=== PATIENT | female | born 1960 | race Caucasian/White ===

== ENCOUNTER → 2019-02-06 15:39 | Outpatient (CLI) | payer OTHER, SELFPAY ==
--- NOTE | 2019-02-06 15:44 | BI_ITS ---
MAMMOGRAPHY - BILATERAL SCREENING REASON FOR EXAM: Female, 58 years old. Routine annual screening examination. PERTINENT HISTORY: Non-contributory. TECHNIQUE: Digital bilateral breast shahnaz (3D mammographic acquisition) in the CC and MLO projections. 2-D mediolateral oblique (MLO) and craniocaudad (CC) views of both breasts were obtained. CAD: Full Field Digital Mammography with Computer Added Detection was performed. COMPARISON: Comparison is made with prior examination dated April 21, 2015 and February 25, 2014. FINDINGS: Breast Composition: There are scattered areas of fibroglandular density. There are no dominant masses or suspicious calcifications. Stable small benign-appearing bilateral axillary lymph nodes. No other significant abnormalities are identified. There has been no significant change since the prior study. BI/SCREEN MAMM (CAD) W/SHAHNAZ BILAT IMPRESSION: Stable bilateral screening mammogram. Yearly follow-up mammogram recommended. (A) ASSESSMENT CATEGORY: BIRADS Category 2: Benign. A letter regarding these results will be sent to the patient by the facility within 30 days. Approximately 10% of breast cancers are not detected by mammography. A normal mammogram should not delay biopsy of a clinically suspicious abnormality. [id number] Electronically Signed: Danie Gomez, at 9:00 EDT , Service support ,
== END ==
PROVIDERS: Family Provider Family Medicine; PCP Family Medicine; Referring Provider Family Medicine; Visit Provider Family Medicine
DX: Z12.31 Encounter for screening mammogram for malignant neoplasm of breast (principal)
CPT/HCPCS: 77063; 77067

== ENCOUNTER 2019-11-13 23:58 | Emergency (ER) | payer OTHER, SELFPAY ==
[2019-11-13 23:59] VITALS: BP 165/89; PULSE 85; RESP 18; TEMP 36.7; O2SAT 96; BMI 32.9
--- NOTE | 2019-11-14 00:12 | ED.DCSUM_ITS ---
- ER Visit Summary Date of Service: 11/14/19 Chief Complaint: Possible allergic reaction History of Present Illness: The patient is a 59 F who was concerned about a possible allergic reaction. She is on day 2 of a Medrol Dosepak for right knee pain. She was placed on this by her PCP yesterday. She states that last night when she took it her face was red. Tonight when she took it she started feeling like her throat was closing. She had some tongue and lip tingling. She denies any new foods or ingestions today. She took Benadryl about 45 minutes ago and it helped mildly. She denies any shortness of breath. No cough. She has no history of COPD or asthma. Denies fevers. Physical Examination: Vital signs reviewed. HEENT exam unremarkable. There is no tongue or lip swelling. There is no stridor. Her uvula is midline without swelling. Heart is regular rate and rhythm without murmurs. Lungs are clear to auscultation. Abdomen is soft and nontender. Extremities reveal no edema. Skin exam normal. Neurologic exam normal. Test Results: None performed Emergency Department Course and Treatment: Patient was given Benadryl and Pepcid IV. After period of observation she is feeling much better. It is possible that she is having a reaction to the Medrol. I informed her that she should stop taking it. She will continue Benadryl at home and will call her doctor in the morning Treatment Plan: [] Disposition: Discharge Impression: Allergic reaction medication This note was generated with [employer] dictation software. It may contain incorrect words, spelling, and punctuation that were not noted in review of the chart prior to signing ED Disposition - Plan for ED Patient: Disposition: Home or Assisted Living Instructions: ED ADVERSE DRUG REACTION Allergic Referrals: Omi Marie DO [Primary Care Provider] -
[2019-11-14] MEDS: DiphenhydrAMINE 50 MG/ML Syringe 25 MG IV (00:26)
[2019-11-14] MEDS: Famotidine 200 MG/20 ML MDV 20 MG in 0.9% Normal Saline (Pres. free 8 ML 300 MG IV (00:28)
[2019-11-14 01:12] VITALS: BP 156/89; PULSE 82; RESP 18; O2SAT 96
== END 2019-11-14 01:13 | disposition home or self-care (01) ==
PROVIDERS: Emergency Provider Emergency Medicine; PCP Family Medicine
DX: R20.2 Paresthesia of skin (principal); T38.0X5A Adverse effect of glucocorticoids and synthetic analogues, initial encounter; M25.561 Pain in right knee; G47.33 Obstructive sleep apnea (adult) (pediatric); F41.9 Anxiety disorder, unspecified; Z79.899 Other long term (current) drug therapy
CPT/HCPCS: 99284; A4216; J3490

== ENCOUNTER → 2020-10-16 14:47 | Outpatient (CLI) | payer OTHER, SELFPAY ==
--- NOTE | 2020-10-16 14:48 | BI_ITS ---
MAMMOGRAPHY - BILATERAL SCREENING REASON FOR EXAM: Female, 60 years old. Routine annual screening examination. PERTINENT HISTORY: Non-contributory. TECHNIQUE: Digital bilateral breast shahnaz (3D mammographic acquisition) in the CC and MLO projections. 2-D mediolateral oblique (MLO) and craniocaudad (CC) views of both breasts were obtained. CAD: Full Field Digital Mammography with Computer Added Detection was performed. COMPARISON: Comparison is made with prior study 02/06/2019 and 04/21/2015. FINDINGS: Breast Composition: There are scattered areas of fibroglandular density. There are no dominant masses or suspicious calcifications. Stable benign-appearing bilateral axillary lymph nodes. No other significant abnormalities are identified. There has been no significant change since the prior study. BI/SCRN MAMM (CAD)W/SHAHNAZ BILAT IMPRESSION: Stable bilateral screening mammogram. Yearly follow-up mammogram recommended. (A) ASSESSMENT CATEGORY: BIRADS Category 2: Benign. A letter regarding these results will be sent to the patient by the facility within 30 days. Approximately 10% of breast cancers are not detected by mammography. A normal mammogram should not delay biopsy of a clinically suspicious abnormality. [id number] Electronically Signed: Danie Gomez MD at 9:18 EDT , Service support ,
== END ==
PROVIDERS: PCP Family Medicine; Referring Provider Family Medicine; Visit Provider Family Medicine
DX: Z12.31 Encounter for screening mammogram for malignant neoplasm of breast (principal)
CPT/HCPCS: 77063; 77067

== ENCOUNTER 2021-01-04 14:44 | Emergency (ER) | payer OTHER, SELFPAY ==
[2021-01-04 14:45] VITALS: BP 160/114; PULSE 94; RESP 20; TEMP 35.6; O2SAT 97; BMI 50.6
--- NOTE | 2021-01-04 15:23 | EKG12_ITS ---
Test Reason : PALPS Blood Pressure : / mmHG Vent. Rate : 101 BPM Atrial Rate : 101 BPM P-R Int : 188 ms QRS Dur : 086 ms QT Int : 372 ms P-R-T Axes : 058 -29 065 degrees QTc Int : 482 ms Sinus tachycardia Poor R wave progression Confirmed by SAMUEL WHIPPLE, MARGRET ([id number]), aerodynamics teacher CINDA HURTADO ([id number]) on 01/06/2021 10:22:32 AM Referred By: DAVE/BIA Confirmed By:MARGRET BAKER MD
--- NOTE | 2021-01-04 15:42 | RAD_ITS ---
STUDY: X-RAY CHEST REASON FOR EXAM: Female, 60 years old. Increasing shortness of breath and palpitations. TECHNIQUE: PA and lateral views of the chest. COMPARISON: None. FINDINGS: The lungs are clear and expanded. There is no demonstrated pleural abnormality. There is borderline cardiomegaly. Normal mediastinum and kristin. Normal visualized pulmonary arteries. Normal visualized aortic arch and descending thoracic aorta. There are diffuse degenerative changes of the visualized thoracic spine. Normal visualized ribs, clavicles, and shoulders. There is no demonstrated abnormality of the visualized soft tissue structures of the upper abdomen. RAD/Chest PA and Lateral IMPRESSION: Borderline cardiomegaly. Electronically Signed: Danie Gomez MD at 15:54 EDT , Service support ,
[2021-01-04 17:29] VITALS: BP 144/85; PULSE 87; RESP 24; O2SAT 96
--- NOTE | 2021-01-04 17:44 | EDS_ITS ---
HPI History of Present Illness Chief Complaint: Shortness of Breath Informant: patient and spouse/S.O. Onset/Context/Timing Onset: Days (3) Context: gradual Timing: Waxes and wanes Quality: Positive for Dyspnea on exertion Current Severity: Gone (while resting) Maximum Severity: Moderate Worsened by: Exertion and Lying flat Relieved by: Rest Associated Symptoms Negative for cough Chest Pain: Positive for - (substernal heaviness off and on, presently there for about 20 -30 min) Narrative Narrative: Patient having malaise and weakness for the last 3 days along with some palpitations that were more prominent and intermittent today, and dyspnea with exertion. She complains of chest heaviness as an after thought, nonpleur itic. No leg pain or swelling or history of DVT or PE. She states 2 weeks ago, she had a chest x-ray that showed fluid in her lungs and she was sent to [facility], she had some testing and was put on 3 days of Lasix, that seemed to help, she has had a palpitation since before that intermittently, not very frequently according to her. She had an outpatient echocardiogram, saw her doctor in follow-up and was referred to cardiology after being told only that the left atrium had something wrong with it. She has that appointment with cardiology later this week, it is with someone with summa that she has never seen. She states strong family history of heart disease. She was vaccinated against Covid. She has come in the contact with no one that she knows of with Covid recently. She denies fevers or cough or loss of taste or smell or sinus congestion. She cannot tell if she has myalgias or not because she has arthritis and it always bothers her. [facility] Medical History (Updated 01/04/21 @ 21:[address] Santiago Hearn MD) Arthritis Home Medications Albuterol Sulfate HFA 1 puff IH PRN PRN 11/14/19 [History Last Taken Unknown] celecoxib 200 mg PO BID 11/14/19 [History Last Taken Unknown] gabapentin 300 mg PO QHS 11/14/19 [History Last Taken Unknown] venlafaxine 150 mg PO DAILY 11/14/19 [History Last Taken Unknown] furosemide [Lasix] 20 mg PO DAILY #14 tab 01/04/21 [Rx Last Taken Unknown] Allergy/AdvReac Type Severity Reaction Status Date / Time naproxen [From Aleve] Allergy Swelling Verified 01/04/21 14:50 other (Primary relatives with coronary artery disease) Social History Smoking Status: Never smoker ROS ROS ED Constitutional Constitutional ED: Reports fatigue, malaise and weakness; Denies chills or fever(s) Eyes Eyes: Denies change in vision or diplopia ENT ENT ED: Denies rhinorrhea or sore throat Cardiovascular Cardiovascular: Reports as per HPI, chest pain, dyspnea on exertion, orthopnea and palpitations; Denies pedal edema Respiratory/Chest Respiratory/Chest: Reports as per HPI, dyspnea and orthopnea; Denies cough Gastrointestinal Gastrointestinal: Reports diarrhea; Denies abdominal pain, nausea or vomiting Genitourinary Genitourinary ED: Denies dysuria or hematuria Musculoskeletal Musculoskeletal: Reports joint pain; Denies back pain, extremity pain or neck pain Integumentary Denies abscess or rash Neurologic Neurologic: Denies headache(s), paresthesias or weakness Psychiatric Psychiatric: Denies anxiety or suicidal thoughts EXAM Physical Exam Const Vital Signs: 01/04/21 14:45 01/04/21 17:29 01/04/21 17:31 Temperature 96.0 F L Temperature Source Temporal Pulse Rate 94 87 Respiratory Rate 20 H 24 H Respiratory Effort Normal Non-Labored Blood Pressure 160/114 H 144/85 H Blood Pressure Mean 129 104 Pulse Ox 97 96 Oxygen Delivery Method Room Air Room Air 01/04/21 19:06 Temperature Temperature Source Pulse Rate 87 Respiratory Rate 19 H Respiratory Effort Blood Pressure 145/92 H Blood Pressure Mean 109 Pulse Ox 92 Oxygen Delivery Method Positive well nourished and well developed General Appearance ED: well developed and NAD HEENT Reports moist mucous membranes normocephalic and atraumatic Eyes PERRL and EOMs intact bilaterally Neck full ROM and supple Resp normal respiratory effort and clear to auscultation bilaterally Cardio regular rate, regular rhythm and no murmurs GI non-tender and non-distended Auscultation: normoactive bowel sounds Palpation: soft Back/Spine no CVA tenderness General Back: other FROM Extremity normal to inspection General Extremety ED: Negative for edema, pulses abnormal or tenderness General Extremity: Negative for edema or pulses abnormal Neuro oriented x3, CN's II-XII intact bilaterally and no sensory deficits noted Sensorium / Orientation: awake and alert Motor Exam: strength 5/5 throughout Skin no rashes or lesions noted and no wounds MDM MDM MDM Narrative Medical decision making narrative: Work-up as below noted. After discussing with her further she has had the chest pressure/heaviness off and on for 2 weeks. Her EKG and troponin are essentially normal, I do not think she needs another troponin. Her BNP is elevated but not very high, 245, and although her D-dimer is elevated, when corrected for age it is within normal limits for her, thus ruling out acute pulmonary embolus or need for CT angiography. Chest x-ray indicates cardiomegaly but no pulmonary edema or effusions or signs of failure on the x-ray although her symptoms suggest that is in the differential. She would rather follow-up with her floriculture teacher. I tried to discuss with them, however I was not able to get a hold of anyone today. I also try to get her echocardiogram results from [facility]. They told us we would not be able to get them until tomorrow, and I even called the [facility] emergency department and discussed with staff, they state they are not even able to access that information in their own EMR which is [employer]. Unfortunately therefore I have limited data. Since the patient is not having any life-threatening symptoms or issues right now, we mutually agreed to discharge her home with close outpatient follow-up and try her on a diuretic. I gave her a dose of Lasix 20 mg IV here, and will discharge her on 20 mg once daily until she follows up and she is comfortable with that plan we discussed reasons to return. Of note we did a Covid test that was negative. Lab Data Attestation: I reviewed the patient's lab results. Labs: Laboratory Results - last 24 hr 01/04/21 01/04/21 01/04/21 17:25 17:25 17:25 WBC 9.3 RBC 4.81 Hgb 14.1 Hct 44.5 MCV 92.5 MCH 29.3 MCHC 31.7 L RDW Std Deviation 43.9 RDW Coeff of Davion 13.0 Plt Count 325 MPV 10.1 Immature Gran % (Auto) 0.200 Neut % (Auto) 61.1 Lymph % (Auto) 28.2 [place] % (Auto) 8.0 Eos % (Auto) 2.0 Baso % (Auto) 0.5 Absolute Neuts (auto) 5.7 Absolute Lymphs (auto) 2.61 Nucleated RBC % 0 D-Dimer Quant (PE/DVT) Sodium 139 Potassium 3.8 Chloride 103 Carbon Dioxide 28.0 Anion Gap 8 BUN 24 H Creatinine 0.69 Estim Creat Clear Calc 70.29 Est GFR (MDRD) Af Amer 112 Est GFR (MDRD) Non-Af 92 BUN/Creatinine Ratio 34.6 H Glucose 100 Calcium 9.2 Troponin I High Sens 14 B-Natriuretic Peptide 245.2 H 01/04/21 17:55 WBC RBC Hgb Hct MCV MCH MCHC RDW Std Deviation RDW Coeff of Davion Plt Count MPV Immature Gran % (Auto) Neut % (Auto) Lymph % (Auto) [place] % (Auto) Eos % (Auto) Baso % (Auto) Absolute Neuts (auto) Absolute Lymphs (auto) Nucleated RBC % D-Dimer Quant (PE/DVT) 0.52 H* Sodium Potassium Chloride Carbon Dioxide Anion Gap BUN Creatinine Estim Creat Clear Calc Est GFR (MDRD) Af Amer Est GFR (MDRD) Non-Af BUN/Creatinine Ratio Glucose Calcium Troponin I High Sens B-Natriuretic Peptide Radiography Diagnostic Testing: Radiology Impression Chest X-Ray 01/04/21 15:42 IMPRESSION: Borderline cardiomegaly. Electronically Signed: Danie Gomez MD at 15:54 EDT , Service support , EKG Initial EKG: Attestation: I personally reviewed and interpreted this EKG as follows: Interpretation: No Acute Injury Pattern and Sinus Tachycardia (At 101, leftward axis otherwise normal EKG) Prior EKG tracings: not available for review Discharge Plan Triage Chief Complaint: Shortness of Breath ED Provider: Santiago Hearn Dx/Rx/DC Orders Clinical Impression: Chest pain, unspecified, HENDRICKS (dyspnea on exertion) Instructions: ED Chest Pain, Uncertain Cause Prescriptions: New furosemide [Lasix] 20 mg tablet 20 mg PO DAILY Qty: 14 RF: 0 No Action Albuterol Sulfate HFA 1 puff IH PRN PRN (Reason: Shortness Of Breath) RF: 0 celecoxib 200 MG capsule 200 mg PO BID RF: 0 venlafaxine 150 MG capsule,extended release 24hr 150 mg PO DAILY RF: 0 gabapentin 300 MG capsule 300 mg PO QHS RF: 0 Primary Care Provider: Omi Marie Referrals: Kedar Calvert MD [STAFF PHYSICIAN] - (call for appt with any [place] floriculture teacher) Omi Marie, [Primary Care Provider] - Disposition Disposition: Home, Self Care
[2021-01-04] MEDS: Aspirin 81 MG TAB.CHEW 324 MG PO (17:54)
--- NOTE | 2021-01-04 18:00 | ED.RN ---
pt refused nitro sl. states discomfort is mild at a 3 and doesn't want the medication.
[2021-01-04 18:17] LABS: Absolute Lymphocyte Count 2.61 X10^3/uL (0.83-4.51); Absolute Neutrophil Count 5.7 X10^3/uL (2.0-7.7); Basophil# 0.05 X10^3/uL; Basophil% 0.5 % (0-1); Eosinophil# 0.19 X10^3/uL; Hematocrit 44.5 % (37-47); Hemoglobin 14.1 g/dL (12.0-15.0); Lymphocyte # 2.61 X10^3/ul (0.83-4.51); Lymphocyte % 28.2 % (19-41); Mean Corp Hgb Conc 31.7 g/dL (32-36); Mean Corpuscular Hgb 29.3 pg (27.0-32.0); Mean Corpuscular Volume 92.5 fL (81-99); Mean Platelet Vol. 10.1 fl (6.2-12.0); Monocyte# 0.74 X10^3/uL; NRBC Flagged by Analyzer 0 % (0-5); Neutrophil # 5.66 X10^3/uL (2.7-7.7); Neutrophil % 61.1 % (47-70); Platelet Count 325 K/mm3 (150-450); RBC Distribution Width SD 43.9 fl (35.1-43.9); Red Blood Count 4.81 M/mm3 (4.2-5.4); White Blood Count 9.3 K/mm3 (4.4-11.0)
[2021-01-04 18:33] LABS: Anion Gap 8 (5-15); BUN 24 mg/dL (7-18); BUN/Creat Ratio 34.6 RATIO (10-20); Calcium,Total 9.2 mg/dL (8.5-10.1); Chloride 103 mmol/L (98-107); Creatinine, Serum 0.69 mg/dL (0.55-1.02); EST Glomerular Filtration Rate 92 mL/min (>60); Est Glom Filt Rate - Afr Amer 112 mL/min (>60); Estimated Creatinine Clearance 70.29 ml/min; Glucose 100 mg/dL (74-106); Potassium 3.8 mmol/L (3.5-5.1); Sodium Level 139 mmol/L (136-145); Troponin-I HS 14 pg/mL (3.0-54.0)
[2021-01-04 18:38] LABS: BNP,B-Type NATRIURETIC PEPTIDE 245.2 pg/mL (0-100)
[2021-01-04] MEDS: 0.9% Normal Saline 1,000 ML 150 ML IV (18:48)
[2021-01-04 18:54] LABS: D-Dimer Quantitative (DVT/PE) 0.52 FEU/ug/m (0.27-0.49)
[2021-01-04 19:06] VITALS: BP 145/92; PULSE 87; RESP 19; O2SAT 92
[2021-01-04] MEDS: Furosemide 20 MG/2 ML VIAL IV (21:07)
[2021-01-04 21:11] VITALS: BP 145/100; PULSE 79; RESP 16; O2SAT 96
== END 2021-01-04 21:11 | disposition home or self-care (01) ==
PROVIDERS: Emergency Provider Emergency Medicine; PCP Family Medicine
DX: R06.02 Shortness of breath (principal); R06.09 Other forms of dyspnea; R00.2 Palpitations; R53.1 Weakness; R53.81 Other malaise; R07.89 Other chest pain; M19.90 Unspecified osteoarthritis, unspecified site; Z79.899 Other long term (current) drug therapy
CPT/HCPCS: 71046; 80048; 83880; 84484; 85025; 85379; 87426; 93005; 99284; J7030; J1940

== ENCOUNTER → 2021-02-19 11:48 | Outpatient (CLI) | payer OTHER, SELFPAY ==
[2021-02-24 13:26] LABS: HPV APTIMA, High Risk Negative (Negative)
== END ==
PROVIDERS: PCP Family Medicine; Visit Provider Student in an Organized Health Care Education/Training Program
DX: Z12.4 Encounter for screening for malignant neoplasm of cervix (principal)
CPT/HCPCS: 87624; 88175; G0145

== ENCOUNTER 2021-11-09 07:48 | Outpatient (RCR) | payer OTHER, SELFPAY | END 2021-11-21 23:59 | LOC: NS 07:48 | PROVIDERS: PCP Family Medicine; Referring Provider Specialist; Visit Provider Specialist | DX: Z71.3 Dietary counseling and surveillance (principal); E66.01 Morbid (severe) obesity due to excess calories; Z68.43 Body mass index [BMI] 50.0-59.9, adult; M17.11 Unilateral primary osteoarthritis, right knee | CPT/HCPCS: 97802 ==

== ENCOUNTER 2021-12-13 09:00 | Outpatient (RCR) | payer OTHER, SELFPAY | END 2021-12-22 23:59 | LOC: NS 09:00 | PROVIDERS: PCP Family Medicine; Referring Provider Specialist; Visit Provider Specialist | DX: Z71.3 Dietary counseling and surveillance (principal); E66.01 Morbid (severe) obesity due to excess calories; Z68.43 Body mass index [BMI] 50.0-59.9, adult; M17.11 Unilateral primary osteoarthritis, right knee | CPT/HCPCS: 97803 ==

== ENCOUNTER 2022-01-07 09:30 | Outpatient (RCR) | payer OTHER, SELFPAY ==
--- NOTE | 2021-10-21 17:21 | HP.PTDCS(3) ---
It has been my pleasure to treat RUBENS TIRADO referred by Dr. Jose Nagel MD, with the diagnosis of for a total of visit(s). Discharge Date: Please see the following information for a summary of their discharge status. If there are questions or concerns regarding this patient's physical therapy, please feel free to call me at [phone]. Thank you for the referral of this patient. Sincerely, Jefry Springer PT, Cert MDT, OCS
--- NOTE | 2021-10-21 17:24 | HP.PTEVAL ---
Patient's Visit Information RUBENS TIRADO is a 61 year old F referred to Physical Therapy by Dr. Jose Nagel MD with a diagnosis of UNILTAERAL PRIMARY OSTEOARHRITIS ,RIGHT KNEE. Date of Evaluation: 10/21/21 Physical Therapist: Jefry Springer, PT, Cert MDT, OCS - Visit Plan Frequency: 2x /Week Duration: 4 Weeks Plan: PT INTERVETIONS AROM KNEE ,FLEXABILITY ,STRENGTHENING QUADS/HAMS/HIP,ENDURANCE AND FUNCTIONAL STRENGTHNEING - Subjective This 61 y/o female presents to physical therapy with right knee pain. Patient has had knee pain ~ 3 years ago which progressively worse with pain and knee locks up. Seen DR gerry chiropractor did x-rays showed DJD tried and tried synvic gel injections which helped short period time. Patient seen orthopedic DR Ryan. 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 Patient has been diagnosed with CHF . Patient pain located medial knee joint. Described as sharp pain with walking and ache . Patient does use cane with gait . Aggravating factors walking immediately ,standing ,stairs. Unable to squat /kneeling. 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 Patient C/O legs paranesthesia/tingling . Patient pain affects sleeping. SOCAIL: . VOCATION: [employer] - Pain Right Knee Pain Intensity (Out of 10): 4 Pain Intensity Range: 10 - Objective POSTURE: mild forward posture ,right knee flexed. NEURO: c/o paresthesia/tingling feet/legs ,reflexes L3-4,L4-5,L5-S1 2/3. PALPATION: medial joint line. GAIT: reciprocal pattern with antalgic gait with decrease stance time RLE. AROM: R -20 -102 degrees supine flexion ,L -10 135 degrees. MMT ( [employer]) : quads 24.7 ,hamstrings 23 .9,hipm 4-/5. STAIRS: one step time - Balance/Special Test Scores Lower Extremity Functional Score: 30 - Goals Goal 1:: Patient to be I with Aquatics for knee Goal Time Frame: 4-6 Weeks Goal 2:: Patient to demonstrate 40% improved with function and decrease knee pain Goal Time Frame: 4-6 Weeks Goal 3:: Patient to improve AROM knee flexion/extension by 5 -10 degrees or > to improve stairs Goal Time Frame: 4-6 Weeks Goal 4:: Patient to improve peak force quads/hams by 5-10 to improve function with gait Goal Time Frame: 4-6 Weeks Goal 5:: Patient to improve LFES score by 5 -10 points to improve gait and function Goal Time Frame: 4-6 Weeks - Rehabilitation Potential Physical Therapy Diagnosis: Patient has right knee pain due to progressive DJD needs high BMI per MD thus will need to decrease and long with PT will do why weight program per MD . Patient has current impairments with increase pain ,decrease ROM ,strength impairs walking, standing and job demands. thus will need skilled PT . Rehabilitation Potential: Good - Anticipated Interventions Patient/Client Instruction: Educate patient on: Condition, Plan of Care For the Purpose of:: To decrease pain, To increase ROM, To improve muscle performance and motor function, To improve ability to perform ADL's, To increase tolerance to activity/condition/position, To improve performance and independence with ADL's, To improve ability of physical actions for home/community/work/leisure, To improve health of tissue, To decrease soft tissue restriction, To increase flexibility/ROM, To prevent re-injury Therapeutic Exercise to Include: Strength training, Postural training, Flexibilty training, In an aquatic setting, Passive ROM, Active ROM For the Purpose of:: To decrease pain, To increase ROM, To improve muscle performance and motor function, To improve ability to perform ADL's, To increase tolerance to activity/condition/position, To improve ability of physical actions for home/community/work/leisure, To improve gait and locomotor functions, To improve health of tissue, To decrease soft tissue restriction, To increase flexibility/ROM, To improve endurance, To prevent re-injury Thank you for the opportunity to evaluate your patient. For Medicare and Medicare HMO plans, please review the plan of care and approve it. It will need to be FAXED BACK to us at [phone] for Medicare purposes. For Medicare only, by signing this I certify the plan of care. Please let me know if there are questions or concerns regarding this plan of care. Physician Signature: Date:
--- NOTE | 2022-01-10 10:27 | HP.OTEVAL_ITS ---
Patient's Visit Information RUBENS TIRADO is a 61 year old F, referred to Occupational Therapy by Dr. Jose Nagel MD, with a diagnosis of Trigger finger/ contracture of right MF PIP joint. Date of Evaluation: 01/07/22 Occupational Therapist: Molly Henderson, OTR/Nancy, CHT - Subjective This 61 year old female was seen for OT eval with dx of right trigger finger and s/p right MF trigger finger release- sx date 12/17/21. pt states she was told during her procedure the did manipulate her finger to gain more PIP ROM as she had issues for years. 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 - Pain right MF 2 Pain Intensity Range: 3 - ROM MP: right MF 0/50 PIP: right -30/110 ROM Comments: pt demo with limited ability to fully extend PIP - Strength Simulation Technician: right 15# left 40# Strength Comments: pt demo with multiple OA deformities of bilateral hands - Edema PIP: right MF7.0 left 6.5 - Sensation Sensation Comments: denies - Quick DASH-Disab of Arm,Shoulder& Hand Quick DASH Score: 23.3325 - Goals Goal:100% adherence to protocol: Yes Comment: trigger finger release Goal:Daily scar massage when approriate: Yes Goal:ROM equal to unaffected hand: Yes Goal:Simulation Technician/Pinch strength at least 75% of unaffected hand: Yes Goal:No pain with affected hand use: Yes Goal:PIP Circumferences equal to unaffected hand: Yes Goal:Full use of affected hand in daily activities including: Yes Goal:Decrease scar hypersensitivity: Yes Other Goal: WBAT & strengthening as pain allows. use of LMB for right MF PIP flexion contracture. dynamic splinting as needed. edema control. scar mtg. - Rehabilitation General Assessment: pt arrives to OT session 3 weeks s/p from trigger finger release and demo with limited ability to extend MF PIP to fully straighten her hand- pt demo with scar hyper sensitivity as well as weakness. Pt would benefit from skilled OT services 1-2x week for next 4 weeks to increase strength- ed. on dx, ed. pt on adaptive eq. for OA deformities as well as use of LMB to increase PIP ex. pt demo understanding and agrees to POC. Rehabilitation Potential: Good - Anticipated Interventions A/AAROM/PROM, Strengthening, Scar Care, Triggerpoint Release, Desensitization, Modalities, Orthoses, Joint Protection/Energy Conservation, Ergonomic Education, Fine Motor Coord/Magnus, Education re assistive Equipment, Education re Diagnosis - Visit Plan Frequency: 1-2x /Week Duration: 6 Weeks TEXT: Thank you for the opportunity to evaluate your patient. For Medicare and Medicare HMO plans, please review the plan of care and approve it. It will need to be FAXED BACK to us at [phone] for Medicare purposes. Please let me know if there are questions or concerns regarding this plan of care. Physician Signature: Date:_
--- NOTE | 2022-03-30 11:38 | HP.OT.NRP ---
RUBENS TIRADO was seen in my office for initial evaluation on 01/07/22. The following Plan of Care was established for this patient: Initial Frequency: 1-2x /Week Initial Duration: 6 Weeks Anticipated Interventions: A/AAROM/PROM, Strengthening, Scar Care, Triggerpoint Release, Desensitization, Modalities, Orthoses, Joint Protection/Energy Conservation, Ergonomic Education, Fine Motor Coord/Magnus, Education re assistive Equipment, Education re Diagnosis This patient was last seen in our office 01/07/22. Pertinent comments regarding their Occupational therapy will appear below: Pt was seen for OT eval only. No further apts scheduled and due to time lapse in services pt d.c at this time. At this point I will be discontinuing this patient from occupational therapy. I would be happy to see this patient again in the future if found appropriate by the physician. Thank you! Molly Henderson, OTR/L, CHT
== END 2022-01-07 19:00 | disposition home or self-care (01) ==
LOC: OT 09:30
PROVIDERS: PCP Family Medicine; Referring Provider Specialist; Visit Provider Specialist
DX: M17.11 Unilateral primary osteoarthritis, right knee (principal); E66.01 Morbid (severe) obesity due to excess calories; Z68.43 Body mass index [BMI] 50.0-59.9, adult
CPT/HCPCS: 97035; 97113; 97162; 97166; 97530

== ENCOUNTER 2022-01-11 09:01 | Outpatient (RCR) | payer OTHER, SELFPAY | END 2022-01-21 23:59 | LOC: NS 09:01 | PROVIDERS: PCP Family Medicine; Referring Provider Specialist; Visit Provider Specialist | DX: Z71.3 Dietary counseling and surveillance (principal); E66.01 Morbid (severe) obesity due to excess calories; Z68.43 Body mass index [BMI] 50.0-59.9, adult; M17.11 Unilateral primary osteoarthritis, right knee | CPT/HCPCS: 97803 ==

== ENCOUNTER → 2022-02-18 | Outpatient (CLI) | payer OTHER, SELFPAY ==
--- NOTE | 2022-02-18 08:13 | BI_ITS ---
MAMMOGRAPHY - BILATERAL SCREENING REASON FOR EXAM: Female, 61 years old. Routine annual screening examination. PERTINENT HISTORY: Non-contributory. TECHNIQUE: Digital bilateral breast shahnaz (3D mammographic acquisition) in the CC and MLO projections. 2-D mediolateral oblique (MLO) and craniocaudad (CC) views of both breasts were obtained. CAD: Full Field Digital Mammography with Computer Added Detection was performed. COMPARISON: Comparison is made with prior study in 2020 and 02/06/2019. FINDINGS: Breast Composition: There are scattered areas of fibroglandular density. There are no dominant masses or suspicious calcifications. Stable small benign-appearing bilateral axillary lymph nodes. No other significant abnormalities are identified. There has been no significant change since the prior study. BI/SCRN MAMM (CAD)W/SHAHNAZ BILAT IMPRESSION: Stable bilateral screening mammogram. Yearly follow-up mammogram recommended. (A) ASSESSMENT CATEGORY: BIRADS Category 2: Benign. A letter regarding these results will be sent to the patient by the facility within 30 days. Approximately 10% of breast cancers are not detected by mammography. A normal mammogram should not delay biopsy of a clinically suspicious abnormality. [id number] Electronically Signed: Danie Gomez MD at 9:56 EDT ,
== END | disposition home or self-care (01) ==
LOC: OPBI 08:12
PROVIDERS: PCP Family Medicine; Referring Provider Family Medicine; Visit Provider Family Medicine
DX: Z12.31 Encounter for screening mammogram for malignant neoplasm of breast (principal)
CPT/HCPCS: 77063; 77067

== ENCOUNTER 2022-02-21 08:39 | Outpatient (RCR) | payer OTHER, SELFPAY | END 2022-02-21 23:59 | LOC: NS 08:39 | PROVIDERS: PCP Family Medicine; Referring Provider Specialist; Visit Provider Specialist | DX: Z71.3 Dietary counseling and surveillance (principal); E66.01 Morbid (severe) obesity due to excess calories; Z68.43 Body mass index [BMI] 50.0-59.9, adult; M17.11 Unilateral primary osteoarthritis, right knee | CPT/HCPCS: 97803 ==

== ENCOUNTER 2022-03-28 08:51 | Outpatient (RCR) | payer OTHER, SELFPAY | END 2022-04-23 23:59 | LOC: NS 08:51 | PROVIDERS: PCP Family Medicine; Visit Provider Specialist | DX: Z71.3 Dietary counseling and surveillance (principal); E66.01 Morbid (severe) obesity due to excess calories | CPT/HCPCS: 97803 ==

== ENCOUNTER 2022-05-02 08:51 | Outpatient (RCR) | payer OTHER, SELFPAY | END 2022-05-24 23:59 | LOC: NS 08:51 | PROVIDERS: PCP Family Medicine; Visit Provider Specialist | DX: Z71.3 Dietary counseling and surveillance (principal); E66.01 Morbid (severe) obesity due to excess calories; Z68.43 Body mass index [BMI] 50.0-59.9, adult | CPT/HCPCS: 97803 ==

== ENCOUNTER 2023-04-14 17:33 | Emergency (ER) | payer OTHER, SELFPAY ==
[2023-04-14 17:34] VITALS: BP 184/101; PULSE 95; RESP 17; TEMP 36.4; O2SAT 97; BMI 56.1
--- NOTE | 2023-04-14 17:50 | EKG12_ITS ---
Test Reason : CP Blood Pressure : / mmHG Vent. Rate : 077 BPM Atrial Rate : 077 BPM P-R Int : 176 ms QRS Dur : 080 ms QT Int : 394 ms P-R-T Axes : 035 -41 034 degrees QTc Int : 445 ms Normal sinus rhythm Left axis deviation Low voltage QRS Inferior infarct , age undetermined Abnormal ECG Confirmed by NATI WHIPPLE, LATONIA ([id number]), scientific publications editor YARITZA SANCHEZ ([id number]) on 04/25/2023 8:46:48 AM Referred By: GABBIE Confirmed By:LATONIA DAMIAN MD
--- NOTE | 2023-04-14 17:50 | ED.VIS.CHEST ---
HPI History of Present Illness Chief Complaint: Chest Pain Informant: patient Onset/Context/Timing Onset: Yesterday Timing: Waxes and wanes Quality: Positive for Heaviness Narrative Narrative: Patient presents secondary to chest and back pain along with cough and congestion. She states her symptoms started yesterday. She has a heavy sensation across her chest that wraps around to her back near the shoulder blades. She is coughing some and bringing up occasional sputum. No fever noted. She went to urgent care today thinking she may have a sinus infection and given her chest pain was sent to the emergency room. Patient states she does have a history of congestive heart failure and takes furosemide when she remembers to. She does have a family history of heart disease as well. [facility] Medical History Arthritis Fatty liver Heart disease Hyperparathyroidism Hypertension Home Medications Albuterol Sulfate HFA 1 puff IH PRN PRN Shortness Of Breath 11/14/19 [History Last Taken Unknown] celecoxib 200 mg capsule 200 mg PO BID 11/14/19 [History Last Taken Unknown] gabapentin 300 mg capsule 300 mg PO QHS 11/14/19 [History Last Taken Unknown] venlafaxine 150 mg capsule,extended release 24 hr 150 mg PO DAILY 11/14/19 [History Last Taken Unknown] furosemide 20 mg tablet (Lasix) 20 mg PO DAILY #14 tabs 01/04/21 [Rx Last Taken Unknown] nirmatrelvir 300 mg (150 mg x2)-ritonavir 100 mg tablet,dose pack (Paxlovid) See Rx Instructions PO .COMPLEX #30 tabs 10/19/21 [Rx Last Taken Unknown] Allergy/AdvReac Type Severity Reaction Status Date / Time naproxen [From Aleve] Allergy Swelling Verified 10/26/21 12:20 Family History Other Arthritis Diabetes Heart disease Hypertension Surgical History H/O tubal ligation S/P removal of thyroid nodule Social History Smoking Status: Never smoker alcohol intake: never ROS ROS ED Constitutional Constitutional ED: Denies chills or fever(s) Eyes Eyes: Denies change in vision or discharge from eye(s) ENT ENT ED: Denies discharge from eye(s), rhinorrhea or sore throat Cardiovascular Cardiovascular: Reports chest pain; Denies palpitations Respiratory/Chest Respiratory/Chest: Reports cough and dyspnea Gastrointestinal Gastrointestinal: Denies abdominal pain, diarrhea, nausea or vomiting Genitourinary Genitourinary ED: Denies dysuria Musculoskeletal Musculoskeletal: Reports back pain; Denies extremity pain Integumentary Denies Abrasions or rash Neurologic Neurologic: Denies headache(s) or weakness Psychiatric Psychiatric: Denies anxiety or depression Endocrine Endocrinology: Denies polydipsia or polyuria Allergic/Immunologic Allergic/Immunologic ED: Denies lip swelling or urticaria EXAM Physical Exam Const Vital Signs: 04/14/23 17:34 04/14/23 18:05 04/14/23 19:25 Temperature 97.6 F L Temperature Source Temporal Pulse Rate 95 82 Respiratory Rate 17 23 H Blood Pressure 184/101 H 124/65 H Blood Pressure Mean 128 84 Pulse Ox 97 92 93 Oxygen Delivery Method Room Air Room Air Room Air Positive well nourished and well developed General Appearance ED: well developed HEENT Reports moist mucous membranes Eyes EOMs intact bilaterally Chest Wall inspection of chest normal and palpation of chest normal Resp normal respiratory effort and clear to auscultation bilaterally Cardio regular rate and regular rhythm GI soft to palpation Extremity normal to inspection Neuro oriented x3 Sensorium / Orientation: awake and alert Psych mental status grossly normal Skin no rashes or lesions noted Heart Score History: Slightly/Non-Suspicious ECG: Normal Age: >45 - <65 years Risk Factors: 1 or 2 Risk Factors Troponin: </= Normal Limit Score: 2 MDM MDM MDM Narrative Medical decision making narrative: Patient placed on cigarette maker. IV line established. Patient given aspirin. Labwork obtained to evaluate for leukocytosis, anemia, and electrolyte derangement. EKG obtained to evaluate for cardiac arrhythmia/ischemia. Chest x-ray obtained to evaluate for acute lung pathology, cardiac size, or mediastinal abnormality. Swab for COVID and influenza obtained given her cough. History & Record Review Discussion w/independent historian: Patient and Significant other Additional record(s) reviewed:: Prior ED visit and Prior labs Lab Data Attestation: I reviewed the patient's lab results. Labs: Laboratory Results - last 24 hr 04/14/23 17:57 WBC 9.2 RBC 4.81 Hgb 14.5 Hct 45.1 MCV 93.8 MCH 30.1 MCHC 32.2 RDW Std Deviation 44.3 H RDW Coeff of Davoin 12.8 Plt Count 305 MPV 9.4 Immature Gran % (Auto) 0.400 Neut % (Auto) 60.9 Lymph % (Auto) 29.4 [place] % (Auto) 6.8 Eos % (Auto) 1.6 Baso % (Auto) 0.9 Absolute Neuts (auto) 5.6 Absolute Lymphs (auto) 2.71 Nucleated RBC % 0 D-Dimer Quant (PE/DVT) 0.83 H* Sodium 141 Potassium 3.6 Chloride 106 Carbon Dioxide 32.0 Anion Gap 3 L BUN 16 Creatinine 0.84 Estim Creat Clear Calc 56.33 Est GFR (MDRD) Af Amer 88 Est GFR (MDRD) Non-Af 73 BUN/Creatinine Ratio 19.0 Glucose 107 H Calcium 8.9 Troponin I High Sens 7 Radiography Chest X-Ray - ED: 1 View, Read by ED Physician, Chronic Changes and No Infiltrates Diagnostic Testing: Clinical Impression(s) from Imaging Studies Chest X-Ray 04/14/23 18:08 IMPRESSION: No acute findings in the chest. Electronically Signed: Dante Valdes MD at 18:26 EST , Chest CTA 04/14/23 19:33 IMPRESSION: No acute findings in the visualized arteries of the chest. AIDOC program was used to assist in the detection of abnormal findings. Electronically Signed: Dante Valdes MD at 20:51 EST , EKG Initial EKG: Attestation: I personally reviewed and interpreted this EKG as follows: Interpretation: Sinus Rhythm (Sinus at 77 with no acute ischemia.) Treatment and Re-Evaluation :: CBC reveals normal white count at 9.2 with a hemoglobin of 14.5. No left shift noted. Chemistry studies unremarkable. Troponin is normal at 7. D-dimer is elevated at 0.83. Swab for COVID and influenza is negative. Portable chest x-ray per my interpretation reveals no focal infiltrate. Radiology interpretation reviewed and agrees. EKG is sinus rhythm with no evidence of ischemia. Given the patient's elevated D-dimer she was sent for a CTA of the chest. This reveals no evidence of infiltrate, pulmonary embolism, or dissection. Test results discussed with patient and spouse at bedside. She will continue supportive care. I believe she likely has a viral URI. Return instructions given. Discharge Plan Triage Chief Complaint: Chest Pain ED Provider: Laura Rolon Dx/Rx/DC Orders Clinical Impression: Viral URI with cough, Back pain, Chest pain Instructions: ED Chest Pain, Noncardiac, ED Back and Neck Pain, General, ED URI, Viral, No Abx (Adult) Prescriptions: No Action Paxlovid 300 mg (150 mg x 2)-100 mg tablet See Rx Instructions PO .COMPLEX Qty: 30 0RF Rx Instructions: take TWO 150 mg tablets of nirmatrelvir with ONE 100 mg tablet of ritonavir twice daily for 5 days PO Albuterol Sulfate HFA 1 puff IH PRN PRN (Reason: Shortness Of Breath) celecoxib 200 MG capsule 200 mg PO BID venlafaxine 150 MG capsule,extended release 24hr 150 mg PO DAILY gabapentin 300 MG capsule 300 mg PO QHS furosemide [Lasix] 20 mg tablet 20 mg PO DAILY Qty: 14 0RF Primary Care Provider: Omi Marie Referrals: Omi Marie, DO [Primary Care Provider] - 1 Week if not improving Disposition Disposition: Home, Self Care
[2023-04-14 18:05] VITALS: O2SAT 92
[2023-04-14 18:06] LABS: Absolute Lymphocyte Count 2.71 X10^3/uL (0.83-4.51); Absolute Neutrophil Count 5.6 X10^3/uL (2.0-7.7); Basophil# 0.08 X10^3/uL; Basophil% 0.9 % (0-1); Eosinophil# 0.15 X10^3/uL; Eosinophils% 1.6 % (0-5); Hematocrit 45.1 % (37-47); Hemoglobin 14.5 g/dL (12.0-15.0); Lymphocyte # 2.71 X10^3/ul (0.83-4.51); Lymphocyte % 29.4 % (19-41); Mean Corp Hgb Conc 32.2 g/dL (32-36); Mean Corpuscular Hgb 30.1 pg (27.0-32.0); Mean Corpuscular Volume 93.8 fL (81-99); Mean Platelet Vol. 9.4 fl (6.2-12.0); Monocyte# 0.63 X10^3/uL; Monocyte% 6.8 % (0-10); NRBC Flagged by Analyzer 0 % (0-5); Neutrophil # 5.62 X10^3/uL (2.7-7.7); Neutrophil % 60.9 % (47-70); Platelet Count 305 K/mm3 (150-450); RBC Distribution Width CV 12.8 % (11.6-14.6); RBC Distribution Width SD 44.3 fl (35.1-43.9); Red Blood Count 4.81 M/mm3 (4.2-5.4); White Blood Count 9.2 K/mm3 (4.4-11.0)
--- NOTE | 2023-04-14 18:08 | RAD_ITS ---
EXAM: XR CHEST, 1 VIEW CLINICAL INDICATION: chest pain TECHNIQUE: Frontal view of the chest. COMPARISON: January 04, 2021 FINDINGS: LUNGS AND PLEURAL SPACES: Unremarkable. No consolidation or edema. No pneumothorax. No effusion. HEART: Unremarkable. Cardiac silhouette not enlarged. MEDIASTINUM: Central airways and mediastinal contour are unremarkable. BONES/JOINTS: Degenerative changes of the acromioclavicular joints and spine. No acute fracture. SOFT TISSUES: Unremarkable. RAD/Chest 1 View (Portable) IMPRESSION: No acute findings in the chest. Electronically Signed: Dante Valdes MD at 18:26 EST ,
[2023-04-14] MEDS: Aspirin 81 MG TAB.CHEW 324 MG PO (18:09)
[2023-04-14 18:30] LABS: D-Dimer Quantitative (DVT/PE) 0.83 FEU/ug/m (0.27-0.49)
--- NOTE | 2023-04-14 18:32 | ED.RN ---
dr. stacy notified of d-dimer0.83
[2023-04-14 18:36] LABS: Anion Gap 3 (5-15); BUN 16 mg/dL (7-18); Calcium,Total 8.9 mg/dL (8.5-10.1); Chloride 106 mmol/L (98-107); Creatinine, Serum 0.84 mg/dL (0.55-1.02); EST Glomerular Filtration Rate 73 mL/min (>60); Est Glom Filt Rate - Afr Amer 88 mL/min (>60); Estimated Creatinine Clearance 56.33 ml/min; Glucose 107 mg/dL (74-106); Potassium 3.6 mmol/L (3.5-5.1); Sodium Level 141 mmol/L (136-145); Troponin-I HS 7 pg/mL (3.0-54.0)
[2023-04-14 19:25] VITALS: BP 124/65; PULSE 82; RESP 23; O2SAT 93
--- NOTE | 2023-04-14 19:33 | CT_ITS ---
EXAM: CT ANGIOGRAPHY CHEST WITHOUT AND WITH INTRAVENOUS CONTRAST CLINICAL INDICATION: cp, sob, elevated d-dimer TECHNIQUE: Helically acquired angiography images were obtained of the chest without and with intravenous contrast. CTDIvol = ( 21.43 ) mGy, DLP = ( 698.00 ) mGycm This CT exam was performed using one or more of the following dose reduction techniques: automated exposure control, adjustment of the mA and/or kV according to patient size, and/or use of iterative reconstruction technique. MIP reconstructed images were created and reviewed. CONTRAST: IV 100mL Isovue-370 COMPARISON: No relevant prior studies available. FINDINGS: PULMONARY ARTERIES: Unremarkable. Normal in caliber. No evidence of pulmonary embolism. AORTA: Unremarkable. Normal in caliber. No evidence of dissection. GREAT VESSELS OF AORTIC ARCH: Unremarkable. Normal in caliber. No evidence of dissection. LUNGS AND PLEURAL SPACES: Mild subsegmental atelectasis at the posterior aspect of left lower lobe. No mass. No consolidation or edema. No pleural effusion or thickening. No pneumothorax. HEART: Unremarkable. Heart size is normal. No pericardial effusion. No significant coronary artery calcifications. MEDIASTINUM: Unremarkable. No mediastinal or hilar adenopathy. Esophagus is unremarkable. No hiatal hernia. THYROID: Unremarkable. No thyroid lesions. BONES/JOINTS: Degenerative changes of the spine. No suspicious lytic or blastic abnormality. CT/CTA Chest W/WO Contrast IMPRESSION: No acute findings in the visualized arteries of the chest. AIDOC program was used to assist in the detection of abnormal findings. Electronically Signed: Dante Valdes MD at 20:51 EST ,
[2023-04-14 21:14] VITALS: BP 130/82; PULSE 79; RESP 20; O2SAT 99
== END 2023-04-14 21:18 | disposition home or self-care (01) ==
PROVIDERS: Emergency Provider Emergency Medicine; PCP Family Medicine; Visit Provider Emergency Medicine
DX: J06.9 Acute upper respiratory infection, unspecified (principal); R05.9 Cough, unspecified; M54.9 Dorsalgia, unspecified; R07.9 Chest pain, unspecified; K76.0 Fatty (change of) liver, not elsewhere classified
CPT/HCPCS: 71045; 71275; 80048; 84484; 85025; 85379; 87428; 93005; 99284; Q9967; A4216

== ENCOUNTER 2023-07-17 18:45 | Emergency (ER) | payer OTHER, SELFPAY ==
[2023-07-17 18:46] VITALS: BP 214/130; PULSE 76; RESP 18; TEMP 36.2; O2SAT 97; BMI 55.7
--- NOTE | 2023-07-17 19:03 | EDS_ITS ---
HPI History of Present Illness Chief Complaint: Cellulitis Informant: patient Onset/Context/Timing Onset: Days Context: Gradual Onset Narrative Narrative: Patient presents secondary to redness and itching to her right foot. She states symptoms started a couple days ago when she thought initially she had been bit by something. 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 She states typically she will develop blisters after a day or 2 and this has not occurred with this particular episode. She went to an urgent care yesterday where they initially gave her cream for scabies. Patient did not believe she truly had scabies so therefore did not start it. She was given a prescription for Keflex that she can take after the cream but when had started the Keflex anyway. Today she noted some redness streaking up her lower leg and came in for evaluation. She has not had fever or chills. She does report some calf pain on the right. [facility] Medical History Arthritis Fatty liver Heart disease Hyperparathyroidism Hypertension Home Medications Albuterol Sulfate HFA 1 puff IH PRN PRN Shortness Of Breath 11/14/19 [History Last Taken Unknown] gabapentin 300 mg capsule 300 mg PO QHS PRN neuropathy 11/14/19 [History Last Taken Unknown] venlafaxine 150 mg capsule,extended release 24 hr 150 mg PO DAILY 11/14/19 [History Last Taken Unknown] carvedilol 12.5 mg tablet 12.5 mg PO BID 07/17/23 [History Last Taken Unknown] dapagliflozin propanediol 10 mg tablet (Farxiga) 10 mg PO DAILY 07/17/23 [History Last Taken Unknown] furosemide 20 mg tablet (Lasix) 40 mg PO DAILY PRN edema 07/17/23 [History Last Taken Unknown] naproxen sodium 220 mg tablet (Aleve) 220 mg PO DAILY 07/17/23 [History Last Taken Unknown] sacubitril 97 mg-valsartan 103 mg tablet (Entresto) 1 tab PO BID 07/17/23 [History Last Taken Unknown] sulfamethoxazole 800 mg-trimethoprim 160 mg tablet (Bactrim DS) 1 tab PO BID #20 tabs 07/17/23 [Rx Last Taken Unknown] vitamin B complex (Super Quints B-50 tablet) 1 tab PO DAILY 07/17/23 [History Last Taken Unknown] Allergy/AdvReac Type Severity Reaction Status Date / Time naproxen [From Aleve] Allergy Swelling Verified 07/17/23 18:46 Family History Other Arthritis Diabetes Heart disease Hypertension Surgical History H/O tubal ligation S/P removal of thyroid nodule Social History Smoking Status: Never smoker alcohol intake: never ROS ROS ED Constitutional Constitutional ED: Denies chills or fever(s) Eyes Eyes: Denies change in vision or discharge from eye(s) ENT ENT ED: Denies discharge from eye(s), rhinorrhea or sore throat Cardiovascular Cardiovascular: Denies chest pain or palpitations Respiratory/Chest Respiratory/Chest: Denies cough or dyspnea Gastrointestinal Gastrointestinal: Denies abdominal pain, nausea or vomiting Musculoskeletal Musculoskeletal: Reports extremity pain; Denies back pain Integumentary Reports rash; Denies Abrasions Neurologic Neurologic: Reports headache(s); Denies weakness Psychiatric Psychiatric: Denies anxiety or depression Endocrine Endocrinology: Denies polydipsia or polyuria Allergic/Immunologic Allergic/Immunologic ED: Denies lip swelling or urticaria EXAM Physical Exam Const Vital Signs: 07/17/23 18:46 07/17/23 19:21 Temperature 97.2 F L Temperature Source Temporal Pulse Rate 76 71 Respiratory Rate 18 24 H Blood Pressure 214/130 H 130/75 H Blood Pressure Mean 158 93 Pulse Ox 97 94 Oxygen Delivery Method Room Air Positive well nourished and well developed General Appearance ED: well developed HEENT Reports moist mucous membranes Eyes EOMs intact bilaterally Chest Wall inspection of chest normal and palpation of chest normal Resp normal respiratory effort and clear to auscultation bilaterally Cardio regular rate and regular rhythm GI non-tender Palpation: soft Extremity Extremity Narrative: Erythema and edema noted to the right foot, worse along the distal aspect of the first metatarsal. Slight erythematous streaking noted onto the distal aspect of the right lower leg. No open wounds appreciated. Neuro oriented x3 and no sensory deficits noted Motor Exam: strength 5/5 throughout Psych mental status grossly normal MDM MDM MDM Narrative Medical decision making narrative: IV line established. Labwork obtained to evaluate for leukocytosis, anemia, and electrolyte derangement. Blood cultures obtained. Right foot x-ray obtained to evaluate for any bony destruction or subcutaneous air. Venous ultrasound of the right lower extremity obtained to evaluate for potential DVT. Patient's blood pressure is significantly elevated in triage. This will be rechecked with an appropriate sized cuff at bedside. Patient does state that she did not take her blood pressure medication yesterday or today. History & Record Review Discussion w/independent historian: Patient Additional record(s) reviewed:: Prior ED visit and Prior labs Lab Data Attestation: I reviewed the patient's lab results. Labs: Laboratory Results - last 24 hr 07/17/23 19:12 WBC 8.5 RBC 4.52 Hgb 13.9 Hct 42.4 MCV 93.8 MCH 30.8 MCHC 32.8 RDW Std Deviation 43.7 RDW Coeff of Davion 12.7 Plt Count 291 MPV 9.3 Immature Gran % (Auto) 0.200 Neut % (Auto) 51.1 Lymph % (Auto) 35.1 [place] % (Auto) 8.0 Eos % (Auto) 4.9 Baso % (Auto) 0.7 Absolute Neuts (auto) 4.4 Absolute Lymphs (auto) 2.99 Nucleated RBC % 0 Sodium 141 Potassium 3.8 Chloride 109 H Carbon Dioxide 27.0 Anion Gap 5 BUN 14 Creatinine 0.72 Estim Creat Clear Calc 112.02 Est GFR (MDRD) Af Amer 106 Est GFR (MDRD) Non-Af 88 BUN/Creatinine Ratio 19.5 Glucose 116 H Calcium 8.8 Radiography Diagnostic Testing: Clinical Impression(s) from Imaging Studies Venous Duplex 07/17/23 19:23 IMPRESSION: Normal venous Doppler ultrasound of the lower extremity. Electronically Signed: Nate Rdz MD at 20:24 EDT , Treatment and Re-Evaluation :: CBC was normal white count 8.5 with no left shift. Hemoglobin 13.9. Chemistry studies unremarkable. Right foot x-rays per my interpretation reveal no evidence of bony destruction and no subcutaneous air. Venous ultrasound of the right lower extremity is unremarkable. Repeat blood pressure with the correct size cuff is 130/75. Patient just started taking Keflex yesterday. Area of erythema on the ankle is outlined and patient will be given Bactrim in addition to her Keflex. Patient was advised that a good 24 hours on the correct antibiotic course and she should start seeing some improvement. She was given return instructions and under stands that she may need to return for IV antibiotics if not improved. Discharge Plan Triage Chief Complaint: Cellulitis ED Provider: Laura Rolon Dx/Rx/DC Orders Clinical Impression: Cellulitis Instructions: ED Cellulitis Prescriptions: New sulfamethoxazole-trimethoprim [Bactrim DS] 800-160 mg tablet 1 tab PO BID Qty: 20 0RF No Action Albuterol Sulfate HFA 1 puff IH PRN PRN (Reason: Shortness Of Breath) venlafaxine 150 MG capsule,extended release 24hr 150 mg PO DAILY gabapentin 300 MG capsule 300 mg PO QHS PRN (Reason: neuropathy) carvedilol 12.5 mg tablet 12.5 mg PO BID dapagliflozin propanediol [Farxiga] 10 mg tablet 10 mg PO DAILY Entresto 97-103 mg tablet 1 tab PO BID vitamin B complex [Super Quints B-50] Tablet 1 tab PO DAILY naproxen sodium [Aleve] 220 mg tablet 220 mg PO DAILY furosemide [Lasix] 20 mg tablet 40 mg PO DAILY PRN (Reason: edema) Primary Care Provider: Omi Marie Referrals: Omi Marie, DO [Primary Care Provider] - 1-2 Weeks Activity Restrictions/Additional Instructions: Please continue your Keflex as previously prescribed. You will take the Bactrim I prescribed tonight in addition to this. Disposition Disposition: Home, Self Care
[2023-07-17 19:21] VITALS: BP 130/75; PULSE 71; RESP 24; O2SAT 94
--- NOTE | 2023-07-17 19:23 | US_ITS ---
STUDY: VENOUS DOPPLER ULTRASOUND - RIGHT LOWER EXTREMITY REASON FOR EXAM: Female, 62 years old. RT FOOT REDNESS, SWELLING TECHNIQUE: Ultrasound evaluation of the deep vein system to include jenkins-scale imaging and compression was performed. Jenkins-scale imaging and Doppler sonographic evaluation, including duplex spectral analysis and qualitative color flow sonography, was performed. COMPARISON: None. FINDINGS: Common Femoral Vein: Normal compression, spontaneity and augmentation. Normal color Doppler. Common Femoral Vein/Greater Saphenous Junction: Normal compression, spontaneity and augmentation. Normal color Doppler. Deep Femoral Vein: Normal compression, spontaneity and augmentation. Normal color Doppler. Femoral Proximal: Normal compression, spontaneity and augmentation. Normal color Doppler. Femoral Middle: Normal compression, spontaneity and augmentation. Normal color Doppler. Femoral Distal: Normal compression, spontaneity and augmentation. Normal color Doppler. Popliteal Vein: Normal compression, spontaneity and augmentation. Normal color Doppler. Posterior Tibial Vein: Normal compression, spontaneity and augmentation. Normal color Doppler. Peroneal Vein: Normal compression, spontaneity and augmentation. Normal color Doppler. US/Venous Duplex Imag/Limited/Uni IMPRESSION: Normal venous Doppler ultrasound of the lower extremity. Electronically Signed: Nate Rdz MD at 20:24 EDT ,
[2023-07-17 19:32] LABS: Absolute Lymphocyte Count 2.99 X10^3/uL (0.83-4.51); Absolute Neutrophil Count 4.4 X10^3/uL (2.0-7.7); Basophil# 0.06 X10^3/uL; Basophil% 0.7 % (0-1); Eosinophil# 0.42 X10^3/uL; Eosinophils% 4.9 % (0-5); Hematocrit 42.4 % (37-47); Hemoglobin 13.9 g/dL (12.0-15.0); Lymphocyte # 2.99 X10^3/ul (0.83-4.51); Lymphocyte % 35.1 % (19-41); Mean Corp Hgb Conc 32.8 g/dL (32-36); Mean Corpuscular Hgb 30.8 pg (27.0-32.0); Mean Corpuscular Volume 93.8 fL (81-99); Mean Platelet Vol. 9.3 fl (6.2-12.0); Monocyte# 0.68 X10^3/uL; NRBC Flagged by Analyzer 0 % (0-5); Neutrophil # 4.35 X10^3/uL (2.7-7.7); Neutrophil % 51.1 % (47-70); Platelet Count 291 K/mm3 (150-450); RBC Distribution Width CV 12.7 % (11.6-14.6); RBC Distribution Width SD 43.7 fl (35.1-43.9); Red Blood Count 4.52 M/mm3 (4.2-5.4); White Blood Count 8.5 K/mm3 (4.4-11.0)
[2023-07-17 19:39] LABS: Anion Gap 5 (5-15); BUN 14 mg/dL (7-18); BUN/Creat Ratio 19.5 RATIO (10-20); Calcium,Total 8.8 mg/dL (8.5-10.1); Chloride 109 mmol/L (98-107); Creatinine, Serum 0.72 mg/dL (0.55-1.02); EST Glomerular Filtration Rate 88 mL/min (>60); Est Glom Filt Rate - Afr Amer 106 mL/min (>60); Estimated Creatinine Clearance 112.02 ml/min; Glucose 116 mg/dL (74-106); Potassium 3.8 mmol/L (3.5-5.1); Sodium Level 141 mmol/L (136-145)
--- NOTE | 2023-07-17 20:13 | RAD_ITS ---
INDICATION: infection EXAMINATION/TECHNIQUE: X-RAY - RIGHT XR Foot 3 VIEWS COMPARISON: FINDINGS: SOFT TISSUES: There is dorsal soft tissue swelling. No radiopaque foreign body. BONES/JOINTS: No acute fracture or subluxation.. Degenerative changes and spurring at the tarsometatarsal articulations. Plantar spurring of the calcaneus .. No sclerotic or destructive changes observed. RAD/Foot min 3 Views IMPRESSION: Soft tissue swelling. No subcutaneous emphysema. Degenerative changes. Electronically Signed: Avtar Diana DO at 21:23 EDT ,
[2023-07-17] MEDS: Smz/Tmp Ds Tablet 1 TABLET PO (20:45)
[2023-07-17 20:48] VITALS: BP 141/84; PULSE 72; RESP 18; TEMP 36.6; O2SAT 97
== END 2023-07-17 20:48 | disposition home or self-care (01) ==
PROVIDERS: Emergency Provider Emergency Medicine; PCP Family Medicine; Visit Provider Emergency Medicine
DX: L03.115 Cellulitis of right lower limb (principal); I10 Essential (primary) hypertension; Z79.51 Long term (current) use of inhaled steroids; Z79.899 Other long term (current) drug therapy
CPT/HCPCS: 36415; 73630; 80048; 85025; 87040; 93971; 99284; A4216

== ENCOUNTER 2023-09-12 09:56 | Emergency (ER) | payer OTHER, SELFPAY ==
[2023-09-12 09:57] VITALS: BP 133/67; PULSE 84; RESP 14; TEMP 35.9; O2SAT 94
[2023-09-12 09:59] VITALS: BP 140/71; PULSE 78; RESP 14; TEMP 35.9; O2SAT 95; BMI 57.6
--- NOTE | 2023-09-12 10:22 | EDS_ITS ---
HPI History of Present Illness Chief Complaint: Complaint Informant: patient Narrative Narrative: Patient present secondary to recurrent UTI. Patient reported has been on 4 different antibiotics over the past 2 months secondary to UTI. She states she feels better on the antibiotic but as soon as they are completed she gets recurrent symptoms. She reportedly was seen by the nurse practitioner at her PCPs office last week where a urine culture shows that her infection is resistant to oral antibiotics. She was sent to the emergency room for IV medication. I am not able to see the urine culture results so we will reach out to the office and asked them to fax it to us. [facility] Medical History Heart disease Fatty liver Hypertension Hyperparathyroidism Arthritis Home Medications ?Medication ?Instructions ?Recorded ?Last Taken ?Type Albuterol Sulfate HFA 1 puff IH PRN PRN Shortness Of 11/14/19 Unknown History Breath gabapentin 300 mg capsule 300 mg PO QHS PRN neuropathy 11/14/19 Unknown History venlafaxine 150 mg 150 mg PO DAILY 11/14/19 Unknown History capsule,extended release 24 hr carvedilol 12.5 mg tablet 12.5 mg PO BID 07/17/23 Unknown History dapagliflozin propanediol 10 mg 10 mg PO DAILY 07/17/23 Unknown History tablet (Farxiga) furosemide 20 mg tablet (Lasix) 40 mg PO DAILY PRN edema 07/17/23 Unknown History naproxen sodium 220 mg tablet 220 mg PO DAILY 07/17/23 Unknown History (Aleve) sacubitril 97 mg-valsartan 103 mg 1 tab PO BID 07/17/23 Unknown History tablet (Entresto) vitamin B complex (Super Quints 1 tab PO DAILY 07/17/23 Unknown History B-50 tablet) cefdinir 300 mg capsule 300 mg PO BID #14 caps 09/12/23 Unknown Rx multivitamin 1 tab PO DAILY 09/12/23 Unknown History Allergy/AdvReac Type Severity Reaction Status Date / Time naproxen (From Aleve) Allergy Swelling Verified 09/12/23 09:57 Family History Other Arthritis Diabetes Heart disease Hypertension Surgical History S/P removal of thyroid nodule H/O tubal ligation Social History Smoking Status: Never smoker alcohol intake: never ROS ROS ED Constitutional Constitutional ED: Denies chills or fever(s) Eyes Eyes: Denies discharge from eye(s) ENT ENT ED: Denies discharge from eye(s), rhinorrhea or sore throat Cardiovascular Cardiovascular: Denies chest pain or palpitations Respiratory/Chest Respiratory/Chest: Denies cough or dyspnea Gastrointestinal Gastrointestinal: Reports abdominal pain; Denies diarrhea, nausea or vomiting Genitourinary Genitourinary ED: Reports dysuria and urinary frequency Musculoskeletal Musculoskeletal: Denies back pain or extremity pain Integumentary Denies Abrasions or rash Neurologic Neurologic: Denies headache(s) or weakness Psychiatric Psychiatric: Denies anxiety or depression Allergic/Immunologic Allergic/Immunologic ED: Denies lip swelling or urticaria EXAM Physical Exam Const Vital Signs: 09/12/23 09:57 09/12/23 09:59 09/12/23 10:59 Temperature 96.7 F L 96.7 F L 98.4 F Temperature Source Temporal Temporal Temporal Pulse Rate 84 78 88 Respiratory Rate 14 14 16 Blood Pressure 133/67 H 140/71 H 136/66 H Blood Pressure Mean 89 94 89 Pulse Ox 94 95 98 Oxygen Delivery Method Room Air Room Air Room Air 09/12/23 12:00 Temperature Temperature Source Pulse Rate 78 Respiratory Rate 16 Blood Pressure 142/75 H Blood Pressure Mean 97 Pulse Ox 98 Oxygen Delivery Method Room Air Positive well nourished and well developed General Appearance ED: well developed HEENT Reports moist mucous membranes Eyes EOMs intact bilaterally Chest Wall inspection of chest normal and palpation of chest normal Resp normal respiratory effort and clear to auscultation bilaterally Cardio regular rate and regular rhythm GI non-tender Auscultation: hypoactive bowel sounds Palpation: soft Extremity normal to inspection Neuro no sensory deficits noted Motor Exam: strength 5/5 throughout Psych mental status grossly normal Skin no rashes or lesions noted MDM MDM MDM Narrative Medical decision making narrative: IV line established. Labwork obtained to evaluate for leukocytosis, anemia, and electrolyte derangement. Urinalysis obtained to evaluate for infection/hematuria. Blood and urine cultures will be obtained at this time. Patient be given IV fluids and we will reach out to the PCP office to obtain the urine culture results. History & Record Review Discussion w/independent historian: Patient Additional record(s) reviewed:: Prior labs Lab Data Attestation: I reviewed the patient's lab results. Labs: Laboratory Results - last 24 hr 09/12/23 09/12/23 10:30 10:50 WBC 9.4 RBC 4.84 Hgb 14.7 Hct 45.1 MCV 93.2 MCH 30.4 MCHC 32.6 RDW Std Deviation 45.4 H RDW Coeff of Davion 13.2 Plt Count 304 MPV 9.5 Immature Gran % (Auto) 0.200 Neut % (Auto) 59.4 Lymph % (Auto) 29.7 [place] % (Auto) 7.2 Eos % (Auto) 2.9 Baso % (Auto) 0.6 Absolute Neuts (auto) 5.6 Absolute Lymphs (auto) 2.78 Nucleated RBC % 0 Sodium 139 Potassium 3.7 Chloride 103 Carbon Dioxide 27.0 Anion Gap 9 BUN 28 H Creatinine 0.82 Estim Creat Clear Calc 99.29 Est GFR (MDRD) Af Amer 91 Est GFR (MDRD) Non-Af 75 BUN/Creatinine Ratio 34.1 H Glucose 114 H Calcium 9.4 Urine Color Yellow Urine Clarity Cloudy Urine pH 5.0 Ur Specific [place] 1.030 Urine Protein 30 H Urine Glucose (UA) 1000 H Urine Ketones Negative Urine Occult Blood 150 H Urine Nitrite Positive H Urine Bilirubin Negative Urine Urobilinogen 1 H Ur Leukocyte Esterase 500 H Urine RBC 0-5 SEEN Urine WBC >100 SEEN Ur Squamous Epith Cells 0-5 SEEN Urine Bacteria 2+ Urine Mucus 0 SEEN Radiography Diagnostic Testing: Clinical Impression(s) from Imaging Studies Abdomen/Pelvis CT 09/12/23 11:28 IMPRESSION: 1. Hepatomegaly. 2. No urinary tract abnormality. Electronically Signed: Gilberto Schulz MD at 12:32 EDT , Treatment and Re-Evaluation :: I was able to get the urine culture from the PCPs office. She had greater than 100,000 colony-forming units per milliliter of Proteus mirabilis. The infection is resistant to cefazolin, ciprofloxacin, nitrofurantoin, and Bactrim which she had all been on. Infection is sensitive to Unasyn, ceftazidime, ceftriaxone, Zosyn. I spoke with Dr. Carranza, on-call for infectious disease. Given that the patient is sensitive to ceftriaxone he recommended placing her on cefdinir, oral equivalent for third generation cephalosporin for appropriate coverage. He also recommended imaging studies to ensure no evidence of blockage or pyelonephritis. CBC reveals a normal white count at 9.4 with a normal differential. Hemoglobin is 14.7. Chemistry studies are unremarkable with normal renal function. Urinalysis is positive for nitrites with greater than 100 white cells and 2+ bacteria. Blood and urine cultures have been sent. Patient did receive a dose of IV Rocephin here. CT flank is obtained and reveals hepatomegaly with no urinary tract abnormality. At this time patient be discharged with a prescription for cefdinir. I will give her follow-up information for Dr. Carranza. Discharge Plan Triage Chief Complaint: Complaint ED Provider: Laura Rolon Dx/Rx/DC Orders Clinical Impression: UTI (urinary tract infection) Instructions: ED Cystitis Female Adult Prescriptions: New cefdinir 300 mg capsule 300 mg PO BID Qty: 14 0RF No Action Albuterol Sulfate HFA 1 puff IH PRN PRN (Reason: Shortness Of Breath) venlafaxine 150 MG capsule,extended release 24hr 150 mg PO DAILY gabapentin 300 MG capsule 300 mg PO QHS PRN (Reason: neuropathy) carvedilol 12.5 mg tablet 12.5 mg PO BID dapagliflozin propanediol [Farxiga] 10 mg tablet 10 mg PO DAILY Entresto 97-103 mg tablet 1 tab PO BID vitamin B complex [Super Quints B-50] Tablet 1 tab PO DAILY naproxen sodium [Aleve] 220 mg tablet 220 mg PO DAILY furosemide [Lasix] 20 mg tablet 40 mg PO DAILY PRN (Reason: edema) multivitamin Tablet 1 tab PO DAILY Primary Care Provider: Omi Marie Referrals: Omi Marie DO [Primary Care Provider] - Johnnie Carranza MD [Med Staff - Active Staff] - As Needed Print Language: Maori Disposition Disposition: Home, Self Care
[2023-09-12 10:43] LABS: Absolute Lymphocyte Count 2.78 X10^3/uL (0.83-4.51); Absolute Neutrophil Count 5.6 X10^3/uL (2.0-7.7); Basophil# 0.06 X10^3/uL; Basophil% 0.6 % (0-1); Eosinophil# 0.27 X10^3/uL; Eosinophils% 2.9 % (0-5); Hematocrit 45.1 % (37-47); Hemoglobin 14.7 g/dL (12.0-15.0); Lymphocyte # 2.78 X10^3/ul (0.83-4.51); Lymphocyte % 29.7 % (19-41); Mean Corp Hgb Conc 32.6 g/dL (32-36); Mean Corpuscular Hgb 30.4 pg (27.0-32.0); Mean Corpuscular Volume 93.2 fL (81-99); Mean Platelet Vol. 9.5 fl (6.2-12.0); Monocyte# 0.67 X10^3/uL; Monocyte% 7.2 % (0-10); NRBC Flagged by Analyzer 0 % (0-5); Neutrophil # 5.57 X10^3/uL (2.7-7.7); Neutrophil % 59.4 % (47-70); Platelet Count 304 K/mm3 (150-450); RBC Distribution Width CV 13.2 % (11.6-14.6); RBC Distribution Width SD 45.4 fl (35.1-43.9); Red Blood Count 4.84 M/mm3 (4.2-5.4); White Blood Count 9.4 K/mm3 (4.4-11.0)
[2023-09-12 10:56] LABS: Anion Gap 9 (5-15); BUN 28 mg/dL (7-18); BUN/Creat Ratio 34.1 RATIO (10-20); Calcium,Total 9.4 mg/dL (8.5-10.1); Chloride 103 mmol/L (98-107); Creatinine, Serum 0.82 mg/dL (0.55-1.02); EST Glomerular Filtration Rate 75 mL/min (>60); Est Glom Filt Rate - Afr Amer 91 mL/min (>60); Estimated Creatinine Clearance 99.29 ml/min; Glucose 114 mg/dL (74-106); Potassium 3.7 mmol/L (3.5-5.1); Sodium Level 139 mmol/L (136-145)
[2023-09-12 10:59] VITALS: BP 136/66; PULSE 88; RESP 16; TEMP 36.9; O2SAT 98
[2023-09-12 11:06] LABS: Mucous, Urine 0 SEEN /hpf (<or=2+)
[2023-09-12 11:10] LABS: Color, Urine Yellow (Yellow); Glucose, Dipstick 1000 mg/dl (Normal); Ketone-Dipstick Negative (Negative); Leukocyte Esterase-Dipstick 500 /ul (Negative); Nitrite-Dipstick Positive (Negative); Occult Blood-Urine 150 /ul (Negative); Protein-Dipstick 30 mg/dl (Negative); Urine Bilirubin Dipstick Negative (Negative); Urine Clarity Cloudy (Clear); Urine Urobilinogen 1 mg/dl (Normal)
[2023-09-12 11:21] LABS: Bacteria 2+ /hpf (None Seen); Red Blood Cells-Urine 0-5 SEEN /hpf (0-5); Squamous Epithelial Cells - UA 0-5 SEEN /hpf (5-10); White Blood Cells >100 SEEN /hpf (0-5)
--- NOTE | 2023-09-12 11:28 | CT_ITS ---
EXAM: CT ABDOMEN AND PELVIS WITHOUT INTRAVENOUS CONTRAST CLINICAL INDICATION: UTI TECHNIQUE: Helically acquired images were obtained of the abdomen and pelvis without intravenous contrast. This CT exam was performed using one or more of the following dose reduction techniques: automated exposure control, adjustment of the mA and/or kV according to patient size, and/or use of iterative reconstruction technique. COMPARISON: No relevant prior studies available. FINDINGS: LOWER THORAX: Normal. Lung bases are clear. No cardiomegaly. No pericardial effusion. ABDOMEN: LIVER: Liver is enlarged measuring 22 cm in cephalocaudad dimension. GALLBLADDER AND BILE DUCTS: Normal-appearing gallbladder. PANCREAS: Normal. No focal cystic mass. SPLEEN: Normal. Normal size without focal cystic or solid mass. ADRENALS: Normal. No nodules. KIDNEYS AND URETERS: Normal. No hydronephrosis. STOMACH AND BOWEL: 2.4 cm duodenal diverticulum. PELVIS: APPENDIX: Appendix is visualized and normal in appearance. BLADDER: Contracted. REPRODUCTIVE: Unremarkable as visualized. No mass. ABDOMEN and PELVIS: INTRAPERITONEAL SPACE: Normal. No ascites or other fluid collection. No free air. BONES/JOINTS: Prominent disc degeneration noted at the L2-3 level. SOFT TISSUES: Small fat-containing umbilical hernia is present. VASCULATURE: Normal. Abdominal aorta is non-dilated. LYMPH NODES: Normal. No enlarged lymph nodes. CT/Abdomen/Pelvis without Cont IMPRESSION: 1. Hepatomegaly. 2. No urinary tract abnormality. Electronically Signed: Gilberto Schulz MD at 12:32 EDT ,
[2023-09-12] MEDS: 0.9% Normal Saline (1000mL) 1,000 ML 150 ML IV (11:44)
[2023-09-12] MEDS: Ceftriaxone 1 GM/50 ML BAG IV (11:44)
[2023-09-12 12:00] VITALS: BP 142/75; PULSE 78; RESP 16; O2SAT 98
[2023-09-12 13:00] VITALS: BP 130/64; PULSE 71; RESP 18; TEMP 36.4; O2SAT 100
== END 2023-09-12 13:21 | disposition home or self-care (01) ==
PROVIDERS: Emergency Provider Emergency Medicine; PCP Family Medicine; Visit Provider Emergency Medicine
DX: N39.0 Urinary tract infection, site not specified (principal); I10 Essential (primary) hypertension; Z79.51 Long term (current) use of inhaled steroids; Z79.899 Other long term (current) drug therapy
CPT/HCPCS: 74176; 80048; 81001; 85025; 87040; 87077; 87086; 87088; 87186; 96365; 99283; J7030; A4216

== ENCOUNTER 2023-09-20 13:40 | Emergency (ER) | payer OTHER, SELFPAY ==
[2023-09-20 13:41] VITALS: BP 157/103; PULSE 78; RESP 14; TEMP 36; O2SAT 97; BMI 56.3
--- NOTE | 2023-09-20 14:36 | EX.ED.DYSGE1 ---
HPI History of Present Illness Chief Complaint: Complaint Informant: patient and spouse/S.O. Narrative Narrative: 63-year-old female presenting to the emergency department with a chief complaint of UTI. Patient notes it has been a several month long ordeal and that she does not have all the information and specifics such as medications used and time frames. Patient states that she has been on multiple antibiotics over the past several months. She states that she continues to have lower abdominal pain and burning. She states it allen all the time. She states that originally started when she had cellulitis of her leg and the antibiotic that she was given gave her urinary tract infection. She states that she also believes that she may have had a yeast infection. She states that she did home Monistat. Most recently seen in the emergency department 521. At that time case was discussed with infectious disease (please see ED dictation note for that). Urine culture at that time was obtained and shows: Urine Culture Final 09/14/23 Organism 1 Proteus mirabilis [place] Count >100,000 CFU/mL 1. Proteus mirabilis RX M.I.C. ABN ------ --------- --- Ampicillin $ R >=32 * Ampicillin/Sulbactam $ S <=2 Cefazolin $ S 8 Cefepime $ S <=0.12 Ceftriaxone $ S <=0.25 Ciprofloxacin $ R >=4 * Ertapenem $$$ S <=0.12 Gentamicin $ S <=1 Levofloxacin $ R >=8 * Nitrofurantoin $ R 128 * Piperacillin/Tazobactam $$ S <=4 Tobramycin $ S <=1 Trimethoprim/Sulfametho $ R >=320 * PFSH PFS Medical History Heart disease Fatty liver Hypertension Hyperparathyroidism Arthritis Home Medications ?Medication ?Instructions ?Recorded ?Last Taken ?Type Albuterol Sulfate HFA 1 puff IH PRN PRN Shortness Of 11/14/19 Unknown History Breath gabapentin 300 mg capsule 300 mg PO QHS PRN neuropathy 11/14/19 Unknown History venlafaxine 150 mg 150 mg PO DAILY 11/14/19 Unknown History capsule,extended release 24 hr carvedilol 12.5 mg tablet 12.5 mg PO BID 07/17/23 Unknown History dapagliflozin propanediol 10 mg 10 mg PO DAILY 07/17/23 Unknown History tablet (Farxiga) furosemide 20 mg tablet (Lasix) 40 mg PO DAILY PRN edema 07/17/23 Unknown History naproxen sodium 220 mg tablet 220 mg PO DAILY 07/17/23 Unknown History (Aleve) sacubitril 97 mg-valsartan 103 mg 1 tab PO BID 07/17/23 Unknown History tablet (Entresto) vitamin B complex (Super Quints 1 tab PO DAILY 07/17/23 Unknown History B-50 tablet) cefdinir 300 mg capsule 300 mg PO BID #14 caps 09/12/23 Unknown Rx multivitamin 1 tab PO DAILY 09/12/23 Unknown History clotrimazole 1 % vaginal cream 1 appful vaginal QHS 7 days #45 09/20/23 Unknown Rx (Clotrimazole-7) grams fluconazole 150 mg tablet 150 mg PO Q3D 2 doses #2 tabs 09/20/23 Unknown Rx Allergy/AdvReac Type Severity Reaction Status Date / Time naproxen (From Aleve) Allergy Swelling Verified 09/20/23 13:45 Family History Other Arthritis Diabetes Heart disease Hypertension Surgical History S/P removal of thyroid nodule H/O tubal ligation Social History Smoking Status: Never smoker alcohol intake: never ROS ROS ED Constitutional Constitutional ED: Reports sweats; Denies chills, fever(s) or weight loss Eyes Eyes: Denies change in vision or diplopia ENT ENT ED: Denies ear pain, rhinorrhea or sore throat Cardiovascular Cardiovascular: Denies chest pain, orthopnea, palpitations or racing heartbeat Respiratory/Chest Respiratory/Chest: Denies cough, dyspnea or orthopnea Gastrointestinal Gastrointestinal: Reports other Details: Pelvic pain ; Denies abdominal pain, diarrhea, nausea or vomiting Genitourinary Genitourinary ED: Reports dysuria and urinary frequency; Denies hematuria Musculoskeletal Musculoskeletal: Denies arthralgias or myalgias Integumentary Denies abscess or rash Neurologic Neurologic: Denies headache(s) or weakness Psychiatric Psychiatric: Denies anxiety, depression, suicidal ideation or suicidal thoughts Endocrine Endocrinology: Denies polydipsia, polyphagia or polyuria Allergic/Immunologic Allergic/Immunologic ED: Denies mouth swelling, tongue swelling or urticaria EXAM Physical Exam Const Vital Signs: 09/20/23 13:41 Temperature 96.8 F L Temperature Source Temporal Pulse Rate 78 Respiratory Rate 14 Blood Pressure 157/103 H Blood Pressure Mean 121 Pulse Ox 97 Oxygen Delivery Method Room Air Positive well nourished, well developed and obese General Appearance ED: well developed Nutritional Appearance: obese HEENT Reports normocephalic, head/scalp atraumatic and moist mucous membranes Eyes PERRL and EOMs intact bilaterally Neck no lymphadenopathy, supple and no JVD Resp normal respiratory effort and clear to auscultation bilaterally Cardio regular rate, regular rhythm and no murmurs GI normal to inspection, nondistended, normoactive bowel sounds and non-tender Palpation: soft Back/Spine no CVA tenderness and normal ROM Extremity normal to inspection General Extremety ED: Negative for edema General Extremity: Negative for edema Neuro oriented x3 and CN's II-XII intact bilaterally Sensorium / Orientation: alert Motor Exam: strength 5/5 throughout Psych mental status grossly normal Mood & Affect: Negative for depressed or tearful Skin no rashes or lesions noted and no wounds MDM MDM MDM Narrative Medical decision making narrative: Differential diagnosis includes but not limited to continued UTI simple and complicated vaginal irritation/infection urinary retention urethritis. A abbreviated pelvic exam was performed in the presence of female RN as well as . The speculum used. Gross examination of the labia demonstrates significant irritation with vaginal discharge consistent with yeast. There are several excoriated areas on the labia minora. White count is 8.0 BMP with a glucose of 113 urinalysis 0-5 white cells 0 red blood cells 0 bacteria nitrate negative. I suspect that the patient's dysuria is related to yeast candidiasis of the vulvovaginal region. I would recommend clotrimazole we can also do Diflucan. I would recommend DOCTOR OF PODIATRY or primary care follow-up. Symptoms should improve additionally due to the patient coming off of antibiotics. History & Record Review Discussion w/independent historian: Patient and Significant other Additional record(s) reviewed:: Prior ED visit and Prior labs Lab Data Attestation: I reviewed the patient's lab results. Labs: Laboratory Results - last 24 hr 09/20/23 09/20/23 14:50 15:03 WBC 8.0 RBC 4.91 Hgb 14.4 Hct 46.1 MCV 93.9 MCH 29.3 MCHC 31.2 L RDW Std Deviation 45.0 H RDW Coeff of Davion 13.2 Plt Count 300 MPV 9.5 Immature Gran % (Auto) 0.400 Neut % (Auto) 61.1 Lymph % (Auto) 28.9 [place] % (Auto) 6.0 Eos % (Auto) 2.8 Baso % (Auto) 0.8 Absolute Neuts (auto) 4.9 Absolute Lymphs (auto) 2.31 Nucleated RBC % 0 Sodium 139 Potassium 4.0 Chloride 104 Carbon Dioxide 28.0 Anion Gap 7 BUN 17 Creatinine 0.80 Estim Creat Clear Calc 100.19 Est GFR (MDRD) Af Amer 94 Est GFR (MDRD) Non-Af 78 BUN/Creatinine Ratio 21.4 H Glucose 113 H Calcium 9.0 Urine Color Yellow Urine Clarity Sl. Cloudy Urine pH 7.0 Ur Specific [place] 1.010 Urine Protein Negative Urine Glucose (UA) 1000 H Urine Ketones Negative Urine Occult Blood Negative Urine Nitrite Negative Urine Bilirubin Negative Urine Urobilinogen Normal Ur Leukocyte Esterase 25 H Urine RBC 0 SEEN Urine WBC 0-5 SEEN Ur Squamous Epith Cells 0-5 SEEN Urine Bacteria 0 SEEN Urine Mucus 0 SEEN Discharge Plan Triage Chief Complaint: Complaint ED Provider: Camron An Dx/Rx/DC Orders Clinical Impression: Vulvovaginal candidiasis, Dysuria Instructions: Candidiasis Vaginal Prescriptions: New fluconazole 150 mg tablet 150 mg PO Q3D Qty: 2 0RF clotrimazole [Clotrimazole-7] 1 % cream 1 appful vaginal QHS 7 Days Qty: 45 0RF No Action Albuterol Sulfate HFA 1 puff IH PRN PRN (Reason: Shortness Of Breath) venlafaxine 150 MG capsule,extended release 24hr 150 mg PO DAILY gabapentin 300 MG capsule 300 mg PO QHS PRN (Reason: neuropathy) carvedilol 12.5 mg tablet 12.5 mg PO BID dapagliflozin propanediol [Farxiga] 10 mg tablet 10 mg PO DAILY Entresto 97-103 mg tablet 1 tab PO BID vitamin B complex [Super Quints B-50] Tablet 1 tab PO DAILY naproxen sodium [Aleve] 220 mg tablet 220 mg PO DAILY furosemide [Lasix] 20 mg tablet 40 mg PO DAILY PRN (Reason: edema) multivitamin Tablet 1 tab PO DAILY cefdinir 300 mg capsule 300 mg PO BID Qty: 14 0RF Primary Care Provider: Omi Marie Referrals: Omi Marie, DO [Primary Care Provider] - 1 Week if not improving Print Language: Beninese Disposition Disposition: Home, Self Care
[2023-09-20 15:01] LABS: Absolute Lymphocyte Count 2.31 X10^3/uL (0.83-4.51); Absolute Neutrophil Count 4.9 X10^3/uL (2.0-7.7); Basophil# 0.06 X10^3/uL; Basophil% 0.8 % (0-1); Eosinophil# 0.22 X10^3/uL; Eosinophils% 2.8 % (0-5); Hematocrit 46.1 % (37-47); Hemoglobin 14.4 g/dL (12.0-15.0); Lymphocyte # 2.31 X10^3/ul (0.83-4.51); Lymphocyte % 28.9 % (19-41); Mean Corp Hgb Conc 31.2 g/dL (32-36); Mean Corpuscular Hgb 29.3 pg (27.0-32.0); Mean Corpuscular Volume 93.9 fL (81-99); Mean Platelet Vol. 9.5 fl (6.2-12.0); Monocyte# 0.48 X10^3/uL; NRBC Flagged by Analyzer 0 % (0-5); Neutrophil # 4.89 X10^3/uL (2.7-7.7); Neutrophil % 61.1 % (47-70); Platelet Count 300 K/mm3 (150-450); RBC Distribution Width CV 13.2 % (11.6-14.6); Red Blood Count 4.91 M/mm3 (4.2-5.4)
[2023-09-20 15:08] LABS: Bacteria 0 SEEN /hpf (None Seen); Mucous, Urine 0 SEEN /hpf (<or=2+); Red Blood Cells-Urine 0 SEEN /hpf (0-5)
[2023-09-20 15:09] LABS: Color, Urine Yellow (Yellow); Glucose, Dipstick 1000 mg/dl (Normal); Ketone-Dipstick Negative (Negative); Leukocyte Esterase-Dipstick 25 /ul (Negative); Nitrite-Dipstick Negative (Negative); Occult Blood-Urine Negative /ul (Negative); Protein-Dipstick Negative (Negative); Urine Bilirubin Dipstick Negative (Negative); Urine Clarity Sl. Cloudy (Clear); Urine Urobilinogen Normal (Normal)
[2023-09-20 15:14] LABS: Anion Gap 7 (5-15); BUN 17 mg/dL (7-18); BUN/Creat Ratio 21.4 RATIO (10-20); Chloride 104 mmol/L (98-107); EST Glomerular Filtration Rate 78 mL/min (>60); Est Glom Filt Rate - Afr Amer 94 mL/min (>60); Estimated Creatinine Clearance 100.19 ml/min; Glucose 113 mg/dL (74-106); Sodium Level 139 mmol/L (136-145)
[2023-09-20 15:17] LABS: Squamous Epithelial Cells - UA 0-5 SEEN /hpf (5-10); White Blood Cells 0-5 SEEN /hpf (0-5)
[2023-09-20 15:48] VITALS: BP 150/88; PULSE 78; RESP 14; O2SAT 99
[2023-09-20 15:49] VITALS: BP 150/88; PULSE 78; RESP 14; TEMP 36; O2SAT 99
== END 2023-09-20 15:50 | disposition home or self-care (01) ==
PROVIDERS: Emergency Provider Emergency Medicine; PCP Family Medicine; Visit Provider Emergency Medicine
DX: B37.31 Acute candidiasis of vulva and vagina (principal); R30.0 Dysuria; E66.9 Obesity, unspecified
CPT/HCPCS: 80048; 81001; 85025; 99283; A4216

== ENCOUNTER → 2023-12-26 | Outpatient (CLI) | payer OTHER, SELFPAY ==
[2023-12-26 15:29] LABS: Hematocrit 45.5 % (37-47); Hemoglobin 14.6 g/dL (12.0-15.0); Mean Corp Hgb Conc 32.1 g/dL (32-36); Mean Corpuscular Hgb 30.2 pg (27.0-32.0); Platelet Count 307 K/mm3 (150-450); RBC Distribution Width CV 12.8 % (11.6-14.6); RBC Distribution Width SD 44.1 fl (35.1-43.9); Red Blood Count 4.84 M/mm3 (4.2-5.4); White Blood Count 8.3 K/mm3 (4.4-11.0)
[2023-12-26 15:52] LABS: Anion Gap 5 (5-15); BUN 19 mg/dL (7-18); BUN/Creat Ratio 25.7 RATIO (10-20); Calcium,Total 9.6 mg/dL (8.5-10.1); Chloride 104 mmol/L (98-107); Creatinine, Serum 0.74 mg/dL (0.55-1.02); EST Glomerular Filtration Rate 85 mL/min (>60); Est Glom Filt Rate - Afr Amer 103 mL/min (>60); Glucose 120 mg/dL (74-106); Potassium 4.6 mmol/L (3.5-5.1); Sodium Level 139 mmol/L (136-145)
== END | disposition home or self-care (01) ==
LOC: MTLAB 11:27
PROVIDERS: PCP Family Medicine; Referring Provider Urology; Visit Provider Urology
DX: R42 Dizziness and giddiness (principal); Z86.79 Personal history of other diseases of the circulatory system
CPT/HCPCS: 36415; 80048; 85027

== ENCOUNTER → 2024-06-28 | Outpatient (CLI) | payer OTHER, SELFPAY ==
--- NOTE | 2024-06-28 10:21 | BI_ITS ---
PROCEDURE: SCRN MAMM (CAD)W/SHAHNAZ BILAT REASON FOR EXAM: F, Age 63 y/o, presents for annual screening mammogram. Family history of breast cancer in 2 paternal cousins. TECHNIQUE: Bilateral screening digital breast tomosynthesis with 2D and 3D images. Computer aided detection. COMPARISON: 02/18/2022 FINDINGS: There are scattered areas of fibroglandular density. No suspicious masses, areas of developing architectural distortion, or suspicious calcifications. BI/SCRN MAMM (CAD)W/SHAHNAZ BILAT IMPRESSION: There is no mammographic evidence of malignancy. BI-RADS 1: NEGATIVE. RECOMMEND ANNUAL MAMMOGRAPHIC SCREENING. Follow-up code: Routine Follow-up The patient will be notified of the results by letter. Reading Location: [id number]
== END | disposition home or self-care (01) ==
LOC: OPBI 10:15
PROVIDERS: PCP Family Medicine; Referring Provider Family Medicine; Visit Provider Family Medicine
DX: Z12.31 Encounter for screening mammogram for malignant neoplasm of breast (principal)
CPT/HCPCS: 77063; 77067

== ENCOUNTER → 2024-12-03 | Outpatient (CLI) | payer OTHER, SELFPAY ==
[2024-12-03 12:39] LABS: Pro- Brain NATRIURETIC PEPTIDE 52 pg/mL (<=900)
== END | disposition home or self-care (01) ==
PROVIDERS: PCP Family Medicine; Referring Provider Internal Medicine Pulmonary Disease; Visit Provider Internal Medicine Pulmonary Disease
DX: R09.02 Hypoxemia (principal)
CPT/HCPCS: 36415; 83880

== ENCOUNTER → 2024-12-25 | Outpatient (CLI) | payer OTHER, SELFPAY ==
--- NOTE | 2024-12-25 10:42 | ECHOCS_ITS ---
Reason For Study Reason For Study: CHF Procedure This was a 2D Doppler, Color Flow transthoracic echocardiogram. The study was technically difficult. D/T body habitus. Contrast injection was performed. Exam performed in department. Left Ventricle Normal LV size. Mild concentric left ventricular hypertrophy. The left ventricular ejection fraction is 65 %. Stage 1 diastolic dysfunction. Right Ventricle Moderately dilated right ventricular cavity. Mild RV systolic dysfunction. Atria There is moderate biatrial dilatation. Mitral Valve Trivial mitral valve insufficiency. Tricuspid Valve The tricuspid valve is not well visualized. Aortic Valve The aortic valve is not well visualized in the short axis view. There is no aortic stenosis. Pulmonic Valve The pulmonic valve is not well visualized. Great Vessels Mildly dilated aortic root. Pericardium/Pleural No pericardial effusion. Medication 22 gauge I.V. with prn adaptor inserted into left arm. Diluted definity 1.5ml given slow IV push to enhance endocardial definition. MMode/2D Measurements & Calculations LVIDd: 5.7 cm IVSd: 1.2 cm Ao root diam: 4.0 cm LVIDs: 3.9 cm LVPWd: 1.2 cm LA dimension: 4.9 cm RVDd: 3.6 cm FS: 31.5 % asc Aorta Diam: 4.1 cm LAV(MOD-bp): 68.7 ml LVAd ap4: 35.1 cm2 LAV(MOD-bp) Indexed: 29.7 ml/m2 LVLd ap4: 8.3 cm LAV(MOD-sp2): 60.8 ml EDV(MOD-sp4): 123.0 ml LAV(MOD-sp4): 72.1 ml EDV(sp4-el): 126.2 ml LVAs ap4: 20.6 cm2 LVLs ap4: 6.9 cm ESV(MOD-sp4): 50.8 ml ESV(sp4-el): 52.1 ml EF(MOD-sp4): 58.7 % EF(sp4-el): 58.7 % LVAd ap2: 31.5 cm2 SV(MOD-sp4): 72.2 ml SV(MOD-sp2): 57.4 ml LVLd ap2: 8.3 cm SI(MOD-sp4): 31.2 ml/m2 SI(MOD-sp2): 24.8 ml/m2 EDV(MOD-sp2): 98.6 ml EDV(sp2-el): 101.3 ml LVAs ap2: 17.6 cm2 LVLs ap2: 6.1 cm ESV(MOD-sp2): 41.2 ml ESV(sp2-el): 43.2 ml EF(MOD-sp2): 58.2 % SV(sp4-el): 74.1 ml LA dimension(2D): 5.0 cm LA A4 area: 21.8 cm2 TAPSE: 2.6 cm Time Measurements MV dec time: 0.21 sec Doppler Measurements & Calculations MV E max meño: 70.5 cm/sec Lat Peak E' Meño: 5.4 cm/sec Med Peak E' Meño: 7.9 cm/sec MV A max meño: 79.3 cm/sec E/E' lat: 13.0 E/E' med: 8.9 MV E/A: 0.89 MV V2 max: 93.8 cm/sec MV P1/2t max meño: 84.8 cm/sec Ao V2 max: 140.9 cm/sec MV max P.5 mmHg MV P1/2t: 67.0 msec Ao max P.9 mmHg MV V2 mean: 51.2 cm/sec MV dec slope: 370.5 cm/sec2 Ao V2 mean: 96.7 cm/sec MV mean P.2 mmHg Ao mean P.1 mmHg MV V2 VTI: 28.9 cm MVA(P1/2t): 3.3 cm2 Ao V2 VTI: 26.5 cm AV (velocity ratio): 0.80 LV V1 max: 103.3 cm/sec PA V2 max: 93.5 cm/sec TR max meño: 204.0 cm/sec LV V1 max P.3 mmHg PA V2 mean: 67.3 cm/sec TR max P.7 mmHg LV V1 mean P.2 mmHg LV V1 mean: 70.7 cm/sec LV V1 VTI: 21.1 cm ECHO/Echo Complete W/ Contrast Interpretation Summary The study was technically difficult. Mild concentric left ventricular hypertrophy. The left ventricular ejection fraction is 65 %. Stage 1 diastolic dysfunction. Moderately dilated right ventricular cavity. Mild RV systolic dysfunction. There is moderate biatrial dilatation. Mildly dilated aortic root. Ordering Physician: Johnnie Kenney V Referring Physician: Omi Marie Performed By: Zaynab Guillaume, MARGARITO, RVT
== END | disposition home or self-care (01) ==
PROVIDERS: PCP Family Medicine; Referring Provider Internal Medicine Pulmonary Disease; Visit Provider Internal Medicine Pulmonary Disease
DX: I50.41 Acute combined systolic (congestive) and diastolic (congestive) heart failure (principal)
CPT/HCPCS: 93306; Q9957; A4216; C8929

== ENCOUNTER → 2024-12-27 | Outpatient (CLI) | payer OTHER, SELFPAY ==
--- NOTE | 2024-12-27 10:52 | VDLE_ITS ---
Reason For Study Reason For Study: BLE Edema RIGHT LEFT GSV is normal. GSV is normal. CFV is compressible, spontaneous, phasic, competent CFV is compressible, spontaneous, phasic, competent, and demonstrates normal augmentation. and demonstrates normal augmentation. FV is compressible, spontaneous, phasic, competent FV is compressible, spontaneous, phasic, competent and demonstrates normal augmentation. and demonstrates normal augmentation. POP V is compressible, spontaneous, phasic, competent POP V is compressible, spontaneous, phasic, competent and demonstrates normal augmentation. and demonstrates normal augmentation. T/P Trunk is compressible. T/P Trunk is compressible. PTV is compressible. PTV is compressible. RT PerV is compressible. LT PerV is compressible. Procedure This is a venous duplex using B-mode, color flow and spectral Doppler. Exam performed in department. The exam was diagnostic. A preliminary report was called and/or faxed to Dr Crawford office. VL/Venous Duplex US - Humza Extrem Interpretation Summary Deep veins of the lower extremities are bilaterally patent and compressible seg mentally. There is no evidence of deep vein thrombosis on either side. Valvular competence appears intact within the p roximal deep venous systems bilaterally. The great saphenous veins appear bilaterally patent and compressible segmentall y. Ordering Physician: Johnnie Kenney V Referring Physician: Omi Marie Performed By: Abe Grubbs RVT and Student
== END | disposition home or self-care (01) ==
LOC: CVS 10:46
PROVIDERS: PCP Family Medicine; Referring Provider Internal Medicine Pulmonary Disease; Visit Provider Internal Medicine Pulmonary Disease
DX: R60.0 Localized edema (principal)
CPT/HCPCS: 93970

== ENCOUNTER 2025-03-13 18:01 | Emergency (ER) | payer OTHER, SELFPAY ==
[2025-03-13] VITALS (7 sets, daily range): BP systolic 103–130; BP diastolic 53–79; PULSE 61–70; RESP 18–22; TEMP 36.6–36.8; O2SAT 91–97; BMI 56.7
--- NOTE | 2025-03-13 18:39 | EKG12_ITS ---
Test Reason : CP Blood Pressure : */* mmHG Vent. Rate : 62 BPM Atrial Rate : 62 BPM P-R Int : 182 ms QRS Dur : 86 ms QT Int : 418 ms P-R-T Axes : 22 -45 32 degrees QTcB Int : 424 ms Normal sinus rhythm Left axis deviation Low voltage QRS Abnormal ECG When compared with ECG of 14-Apr-2023 17:48, No significant change was found Confirmed by NATI WHIPPLE, LATONIA ([id number]), editor in chief CINDA HURTADO ([id number]) on 03/18/2025 10:34:11 AM Referred By: Confirmed By: LATONIA DAMIAN MD
--- NOTE | 2025-03-13 18:40 | ED.VIS.CHEST ---
HPI History of Present Illness Chief Complaint: Chest Pain Informant: patient Onset/Context/Timing Onset: Yesterday Activity at onset: gradual Timing: Intermittent Quality: Positive for Heaviness Location: Substernal Worsened By: - (Work) Relieved By: Nothing Associated Symptoms: Positive for Acid Reflux and Palpitations; Negative for Nausea, Vomiting, Diaphoresis, Dyspnea, Cough, Fever or Lightheadedness Narrative Narrative: Patient presents with chest pain that began yesterday. Patient states that has been intermittent. Patient states that it went away today. Patient saw her precipitate washer today who referred her to the emergency department. Patient describes her pain as a heaviness. Patient states it is over the substernal area. Patient states that it got worse yesterday while she was at work. 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 Patient states nothing seems to help with it. Patient states she has had some reflux symptoms and palpitations recently but denies any of the symptoms while she had the pain yesterday. Patient denies any shortness of breath or cough. Patient denies any nausea or vomiting. CVD Risk Factors: Positive for Family History 1' </=55; Negative for Hypertension, Diabetes, Hypercholesterolemia or Smoking PE Risk Factors: Negative for Recent Travel/Surgery, Recent Immobilization, Prior DVT or PE, Cancer or OCP + Smoking + >/=35 PFSH PFSH Medical History (Updated 03/13/25 @ 21:[address] Elia Santillan, DO) JENY treated with BiPAP Congestive heart disease Palpitation Osteoporosis Osteoarthritis LEDESMA (nonalcoholic steatohepatitis) Fatty liver disease, nonalcoholic Trigger finger Chacon's neuroma Benign tumor of uvula Vitamin D deficiency Major depressive disorder Prediabetes JENY (obstructive sleep apnea) Heart disease Fatty liver Hypertension Hyperparathyroidism Arthritis Home Medications Medication Instructions Recorded Last Taken Type Albuterol Sulfate HFA 1 puff IH PRN PRN Shortness Of 11/14/19 Unknown History Breath carvedilol 12.5 mg tablet 12.5 mg PO BID 07/17/23 Unknown History dapagliflozin propanediol 10 mg 10 mg PO DAILY 07/17/23 Unknown History tablet (Farxiga) naproxen sodium 220 mg tablet 220 mg PO DAILY 07/17/23 Unknown History (Aleve) vitamin B complex (Super Quints 1 tab PO DAILY 07/17/23 Unknown History B-50 tablet) multivitamin 1 tab PO DAILY 09/12/23 Unknown History acetaminophen 500 mg tablet 500 mg PO Q6H PRN pain 02/11/25 Unknown History ascorbic acid (vitamin C) 1,000 mg 1,000 mg PO QDAY 02/11/25 Unknown History tablet fluticasone propionate 50 1 spray intranasal QDAY PRN nasal 02/11/25 Unknown History mcg/actuation nasal congestion spray,suspension sacubitril 97 mg-valsartan 103 mg 1 tab PO BID 02/11/25 Unknown History tablet (Entresto) turmeric root extract 500 mg 500 mg PO QDAY 02/11/25 Unknown History capsule venlafaxine 150 mg 150 mg PO QDAY 02/11/25 Unknown History capsule,extended release 24 hr (Effexor XR) ergocalciferol (vitamin D2) 1,250 1,250 mcg PO QWEEK 03/13/25 Unknown History mcg (50,000 unit) capsule furosemide 40 mg tablet 40 mg PO DAILY PRN edema 03/13/25 03/12/25 History Allergy/AdvReac Type Severity Reaction Status Date / Time nirmatrelvir (From Paxlovid) Allergy Unknown Hives Verified 03/13/25 18:06 ritonavir (From Paxlovid) Allergy Unknown Hives Verified 03/13/25 18:06 naproxen (From Aleve) Allergy Swelling Verified 03/13/25 18:06 adhesive tape (surgical tape) AdvReac blisters Verified 03/13/25 18:06 alendronate sodium (From AdvReac chest pain Verified 03/13/25 18:06 Fosamax) Family History Other Arthritis Diabetes Heart disease Hypertension Surgical History Hx of cholecystectomy H/O parathyroidectomy H/O colonoscopy History of surgery H/O tubal ligation Social History Smoking Status: Never smoker alcohol intake: never ROS ROS ED Constitutional Constitutional ED: Denies chills or fever(s) Eyes Eyes: Denies blurry vision or change in vision ENT ENT ED: Denies rhinorrhea or sore throat Cardiovascular Cardiovascular: Reports as per HPI and chest pain; Denies palpitations Respiratory/Chest Respiratory/Chest: Denies cough or dyspnea Gastrointestinal Gastrointestinal: Denies nausea or vomiting Genitourinary Genitourinary ED: Denies dysuria or hematuria Musculoskeletal Musculoskeletal: Reports back pain; Denies neck pain Integumentary Denies abscess or rash Neurologic Neurologic: Denies headache(s) or weakness Allergic/Immunologic Allergic/Immunologic ED: Denies mouth swelling or urticaria EXAM Physical Exam Const Vital Signs: 03/13/25 18:02 03/13/25 18:18 03/13/25 18:21 Temperature 97.8 F Temperature Source Temporal Pulse Rate 68 62 Respiratory Rate 18 22 H Respiratory Effort Normal Blood Pressure 103/53 L 126/79 H Blood Pressure Mean 69 94 Pulse Ox 97 94 Oxygen Delivery Method Room Air Room Air 03/13/25 18:48 03/13/25 19:01 03/13/25 20:00 Temperature Temperature Source Pulse Rate 63 63 Respiratory Rate 18 20 H Respiratory Effort Blood Pressure 117/72 124/74 H Blood Pressure Mean 87 90 Pulse Ox 94 91 Oxygen Delivery Method Room Air Room Air Room Air 03/13/25 21:00 03/13/25 21:39 03/13/25 22:00 Temperature 98.2 F Temperature Source Pulse Rate 62 70 61 Respiratory Rate 20 H 20 H 19 H Respiratory Effort Blood Pressure 126/77 H 130/79 H Blood Pressure Mean 93 96 Pulse Ox 95 93 92 Oxygen Delivery Method Room Air Room Air Positive well nourished and well developed Constitutional Narrative: BMI is 56.7. General Appearance ED: well developed and NAD HEENT Reports moist mucous membranes Neck supple Chest Wall palpation of chest normal Resp normal respiratory effort and clear to auscultation bilaterally Cardio regular rate and regular rhythm GI soft to palpation, non-tender and non-distended Neuro oriented x3, CN's II-XII intact bilaterally and no sensory deficits noted Sensorium / Orientation: awake and alert Motor Exam: strength 5/5 throughout Psych mental status grossly normal Heart Score History: Slightly/Non-Suspicious ECG: Nonspecific Repolarization Age: >45 - <65 years Risk Factors: 1 or 2 Risk Factors Troponin: </= Normal Limit Score: 3 MDM MDM MDM Narrative Medical decision making narrative: Differential diagnosis includes cardiac dysrhythmia, cardiac ischemia, congestive heart failure, pneumonia, bronchitis, electrolyte abnormality, gastroesophageal reflux disease, musculoskeletal pain. EKG will be obtained to assess for cardiac dysrhythmia and cardiac ischemia. Chest x-ray will be obtained to assess for pneumonia, congestive heart failure, and bronchitis. CBC will be obtained to assess for leukocytosis or anemia. Basic metabolic profile will be obtained to assess for electrolyte abnormality and renal function. High-sensitivity troponin will be obtained to assess for cardiac ischemia. 2-hour repeat high-sensitivity troponin will be obtained to assess for ongoing cardiac ischemia. Lab Data Attestation: I reviewed the patient's lab results. Lab results narrative: CBC was reviewed and and was within normal limits. Basic metabolic profile was reviewed and was within normal limits. Initial high-sensitivity troponin was reviewed and was normal at 14. 2-hour repeat high-sensitivity troponin was reviewed and was normal at 11. Labs: Laboratory Results - last 24 hr 03/13/25 03/13/25 18:24 20:21 WBC 8.0 RBC 4.96 Hgb 15.1 H Hct 46.2 MCV 93.1 MCH 30.4 MCHC 32.7 RDW Std Deviation 44.4 H RDW Coeff of Davion 13.0 Plt Count 292 MPV 9.6 Immature Gran % (Auto) 0.300 Neut % (Auto) 58.9 Lymph % (Auto) 30.2 [place] % (Auto) 8.1 Eos % (Auto) 2.0 Baso % (Auto) 0.5 Absolute Neuts (auto) 4.7 Absolute Lymphs (auto) 2.41 Nucleated RBC % 0 Sodium 139 Potassium 4.0 Chloride 102 Carbon Dioxide 26.0 Anion Gap 11 BUN 30 H Creatinine 0.88 Estim Creat Clear Calc 90.31 Est GFR (MDRD) Non-Af 74 BUN/Creatinine Ratio 34.0 H Glucose 89 Calcium 9.2 Troponin T High Sens 14 D Troponin T Hi Sens 2 Hr 11 Radiography Chest X-Ray - ED: 1 View, Read by ED Physician, Read by Radiologist and No Acute Disease Diagnostic Testing: Clinical Impression(s) from Imaging Studies Chest X-Ray 03/13/25 18:45 IMPRESSION: No Acute Findings. Reading Location: [facility] Portable 1 view chest x-ray was obtained. On my independent interpretation, lung owens are clear. There is normal cardiac silhouette. Bony thorax is normal. There is no acute process noted. Radiologist also interpreted the x-ray and agrees. EKG Initial EKG: Attestation: I personally reviewed and interpreted this EKG as follows: Interpretation: Sinus Rhythm (62) and Non-Specific ST Changes Comments: EKG was obtained. On my independent interpretation, showed a normal sinus rhythm with a rate of 62. IN interval is normal 182 ms. QRS interval is normal at 86 ms. QTc interval was normal at 424 ms. There is left axis deviation at -45. Prior EKG tracings: available for review Prior: Unchanged (04/14/2023) Differential Diagnosis Chest pain/SOB: pulmonary embolism Reason(s) PE less likely: Positive for Well's <3, not tachycardic and not hypoxic Management Discussion w/another healthcare provider: Filter Bed Placer (Dr. Rosenberg, cardiology) Treatment and Re-Evaluation :: Patient was given aspirin. Patient had no further chest pain here in the emergency department. Patient had a HEART score of 3. Patient was advised of her findings. Patient would prefer to go home and come back as an outpatient for an outpatient stress test. This will be ordered to be done tomorrow. Patient was instructed to follow-up with her primary care physician in 3 to 5 days. Patient was instructed to return if worse in any way. Patient understood and was agreeable with the plan. All questions were answered. Discharge Plan Triage Chief Complaint: Chest Pain ED Provider: Elia Santillan Dx/Rx/DC Orders Clinical Impression: Chest pain, Congestive heart disease Instructions: ED Chest Pain, Uncertain Cause Prescriptions: No Action fluticasone propionate 50 mcg/actuation spray,suspension 1 spray intranasal QDAY PRN (Reason: nasal congestion) Rx Instructions: administer into each nostril turmeric root extract 500 mg capsule 500 mg PO QDAY ascorbic acid (vitamin C) 1,000 mg tablet 1,000 mg PO QDAY venlafaxine [Effexor XR] 150 mg capsule,extended release 24hr 150 mg PO QDAY acetaminophen 500 mg tablet 500 mg PO Q6H PRN (Reason: pain) sacubitril-valsartan [Entresto] 97-103 mg tablet 1 tab PO BID Albuterol Sulfate HFA 1 puff IH PRN PRN (Reason: Shortness Of Breath) furosemide 40 mg tablet 40 mg PO DAILY PRN (Reason: edema) ergocalciferol (vitamin D2) 1,250 mcg (50,000 unit) capsule 1,250 mcg PO QWEEK carvedilol 12.5 mg tablet 12.5 mg PO BID dapagliflozin propanediol [Farxiga] 10 mg tablet 10 mg PO DAILY vitamin B complex [Super Quints B-50] Tablet 1 tab PO DAILY naproxen sodium [Aleve] 220 mg tablet 220 mg PO DAILY multivitamin Tablet 1 tab PO DAILY Other Ambulatory Orders: Stress Test Regular (Routine) Timeframe: 1 Day Location: None Selected Ordered By: Dr. Elia Santillan Primary Care Provider: Omi Marie Referrals: Omi Marie DO [Primary Care Provider, Medical] - 3-5 Days Chaz Leung MD [Med Staff - Active Staff, Cardiology] - 5-7 Days Print Language: Macedonian Disposition Disposition: Home, Self Care
--- NOTE | 2025-03-13 18:45 | RAD_ITS ---
PROCEDURE: CHEST 1 VIEW (PORTABLE) 03/13/2025 REASON FOR EXAM: CHEST PAIN TECHNIQUE: Frontal view of the chest. COMPARISON: 04/14/2023 FINDINGS: LUNGS AND PLEURA: No focal airspace consolidation. No pleural effusion or pneumothorax. HEART AND MEDIASTINUM: The cardiac silhouette is mildly enlarged. The mediastinal contour is normal. BONES: No acute osseous abnormality. RAD/Chest 1 View (Portable) IMPRESSION: No Acute Findings. Reading Location: [id number]
[2025-03-13 19:04] LABS: Hematocrit 46.2 % (37-47); Hemoglobin 15.1 g/dL (12.0-15.0); Immature Granulocytes Count 0.020 X10^3/uL (0.0-0.0); Mean Corp Hgb Conc 32.7 g/dL (32-36); Mean Corpuscular Volume 93.1 fL (81-99); Mean Platelet Vol. 9.6 fl (6.2-12.0); NRBC Flagged by Analyzer 0 % (0-5); Platelet Count 292 K/mm3 (150-450); RBC Distribution Width CV 13.0 % (11.6-14.6); RBC Distribution Width SD 44.4 fl (35.1-43.9); Red Blood Count 4.96 M/mm3 (4.2-5.4); White Blood Count 8.0 K/mm3 (4.4-11.0)
[2025-03-13 19:44] LABS: Anion Gap 11 (5-15); BUN 30 mg/dL (4-19); BUN/Creat Ratio 34.0 RATIO (10-20); Calcium,Total 9.2 mg/dL (7.6-11.0); Carbon Dioxide 26.0 mmol/L (21.0-32.0); Chloride 102 mmol/L (98-108); Estimated Creatinine Clearance 90.31 ml/min (50-250); Glucose 89 mg/dL (70-99); Potassium 4.0 mmol/L (3.3-5.1); Troponin T High Sensitivity 14 ng/L (<=14)
[2025-03-13 20:42] LABS: Troponin T High Sens 2 HR 11 ng/L (<=14)
== END 2025-03-13 22:31 | disposition home or self-care (01) ==
PROVIDERS: Emergency Provider Emergency Medicine; PCP Family Medicine; Visit Provider Emergency Medicine
DX: R07.89 Other chest pain (principal); I11.0 Hypertensive heart disease with heart failure; I50.9 Heart failure, unspecified; Z79.899 Other long term (current) drug therapy
CPT/HCPCS: 71045; 80048; 84484; 85025; 93005; 99284; A4216

== ENCOUNTER → 2025-03-13 | Outpatient (CLI) | payer OTHER, SELFPAY ==
[2025-03-13 15:37] LABS: Troponin T High Sensitivity 15 ng/L (<=14)
--- OUTSIDE RECORDS SUMMARY | 2025-03-13 19:20 | XMS RPT_ITS | CCD ---
Author Organization [facility] Care Team Providers Care Netsuite Consultant Name Role Phone GregoriopoojaMoo Unavailable Unavailable PROVIDER, UNKNOWN Unavailable Unavailable Jose, Omi Unavailable Unavailable Jose, Omi Primary Care Provider Jose DOOmi Primary Care Provider JoseOmi smith DO Primary Care Provider [phone] JoseOmi smith DO Primary Care Provider Dr. Omi Garcia Primary Care Provider Dr. Omi Garcia Referring Provider TARA Loyola Attending Provider Jose DOOmi Primary Care Provider [phone] PROVIDER, UNKNOWN Referring Unavailable IleKimberly mack Attending Unavailable Jose, Omi Primary Care Unavailable PROVIDER, UNKNOWN Referring Unavailable IlerKimberly Attending Unavailable Jose, Omi Primary Care Unavailable PROVIDER, UNKNOWN Referring Unavailable Jose, Omi Primary Care Unavailable DIANA ROMERO Attending Unavailable PROVIDER, UNKNOWN Referring Unavailable Jose, Omi Primary Care Unavailable Pamela Bautista Attending Unavailable Jose, Omi Primary Care Unavailable Inderjit Snyder Attending Unavailable PROVIDER, UNKNOWN Referring Unavailable Jose, Omi Primary Care Unavailable IlerKimberly Attending Unavailable PROVIDER, UNKNOWN Referring Unavailable Jose, Omi Primary Care Unavailable Brittnee Jones Attending Unavailable PROVIDER, UNKNOWN Referring Unavailable Jose, Omi Primary Care Unavailable Pamela Bautista Attending Unavailable PROVIDER, UNKNOWN Referring Unavailable PROVIDER, UNKNOWN Referring Unavailable Jose, Omi Primary Care Unavailable Kimberly Grullon Attending Unavailable Dr. Omi Garcia Primary Care Provider [phone] Dr. Omi Garcia Referring Provider TARA Loyola Attending Provider Jose DO, Omi Primary Care Provider Jose DO, Omi Primary Care Provider Jose DO, Dr. Omi Keyes Primary Care Provider Jose DO, Dr. Omi Keyes Attending Provider Jose DO, Dr. Omi Keyes Referring Provider Jose DO, Dr. Omi Keyes Primary Care Provider Sanket WHIPPLE, Dr. Ceballos Attending Provider Anne Marie WHIPPLE, Dr. Johnnie Steele Attending Provider Anne Marie WHIPPLE, Dr. Johnnie Steele Referring Provider Jose, Omi D Primary Care Unavailable Johnnie Kenney V Attending Unavailable SibJohnnie bowling V Referring Unavailable Jose, Omi D Primary Care Unavailable Jose, Omi D Attending Unavailable Jose, Omi D Referring Unavailable SibiliaJohnnie V Referring Unavailable Jose, Omi D Primary Care Unavailable Johnnie Kenney V Attending Unavailable Jose, Omi D Primary Care Unavailable Kamran Fernandez Attending Unavailable Jose, Omi D Primary Care Unavailable SibiliaJohnnie V Attending Unavailable SibJohnnie bowling V Referring Unavailable Jose DO, Dr. Omi Keyes Primary Care Physician Sanket WHIPPLE, Dr. Ceballos Attending Physician Anne Marie WHIPPLE, Dr. Johnnie Steele Attending Physician Dr. Kamran Fernandez MD Attending Physician [phone] Sita WHIPPLE, Dr. Wilfredo Carr Attending Physician JOSE, OMI Primary Care Unavailable STEPHON REINA Attending Unavailable JOSE, OMI Primary Care Unavailable STEPHON, REINA Attending Unavailable JOSE, OMI Primary Care Unavailable STEPHON, REINA Attending Unavailable JOSE, OMI Primary Care Unavailable REINA CUNHA Attending Unavailable JOSE, OMI Primary Care Unavailable MADDISON JORDNA Attending Unavailable JOSE, OMI Primary Care Unavailable KIMBERLY GRULLON Attending Unavailable TARSHA CARCAMO Referring Unavailable TARSHA CARCAMO Attending Unavailable [facility] Primary Care Unavailable [facility] Primary Care Unavailable REINA CUNHA Attending Unavailable Allergies Allergy Classification Reported Allergen(s) Allergy Type Date of Onset Reaction(s) Facility Alendronate (1 source) Alendronate Drug Allergy 6 Anaphylaxis, Other [facility] jennifer root (1 source) jennifer root Drug Allergy 5 Shortness of breath [facility] NSAIDs (1 source) Naproxen Drug Allergy 5 Swelling [facility] (20 sources) Alendronate Drug Allergy 6 Anaphylaxis, Other [facility] Work Phone: (20 sources) Naproxen Drug Allergy 5 Swelling [facility] Work Phone: (14 sources) Alendronate Drug Allergy 6 Anaphylaxis, Other (See Comments), Other: See Comments [facility] (20 sources) jennifer root Drug Allergy 5 Shortness Of Breath [facility] (3 sources) Jennifer extract Drug Allergy 5 Shortness of Breath [facility] (5 sources) Adhesive Tape Propensity to adverse reactions to drug 2 Rash [facility] (20 sources) Nirmatrelvir-Rit onavir Propensity to adverse reactions to drug 2 Hives [facility] Work Phone: (20 sources) Wound Dressing Adhesive Drug Intolerance 2 Rash [facility] (20 sources) Ritonavir Drug Allergy 5 [facility] (20 sources) Nirmatrelvir Allergy to substance 5 [facility] (1 source) Naproxen Drug Allergy 4 [facility] Medications Current Medications Medication Drug Class(es) Dates Sig (Normalized) Sig (Original) acetaminophen 500 mg oral tablet (20 sources) take 1 tablet by mouth every six hours as needed acetaminophen (Tylenol) 500 MG tablet Take 500 mg by mouth every 6 hours as needed. Active Albuterol (20 sources) beta2-Adrenergic Agonist Start: 11-14-2019 Start: 11-14-2019 Albuterol Sulf ate HFA Active 1 NMA IH NEEDED as needed for Shortness Of Breath November 14, 2019 12:00am Start: 11-14-2019 Albuterol Sulf ate HFA Active 1 PUFF IH NEEDED November 13, 2019 11:00pm Start: 11-14-2019 Albuterol Sulf ate HFA Active 1 PUFF IH NEEDED November 14, 2019 12:00am take 2 puff(s) by in halation every six hours as needed albuterol 108 (90 Base) MCG/ACT inhaler Inhale 2 puffs every 6 hours as needed. Active take 2 puff(s) by in halation four times daily as needed ALBUTEROL INHALATION Inhale 2 Puffs as instructed four times daily as needed. 0 Active take 2 puff(s) by in halation every six hours as needed for wheezing albuterol sulfate HFA 108 (90 Base) MCG/ACT inhaler Inhale 2 puffs into the lungs every 6 hours as needed for Wheezing 0 Active Comment on above: Inhale 2 Puffs as in structed four times daily as needed. ascorbic acid 1000 mg oral tablet (20 sources) Vitamin C take 1 tablet by mouth once daily Ascorbic Acid (vitamin C) 1000 MG tablet Take 1,000 mg by mouth daily. Active ascorbic acid 60 mg / beta carotene 5000 unt / copper sulfate 40 mg / dl-alpha tocopheryl acetate 30 unt / sodium selenite 0.04 mg / zinc oxide 40 mg oral tablet (1 source) Vitamin C take 1 tablet by mouth once daily Multiple Vitamins-Minerals (THERAPEUTIC MULTIVITAMIN-MINERAL S) tablet Take 1 tablet by mouth daily 0 Active b complex vitamins capsule (20 sources) take 1 capsule by mouth once daily b complex vitamins capsule Take 1 capsule by mouth daily. Active take 1 capsule by mouth once simona ly b complex vitamins capsule Take 1 capsule by mouth daily. 0 Active betamethasone 3 mg/ml / betamethasone acetate 3 mg/ml injectable suspension (18 sources) Corticosteroid Start: 08-17-2017 betamethasone acetate-betamethasone sodium phosphate (CELESTONE) injection 12 mg Calcium Carb-Cholecalcife rol (CALCIUM 1000 + D) 1000-800 MG-UNIT TABS (4 sources) Calcium Carb-Cholecalciferol (CALCIUM 1000 + D) 1000-800 MG-UNIT TABS Take by mouth 0 Active Calcium Carbonate-Vit D-Min (CALCIUM 1200 PO) (5 sources) Calcium Carbonat e-Vit D-Min (CALCIUM 1200 PO) Take by mouth 0 Active carvedilol 12.5 mg oral tablet (20 sources) alpha-Adrenergic Adeline, beta-Adrenergic Adeline Start: 03-01-2022 End: 01-28-2025 take 1 tablet by mouth twice daily at mealtime carvedilol (Coreg) 12.5 MG tablet TAKE 1 TABLET BY MOUTH TWICE DAILY WITH MEALS 180 tablet 3 01/28/2025 Active Start: 10-26-2021 take 1 tablet by lily th twice daily at mealtime carvedilol (COREG) 12.5 MG tablet TAKE 1 TABLET BY MOUTH TWICE A DAY WITH MEALS 60 tablet 5 10/26/2021 Active Start: 03-29-2021 take 1 tablet by lily th twice daily at mealtime carvedilol (COREG) 12.5 MG tablet TAKE 1 TABLET BY MOUTH TWICE A DAY WITH MEALS 60 tablet 5 03/29/2021 Active Comment on above: Take 12.5 mg by mout h twice daily with meals. Take 1 tablet by lily th twice daily with meals. cefdinir 300 mg oral capsule (4 sources) Cephalosporin Antibacterial Start: 4 take 1 capsule by mouth twice daily clotrimazole 10 mg/ml vaginal cream (4 sources) Azole Antifungal Start: 4 CPAP Machine MISC (11 sources) CPAP Machine MISC by Does not apply route nightly 0 Active dapagliflozin 10 mg oral tablet (20 sources) Sodium-Glucose Cotransporter 2 Inhibitor Start: 3 End: 5 take 1 tablet by mouth once daily Farxiga 10 MG tablet Take 1 tablet (10 mg) by mouth daily. 90 tablet 3 02/12/2025 11:48 AM EDT 09/30/2024 Active Start: 05-04-2022 take 1 tablet by lily th once daily Farxiga 10 MG Take 1 tablet (10 mg) by mouth daily. 90 tablet 3 05/04/2022 Active Start: 04-12-2021 End: 05-02-2022 Farxiga 10 MG Comment on above: Take by mouth daily with breakfast. ergocalciferol 1.25 mg oral capsule (20 sources) Provitamin D2 Compound take 1 capsule by mouth every week ergocalciferol (Vitamin D-2) 1.25 MG (90947 UT) capsule Take 1.25 mg by mouth 1 (one) time per week. Active fluconazole 150 mg oral tablet (4 sources) Azole Antifungal Start: fluticasone propionate 0.05 mg/actuat metered dose nasal spray (20 sources) Corticosteroid Start: 017 take 1 spray(s) nasal route once daily fluticasone (Flonase) 50 MCG/ACT nasal spray Administer 1 spray into affected nostril(s) daily. 06/21/2016 Active 60 actuat formoterol fumarate 0.005 mg/actuat / mometasone furoate 0.1 mg/actuat metered dose inhaler (5 sources) Corticosteroid, beta2-Adrenergic Agonist take 2 puff(s) by inhalation twice daily mometasone-formotero l (DULERA) 100-5 MCG/ACT inhaler Inhale 2 puffs into the lungs 2 times daily 0 Active furosemide 40 mg oral tablet (20 sources) Loop Diuretic Start: 024 take 2 tablets by mouth once daily as needed for edema Start: 09-09-2022 End: 02-13-2025 take 1 tablet by mouth once daily as needed furosemide (Lasix) 40 MG tablet TAKE 1 TABLET BY MOUTH ONCE DAILY NEEDED 90 tablet 1 02/13/2025 Active Start: 04-06-2022 take 1 tablet by lily th once daily furosemide (Lasix) 40 MG tablet Take 1 tablet (40 mg) by mouth daily. 90 tablet 3 04/06/2022 Active Start: 01-04-2021 End: 07-17-2023 take 1 tablet by mouth once daily Furosemide (Lasix) 20 mg tablet Discontinued 20 mg PO DAILY 14 0 January 04, 2021 12:00am July 17, 2023 7:28pm Start: 12-11-2020 furosemide (LA SIX) injection 40 mg Start: 12-11-2020 End: 08-31-2021 take 1 tablet by mouth once daily furosemide (LASIX) 40 mg tablet take 1 tablet by mouth once daily for 3 doses 0 12/12/2020 08/31/2021 Discontinued furosemide (LASI X) 20 mg tablet Take 10 mg by mouth. 0 Active Comment on above: take 1 tablet by lily th once daily for 3 doses Take 10 mg by mouth. gabapentin 300 mg oral capsule (14 sources) Anti-epileptic Agent Start: 11-14-19 take 1 capsule by mouth at bedtime as needed hydroCHLOROthiazide 12.5 mg / losartan potassium 50 mg oral tablet (11 sources) Thiazide Diuretic, Angiotensin 2 Receptor Adeline Start: 05-07-19 take 1 tablet by mouth once daily losartan-hydro CHLOROthiazide (Hyzaar) 50-12.5 MG tablet Take 1 tablet by mouth daily. 0 05/07/2021 Active Start: 02-18-2021 End: 08-31-2021 losartan-hydroCHLOROthiazide (HYZAAR) 50-12.5 mg per tablet Start: 01-08-2021 take 1 tablet by lily th once daily losartan-hydroCHLOROthiazide (HYZAAR) 50-12.5 MG per tablet Take 1 tablet by mouth daily 90 tablet 3 01/08/2021 Active 10 ml lidocaine hydrochloride 20 mg/ml injection (18 sources) Antiarrhythmic, Amide Local Anesthetic Start: 08-17-2017 lidocaine 2 % injection 0.5 mL meloxicam 15 mg oral tablet (10 sources) Nonsteroidal Anti-inflammatory Drug Start: 01-17-2023 End: 02-16-2023 meloxicam (Mobic) 15 MG tablet Indications: Primary osteoarthritis of right knee Take 1 tablet (15 mg) by mouth daily. Take for 10-14 days then prn 30 tablet 0 01/17/2023 02/16/2023 Active Start: 12-24-2020 meloxicam (MOB IC) 15 mg tablet montelukast 10 mg oral tablet (3 sources) Leukotriene Receptor Antagonist Start: 01-04-2022 take 1 tablet by mouth once daily montelukast (Singulair) 10 MG tablet Take 10 mg by mouth daily. 0 01/04/2022 Active MULTIPLE VITAMINS PO (20 sources) MULTIPLE VITAMIN S PO Take by mouth 1 (one) time each day. Active Multiple Vitamins-Minerals (THERAPEUTIC MULTIVITAMIN-MINERA LS) tablet (15 sources) take 1 tablet by mouth once daily Multiple Vitamins-Minerals (THERAPEUTIC MULTIVITAMIN-BEAD FORMING MACHINE SET UP OPERATOR ALS) tablet Take 1 tablet by mouth daily 0 Active Multivitamin tablet (4 sources) Start: 09-12-2023 Start: 09-12-2023 Multivitamin t ablet Active 1 {tbl} PO DAILY September 12, 2023 12:00am naproxen sodium 220 mg oral tablet (20 sources) Nonsteroidal Anti-inflammatory Drug Start: 07-17-2023 take 1 tablet by mouth once daily naproxen (Napros yn) 250 MG tablet Take by mouth. Active perflutren lipid microspheres (DEFINITY) injection 1.65 mg (1 source) Start: 12-23-2020 End: 12-26-2020 perflutren lipid microspheres (DEFINITY) injection 1.65 mg predniSONE 10 mg oral tablet (1 source) Start: 07-29-2021 End: 08-26-2021 take 4 tablets by mouth once daily, then take 3 tablets by mouth once daily, then take 2 tablets by mouth once daily, then take 1 tablet by mouth once daily predniSONE (DELTASONE) 10 mg tablet Take 4 tablets by mouth once daily for 7 days, THEN 3 tablets once daily for 7 days, THEN 2 tablets once daily for 7 days, THEN 1 tablet once daily for 7 days. 70 tablet 0 07/29/2021 08/26/2021 Active Comment on above: Take 4 tablets by mo uth once daily for 7 days, THEN 3 tablets once daily for 7 days, THEN 2 tablets once daily for 7 days, THEN 1 tablet once daily for 7 days. sacubitril 97 mg / valsartan 103 mg oral tablet (20 sources) Angiotensin 2 Receptor Adeline Start: 09-09-2022 End: 09-30-2024 take 97-103 mg by mouth twice daily sacubitril-valsart an (Entresto) 97-103 MG tablet Take 1 tablet by mouth 2 times daily. 180 tablet 3 02/12/2025 11:48 AM EDT 09/30/2024 Active Start: 06-21-2021 End: 08-12-2022 take 97-103 mg by mouth twice daily sacubitril-valsartan (Entresto) 97-103 MG tablet Take 1 tablet by mouth 2 times daily. 90 tablet 0 08/12/2022 Active Start: 06-21-2021 take 97-103 mg by mo uth once sacubitril-valsartan (ENTRESTO) 97-103 MG per tablet Indications: Chronic systolic heart failure (HCC) Take 1 tablet by mouth 2 times daily 180 tablet 1 06/21/2021 Active Comment on above: Take 1 tablet by [facility] twice daily. 5 ml sodium chloride 9 mg/ml injection (3 sources) Start: 12-17-2021 sodium chloride flush 0.9 % injection 5-40 mL Start: 12-17-2021 0.9 % sodium c hloride infusion Start: 12-11-2020 End: 12-11-2020 0.9 % sodium chloride bolus spironolactone 25 mg oral tablet (10 sources) Aldosterone Antagonist Start: 04-12-2021 take 1 tablet by mouth once daily spironolactone (ALDACTONE) 25 MG tablet Indications: Chronic systolic heart failure (HCC) Take 1 tablet by mouth daily 90 tablet 1 06/21/2021 Active Comment on above: Take 25 mg by mouth once daily. Tirzepatide-Weight Management (Zepbound) 2.5 MG/0.5ML solution auto-injector (4 sources) Start: 09-06-2024 End: 10-06-2024 Tirzepatide-Weight Management (Zepbound) 2.5 MG/0.5ML solution auto-injector Indications: JENY treated with BiPAP , BMI 50.0-59.9, adult ([facility]) , Class 3 severe obesity due to excess calories with serious comorbidity and body mass index (BMI) of 50.0 to 59.9 in adult Inject 2.5 mg under the skin every 7 days. 2 mL 09/06/2024 10/06/2024 Active traMADol hydrochloride 50 mg oral tablet (1 source) Opioid Agonist Start: 12-17-2021 End: 12-20-2021 traMADol (ULTRAM) 50 MG tablet Indications: S/P trigger finger release Take 1 tablet by mouth every 6 hours as needed for Pain for up to 3 days. Intended supply: 3 days. Take lowest dose possible to manage pain 12 tablet 0 12/17/2021 12/20/2021 Active turmeric extract 500 mg oral capsule (20 sources) take 2 capsules by mouth once daily Turmeric (QC Tumeric Complex) 500 MG capsule Take 1,000 mg by mouth daily. Active 24 hr venlafaxine 150 mg extended release oral capsule (20 sources) Serotonin and Norepinephrine Reuptake Inhibitor Start: 07-14-2017 take 1 capsule by mouth once daily take 1 capsule by mouth once simona ly venlafaxine ER (EFFEXOR XR) 75 mg 24 hr capsule Take 75 mg by mouth once daily. 0 Active Comment on above: Take 75 mg by mouth once daily. Vitamin B Complex (Super Edmar nts B-50) tablet (5 sources) Start: 07-17-2023 Start: 07-17-2023 Vitamin B Comp nathaniel (Super Quints B-50) tablet Active 1 {tbl} PO DAILY July 17, 2023 12:00am Start: 07-17-2023 take 1 tablet by mouth once da ralph Vitamin B Complex (Super Quints B-50) tablet Active 1 TABLET PO DAILY July 17, 2023 12:00am Completed/Discontinued Medications Medication Drug Class(es) Dates Sig (Normalized) Sig (Original) albuterol 0.833 mg/ml / ipratropium bromide 0.167 mg/ml inhalation solution (1 source) Anticholinergic, beta2-Adrenergic Agonist Start: 12-11-2020 End: 12-11-2020 ipratropium-albu terol (DUONEB) nebulizer solution 1 ampule calcium carbonate 1250 mg / cholecalciferol 600 unt chewable tablet (4 sources) Vitamin D Start: 10-01-2014 take 1 tablet by mouth three times daily Calcium Carbonate-Vitami n D3 (OSCAL 500+D) 500 mg(1,250mg) -600 unit chew Take 1 tablet by mouth three times daily. 0 10/01/2014 Active Calcium Carb-Cho lecalciferol (CALCIUM 1000 + D) 1000-800 MG-UNIT TABS Take by mouth 0 Active Comment on above: Take 1 tablet by lily three times daily. celecoxib 200 mg oral capsule (20 sources) Nonsteroidal Anti-inflammatory Drug Start: 8 End: 4 take 1 capsule by mouth twice daily Celecoxib 200 MG capsule Discontinued 200 mg PO TWICE A DAY November 14, 2019 12:00am July 17, 2023 7:23pm End: 08-31-2021 CELECOXIB (CELEBREX ORAL) Ta ke by mouth. 0 08/31/2021 Discontinued CELECOXIB (CELEB MADHURI ORAL) Take by mouth. 0 Active Comment on above: Take by mouth. cephalexin 500 mg oral capsule (9 sources) Cephalosporin Antibacterial Start: 12-17-2021 End: 12-17-2021 cephALEXin (KEFLEX) capsule 1,000 mg Start: 07-27-2021 End: 08-06-2021 take 1 capsule by mouth twice daily cephALEXin (KEFLEX) 500 mg capsule Take 1 capsule by mouth twice daily for 10 days. 20 capsule 0 07/27/2021 08/06/2021 Active End: 07-01-2024 cephalexin (Keflex) 250 MG c apsule Take 250 mg by mouth in the morning and 250 mg at noon and 250 mg in the evening and 250 mg before bedtime. 07/01/2024 Discontinued (Therapy completed) Comment on above: Take 1 capsule by mo [facility] twice daily for 10 days. cholecalciferol 0.125 mg oral tablet (3 sources) Vitamin D Start: take 1 tablet by mouth once daily Cholecalciferol, Vitamin D3, (VITAMIN D-3) 5,000 unit tab Indications: Unspecified vitamin D deficiency , Osteoporosis, unspecified Take 1 tablet by mouth once daily. 90 tablet 0 11/10/2014 Active Comment on above: Take 1 tablet by [facility] once daily. CPAP (3 sources) CPAP as directed . 0 Active Comment on above: as directed. cranberry preparation 500 mg chewable tablet (20 sources) Non-Standardized Food Allergenic Extract, Non-Standardized Plant Allergenic Extract End: Cranberry 500 MG chewable tablet Chew. 01/03/2025 Discontinued desoximetasone 2.5 mg/ml topical cream (1 source) Corticosteroid Start: desoximetasone (TOPICORT) 0.25 % cream Apply to affected area twice daily as needed (for flares of rash). 60 g 2 08/31/2021 Active Comment on above: Apply to affected ar ea twice daily as needed (for flares of rash). estradiol 0.1 mg/ml vaginal cream (20 sources) Estrogen End: estradiol (Estrace) 0.1 MG/GM vaginal cream Insert 2 g into the vagina daily. 01/03/2025 Discontinued gadobutrol (GADAVIST) injection 20 mL (1 source) Start: End: gadobutrol (GADAVIST) injection 20 mL iopamidol (ISOVUE-370) 76 % injection 75 mL (1 source) Start: End: iopamidol (ISOVUE-370) 76 % injection 75 mL magnesium carbonate (3 sources) take 1 tablet by mouth once daily MAGNESIUM CARBONATE ORAL Take 1 tablet by mouth once daily. 0 Active Comment on above: Take 1 tablet by lily th once daily. Nirmatrelvir-Ritonavir (14 sources) Start: End: Nirmatrelvir-Ritonavi r (Paxlovid (Eua)) 300 mg (150 mg x 2)-100 mg tablet Discontinued 0 PO .COMPLEX 30 October 19, 2021 12:00am July 17, 2023 7:24pm take TWO 150 mg tablets of nirmatrelvir with ONE 100 mg tablet of ritonavir twice daily for 5 days PO Start: 10-19-2021 End: 07-17-2023 Nirmatrelvir-Ritonavir (Paxl ovid (Eua)) 300 mg (150 mg x 2)-100 mg tablet Discontinued 0 PO .COMPLEX October 19, 2021 12:00am July 17, 2023 7:24pm take TWO 150 mg tablets of nirmatrelvir with ONE 100 mg tablet of ritonavir twice daily for 5 days PO Start: 10-19-2021 Nirmatrelvir-R itonavir (Paxlovid (Eua)) 300 mg (150 mg x 2)- 100 mg tablet Active 0 PO .COMPLEX October 18, 2021 11:00pm take TWO 150 mg tablets of nirmatrelvir with ONE 100 mg tablet of ritonavir twice daily for 5 days PO Start: 10-19-2021 Nirmatrelvir-R itonavir (Paxlovid (Eua)) 300 mg (150 mg x 2)- 100 mg tablet Active 0 PO .COMPLEX October 19, 2021 12:00am take TWO 150 mg tablets of nirmatrelvir with ONE 100 mg tablet of ritonavir twice daily for 5 days PO nitrofurantoin, macrocrystals 100 mg oral capsule (6 sources) Nitrofuran Antibacterial End: 07-01-2024 take 1 capsule by mouth once daily nitrofurantoin (Macrodantin) 100 MG capsule Take 100 mg by mouth Nightly. 07/01/2024 Discontinued (Therapy completed) Probiotic Product (PROBIOTIC DAILY PO) (18 sources) End: 01-03-2025 Probiotic Product (PROBIOTIC DAILY PO) Take by mouth. 01/03/2025 Discontinued Probiotic Produc t (PROBIOTIC DAILY PO) Take by mouth. Active risedronate sodium 35 mg oral tablet (3 sources) Start: 07-20-2015 End: 08-31-2021 take 1 tablet by mouth every week risedronate (ACTONEL) 35 mg tablet Indications: Osteoporosis , Postsurgical hypoparathyroidism (HCC) Take 1 tablet by mouth once each week. 4 tablet 5 07/20/2015 08/31/2021 Discontinued Comment on above: Take 1 tablet by lily th once each week. sulfamethoxazole 800 mg / trimethoprim 160 mg oral tablet (5 sources) Dihydrofolate Reductase Inhibitor Antibacterial, Sulfonamide Antimicrobial Start: 07-17-2023 End: 09-12-2023 Sulfamethoxazole-Trime thoprim (Bactrim Ds) 800-160 mg tablet Discontinued 1 {tbl} PO TWICE A DAY 20 July 17, 2023 12:00am September 12, 2023 10:18am Vibegron (Gemtesa) 75 MG tablet (20 sources) End: 01-03-2025 take 1 tablet by mouth once daily Vibegron (Gemtesa) 75 MG tablet Take 75 mg by mouth 1 (one) time each day. 01/03/2025 Discontinued take 1 tablet by mouth once palmira y Vibegron (Gemtesa) 75 MG tablet Take 75 mg by mouth 1 (one) time each day. Active Wegovy 0.25 MG/0.5ML solutio n auto-injector (4 sources) Start: 12-06-2024 End: 01-03-2025 Wegovy 0.25 MG/0.5ML solutio n auto-injector Indications: BMI 50.0-59.9, adult (HCC) , Class 3 severe obesity due to excess calories with serious comorbidity and body mass index (BMI) of 50.0 to 59.9 in adult Inject 0.5 mL (0.25 mg) under the skin every 7 days. 2 mL 12/06/2024 01/03/2025 Discontinued Start: 12-06-2024 End: 01-05-2025 Wegovy 0.25 MG/0.5ML solutio n auto-injector Indications: BMI 50.0-59.9, adult (HCC) , Class 3 severe obesity due to excess calories with serious comorbidity and body mass index (BMI) of 50.0 to 59.9 in adult Inject 0.5 mL (0.25 mg) under the skin every 7 days. 2 mL 12/06/2024 01/05/2025 Active Problems Active Problems Problem Classification Problem Date Documented Date Episodic/Chronic Allergic reactions (2 sources) Allergy status to other drugs, medicaments and biological substances status; Translations: [Allergy status to other drug/meds/biol subst] Onset: 12-17-2021 Episodic Conditions associated with dizziness or vertigo (20 sources) Vertigo; Translations: [Dizziness and giddiness] 07-01-2024 Episodic Congestive heart failure; nonhypertensive (20 sources) Acute congestive heart failure; Translations: [Heart failure, unspecified] Onset: 03-02-2021 Chronic Diabetes mellitus without complication (20 sources) Type 2 diabetes mellitus; Translations: [Type 2 diabetes mellitus without complications] Onset: 04-12-2021 04-12-2021 Chronic Diabetes mellitus without complication (1 source) Prediabetes; Translations: [Prediabetes] 11-04-2022 Episodic Disorders of lipid metabolism (1 source) Pure hypercholesterolemia; Translations: [Pure hypercholesterolemia, unspecified] 11-04-2022 Chronic Essential hypertension (20 sources) Essential hypertension; Translations: [Essential (primary) hypertension] Onset: 03-15-2021 03-15-2021 Chronic Genitourinary symptoms and ill-defined conditions (4 sources) Dysuria; Translations: [Dysuria] 09-28-2023 Episodic Heart valve disorders (4 sources) Nonrheumatic mitral (valve) insufficiency; Translations: [Rheumatic tricuspid insufficiency] Onset: 09-27-2017 Chronic Hepatitis (2 sources) Nonalcoholic steatohepatitis (LEDESMA); Translations: [Nonalcoholic steatohepatitis (LEDESMA)] Onset: 12-17-2021 Chronic Immunizations and screening for infectious disease (17 sources) Patient encounter status; Translations: [Encounter for screening for other viral diseases] Episodic Mood disorders (2 sources) Mood disorders; Translations: [Depression, unspecified] Onset: 12-17-2021 Mycoses (4 sources) Candidal vulvovaginitis; Translations: [Candidal vulvovaginitis] 09-28-2023 Episodic Nonspecific chest pain (20 sources) Chest pain; Translations: [Chest pain, unspecified] 01-12-2021 Episodic Nutritional deficiencies (1 source) Vitamin D deficiency; Translations: [Vitamin D deficiency, unspecified] 11-04-2022 Chronic Osteoarthritis (1 source) Osteoarthritis of right knee joint; Translations: [Unilateral primary osteoarthritis, right knee] 01-17-2023 Chronic Other acquired deformities (2 sources) Contracture, right hand; Translations: [Contracture, right hand] Onset: 12-17-2021 Chronic Other aftercare (2 sources) Other care home (current) drug therapy; Translations: [Other care home (current) drug therapy] Onset: 12-17-2021 Episodic Other and ill-defined heart disease (4 sources) Other ill-defined heart diseases; Translations: [Cardiomegaly] Onset: 09-27-2017 Chronic Other and ill-defined heart disease (2 sources) Heart disease, unspecified; Translations: [Heart disease, unspecified] Onset: 03-02-2021 Chronic Other circulatory disease (14 sources) Pulmonary congestion ; Translations: [Other specified symptoms and signs involving the circulatory and respiratory systems] 10-19-2021 Episodic Other connective tissue disease (2 sources) Trigger finger, right middle finger; Translations: [Trigger finger, right middle finger] Onset: 12-17-2021 Episodic Other endocrine disorders (20 sources) Disorder of parathyroid gland; Translations: [Disorder of parathyroid gland, unspecified] Onset: 09-04-2017 09-04-2017 Chronic Other endocrine disorders (4 sources) Hyperparathyroidism; Translations: [Hyperparathyroidism, unspecified] Onset: 08-30-2014 08-30-2014 Chronic Other liver diseases (20 sources) Steatosis of liver; Translations: [Fatty (change of) liver, not elsewhere classified] Onset: 09-04-2017 09-04-2017 Chronic Other lower respiratory disease (3 sources) Dyspnea; Translations: [Dyspnea, unspecified] Episodic Other lower respiratory disease (1 source) Acute pulmonary edema; Translations: [Acute pulmonary edema] Episodic Other lower respiratory disease (14 sources) Dyspnea on exertion; Translations: [Other forms of dyspnea] 01-12-2021 Episodic Other lower respiratory disease (1 source) Hypoxemia; Translations: [Hypoxemia] Onset: 12-09-2024 Episodic Other nervous system disorders (1 source) Paresthesia; Translations: [Paresthesia of skin] 06-17-2023 Episodic Other nutritional; endocrine; and metabolic disorders (20 sources) Body mass index 40+ - severely obese; Translations: [Morbid (severe) obesity due to excess calories] Onset: 06-26-2014 06-26-2014 Chronic Other nutritional; endocrine; and metabolic disorders (3 sources) Hypercalcemia; Translations: [Hypercalcemia] Onset: 08-30-2014 08-30-2014 Chronic Other nutritional; endocrine; and metabolic disorders (14 sources) Severe obesity; Translations: [Class 3 severe obesity due to excess calories with serious comorbidity and body mass index (BMI) of 50.0 to 59.9 in adult ([facility])] 07-24-2024 Chronic Other nutritional; endocrine; and metabolic disorders (4 sources) Body mass index (BMI) 50.0-59.9, adult; Translations: [Body mass index (BMI) 50.0-59.9, adult ([facility])] Onset: 06-10-2022 Chronic Other skin disorders (2 sources) Eruption; Translations: [Rash and other nonspecific skin eruption] Episodic Other upper respiratory infections (20 sources) Acute upper respiratory infection; Translations: [Acute upper respiratory infection, unspecified] Episodic Mi-; endo-; and myocarditis; cardiomyopathy (except that caused by tuberculosis or sexually transmitted disease) (2 sources) Other cardiomyopathies; Translations: [Other cardiomyopathies] Onset: 03-02-2021 Chronic Residual codes; unclassified (20 sources) Sleep apnea; Translations: [Sleep apnea, unspecified] Onset: 09-04-2017 09-04-2017 Chronic Residual codes; unclassified (4 sources) Obstructive sleep apnea (adult) (pediatric); Translations: [Obstructive sleep apnea (adult) (pediatric)] Onset: 12-17-2021 Chronic Residual codes; unclassified (17 sources) Obstructive sleep apnea syndrome; Translations: [Obstructive sleep apnea (adult) (pediatric)] Chronic Residual codes; unclassified (5 sources) Body fluid retention; Translations: [Edema, unspecified] 12-06-2024 Episodic Residual codes; unclassified (1 source) Localized edema; Translations: [Localized edema] Onset: 01-13-2025 Episodic Residual codes; unclassified (2 sources) Edema, unspecified; Translations: [Edema, unspecified] Onset: 02-07-2025 Episodic Screening and history of mental health and substance abuse codes (2 sources) Personal history of nicotine dependence; Translations: [Personal history of nicotine dependence] Onset: 12-17-2021 Episodic Skin and subcutaneous tissue infections (6 sources) Eosinophilic cellulitis; Translations: [Eosinophilic cellulitis [[facility]]] Episodic Spondylosis; intervertebral disc disorders; other back problems (6 sources) Backache; Translations: [Dorsalgia, unspecified] 04-14-2023 Episodic Unclassified (1 source) Obesity, class 3 (CMS/HCC); Translations: [Obesity, class 3 (CMS/HCC)] Onset: 02-07-2025 Unclassified (2 sources) 6 Month Follow-up; Translations: [6 Month Follow-up] Onset: 01-03-2025 Unclassified (2 sources) Weight Management; Translations: [Weight Management] Onset: 10-18-2024 Unclassified (1 source) Obesity, class 3 (HCC); Translations: [Obesity, class 3 (HCC)] Onset: 09-06-2024 Urinary tract infections (4 sources) Urinary tract infectious disease; Translations: [Urinary tract infection, site not specified] 09-20-2023 Episodic Viral infection (19 sources) Disease caused by 2019-nCoV; Translations: [COVID-19] Episodic Past or Other Problems Problem Classification Problem Date Documented Da te Episodic/Chronic Cardiac dysrhythmias (20 sources) Palpitations; Translations: [Palpitations] Onset: 03-15-2021 09-04-2017 Episodic Other connective tissue disease (20 sources) Triggering of digit; Translations: [Trigger finger, right ring finger] Onset: 08-17-2017 08-17-2017 Episodic Other lower respiratory disease (2 sources) Shortness of breath; Translations: [Shortness of breath] Onset: 03-02-2021 Episodic Other non-traumatic joint disorders (4 sources) Pain in left shoulder; Translations: [Pain in joint, shoulder region] Onset: 06-05-2024 06-05-2024 Episodic Other nutritional; endocrine; and metabolic disorders (2 sources) Weight loss; Translations: [Weight Loss] Onset: 07-24-2024 Episodic Other screening for suspected conditions (not mental disorders or infectious disease) (1 source) Encounter for screening mammogram for malignant neoplasm of breast; Translations: [Encounter for screening mammogram for malignant neoplasm of breast] Onset: 07-11-2024 Episodic Other skin disorders (3 sources) Hirsutism; Translations: [Hirsutism] Onset: 08-30-2014 08-30-2014 Episodic Residual codes; unclassified (3 sources) Menopause present; Translations: [Asymptomatic menopausal state] Onset: 08-30-2014 08-30-2014 Episodic Unclassified (1 source) Obesity, class 3 (CMS/HCC); Translations: [Obesity, class 3 (CMS/HCC)] Onset: 02-07-2025 Unclassified (1 source) Obesity, class 3 (HCC); Translations: [Obesity, class 3 (HCC)] Onset: 09-06-2024 Results Test Name Value Interpretation Reference Range Facility 36on 02-13-2025 36 Last seen 01/03/25. C MP done 07/01/24. GFR 72 [facility] Office Visiton 02-07-2025 Follow-up visit [id number] Lavell Tirado percy Cruz 1960 F Date Provider Department Center 02/07/2025 [id number] [facility]IS [facility] None Family History Problem Relation Age of Onset Heart disease Mother Clotting disorder Mother Heart disease Father Dementia Father Hypertension Father Pacemaker Father High Blood Pressure Father Atrial fibrillation Father Obesity Father Heart disease Brother Obesity Brother Hypertension Brother Clotting disorder Brother Heart disease Brother Heart disease Brother Arrhythmia Brother Comments: WPW Heart disease Brother Diabetes Paternal Grandmother Obesity Paternal Grandmother Hypertension Paternal Grandfather Heart disease Paternal Grandfather Arthritis Father Depression Mother Family Status - Relation Status Age at Mother Father Alive Brother Brother Brother Brother Maternal Grandmother Maternal Grandfather Paternal Grandmother Paternal Grandfather Level of Service:29129 [place] OFFICE/OUTPATIENT ESTABLISHED LOW MDM 20 MIN Reason for Visit and Comments: Weight Management [645] - Nsurg #5 [facility] Progress Noteon 02-07-2025 Progress Note [facility] MEDICAL WEIGHT LOSS MANAGEMENT PROGRAM ROOMING NOTE: FOLLOW UP VISIT Patient: Rebeca Tirado Date of : 1960 Service Date: 02/07/2025 Patient History/Assessment Summary: The patient is a pleasant 64 y.o. year old female, who stands Height: 5' 2.5 (158.8 cm) tall with a weight of Weight: (!) 314 lb (142 kg) pounds, resulting in a BMI of Body mass index is 56.52 kg/m?. kg/m2. She is here for follow-up for medical treatment of Morbid Obesity Patient has the following question(s): none Pre Program Weight Metrics (Epic) (Surgical Wt Loss Management- baseline) This Visit Medical Subsequent Eval Date: 02/07/25 Height: 5' 2.5 (158.8 cm) Weight: 314 lb (142 kg) BMI: 56.51 Weight Change: 4 lbs Total Weight Change: 4.2 lbs % EBWL: -2% Subsequent Body Fat %: 67.81 Body Fat % Change: 0.86 Follow Up Weight Metrics Last Three Weights Including Today's Weight: Wt Readings from Last 3 Encounters: 02/07/25 (!) 314 lb (142 kg) 01/03/25 (!) 311 lb (141 kg) 12/06/24 (!) 310 lb (141 kg) Diabetes Do you currently have diabetes? No Are you currently prescribed insulin? No Are you currently prescribed an oral medication for diabetes? No GERD (Gastroesophageal Reflux Disease) Do you currently have GERD? No Do you get heartburn type symptoms more than twice per week? No Are you currently on a medication for GERD? (not TUMS) (examples: Prilosec/omeprazole, Zantac/ranitidine, etc.) No Hyperlipidemia (high cholesterol) Do you currently have a diagnosis of high cholesterol? No Are you currently prescribed a medication for high cholesterol? (examples Lipitor/Atorvastatin, Pravastatin, Zetia, Tricor, etc.) No Have you been diagnosed with high cholesterol but chosen not to take medication? No Hypertension (high blood pressure) Do you currently have a diagnosis of Hypertension? Yes Are you currently on a medication for Hypertension? Yes Have you been diagnosed with Hypertension but have chosen not to take the medication? No Sleep Apnea Do you currently have Sleep Apnea? Yes Are you on a device (CPAP, BiPAP, etc) for Sleep Apnea? Yes Have you been diagnosed with Sleep Apnea but cannot tolerate or have chosen not to treat? No Comorbids summary (flow sheet comorbids) Falls Risk Assessment Patient does take medications which affect BP or mental status Patient does not have newly prescribed or changed dosage of medications within past 30 days which affect BP or mental status Patient has fallen in the past 2 months Patient does not demonstrate unsteady gait Patient uses the following ambulatory assistive devices: cane Patient states the presence of the following traits which increases risk of fall: none Patient is not on home O2 Completed by: Annie Alexandra MA [facility] Progress Note HPI, PHYSICAL EXAMINATION & PLAN HPI: Patient here today for follow up for non-surgical weight loss management Weight trend since last visit: no change stable water retention This patient's excess weight is causing the following co-morbid conditions at this time:JENY with or without CPAP Physical Examination: Blood pressure 97/60, pulse 71, height 5' 2.5 (1.588 m), weight (!) 314 lb (142 kg). General: This patient is calm and pleasant General: This patient is awake, alert, and oriented, and is in no apparent distress. Extremities: No cyanosis, clubbing or edema/ No calf tenderness/No restrictions of movement, is ambulatory without assistance. Neurological: Intact x 4 extremities, no focal deficits notes. Skin: No rashes or lesions noted. Social History: This patient is alone for the evaluation today. She does notsmoke, and does notdrink alcohol. Current Diet This patient?s current diet is: 80% meal plan Her diet contains adequate amounts of protein, adequate amounts of healthy fats, adequate amounts of green, leafy vegetables, and adequate amounts of fruits. Her comfort foods include:none Current Activity Planning to start mobility training next week Current Eating Behaviors This patients demonstrates the following behaviors as they relate to her eating:structured, making better choices She eats approximately 3-4 times per day. Her last meal/snack was at 6 am/pm. Progress Made Towards Goals: 3 month weight goal: 20 6 month weight goal: 20 12 month weight goal: 20 Plan: Obesity stable Class 3 Continue current management, continue weight loss program Focus on the meal structure, composition and portion control Zepbound and wegovy is not covered Discuss intermittent fasting Trial of wegovy Referral to bariatric surgery JENY stable Continue current management, continue weight loss program water retention worsening Working with cardiology on etiology of water retention [x] Protein goal of 1g protein per 1 kg of ideal body weight: 75 grams [x] Patient advised to maintain a food/exercise/behavior diary until next physician visit and to bring the completed diary to next visit [x] Referred patient to surgical weight loss management program (FD to place referral) Physician Diet Recommendations given to patient See Follow up Section of today's encounter for next visit and additional scheduling orders Obtain follow up lab work: BARIATRIC; Non Surg Lab orders: no I spend a total of 20 minutes on the same day of the visit in discussing/counseling the patient regarding the diet and exercise in order to lose weight.Education on the meal plan and 7 rules of eating is provided. Meal prep is encouraged as a foundation of the meal plan. Food journal is encouraged as a feedback system. Exercise and its role in weight loss is explained. Weight loss medications role in weight loss journey is discussed JENY Is associated with obesity and weight loss is discussed as a treatment option for JENY Full chart review was performed.Clinical documentation is updated and completed. Normal [facility] Office Visiton 01-03-2025 Follow-up visit [id number] Reyna Tirado 1960 F Date Provider Department Center 01/03/2025 [id number] [facility] None Family History Problem Relation Age of Onset Heart disease Mother Clotting disorder Mother Heart disease Father Dementia Father Hypertension Father Pacemaker Father High Blood Pressure Father Atrial fibrillation Father Obesity Father Heart disease Brother Obesity Brother Hypertension Brother Clotting disorder Brother Heart disease Brother Heart disease Brother Arrhythmia Brother Comments: WPW Heart disease Brother Diabetes Paternal Grandmother Obesity Paternal Grandmother Hypertension Paternal Grandfather Heart disease Paternal Grandfather Arthritis Father Depression Mother Family Status - Relation Status Age at Mother Father Alive Brother Brother Brother Brother Maternal Grandmother Maternal Grandfather Paternal Grandmother Paternal Grandfather Level of Service:60964 [place] OFFICE/OUTPATIENT ESTABLISHED MOD MDM 30 MIN Reason for Visit and Comments: 6 Month Follow-up [671] Normal [facility] Progress Noteon 01-03-2025 Progress Note [facility] Cardiology Office Note DATE of SERVICE: 01/03/25 TIME of SERVICE: 12:18 PM Reason for Visit Chief Complaint Patient presents with 6 Month Follow-up History Rebeca Tirado is a 64 y.o. female who returns for follow-up of heart failure with normalized ejection fraction. She presented with HFrEF in November 2020. Cardiac MRI shortly after that showed no evidence of infiltrative disease or myocardial scarring. She subsequently had recovery of left ventricular function with medical therapy. She has severe obesity and is now seeing a bariatric physician for dietary modification. Unfortunately her insurance provider is refusing to cover a GLP-1 agonist that has the potential for significant health benefit. She has sleep apnea and is compliant with CPAP. Today she reports that she recently had an increase in the shortness of breath and lower extremity swelling over the summer. It turns out that she was taking her water pill on only an as needed basis. She was sent for some testing by her personal care home administrator in the last week or 2. This included an echo that showed normal left ventricular function with some RV enlargement and dysfunction. Doppler of the legs was negative for DVT. PFTs were basically normal. Stress testing was apparently nonischemic per her report but I do not have the latter result. Meanwhile she started taking the furosemide daily and the edema resolved and she is feeling much better. As detailed previously, she has an interesting family history with several brothers developing a significant cardiomyopathy and nearly dying. Assessment and Plan 1. Chronic diastolic heart failure (HCC) 2. BMI 50.0-59.9, adult (HCC) 1. Heart failure with normalized ejection fraction and chronic right heart failure. NYHA class I-II, stage C. At this time she appears well compensated and euvolemic. She apparently had a decompensation over the summer that is now improved by taking her furosemide daily. I would recommend continuing that and the other GDMT regimen including Farxiga and Entresto. If further agents are needed and electrolytes acceptable, consider spironolactone. We again discussed the critical importance of lifestyle changes and gradual sustained weight loss. She is motivated to lose weight. This would make treating her heart failure much easier. She is compliant with BIPAP. As discussed previously, the most likely cause of her heart failure which at this point is primarily diastolic in nature is hypertensive cardiomyopathy, although a familial cardiomyopathy exacerbated by hypertension may be possible. Certainly obesity is a contributing factor. Ischemic heart disease is not completely excluded, however a lack of angina or family history of vascular disease and no scarring on the MRI suggested against this. This seems less likely. Nonetheless, a CAD work-up such as coronary CTA or stress testing could also be considered in the future if clinically indicated. 2. Severe obesity. She is seeing a physician for weight loss. She may very well benefit from GLP-1 agonist for her cardiovascular health and this should be revisited if insurance is willing to cover at any point. Follow up in about 6 months (around 07/03/2025) for STANLEY. Kimberly Gruloln M.D., [place]. Guard Chief Chief, Division of Cardiac Imaging Clinical [place], [facility] Cardiac Testing Echocardiogram 12/25/2024 [facility] Technically difficult, mild LVH, ejection fraction 65% with stage I diastolic dysfunction, moderately dilated right ventricular cavity with mild RV systolic dysfunction, moderate biatrial enlargement, mildly dilated aortic root. Echo 02/11/2022: SUMMARY: 1. Technically difficult study. 2. Left ventricle: Not well visualized. Systolic function is normal by visual assessment. The estimated ejection fraction is 65%. 3. Right ventricle: The cavity size is normal. Systolic function is normal by visual assessment. CMR 03/02/2021 FINAL IMPRESSION: Moderate LV dysfunction due to nonischemic cardiomyopathy. Consider hypertensive etiology. No evidence of scarring or infiltrative disease. SUMMARY 60 year-old woman with HFPEF. Study performed to evaluate for infiltrative cardiomyopathy. LEFT VENTRICLE: There is mild concentric LV hypertrophy. LV cavity is mildly enlarged. LV systolic function is moderately decreased globally. Quantitative LVEF 39%. VIABILITY: Hyperenhancement is normal.No evidence for fibrosis or scarring. RIGHT VENTRICLE: RV is mildly enlarged. RV systolic function is mildly decreased globally. Quantitative RVEF 45%. LV/RV SEPTUM: The ventricular septum is intact. LA/RA SEPTUM: The atrial septum is intact. LEFT ATRIUM: LA is mildly enlarged. RIGHT ATRIUM: RA is mildly enlarged. PERICARDIUM: There is no pericardial effusion. Pericardium is normal. AORTIC VALVE: Aortic valve is trileaflet. There is no aortic stenosis. There is no aorti (more content not included)... Normal [facility] Venous Duplex US - [facility] 12-27-2024 Venous Duplex US - [facility] [address] [place] [address] Venous Duplex US - [facility] 12/27/24 1055 MR#: [id number] Acct: [id number] Name: REBECA TIRADO Rep #: [id number] : 1960 64 From: Wilfredo Buckner MD Attending Dr: Dr. Johnnie Kenney MD Status: REG CLI Ordering Dr: Johnnie Kenney MD Date: 12/27/24 Location: [facility] Sex: F C Admitted: Reason For Study Reason For Study: BLE Edema RIGHT LEFT GSV is normal. GSV is normal. CFV is compressible, spontaneous, phasic, competent CFV is compressible, spontaneous, phasic, competent, and demonstrates normal augmentation. and demonstrates normal augmentation. FV is compressible, spontaneous, phasic, competent FV is compressible, spontaneous, phasic, competent and demonstrates normal augmentation. and demonstrates normal augmentation. POP V is compressible, spontaneous, phasic, competent POP V is compressible, spontaneous, phasic, competent and demonstrates normal augmentation. and demonstrates normal augmentation. T/P Trunk is compressible. T/P Trunk is compressible. PTV is compressible. PTV is compressible. RT PerV is compressible. LT PerV is compressible. Procedure This is a venous duplex using B-mode, color flow and spectral Doppler. Exam performed in department. The exam was diagnostic. A preliminary report was called and/or faxed to Dr Crawford office. VL/Venous Duplex US - [facility] Extrem Interpretation Summary Deep veins of the lower extremities are bilaterally patent and compressible segmentally. There is no evidence of deep vein thrombosis on either side. Valvular competence appears intact within the proximal deep venous systems bilaterally. The great saphenous veins appear bilaterally patent and compressible segmentally. Ordering Physician: Johnnie Kenney V Referring Physician: Omi Garcia Performed By: Abe Grubbs RVT and Student 12/27/24 2206 Date Wilfredo Buckner MD CC: Dr. Omi Garcia, DO; Dr. Johnnie Kenney MD Date Dictated: 12/27/24 105 Date Transcribed: 12/27/242205 News Production Supervisor: Signed Normal [facility] Venous duplex ultrasound rep ortOrdered By: Wilfredo Buckner on 12-27-2024 [place] Vein [facility] Cardi[facility] [address] [place] [address] Venous Duplex US - Humza Extrem 12/27/24 105 MR#: [id number] Acct: [id number] Name: REBECA TIRADO Rep #:[id number] : 1960 64 From: Wilfredo Buckner MD Attending Dr: Dr. Johnnie Kenney MD Status: REG CLI Ordering Dr: Johnnie Kenney MD Date: 12/27/24 Location: CVS Sex: F C Admitted: Reason For Study Reason For Study: BLE Edema RIGHT LEFT GSV is normal. GSV is normal. CFV is compressible, spontaneous, phasic, competent CFV is compressible, spontaneous, phasic, competent, and demonstrates normal augmentation. and demonstrates normal augmentation. FV is compressible, spontaneous, phasic, competent FV is compressible, spontaneous, phasic, competent and demonstrates normal augmentation. and demonstrates normal augmentation. POP V is compressible, spontaneous, phasic, competent POP V is compressible, spontaneous, phasic, competent and demonstrates normal augmentation. and demonstrates normal augmentation. T/P Trunk is compressible. T/P Trunk is compressible. PTV is compressible. PTV is compressible. RT PerV is compressible. LT PerV is compressible. Procedure This is a venous duplex using B-mode, color flow and spectral Doppler. Exam performed in department. The exam was diagnostic. A preliminary report was called and/or faxed to Dr Crawford office. VL/Venous Duplex US - Humza Extrem Interpretation Summary Deep veins of the lower extremities are bilaterally patent and compressible segmentally. There is no evidence of deep vein thrombosis on either side. Valvular competence appears intact within the proximal deep venous systems bilaterally. The great saphenous veins appear bilaterally patent and compressible segmentally. Ordering Physician: Johnnie Kenney V Referring Physician: Omi Garcia Performed By: Abe Grubbs RVT and Student 12/27/242205 Date _ Wilfredo Buckner MD CC: Dr. Omi Garcia DO; Dr. Johnnie Kenney MD ~ Date Dictated: 12/27/24 1055 Date Transcribed: 12/27/242205 News Production Supervisor: Signed [facility] Work Phone: Echo Complete W/ Contraston 12-25-2024 Echo Complete W/ Contrast [facility] Cardiovascular Services [address] [place] [address] Echo Complete W/ Contrast 12/25/24 1049 MR#: [id number] Acct: [id number] Name: REBECA TIRADO Rep #: [id number] : 1960 64 From: Kamran Fernandez MD Attending Dr: Dr. Johnnie Kenney MD Status: REG I Ordering Dr: Johnnie Kenney MD Date: 12/25/24 Location: [facility] Sex: F C Admitted: Reason For Study Reason For Study: CHF Procedure This was a 2D Doppler, Color Flow transthoracic echocardiogram. The study was technically difficult. D/T body habitus. Contrast injection was performed. Exam performed in department. Left Ventricle Normal LV size. Mild concentric left ventricular hypertrophy. The left ventricular ejection fraction is 65 %. Stage 1 diastolic dysfunction. Right Ventricle Moderately dilated right ventricular cavity. Mild RV systolic dysfunction. Atria There is moderate biatrial dilatation. Mitral Valve Trivial mitral valve insufficiency. Tricuspid Valve The tricuspid valve is not well visualized. Aortic Valve The aortic valve is not well visualized in the short axis view. There is no aortic stenosis. Pulmonic Valve The pulmonic valve is not well visualized. Great Vessels Mildly dilated aortic root. Pericardium/Pleural No pericardial effusion. Medication 22 gauge I.V. with prn adaptor inserted into left arm. Diluted definity 1.5ml given slow IV push to enhance endocardial definition. MMode/2D Measurements Calculations LVIDd: 5.7 cm IVSd: 1.2 cm Ao root diam: 4.0 cm LVIDs: 3.9 cm LVPWd: 1.2 cm LA dimension: 4.9 cm RVDd: 3.6 cm FS: 31.5 % asc Aorta Diam: 4.1 cm LAV(MOD-bp): 68.7 ml LVAd ap4: 35.1 cm2 LAV(MOD-bp) Indexed: 29.7 ml/m2 LVLd ap4: 8.3 cm LAV(MOD-sp2): 60.8 ml EDV(MOD-sp4): 123.0 ml LAV(MOD-sp4): 72.1 ml EDV(sp4-el): 126.2 ml LVAs ap4: 20.6 cm2 LVLs ap4: 6.9 cm ESV(MOD-sp4): 50.8 ml ESV(sp4-el): 52.1 ml EF(MOD-sp4): 58.7 % EF(sp4-el): 58.7 % LVAd ap2: 31.5 cm2 SV(MOD-sp4): 72.2 ml SV(MOD-sp2): 57.4 ml LVLd ap2: 8.3 cm SI(MOD-sp4): 31.2 ml/m2 SI(MOD-sp2): 24.8 ml/m2 EDV(MOD-sp2): 98.6 ml EDV(sp2-el): 101.3 ml LVAs ap2: 17.6 cm2 LVLs ap2: 6.1 cm ESV(MOD-sp2): 41.2 ml ESV(sp2-el): 43.2 ml EF(MOD-sp2): 58.2 % SV(sp4-el): 74.1 ml LA dimension(2D): 5.0 cm LA A4 area: 21.8 cm2 TAPSE: 2.6 cm Time Measurements MV dec time: 0.21 sec Doppler Measurements Calculations MV E max sheldon: 70.5 cm/sec Lat Peak E' Sheldon: 5.4 cm/sec Med Peak E' Sheldon: 7.9 cm/sec MV A max sheldon: 79.3 cm/sec E/E' lat: 13.0 E/E' med: 8.9 MV E/A: 0.89 MV V2 max: 93.8 cm/sec MV P1/2t max sheldon: 84.8 cm/sec Ao V2 max: 140.9 cm/sec MV max P.5 mmHg MV P1/2t: 67.0 msec Ao max P.9 mmHg MV V2 mean: 51.2 cm/sec MV dec slope: 370.5 cm/sec2 Ao V2 mean: 96.7 cm/sec MV mean P.2 mmHg Ao mean P.1 mmHg MV V2 VTI: 28.9 cm MVA(P1/2t): 3.3 cm2 Ao V2 VTI: 26.5 cm AV (velocity ratio): 0.80 LV V1 max: 103.3 cm/sec PA V2 max: 93.5 cm/sec TR max sheldon: 204.0 cm/sec LV V1 max P.3 mmHg PA V2 mean: 67.3 cm/sec TR max P.7 mmHg LV V1 mean P.2 mmHg LV V1 mean: 70.7 cm/sec LV V1 VTI: 21.1 cm ECHO/Echo Complete W/ Contrast Interpretation Summary The study was technically difficult. Mild concentric left ventricular hypertrophy. The left ventricular ejection fraction is 65 %. Stage 1 diastolic dysfunction. Moderately dilated right ventricular cavity. Mild RV systolic dysfunction. There is moderate biatrial dilatation. Mildly dilated aortic root. Ordering Physician: Johnnie Kenney V Referring Physician: Omi Garcia Performed By: Zaynab Guillaume, RDCS, RVT 12/25/24 1530 Date Kamran Fernandez MD CC: Dr. Omi Garcia DO; Dr. Johnnie Kenney MD Date Dictated: 12/25/24 1049 Date Transcribed: 12/25/24 153 News Production Supervisor: Signed Normal [facility] Echocardiogram study reportO rdered By: Kamran Fernandez on 12-25-2024 Study report [facility] [address] [place] [address] Echo Complete W/ Contrast 12/25/24 1049 MR#: [id number] Acct: [id number] Name: REBECA TIRADO Rep #:[id number] : 1960 64 From: Kamran Fernandez MD Attending Dr: Dr. Johnnie Kenney MD Status: REG CLI Ordering Dr: Johnnie Kenney MD Date: 12/25/24 Location: [facility] Sex: F C Admitted: Reason For Study Reason For Study: CHF Procedure This was a 2D Doppler, Color Flow transthoracic echocardiogram. The study was technically difficult. D/T body habitus. Contrast injection was performed. Exam performed in department. Left Ventricle Normal LV size. Mild concentric left ventricular hypertrophy. The left ventricular ejection fraction is 65 %. Stage 1 diastolic dysfunction. Right Ventricle Moderately dilated right ventricular cavity. Mild RV systolic dysfunction. Atria There is moderate biatrial dilatation. Mitral Valve Trivial mitral valve insufficiency. Tricuspid Valve The tricuspid valve is not well visualized. Aortic Valve The aortic valve is not well visualized in the short axis view. There is no aortic stenosis. Pulmonic Valve The pulmonic valve is not well visualized. Great Vessels Mildly dilated aortic root. Pericardium/Pleural No pericardial effusion. Medication 22 gauge I.V. with prn adaptor inserted into left arm. Diluted definity 1.5ml given slow IV push to enhance endocardial definition. MMode/2D Measurements & Calculations LVIDd: 5.7 cm IVSd: 1.2 cm Ao root diam: 4.0 cm LVIDs: 3.9 cm LVPWd: 1.2 cm LA dimension: 4.9 cm RVDd: 3.6 cm FS: 31.5 % asc Aorta Diam: 4.1 cm LAV(MOD-bp): 68.7 ml LVAd ap4: 35.1 cm2 LAV(MOD-bp) Indexed: 29.7 ml/m2 LVLd ap4: 8.3 cm LAV(MOD-sp2): 60.8 ml EDV(MOD-sp4): 123.0 ml LAV(MOD-sp4): 72.1 ml EDV(sp4-el): 126.2 ml LVAs ap4: 20.6 cm2 LVLs ap4: 6.9 cm ESV(MOD-sp4): 50.8 ml ESV(sp4-el): 52.1 ml EF(MOD-sp4): 58.7 % EF(sp4-el): 58.7 % LVAd ap2: 31.5 cm2 SV(MOD-sp4): 72.2 ml SV(MOD-sp2): 57.4 ml LVLd ap2: 8.3 cm SI(MOD-sp4): 31.2 ml/m2 SI(MOD-sp2): 24.8 ml/m2 EDV(MOD-sp2): 98.6 ml EDV(sp2-el): 101.3 ml LVAs ap2: 17.6 cm2 LVLs ap2: 6.1 cm ESV(MOD-sp2): 41.2 ml ESV(sp2-el): 43.2 ml EF(MOD-sp2): 58.2 % SV(sp4-el): 74.1 ml LA dimension(2D): 5.0 cm LA A4 area: 21.8 cm2 TAPSE: 2.6 cm Time Measurements MV dec time: 0.21 sec Doppler Measurements & Calculations MV E max sheldon: 70.5 cm/sec Lat Peak E' Sheldon: 5.4 cm/sec Med Peak E' Sheldon: 7.9 cm/sec MV A max sheldon: 79.3 cm/sec E/E' lat: 13.0 E/E' med: 8.9 MV E/A: 0.89 MV V2 max: 93.8 cm/sec MV P1/2t max sheldon: 84.8 cm/sec Ao V2 max: 140.9 cm/sec MV max P.5 mmHg MV P1/2t: 67.0 msec Ao max P.9 mmHg MV V2 mean: 51.2 cm/sec MV dec slope: 370.5 cm/sec2 Ao V2 mean: 96.7 cm/sec MV mean P.2 mmHg Ao mean P.1 mmHg MV V2 VTI: 28.9 cm MVA(P1/2t): 3.3 cm2 Ao V2 VTI: 26.5 cm AV (velocity ratio): 0.80 LV V1 max: 103.3 cm/sec PA V2 max: 93.5 cm/sec TR max sheldon: 204.0 cm/sec LV V1 max P.3 mmHg PA V2 mean: 67.3 cm/sec TR max P.7 mmHg LV V1 mean P.2 mmHg LV V1 mean: 70.7 cm/sec LV V1 VTI: 21.1 cm ECHO/Echo Complete W/ Contrast Interpretation Summary The study was technically difficult. Mild concentric left ventricular hypertrophy. The left ventricular ejection fraction is 65 %. Stage 1 diastolic dysfunction. Moderately dilated right ventricular cavity. Mild RV systolic dysfunction. There is moderate biatrial dilatation. Mildly dilated aortic root. Ordering Physician: Johnnie Kenney V Referring Physician: Omi Garcia Performed By: Zaynab Guillaume, MARGARITO, RVT 12/25/24 1530 Date _ Kamran Fernandez MD CC: Dr. Omi Garcia, DO; Dr. Johnnie Kenney MD ~ Date Dictated: 12/25/24 1049 Date Transcribed: 12/25/241529 News Production Supervisor: Signed [facility] Work Phone: 36on 12-09-2024 36 Wegovy excluded by insurance. Self pay option offered. [facility] 36on 12-06-2024 36 Patient scheduled fo r 01/[address] Grullon. She said Dr. Kenney ordered her to get some labs, a stress test and an echo because she said he thought one side of her heart sounded different. Put the appointment with Dr. Grullon after all the testing is complete and will get results from his office. She did say she is still having some issues with swelling and wondering if there is anything else she can do in the mean time. [facility] 36 PA submitted via [facility] for Macarenavy. Pt notified. [facility] 36 ----- Message from Reina Cunha MD sent at 12/06/2024 10:48 AM EDT ----- Please pa for wegovy Thank you [facility] Office Visiton 12-06-2024 Follow-up visit [id number] Reyna Tirado 1960 F Date Provider Department Center 12/06/2024 [id number] CUNHA [facility] None Family History Problem Relation Age of Onset Heart disease Mother Clotting disorder Mother Heart disease Father Dementia Father Hypertension Father Pacemaker Father High Blood Pressure Father Atrial fibrillation Father Obesity Father Heart disease Brother Obesity Brother Hypertension Brother Clotting disorder Brother Heart disease Brother Heart disease Brother Arrhythmia Brother Comments: WPW Heart disease Brother Diabetes Paternal Grandmother Obesity Paternal Grandmother Hypertension Paternal Grandfather Heart disease Paternal Grandfather Arthritis Father Depression Mother Family Status - Relation Status Age at Mother Father Alive Brother Brother Brother Brother Maternal Grandmother Maternal Grandfather Paternal Grandmother Paternal Grandfather Level of Service:[address] [place] OFFICE/OUTPATIENT ESTABLISHED LOW MDM 20 MIN Reason for Visit and Comments: Weight Management [645] - Nsurg #4 [facility] Progress Noteon 12-06-2024 Progress Note BARIATRIC CARE [facility] MEDICAL WEIGHT LOSS MANAGEMENT PROGRAM ROOMING NOTE: FOLLOW UP VISIT Patient: Rebeca Tirado Date of : 1960 Service Date: 12/06/2024 Patient History/Assessment Summary: The patient is a pleasant 64 y.o. year old female, who stands Height: 5' 2.5 (158.8 cm) tall with a weight of Weight: (!) 310 lb (141 kg) pounds, resulting in a BMI of Body mass index is 55.8 kg/m?. kg/m2. She is here for follow-up for medical treatment of Morbid Obesity Patient has the following question(s): none Pre Program Weight Metrics (Epic) (Surgical Wt Loss Management- baseline) This Visit Non-Surgical Subsequent Eval Date: 12/06/24 Height: 5' 2.5 (158.8 cm) Weight: 310 lb (141 kg) BMI: 55.79 Weight Change: 5.2 lbs Total Weight Change: .2 lbs % EBWL: 0% Subsequent Body Fat %: 66.95 Body Fat % Change: 1.13 Follow Up Weight Metrics Last Three Weights Including Today's Weight: Wt Readings from Last 3 Encounters: 12/06/24 (!) 310 lb (141 kg) 10/18/24 (!) 304 lb 12.8 oz (138 kg) 07/24/24 (!) 309 lb 12.8 oz (141 kg) Diabetes Do you currently have diabetes? No Are you currently prescribed insulin? No Are you currently prescribed an oral medication for diabetes? No GERD (Gastroesophageal Reflux Disease) Do you currently have GERD? No Do you get heartburn type symptoms more than twice per week? No Are you currently on a medication for GERD? (not TUMS) (examples: Prilosec/omeprazole, Zantac/ranitidine, etc.) No Hyperlipidemia (high cholesterol) Do you currently have a diagnosis of high cholesterol? No Are you currently prescribed a medication for high cholesterol? (examples Lipitor/Atorvastatin, Pravastatin, Zetia, Tricor, etc.) No Have you been diagnosed with high cholesterol but chosen not to take medication? No Hypertension (high blood pressure) Do you currently have a diagnosis of Hypertension? Yes Are you currently on a medication for Hypertension? Yes Have you been diagnosed with Hypertension but have chosen not to take the medication? No Sleep Apnea Do you currently have Sleep Apnea? Yes Are you on a device (CPAP, BiPAP, etc) for Sleep Apnea? Yes Have you been diagnosed with Sleep Apnea but cannot tolerate or have chosen not to treat? No Comorbids summary (flow sheet comorbids) Falls Risk Assessment Patient does take medications which affect BP or mental status Patient does not have newly prescribed or changed dosage of medications within past 30 days which affect BP or mental status Patient has not fallen in the past 2 months Patient does not demonstrate unsteady gait Patient uses the following ambulatory assistive devices: cane Patient states the presence of the following traits which increases risk of fall: balance Patient is not on home O2 Completed by: Annie Alexandra MA [facility] Progress Note HPI, PHYSICAL EXAMINATION & PLAN HPI: Patient here today for follow up for non-surgical weight loss management Weight trend since last visit: no change stable water retention This patient's excess weight is causing the following co-morbid conditions at this time:JENY with or without CPAP Physical Examination: Blood pressure 110/74, pulse 64, height 5' 2.5 (1.588 m), weight (!) 310 lb (141 kg). General: This patient is calm and pleasant General: This patient is awake, alert, and oriented, and is in no apparent distress. Extremities: No cyanosis, clubbing or edema/ No calf tenderness/No restrictions of movement, is ambulatory without assistance. Neurological: Intact x 4 extremities, no focal deficits notes. Skin: No rashes or lesions noted. Social History: This patient is alone for the evaluation today. She does notsmoke, and does notdrink alcohol. Current Diet This patient?s current diet is: 80% meal plan Her diet contains adequate amounts of protein, adequate amounts of healthy fats, adequate amounts of green, leafy vegetables, and adequate amounts of fruits. Her comfort foods include:none Current Activity Planning to start mobility training next week Current Eating Behaviors This patients demonstrates the following behaviors as they relate to her eating:structured, making better choices She eats approximately 3-4 times per day. Her last meal/snack was at 6 am/pm. Progress Made Towards Goals: 3 month weight goal: 20 6 month weight goal: 20 12 month weight goal: 20 Plan: Obesity stable Class 3 Continue current management, continue weight loss program Focus on the meal structure, composition and portion control Zepbound is not covered Discuss intermittent fasting Trial of wegovy Zepbound is denied JENY stable Continue current management, continue weight loss program water retention worsening Working with cardiology on etiology of water retention [x] Protein goal of 1g protein per 1 kg of ideal body weight: 75 grams [x] Patient advised to maintain a food/exercise/behavior diary until next physician visit and to bring the completed diary to next visit [] Referred patient to surgical weight loss management program (FD to place referral) Physician Diet Recommendations given to patient See Follow up Section of today's encounter for next visit and additional scheduling orders Obtain follow up lab work: BARIATRIC; Non Surg Lab orders: no I spend a total of 20 minutes on the same day of the visit in discussing/counseling the patient regarding the diet and exercise in order to lose weight.Education on the meal plan and 7 rules of eating is provided. Meal prep is encouraged as a foundation of the meal plan. Food journal is encouraged as a feedback system. Exercise and its role in weight loss is explained. Weight loss medications role in weight loss journey is discussed JENY Is associated with obesity and weight loss is discussed as a treatment option for JENY Full chart review was performed.Clinical documentation is updated and completed. Normal [facility] Natriuretic peptide.B prohor franklin N-Terminal [Mass/volume] in Serum or PlasmaOrdered By: Johnnie Kenney on 12-03-2024 Natriuretic peptide.B prohormone N-Terminal [Mass/Vol] 52 pg/mL <900 [facility] Comment on above: Heart Failure Unlike ly: < 300 pg/mLHeart Failure Likely< 50 Years: > 450 pg/mL50-75 Years: > 900 pg/mL>75 Years: > 1800 pg/mL Pro- Brain NATRIURETIC PEPTI Catarina 12-03-2024 Natriuretic peptide B (Bld) [Mass/Vol] 52 pg/mL Normal <=900 [facility] Comment on above: Result Comment: Hear t Failure Unlikely: < 300 pg/mL Heart Failure Likely < 50 Years: > 450 pg/mL 50-75 Years: > 900 pg/mL >75 Years: > 1800 pg/mL Performed By: #### L [phone] #### [facility] [address] [place], [address] 36on 11-21-2024 36 Lmom with recs. Any further questions, instructed to call office to discuss further. [facility] 36on 11-20-2024 36 Pt called and stated she has more increased swelling and pain in her shoulder blades. She states when this occurs she is starting to have CHF flare up. She reports her shortness of breath is about the same, she cannot tell with the humidity of weather and weight affecting it. She has been out of her lasix for a couple weeks now. She reports only taking it when symptoms do occur. [facility] Office Visiton 10-18-2024 Follow-up visit [id number] Reyna Tirado 1960 F Date Provider Department Center 10/18/2024 [id number]-AKLBNREINA CUNHA [facility] None Family History Problem Relation Age of Onset Heart disease Mother Clotting disorder Mother Heart disease Father Dementia Father Hypertension Father Pacemaker Father High Blood Pressure Father Atrial fibrillation Father Obesity Father Heart disease Brother Obesity Brother Hypertension Brother Clotting disorder Brother Heart disease Brother Heart disease Brother Arrhythmia Brother Comments: WPW Heart disease Brother Diabetes Paternal Grandmother Obesity Paternal Grandmother Hypertension Paternal Grandfather Heart disease Paternal Grandfather Family Status - Relation Status Age at Mother Father Alive Brother Brother Brother Brother Maternal Grandmother Maternal Grandfather Paternal Grandmother Paternal Grandfather Level of Service:03858 [place] OFFICE/OUTPATIENT ESTABLISHED LOW MDM 20 MIN Reason for Visit and Comments: Weight Management [645] - Medical mgmt #3 [facility] Progress Noteon 10-18-2024 Progress Note HPI, PHYSICAL EXAMINATION & PLAN HPI: Patient here today for follow up for non-surgical weight loss management Weight trend since last visit: lost 2 lbs over 1 m stable This patient's excess weight is causing the following co-morbid conditions at this time:JENY with or without CPAP Physical Examination: W 306.4 lb Blood pressure 116/75, pulse 64, height 5' 2.5 (1.588 m), weight (!) 304 lb 12.8 oz (138 kg). General: This patient is calm and pleasant General: This patient is awake, alert, and oriented, and is in no apparent distress. Extremities: No cyanosis, clubbing or edema/ No calf tenderness/No restrictions of movement, is ambulatory without assistance. Neurological: Intact x 4 extremities, no focal deficits notes. Skin: No rashes or lesions noted. Social History: This patient is alone for the evaluation today. She does notsmoke, and does notdrink alcohol. Current Diet This patient?s current diet is: 80% meal plan Her diet contains adequate amounts of protein, adequate amounts of healthy fats, adequate amounts of green, leafy vegetables, and adequate amounts of fruits. Her comfort foods include:none Current Activity Planning to start mobility training next week Current Eating Behaviors This patients demonstrates the following behaviors as they relate to her eating:structured, making better choices She eats approximately 3-4 times per day. Her last meal/snack was at 6 am/pm. Progress Made Towards Goals: 3 month weight goal: 20 6 month weight goal: 20 12 month weight goal: 20 Plan: Obesity stable Continue current management, continue weight loss program Focus on the meal structure, composition and portion control Zepbound is not covered Discuss intermittent fasting Continue current management, continue weight loss program Add zepbound [x] Protein goal of 1g protein per 1 kg of ideal body weight: 75 grams [x] Patient advised to maintain a food/exercise/behavior diary until next physician visit and to bring the completed diary to next visit [] Referred patient to surgical weight loss management program (FD to place referral) Physician Diet Recommendations given to patient See Follow up Section of today's encounter for next visit and additional scheduling orders Obtain follow up lab work: BARIATRIC; Non Surg Lab orders: no I spend a total of 20 minutes on the same day of the visit in discussing/counseling the patient regarding the diet and exercise in order to lose weight.Education on the meal plan and 7 rules of eating is provided. Meal prep is encouraged as a foundation of the meal plan. Food journal is encouraged as a feedback system. Exercise and its role in weight loss is explained. Weight loss medications role in weight loss journey is discussed JENY Is associated with obesity and weight loss is discussed as a treatment option for Jeny Full chart review was performed.Clinical documentation is updated and completed. [facility] Progress Note BARIATRIC CARE [facility] MEDICAL WEIGHT LOSS MANAGEMENT PROGRAM ROOMING NOTE: FOLLOW UP VISIT Patient: Rebeca Tirado Date of : 1960 Service Date: 10/18/2024 Patient History/Assessment Summary: The patient is a pleasant 64 y.o. year old female, who stands Height: 5' 2.5 (158.8 cm) tall with a weight of Weight: (!) 304 lb 12.8 oz (138 kg) pounds, resulting in a BMI of Body mass index is 54.86 kg/m?. kg/m2. She is here for follow-up for medical treatment of Morbid Obesity Patient has the following question(s): none Pre Program Weight Metrics (Epic) (Surgical Wt Loss Management- baseline) This Visit Non-Surgical Subsequent Eval Date: 10/18/24 Height: 5' 2.5 (158.8 cm) Weight: 304 lb 12.8 oz (138 kg) BMI: 54.85 Weight Change: -5 lbs Total Weight Change: -5 lbs % EBWL: 3% Subsequent Body Fat %: 65.82 Body Fat % Change: -1.08 Follow Up Weight Metrics Last Three Weights Including Today's Weight: Wt Readings from Last 3 Encounters: 10/18/24 (!) 304 lb 12.8 oz (138 kg) 07/24/24 (!) 309 lb 12.8 oz (141 kg) 07/01/24 (!) 307 lb (139 kg) Diabetes Do you currently have diabetes? No Are you currently prescribed insulin? No Are you currently prescribed an oral medication for diabetes? No GERD (Gastroesophageal Reflux Disease) Do you currently have GERD? No Do you get heartburn type symptoms more than twice per week? No Are you currently on a medication for GERD? (not TUMS) (examples: Prilosec/omeprazole, Zantac/ranitidine, etc.) No Hyperlipidemia (high cholesterol) Do you currently have a diagnosis of high cholesterol? No Are you currently prescribed a medication for high cholesterol? (examples Lipitor/Atorvastatin, Pravastatin, Zetia, Tricor, etc.) No Have you been diagnosed with high cholesterol but chosen not to take medication? No Hypertension (high blood pressure) Do you currently have a diagnosis of Hypertension? Yes Are you currently on a medication for Hypertension? Yes Have you been diagnosed with Hypertension but have chosen not to take the medication? No Sleep Apnea Do you currently have Sleep Apnea? Yes Are you on a device (CPAP, BiPAP, etc) for Sleep Apnea? Yes Have you been diagnosed with Sleep Apnea but cannot tolerate or have chosen not to treat? No Comorbids summary (flow sheet comorbids) Falls Risk Assessment Patient does take medications which affect BP or mental status Patient does not have newly prescribed or changed dosage of medications within past 30 days which affect BP or mental status Patient has not fallen in the past 2 months Patient does not demonstrate unsteady gait Patient uses the following ambulatory assistive devices: cane Patient states the presence of the following traits which increases risk of fall: unsteady Patient is not on home O2 Completed by: Annie Alexandra MA [facility] 36on 09-10-2024 36 PA denied pt notified. 36on 09-09-2024 36 PA submitted via ml for Zepbound pt notified. [facility] 36 ----- Message from Reina Cunha MD sent at 09/06/2024 1:32 PM EDT ----- Please pa zepbound and let the pt know Thank you [facility] Office Visiton 09-06-2024 Follow-up visit [id number] Reyna Tirado 1960 F Date Provider Department Center 09/06/2024 [id number] CUNHA [facility] None Family History Problem Relation Age of Onset Heart disease Mother Clotting disorder Mother Heart disease Father Dementia Father Hypertension Father Pacemaker Father High Blood Pressure Father Atrial fibrillation Father Obesity Father Heart disease Brother Obesity Brother Hypertension Brother Clotting disorder Brother Heart disease Brother Heart disease Brother Arrhythmia Brother Comments: WPW Heart disease Brother Diabetes Paternal Grandmother Obesity Paternal Grandmother Hypertension Paternal Grandfather Heart disease Paternal Grandfather Family Status - Relation Status Age at Mother Father Alive Brother Brother Brother Brother Maternal Grandmother Maternal Grandfather Paternal Grandmother Paternal Grandfather Level of Service:41051 [place] OFFICE/OUTPATIENT ESTABLISHED LOW MDM 20 MIN Reason for Visit and Comments: Weight Management [645] Normal [facility] Progress Noteon 09-06-2024 Progress Note HPI, PHYSICAL EXAMINATION & PLAN HPI: Patient here today for follow up for non-surgical weight loss management Weight trend since last visit: lost 4 lbs over 1 m stable This patient's excess weight is causing the following co-morbid conditions at this time:JENY with or without CPAP Physical Examination: W 206.4 lb General: This patient is calm and pleasant General: This patient is awake, alert, and oriented, and is in no apparent distress. Extremities: No cyanosis, clubbing or edema/ No calf tenderness/No restrictions of movement, is ambulatory without assistance. Neurological: Intact x 4 extremities, no focal deficits notes. Skin: No rashes or lesions noted. Social History: This patient is alone for the evaluation today. She does notsmoke, and does notdrink alcohol. Current Diet This patient?s current diet is: 80% meal plan Her diet contains adequate amounts of protein, adequate amounts of healthy fats, adequate amounts of green, leafy vegetables, and adequate amounts of fruits. Her comfort foods include:none Current Activity Planning to start mobility training next week Current Eating Behaviors This patients demonstrates the following behaviors as they relate to her eating:structured, making better choices She eats approximately 3-4 times per day. Her last meal/snack was at 6 am/pm. Progress Made Towards Goals: 3 month weight goal: 20 6 month weight goal: 20 12 month weight goal: 20 Plan: Obesity stable Continue current management, continue weight loss program Focus on the meal structure, composition and portion control Discuss weight loss medications including the mechanism of action, side effects, efficacy and health insurance coverage limitations. Provided additional information regarding the corresponding websites. Trial of zepbound JENY with or without CPAP Continue current management, continue weight loss program Add zepbound [x] Protein goal of 1g protein per 1 kg of ideal body weight: 75 grams [x] Patient advised to maintain a food/exercise/behavior diary until next physician visit and to bring the completed diary to next visit [] Referred patient to surgical weight loss management program (FD to place referral) Physician Diet Recommendations given to patient See Follow up Section of today's encounter for next visit and additional scheduling orders Obtain follow up lab work: BARIATRIC; Non Surg Lab orders: no I spend a total of 20 minutes on the same day of the visit in discussing/counseling the patient regarding the diet and exercise in order to lose weight.Education on the meal plan and 7 rules of eating is provided. Meal prep is encouraged as a foundation of the meal plan. Food journal is encouraged as a feedback system. Exercise and its role in weight loss is explained. Weight loss medications role in weight loss journey is discussed JENY Is associated with obesity and weight loss is discussed as a treatment option for Jeny Full chart review was performed.Clinical documentation is updated and completed. [facility] 36on 08-25-2024 36 S: Patient spoke wit h [facility] nurse regarding sinusitis B: Onset of symptoms/concern one week A: Patient reports yellow/green sinus and nasal drainage for the past week, dizziness x 3 days getting worse, headache, face is flushed has not taken temperature. Denies chest pain, difficulty breathing. OTC Arti taken with no relief. Patient requesting treatment for sinus infection. States she was going to Urgent Care but decided to call office first. Pharmacy and allergies verified. R: Dr. Rodriguez traffic monitor specialist provider messaged advised We don't usually start antibiotics without evaluation and the fact it's bad allergy season, she should be evaluated to determine best next steps. If she hasn't done it already, starting Mucinex DM with Flonase and Claritin would be a good idea.Patient informed. Home care advice given, fluids encouraged.Patient understands care advice, advised if she is not better in a few days after trying OTC to call office for appointment. No further needs at this time. Patient instructed to call back with new or worsening symptoms. Reason for Disposition [1] Redness or swelling on the cheek, forehead or around the eye AND [2] no fever Protocols used: Sinus Pain or [id number] [facility] Office Visiton 07-24-2024 Follow-up visit [id number] Reyna Tirado 1960 F Date Provider Department Center 07/24/2024 [id number] DAVIS [facility] None Family History Problem Relation Age of Onset Heart disease Mother Clotting disorder Mother Heart disease Father Dementia Father Hypertension Father Pacemaker Father High Blood Pressure Father Atrial fibrillation Father Obesity Father Heart disease Brother Obesity Brother Hypertension Brother Clotting disorder Brother Heart disease Brother Heart disease Brother Arrhythmia Brother Comments: WPW Heart disease Brother Diabetes Paternal Grandmother Obesity Paternal Grandmother Hypertension Paternal Grandfather Heart disease Paternal Grandfather Family Status - Relation Status Age at Mother Father Alive Brother Brother Brother Brother Maternal Grandmother Maternal Grandfather Paternal Grandmother Paternal Grandfather Level of Service:41722 [place] OFFICE/OUTPATIENT NEW MODERATE MDM 45 MINUTES Reason for Visit and Comments: Weight Loss [[id number]] - [facility] Progress Noteon 07-24-2024 Progress Note BARIATRIC CARE ANIKA Mack NON-SURGICAL WEIGHT LOSS MANAGEMENT PROGRAM ROOMING NOTE - INITIAL CONSULTATION Patient: Rebeca Tirado Date of : 1960 Service Date: 07/24/2024 Patient is here today to discuss non-surgical weight loss management. This patient is alone for the evaluation today Weight Metrics: Non-Surgical Initial Eval Consult Date: 07/24/24 Initial Height: 5' 2.5 (158.8 cm) Initial Weight: 309 lb 12.8 oz (141 kg) Saxis Body Weight: 128 lb (58.1 kg) Initial BMI: 55.75 Initial Body Fat %: 66.9 EBW: 181 lb (Flow Sheet: Surgical Wt Loss Management: Baseline) Diabetes Do you currently have diabetes? No Are you currently prescribed insulin? No Are you currently prescribed an oral medication for diabetes? No GERD (Gastroesophageal Reflux Disease) Do you currently have GERD? No Do you get heartburn type symptoms more than twice per week? No Are you currently on a medication for GERD? (not TUMS) (examples: Prilosec/omeprazole, Zantac/ranitidine, etc.) No Hyperlipidemia (high cholesterol) Do you currently have a diagnosis of high cholesterol? No Are you currently prescribed a medication for high cholesterol? (examples Lipitor/Atorvastatin, Pravastatin, Zetia, Tricor, etc.) No Have you been diagnosed with high cholesterol but chosen not to take medication? No Hypertension (high blood pressure) Do you currently have a diagnosis of Hypertension? Yes Are you currently on a medication for Hypertension? Yes Have you been diagnosed with Hypertension but have chosen not to take the medication? No Sleep Apnea Do you currently have Sleep Apnea? Yes Are you on a device (CPAP, BiPAP, etc) for Sleep Apnea? Yes Have you been diagnosed with Sleep Apnea but cannot tolerate or have chosen not to treat? No Comorbids Summary (flow sheet comorbids) Falls Risk Assessment Patient does take medications which affect BP or mental status Patient does not have newly prescribed or changed dosage of medications within past 30 days which affect BP or mental status Patient has not fallen in the past 2 months Patient doesdemonstrate unsteady gait Patient uses the following ambulatory assistive devices: cane Patient states the presence of the following traits which increases risk of fall: unsteady gait Patient is not on home O2 Completed by: Raul Pratt MA [facility] Office Visiton 07-01-2024 Follow-up visit [id number] Lavell Tirado percy Cruz 1960 F Date Provider Department Center 07/01/2024 [facility]ON RE[facility] None Family History Problem Relation Age of Onset Heart disease Mother Clotting disorder Mother Heart disease Father Dementia Father Hypertension Father Pacemaker Father High Blood Pressure Father Atrial fibrillation Father Obesity Father Heart disease Brother Obesity Brother Hypertension Brother Clotting disorder Brother Heart disease Brother Heart disease Brother Arrhythmia Brother Comments: WPW Heart disease Brother Diabetes Paternal Grandmother Obesity Paternal Grandmother Hypertension Paternal Grandfather Heart disease Paternal Grandfather Family Status - Relation Status Age at Mother Father Alive Brother Brother Brother Brother Maternal Grandmother Maternal Grandfather Paternal Grandmother Paternal Grandfather Level of Service:20148 [place] OFFICE/OUTPATIENT ESTABLISHED MOD MDM 30 MIN Reason for Visit and Comments: 6 Month Follow-up [671] Congestive Heart Failure [127] [facility] Progress Noteon 07-01-2024 Progress Note Received a copy of labs per primary care provider collected 06/03/2024: Vitamin D 36 within normal limits parathyroid hormone 32 within normal limits CMP shows NA 142 K 4.9 BUN 21.4 creat 0.9 EGFR 72 LFTs within normal limits CBC shows hemoglobin 14.1 hematocrit 44.4 WBC 7.7 platelets 272 A1c 6.1% Lipids show LDL 90 triglycerides 72 HDL 57 total cholesterol 161 At this time we will continue current plans as discussed in office today. We will reach out to patient to discuss her cholesterol with primary care provider. [facility] Progress Note [facility] Cardiology Office Note DATE of SERVICE: 07/01/24 TIME of SERVICE: 10:45 AM Reason for Visit Chief Complaint Patient presents with 6 Month Follow-up Congestive Heart Failure History Rebeca Tirado is a 63 y.o. female who returns for follow-up of heart failure with normalized ejection fraction. She presented with HFrEF in November 2020. Cardiac MRI which showed no evidence of infiltrative disease or myocardial scarring. She has severe obesity. She has very significant sleep apnea. As detailed previously, she has an interesting family history with several brothers developing a significant cardiomyopathy and nearly dying. Last seen by Dr. Grullon 06/2023. She had not had any heart failure and only takes the furosemide once in a while. She did have some atypical chest pain at the time of URI right before the holidays. She states that she went into the ED at [place] and basic cardiac workup was negative. Last seen in office 12/2023, at which time she was switching from CPAP to BIPAP because of increased needs, and possibly oxygen bleed-in, depending on insurance. She presents today for 6 month follow-up. Had Covid in April 2024, reports it's taken awhile to recover. 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 Despite this, she still feels like her quality of life could be better. She easily tires, and reports her SOB is stable. She always brings up her right knee as the biggest limitation to progressing her mobility. She will be establishing with bariatric clinic in a couple weeks; wants assistance with lifestyle changes. She also tells me today how everyone in her family is overweight and she just becomes so overwhelmed. From a HF standpoint she appears stable and euvolemic. She had labs done recently per PCP, and we will obtain a copy. Assessment and Plan 1. Obstructive sleep apnea syndrome 2. Heart failure with recovered ejection fraction (HFrecEF) ([facility]) - ECG 12 lead 1. Heart failure with normalized ejection fraction. NYHA class I-II, stage C. At this time she appears well compensated and euvolemic. -echo 01/2022 shows LVEF 65%, no WMA, and no significant valvular disease -continues on coreg 12.5 mg twice daily -continues on Farxiga 10 mg daily -continues on Entresto 97-103 mg twice daily -continues on lasix 40 mg daily-PRN -ongoing HF care reviewed -encouraged compliance with BIPAP -encouraged portion control, exercise, and weight loss As discussed previously by Dr. Grullon, the most likely cause of her heart failure which at this point is primarily diastolic in nature is hypertensive cardiomyopathy, although a familial cardiomyopathy exacerbated by hypertension may be possible. Certainly obesity is a contributing factor. Ischemic heart disease is not completely excluded, however a lack of angina or family history of vascular disease and no scarring on the MRI suggested against this. This seems less likely. Nonetheless, a CAD work-up such as coronary CTA or stress testing could also be considered in the future if clinically indicated. 2. Severe obesity. She has been interested in pursuing evaluation at the [facility] weight [facility] [place]. We have made several referrals -today she states she has an appt to get started with the bariatric clinic next month; she appears motivated to change, and I have commended her on this big step she is taking. Follow up in about 6 months (around 01/01/2025) for Dr. Grullon . I, MICHELLE Cristobal CNP, furnish ongoing care related to Rebeca Tirado single, serious and complex condition(s) HFpEF. I assume responsibility for the patient's ongoing medical care of this condition. MAURICIO [facility] Cardiac Testing EK07/01/2024 Echo 02/11/2022: SUMMARY: 1. Technically difficult study. 2. Left ventricle: Not well visualized. Systolic function is normal by visual assessment. The estimated ejection fraction is 65%. 3. Right ventricle: The cavity size is normal. Systolic function is normal by visual assessment. Echo (date: 12/23/2020): personally reviewed - there is a restrictive diastolic filling pattern, only mild LVH 1. Left ventricle: The cavity size is normal. Wall thickness is mildly increased. Systolic function is by the biplane method of disks. The estimated ejection fraction is 47%. Regional wall motion abnormalities cannot be excluded. 2. Right ventricle: The cavity size is mildly dilated. Systolic function is normal. 3. Left atrium: The atrium is severely dilated. 4. No significant valve disease. 5. Technically difficult study. Event monitor 08/02/21-08/31/2021 1. The patient wore the recorder for the above documented period of time.(08/02/2021 - 08/31/2021) Baseline Recordings show sinus rhythm and sinus arrhythmia. Maximum HR was 105 BPM. 2. There were automatically triggered, asymptomatic events. They showed sinus tachyca (more content not included)... Normal [facility] Breast imaging reportOrdered By: Jackie Jacobs on 06-28-2024 Study report [facility] Imaging Services [address] [place] [id number] SCRN MAMM (CAD)W/SHAHNAZ BILAT MR#: [id number] Acct: [id number] Name: REBECA TIRADO Rep #: [id number] : 1960 F 63 From: Rose Mary Jacobs MD PCP: Dr. Omi Garcia DO Status: RE G CLI Study:SCRN MAMM (CAD)W/SHAHNAZ BILAT Date of Exa m: 06/28/24 Exam# [id number] Ordering Dr: Kenyatta Garcia DO PROCEDURE: SCRN MAMM (CAD)W/SHAHNAZ BILAT REASON FOR EXAM: F, Age 63 y/o, presents for annual screening mammogram. Family history of breast cancer in 2 paternal cousins. TECHNIQUE: Bilateral screening digital breast tomosynthesis with 2D and 3D images. Computeraided detection. COMPARISON: 02/18/2022 FINDINGS: There are scattered areas of fibroglandular density. No suspicious masses, areas of developing architectural distortion, or suspicious calcifications. BI/SCRN MAMM (CAD)W/SHAHNAZ BILAT IMPRESSION: There is no mammographic evidence of malignancy. BI-RADS 1: NEGATIVE. RECOMMEND ANNUAL MAMMOGRAPHIC SCREENING. Follow-up code: Routine Follow-up The patient will be notified of the results by letter. Reading Location: [id number] CC: Dr. Omi Garcia DO ~ News Production Supervisor: Signed [facility] SCRN MAMM (CAD)W/SHAHNAZ BILATo n 06-28-2024 SCRN MAMM (CAD)W/SHAHNAZ BILAT [facility] Imaging Services [address] [place] [address] SCRN MAMM (CAD)W/SHAHNAZ BILAT MR#: [id number] Acct: [id number] Name: REBECA TIRADO Rep #: [id number] : 1960 F 63 From: Jackie Jacobs MD PCP: Dr. Omi Garcia DO Status: REG CLI Study: SCRN MAMM (CAD)W/SHAHNAZ BILAT Date of Exam: 11/15 Exam# [id number] Ordering Dr: Omi Garcia DO PROCEDURE: SCRN MAMM (CAD)W/SHAHNAZ BILAT REASON FOR EXAM: F, Age 63 y/o, presents for annual screening mammogram. Family history of breast cancer in 2 paternal cousins. TECHNIQUE: Bilateral screening digital breast tomosynthesis with 2D and 3D images. Computer aided detection. COMPARISON: 02/18/2022 FINDINGS: There are scattered areas of fibroglandular density. No suspicious masses, areas of developing architectural distortion, or suspicious calcifications. BI/SCRN MAMM (CAD)W/SHAHNAZ BILAT IMPRESSION: There is no mammographic evidence of malignancy. BI-RADS 1: NEGATIVE. RECOMMEND ANNUAL MAMMOGRAPHIC SCREENING. Follow-up code: Routine Follow-up The patient will be notified of the results by letter. Reading Location: [facility] CC: Dr. Omi Garcia, News Production Supervisor: Signed Normal [facility] XR Shoulder - left 2 Viewson 06-05-2024 No fracture or dislocation of the left shoulder is identified. Mild degenerative changes of the left acromioclavicular and glenohumeral joints. Report Dictated on Electronically Signed By: Ronen Tejeda MD Electronically Signed Date/Time: 06/05/2024 8:14 PM [facility] Patient Name: REBECA VALLE : 1960 Exam Date/Time: 06/05/2024 16:15 Procedure: XR SHOULDER 2+ VIEWS LEFT Ordering Provider: CARCAMO JESSICA Reason For Exam: [id number] LEFT SHOULDER CLINICAL INDICATION: Pain Four views of the left shoulder were obtained. COMPARISON: None. FINDINGS: No fracture or dislocation of the left shoulder is identified. There is no abnormal soft tissue swelling. There is degenerative spurring and loss of joint space at the left acromioclavicular and glenohumeral joints. [facility] RADIOLOGY [facility] Ronen Tejeda MD - 06/05/2024 Patient Name: REBECA TIRADO : 1960 Exam Date/Time: 06/05/2024 16:15 Procedure: XR SHOULDER 2+ VIEWS LEFT Ordering Provider: CARCAMO JESSICA Reason For Exam: [id number] LEFT SHOULDER CLINICAL INDICATION: Pain Four views of the left shoulder were obtained. COMPARISON: None. FINDINGS: No fracture or dislocation of the left shoulder is identified. There is no abnormal soft tissue swelling. There is degenerative spurring and loss of joint space at the left acromioclavicular and glenohumeral joints. IMPRESSION: No fracture or dislocation of the left shoulder is identified. Mild degenerative changes of the left acromioclavicular and glenohumeral joints. Report Dictated on Electronically Signed By: Ronen Tejeda MD Electronically Signed Date/Time: 06/05/2024 8:14 PM EST [facility] Radiology Study observation (narrative) [facility] alth XR Shoulder - left 2 ViewsOr dered By: Ronen Tejeda on 06-05-2024 [facility] 36on 04-22-2024 36 Patient left message requesting refill on carvedilol, send to [facility] in [place]. Normal [facility] Absolute lymphocyte countOrd ered By: Laura Rolon on 07-17-2023 Lymphocytes Auto (Unsp spec) [#/Vol] 2.99 10*3/uL 0.83-4.51 [facility] Automated lymphocyte count a s percentage of total leukocytesOrdered By: Laura Rolon on 07-17-2023 Lymphocytes/100 WBC Auto (Unsp spec) 35.1 % 19-41 [facility] Basophil percentageOrdered B y: Laura Rolon on 07-17-2023 Basophils/100 WBC (Bld) 0.7 % 0-1 [facility] Chloride [Moles/Vol] 109 mmol/L 98-107 [facility] Eosinophils/100 WBC (Bld) 4.9 % 0-5 [facility] Glucose [Mass/Vol] 116 mg/dL 74-106 [facility] Comment on above: Fasting Glucose resu lt from 100 to 125 mg/dL suggests IMPAIRED HOMEOSTASIS per A.D.A. criteria. Hemoglobin (Bld) [Mass/Vol] 13.9 g/dL 12.0-15.0 [facility] Monocytes/100 WBC (Bld) 8.0 % 0-10 [facility] Neutrophils (Bld) [#/Vol] 4.4 10*3/uL 2.0-7.7 [facility] Neutrophils/100 WBC (Bld) 51.1 % 47-70 [facility] Potassium [Moles/Vol] 3.8 mmol/L 3.5-5.1 [facility] Sodium [Moles/Vol] 141 mmol/L 136-145 [facility] WBC (Bld) [#/Vol] 8.5 10*3/uL 4.4-11.0 [facility] Determination of erythrocyte mean corpuscular volume (MCV)Ordered By: Laura Rolon on 07-17-2023 MCV (RBC) [Entitic vol] 93.8 fL 81-99 [facility] Erythrocyte distribution wid th ratioOrdered By: Laura Rolon on 07-17-2023 Erythrocyte distribution width (RBC) [Ratio] 12.7 % 11.6-14.6 [facility] Erythrocyte distribution wid th standard deviationOrdered By: Laura Rooln on 07-17-2023 Erythrocyte distribution width (RBC) [Entitic vol] 43.7 fL 35.1-43.9 [facility] Hematocrit Auto (Bld) [Volum e fraction]Ordered By: Laura Rolon on 07-17-2023 Hematocrit (Bld) [Volume fraction] 42.4 % 37-47 [facility] Immature granulocytes/100 WB C Auto (Bld)Ordered By: Laura Rolon on 07-17-2023 Immature granulocytes/100 WBC (Bld) 0.200 % 0.0-0.9 [facility] Comment on above: IG% - Immature Granu locytes (promyelocytes, myelocytes and metamyelocytes) > 1% indicates that a LEFT SHIFT is Present. Laboratory - Chemistry and C hemistry - challengeOrdered By: Laura Rolon on 07-17-2023 CO2 [Moles/Vol] 27.0 mmol/L 21.0-32.0 [facility] Urea nitrogen/Creatinine [Mass ratio] 19.5 mg/mg 10-20 [facility] Laboratory - Hematology and Cell countsOrdered By: Laura Rolon on 07-17-2023 MCH (RBC) [Entitic mass] 30.8 pg 27.0-32.0 [facility] MCHC (RBC) [Mass/Vol] 32.8 g/dL 32-36 [facility] Nucleated RBC/100 WBC (Bld) [Ratio] 0 % 0-5 [facility] Platelet mean volume (Bld) [Entitic vol] 9.3 fL 6.2-12.0 [facility] Platelets (Bld) [#/Vol] 291 10*3/uL 150-450 [facility] No Panel InformationOrdered By: Laura Rolon on 07-17-2023 Estimated Creatinine Clearance Calc 112.02 ml/min [facility] Estimated GFR (MDRD) Amer 106 mL/min >60 [facility] Comment on above: GFR Calc Estimated GFR (MDRD) Non-Af Amer 88 mL/min >60 [facility] Comment on above: Non- GFR Calc RBC Auto (Bld) [#/Vol]Ordere d By: Laura Rolon on 07-17-2023 RBC (Bld) [#/Vol] 4.52 10*6/uL 4.2-5.4 [facility] Serum or plasma calcium damien urement (mass/volume)Ordered By: Laura Rolon on 07-17-2023 Calcium [Mass/Vol] 8.8 mg/dL 8.5-10.1 [facility] Serum or plasma creatinine m easurement (mass/volume)Ordered By: Laura Rolon on 07-17-2023 Creatinine [Mass/Vol] 0.72 mg/dL 0.55-1.02 [facility] Comment on above: The validity of the calculated GFR & GFRAA in patients over 70 years has not been determined. Clinical correlation is essential. Serum or plasma urea nitroge n measurement (mass/volume)Ordered By: Laura Rolon on 07-17-2023 Urea nitrogen [Mass/Vol] 14 mg/dL 7-18 [facility] Thin prep Papanicolaou smear with manual screeningOrdered By: Laura Rolon on 07-17-2023 Thin prep Papanicolaou smear with manual screening 5 5-15 [facility] Nerve conduction test with E MGon 06-27-2023 Wicho Her DO 06/27/2023 2:29 PM [facility] Neurology Lab EMG/NCS report: Patient: Rebeca Tirado AGE: 62 y.o. Handedness: Right Gender: Female Referring physician: Omi Garcia DO Study date: 06/27/23 Reason for referral: Patient presents with pain, numbness, and paresthesia in the right hand and arm. EMG/nerve conduction study of the right upper extremity is done to evaluate for right cervical radiculopathy versus mononeuropathy affecting the right upper extremity. Summary: The right median sensory nerve action potential was remarkable for a prolonged peak latency and a decreased amplitude. The right ulnar sensory nerve action potential was unremarkable. The right radial sensory nerve action potential was unremarkable. The right median to ulnar palmar comparison mixed nerve action potential was remarkable for a prolonged median peak latency compared to its ulnar counterpart and a decreased median palmar amplitude. The right median to APB compound muscle action potential was remarkable for a prolonged distal latency and a decreased conduction velocity. The right ulnar to ADM compound muscle action potential was unremarkable. Concentric needle EMG was performed in the right upper extremity. No increased insertional activity, fibrillation potentials, fasciculation potentials or positive sharp waves were seen in any muscle tested. Motor unit action potentials demonstrated increased amplitude, duration and reduced recruitment in the right pronator teres, right triceps brachii and right extensor digitorum communis. All other muscles tested demonstrated normal morphology and firing pattern throughout. Impression: This is an abnormal study. 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 carpal tunnel syndrome, which is moderate in severity electrophysiologically . There is also evidence of a chronic, inactive, right-sided C7 radiculopathy with no evidence of active ongoing denervation at that level. There is no evidence of an active right cervical radiculopathy on the study. All normal values/reference values for this study [facility] reference [facility]. This dictation was done by using the [employer] dictation system. It has been proofread but still may contain unrecognized voice recognition errors. [facility] Nerve conduction test with E MGOrdered By: Wicho Her on 06-27-2023 [facility] Work Phone: ECG 12 leadon 06-23-2023 Sinus Rhythm PRWP, consider old AMI [facility] Absolute lymphocyte countOrd ered By: Laura Rolon on 04-14-2023 Lymphocytes Auto (Unsp spec) [#/Vol] 2.71 10*3/uL 0.83-4.51 [facility] Basophil percentageOrdered B y: Laura Rolon on 04-14-2023 Basophils/100 WBC (Bld) 0.9 % 0-1 [facility] Chloride [Moles/Vol] 106 mmol/L 98-107 [facility] Eosinophils/100 WBC (Bld) 1.6 % 0-5 [facility] Glucose [Mass/Vol] 107 mg/dL 74-106 [facility] Comment on above: Fasting Glucose resu lt from 100 to 125 mg/dL suggests IMPAIRED HOMEOSTASIS per A.D.A. criteria. Neutrophils (Bld) [#/Vol] 5.6 10*3/uL 2.0-7.7 [facility] Neutrophils/100 WBC (Bld) 60.9 % 47-70 [facility] Potassium [Moles/Vol] 3.6 mmol/L 3.5-5.1 [facility] Sodium [Moles/Vol] 141 mmol/L 136-145 [facility] WBC (Bld) [#/Vol] 9.2 10*3/uL 4.4-11.0 [facility] Blood erythrocytes count (nu mber/volume)Ordered By: Laura Rolon on 04-14-2023 RBC (Bld) [#/Vol] 4.81 10*6/uL 4.2-5.4 [facility] Blood hemoglobin measurement (mass/volume)Ordered By: Laura Rolon on 04-14-2023 Hemoglobin (Bld) [Mass/Vol] 14.5 g/dL 12.0-15.0 [facility] Blood lymphocytes/100 leukoc ytesOrdered By: Laura Rolon on 04-14-2023 Lymphocytes/100 WBC (Bld) 29.4 % 19-41 [facility] Blood monocytes/100 leukocyt esOrdered By: Laura Rolon on 04-14-2023 Monocytes/100 WBC (Bld) 6.8 % 0-10 [facility] Blood platelet mean volumeOr dered By: Laura Rolon on 04-14-2023 Platelet mean volume (Bld) [Entitic vol] 9.4 fL 6.2-12.0 [facility] Determination of erythrocyte mean corpuscular volume (MCV)Ordered By: Laura Rolon on 04-14-2023 MCV (RBC) [Entitic vol] 93.8 fL 81-99 [facility] Hematocrit Auto (Bld) [Volum e fraction]Ordered By: Laura Rolon on 04-14-2023 Hematocrit (Bld) [Volume fraction] 45.1 % 37-47 [facility] Influenza virus A and B and SARS-CoV-2 (COVID-19) Ag panel - Upper respiratory specimOrdered By: Laura Rolon on 04-14-2023 SARS-CoV-2 (COVID-19) RNA RODGER+probe Ql (Resp) [facility] Laboratory - Chemistry and C hemistry - challengeOrdered By: Laura Rolon on 04-14-2023 CO2 [Moles/Vol] 32.0 mmol/L 21.0-32.0 [facility] Urea nitrogen/Creatinine [Mass ratio] 19.0 mg/mg 10-20 [facility] Laboratory - Hematology and Cell countsOrdered By: Laura Rolon on 04-14-2023 Erythrocyte distribution width (RBC) [Entitic vol] 44.3 fL 35.1-43.9 [facility] Erythrocyte distribution width (RBC) [Ratio] 12.8 % 11.6-14.6 [facility] Immature granulocytes/100 WBC (Bld) 0.400 % 0.0-0.9 [facility] Comment on above: IG% - Immature Granu locytes (promyelocytes, myelocytes and metamyelocytes) > 1% indicates that a LEFT SHIFT is Present. MCH (RBC) [Entitic mass] 30.1 pg 27.0-32.0 [facility] Nucleated RBC/100 WBC (Bld) [Ratio] 0 % 0-5 [facility] MCHC Auto (RBC) [Mass/Vol]Or dered By: Laura Rolon on 04-14-2023 MCHC (RBC) [Mass/Vol] 32.2 g/dL 32-36 [facility] No Panel InformationOrdered By: Laura Rolon on 04-14-2023 D-Dimer Quantitative (PE/DVT) 0.83 FEU/ug/m 0.27-0.49 [facility] Comment on above: CRITICAL VALUE VERIF IED. CALLED TO NGUYEN VELARDE RN [id number] Chaz Carver.RESULTS READ BACK BY SAME . D-Dimer ELEVATED (>0.49): Additional studies and clinicalassessments are indicated to conclude diagnosis of:Deep Vein Thrombosis (DVT) or Pulmonary Embolism (PE) Estimated Creatinine Clearance Calc 56.33 ml/min [facility] Estimated GFR (MDRD) Amer 88 mL/min >60 [facility] Comment on above: GFR Calc Estimated GFR (MDRD) Non-Af Amer 73 mL/min >60 [facility] Comment on above: Non- GFR Calc Troponin I High Sensitivity 7 pg/mL 3.0-54.0 [facility] Comment on above: Please Note: [place] t Units and Gender Specific Reference Ranges. For more information see Policy Stat Procedure [place] High Sensitivity Troponin (TNIH) and attachments. Platelets bldOrdered By: Marlene Rolon on 04-14-2023 Platelets (Bld) [#/Vol] 305 10*3/uL 150-450 [facility] Serum or plasma calcium damien urement (mass/volume)Ordered By: Laura Rolon on 04-14-2023 Calcium [Mass/Vol] 8.9 mg/dL 8.5-10.1 [facility] Serum or plasma creatinine m easurement (mass/volume)Ordered By: Laura Rolon on 04-14-2023 Creatinine [Mass/Vol] 0.84 mg/dL 0.55-1.02 [facility] Comment on above: The validity of the calculated GFR & GFRAA in patients over 70 years has not been determined. Clinical correlation is essential. Serum or plasma urea nitroge n measurement (mass/volume)Ordered By: Laura Rolon on 04-14-2023 Urea nitrogen [Mass/Vol] 16 mg/dL 7-18 [facility] Thin prep Papanicolaou smear with manual screeningOrdered By: Laura Rolon on 04-14-2023 Thin prep Papanicolaou smear with manual screening 3 5-15 [facility] Upper respiratory specimen i nfluenza A virus, influenza B virus, and severe acute resOrdered By: Laura Rolon on 04-14-2023 Upper respiratory specimen influenza A virus, influenza B virus, and severe acute res [facility] 25-hydroxyvitamin D3 [Mass/V ol]on 11-04-2022 Interpretation and review of laboratory results Normal [facility] Therapy is based on measurement of Total 25-OHD with the following classification levels: Less than 20 ng/mL: Indicative of Vit D deficiency 20-30 ng/mL: Suggests Vit D insufficiency Optimal: Greater than or equal to 30 ng/mL Test performed by [employer] Comp[employer] Immunoassay, measuring Total Vitamin D, not individual fractions. [facility] Comprehensive metabolic 1998 panelon 11-04-2022 Albumin [Mass/Vol] 4.2 g/dL 3.5 - 5.0 g/dL [facility] ALP [Catalytic activity/Vol] 111 U/L 38 - 126 U/L [facility] ALT [Catalytic activity/Vol] 33 U/L 0 - 34 U/L [facility] Anion gap [Moles/Vol] 6 mmol/L 3 - 13 mmol/L [facility] AST [Catalytic activity/Vol] 32 U/L 15 - 46 U/L [facility] Bilirubin [Mass/Vol] 0.6 mg/dL 0.2 - 1 .3 mg/dL [facility] Calcium [Mass/Vol] 8.8 mg/dL 8.4 - 10. 4 mg/dL [facility] Chloride [Moles/Vol] 106 mmol/L 98 - 10 7 mmol/L [facility] CO2 [Moles/Vol] 29 mmol/L 22 - 30 mmol/L [facility] Creatinine [Mass/Vol] 0.65 mg/dL 0.52 - 1.04 mg/dL [facility] GFR/1.73 sq M.predicted MDRD (S/P/Bld) [Vol rate/Area] - PINF [facility] Comment on above: Calculation based on the Chronic Kidney Disease Epidemiology Collaboration (CKD-EPI) equation refit without adjustment for race Glucose [Mass/Vol] 98 mg/dL 70 - 100 mg/dL [facility] Potassium [Moles/Vol] 4.5 mmol/L 3.5 - 5.1 mmol/L [facility] Protein [Mass/Vol] 7.7 g/dL 6.3 - 8.2 g/dL [facility] Sodium [Moles/Vol] 141 mmol/L 135 - 145 mmol/L [facility] Urea nitrogen [Mass/Vol] 23 mg/dL High 7 - 17 mg/dL [facility] HbA1c (Bld) [Mass fraction]o n 11-04-2022 Average glucose Estimated from glycated hemoglobin (Bld) [Mass/Vol] 111 mg/dL [facility] Hemoglobin A1con 11-04-2022 HbA1c (Bld) [Mass fraction] 5.5 % [facility] Comment on above: Normal less than 5.7 % Prediabetes 5.7% to 6.4% Diabetes 6.5% or higher --HgbA1C levels may not be accurate in patients who have renal disease, received recent blood transfusions, are anemic, or who have dyshemoglobinemia. Lipid 1996 panelon 3 Cholesterol [Mass/Vol] 174 mg/dL NINF - 200 mg/dL [facility] Cholesterol in HDL [Mass/Vol] 56 mg/dL 40 - 60 mg/dL [facility] Cholesterol in LDL [Mass/Vol] 100 mg/dL High 0 - <100 [facility] Cholesterol.total/Sana sterol in HDL [Mass ratio] 3 {ratio} [facility] Comment on above: Ref Range: < 3 Low Risk for CHD 3-6 Mod Risk for CHD > 6 High Risk for CHD Triglyceride [Mass/Vol] 92 mg/dL NINF - 150 mg/dL [facility] No Panel Informationon 11-04 Interpretation and review of laboratory results Abnormal [facility] PTH, intacton 11-04-2022 Parathyrin.intact [Mass/Vol] 56.0 pg/mL High 7.5 - 53.5 pg/mL [facility] Parathyrin.intact [Mass/Vol] on 11-04-2022 Interpretation and review of laboratory results Abnormal [facility] Vitamin D 25 hydroxyon 11-04 25-hydroxyvitamin D3 [Mass/Vol] 32 ng/mL 30 - 100 ng/mL [facility] ECG 12 lead - CLINIC PERFORM EDOrdered By: Dillan Peterson on 06-10-2022 [facility] Work Phone: ECHO Complete 2D W Doppler W Color[place] 02-11-2022 TRANSTHORACIC ECHOCARDIOGRAM PATIENT: Rebeca Tirado STUDY DATE: 02/11/2022 : 1960 AGE: 61 HT/WT: 157.5 cm (62 136.1 kg in) (299.4 lb) GENDER: F BP: 144 / 84 LOCATION: [facility] PATIENT Outpatient [facility] STATUS: *ORDERING PHYSICIAN: * Kimberly Grullon MD, [facility] *READING PHYSICIAN: * Mason, *WOOD GANG SAWYER: * Sury Hardwick MD [facility] ----- INDICATIONS: HFrEF (heart failure with reduced ejection fraction). ----- CONCLUSIONS SUMMARY: 1. Technically difficult study. 2. Left ventricle: Not well visualized. Systolic function is normal by visual assessment. The estimated ejection fraction is 65%. 3. Right ventricle: The cavity size is normal. Systolic function is normal by visual assessment. ----- STUDY DATA: Complete transthoracic echocardiogram. Procedure: Image quality was fair. M-mode, complete 2D, complete spectral Doppler, and color flow Doppler images were acquired and archived for permanent storage and are available for subsequent review. Study status: Routine. Patient status: Outpatient. ----- FINDINGS LEFT VENTRICLE: Not well visualized. The cavity size is normal. Wall thickness is mildly increased. Systolic function is normal by visual assessment. The estimated ejection fraction is 65%. There are no regional wall motion abnormalities. Left ventricular diastolic function parameters are normal. RIGHT VENTRICLE: Not well visualized. The cavity size is normal. Systolic function is normal by visual assessment. Systolic pressure is not estimated. VENTRICULAR SEPTUM: There is no evidence of a ventricular septal defect. LEFT ATRIUM: The atrium is normal in size. RIGHT ATRIUM: The atrium is normal in size. ATRIAL SEPTUM: Color Doppler shows no shunt. MITRAL VALVE: Not well visualized. Doppler: There is trivial, less than 1+ regurgitation. The peak diastolic gradient is 3 mm Hg. AORTIC VALVE: Not well visualized. Doppler: There is no stenosis. There is no regurgitation. The peak systolic gradient is 6 mm Hg. The peak systolic velocity is 1.2 m/sec. TRICUSPID VALVE: Not well visualized. Doppler: There is trivial, less than 1+ regurgitation. PULMONIC VALVE: Structurally normal valve. Doppler: There is trivial, less than 1+ regurgitation. AORTA: The aorta is normal. PULMONARY ARTERY: Main pulmonary artery: Normal. PERICARDIUM: There is no pericardial effusion. SYSTEMIC VEINS: Inferior vena cava: Not well visualized. ----- Measurements Value 09/27/2017 Reference Aortic root ID 3.6 cm <4.5 Aortic root ID, STJ, ED 2.8 cm 2.0 - 3.2 Aortic root ID/bsa, STJ, ED 1.1 cm/m^2 1.1 - 1.9 Value 09/27/2017 Reference Ascending aorta ID 3.5 cm 1.9 - 3.5 Ascending aorta ID/bsa, A-P 1.4 cm/m^2 1.0 - 2.2 Ascending aorta ID, A-P, S 3.5 cm 3.6 Ascending aorta ID/bsa, 1.4 cm/m^2 A-P, S Left ventricle Value 09/27/2017 Reference LV ID, ED 4.7 cm 4.7 3.8 - 5.2 LV ID, ES 3.0 cm 3.1 2.2 - 3.5 LV ID/bsa, ED (L) 1.8 cm/m^2 2.3 - 3.1 LV ID/bsa, ES (L) 1.2 cm/m^2 1.3 - 2.1 LV PW thickness, ED (H) 1.0 cm 1.6 0.6 - 0.9 LV PW/LV ID ratio, ED 0.22 LV wall mass (H) 187 g 66 - 150 LV wall mass/bsa 74 g/m^2 44 - 88 Stroke volume/bsa, 1-p A2C 28.8 ml/m^2 LV end-diastolic volume, 106 ml 121 48 - 140 1-p A4C LV end-systolic volume, 1-p 38 ml 43 12 - 60 A4C LV end-diastolic volume, 98 ml 102 46 - 106 2-p LV end-systolic volume, 2-p 27 ml 38 14 - 42 LV ejection fraction, 2-p 65 % 54 - 74 LV E/e', lateral 14.5 8.6 LV E/e', medial 11 10.2 LV E/e', average (more content not included)... [facility] CARDIOLOG[facility] Ronen Cuevas MD - 02/11/2022 TRANSTHORACIC ECHOCARDIOGRAM PATIENT: Rebeca Tirado STUDY DATE: 02/11/2022 : 1960 AGE: 61 HT/WT: 157.5 cm (62 136.1 kg in) (299.4 lb) GENDER: F BP: 144 / 84 LOCATION: [facility] Outpatient [facility] STATUS: *ORDERING PHYSICIAN: * Kimberly Grullon MD, [facility] *READING PHYSICIAN: * Mason, *WOOD GANG SAWYER: * Sury Hardwick MD [facility] ----- INDICATIONS: HFrEF (heart failure with reduced ejection fraction). ----- CONCLUSIONS SUMMARY: 1. Technically difficult study. 2. Left ventricle: Not well visualized. Systolic function is normal by visual assessment. The estimated ejection fraction is 65%. 3. Right ventricle: The cavity size is normal. Systolic function is normal by visual assessment. ----- STUDY DATA: Complete transthoracic echocardiogram. Procedure: Image quality was fair. M-mode, complete 2D, complete spectral Doppler, and color flow Doppler images were acquired and archived for permanent storage and are available for subsequent review. Study status: Routine. Patient status: Outpatient. ----- FINDINGS LEFT VENTRICLE: Not well visualized. The cavity size is normal. Wall thickness is mildly increased. Systolic function is normal by visual assessment. The estimated ejection fraction is 65%. There are no regional wall motion abnormalities. Left ventricular diastolic function parameters are normal. RIGHT VENTRICLE: Not well visualized. The cavity size is normal. Systolic function is normal by visual assessment. Systolic pressure is not estimated. VENTRICULAR SEPTUM: There is no evidence of a ventricular septal defect. LEFT ATRIUM: The atrium is normal in size. RIGHT ATRIUM: The atrium is normal in size. ATRIAL SEPTUM: Color Doppler shows no shunt. MITRAL VALVE: Not well visualized. Doppler: There is trivial, less than 1+ regurgitation. The peak diastolic gradient is 3 mm Hg. AORTIC VALVE: Not well visualized. Doppler: There is no stenosis. There is no regurgitation. The peak systolic gradient is 6 mm Hg. The peak systolic velocity is 1.2 m/sec. TRICUSPID VALVE: Not well visualized. Doppler: There is trivial, less than 1+ regurgitation. PULMONIC VALVE: Structurally normal valve. Doppler: There is trivial, less than 1+ regurgitation. AORTA: The aorta is normal. PULMONARY ARTERY: Main pulmonary artery: Normal. PERICARDIUM: There is no pericardial effusion. SYSTEMIC VEINS: Inferior vena cava: Not well visualized. ----- Measurements Value 09/27/2017 Reference Aortic root ID 3.6 cm <4.5 Aortic root ID, STJ, ED 2.8 cm 2.0 - 3.2 Aortic root ID/bsa, STJ, ED 1.1 cm/m^2 1.1 - 1.9 Value 09/27/2017 Reference Ascending aorta ID 3.5 cm 1.9 - 3.5 Ascending aorta ID/bsa, A-P 1.4 cm/m^2 1.0 - 2.2 Ascending aorta ID, A-P, S 3.5 cm 3.6 Ascending aorta ID/bsa, 1.4 cm/m^2 A-P, S Left ventricle Value 09/27/2017 Reference LV ID, ED 4.7 cm 4.7 3.8 - 5.2 LV ID, ES 3.0 cm 3.1 2.2 - 3.5 LV ID/bsa, ED (L) 1.8 cm/m^2 2.3 - 3.1 LV ID/bsa, ES (L) 1.2 cm/m^2 1.3 - 2.1 LV PW thickness, ED (H) 1.0 cm 1.6 0.6 - 0.9 LV PW/LV ID ratio, ED 0.22 LV wall mass (H) 187 g 66 - 150 LV wall mass/bsa 74 g/m^2 44 - 88 Stroke volume/bsa, 1-p A2C 28.8 ml/m^2 LV end-diastolic volume, 106 ml 121 48 - 140 1-p A4C LV end-systolic volume, 1-p 38 ml 43 12 - 60 A4C LV end-diastolic volume, 98 ml 102 46 - 106 2-p LV end-systolic volume, 2-p 27 ml 38 14 - 42 LV ejection fraction, 2-p 65 % 54 - 74 LV E/e', lateral 14.5 8.6 LV E/e', medial 11 10.2 LV E/e', average 12.5 9.3 Ventricular septum Value 09/27/2017 Reference IVS thickness, ED (H) 1.2 cm 1.3 0.6 - 0.9 LVOT Value 09/27/2017 Reference LVOT ID, A-P 2.1 cm 2.0 LVOT mean velocity, S 0.7 m/sec 0.7 LVOT peak gradient, S 5 mm Hg 3 Stroke volume (SV), LVOT DP 79 ml 61 Stroke index (SV/bsa), LVOT 31 ml/m^2 28 DP Aortic valve Value 09/27/2017 Reference Aortic valve peak velocity, 1.2 m/sec S Aortic peak gradient, S 6 mm Hg Left atrium Value 09/27/2017 Reference LA volume/bsa, ES, 2-p 19 ml/m^2 32 16 - 34 Mitral valve Value 09/27/2017 Reference Mitral E-wave peak velocity 0 (more content not included)... [facility] Work Phone: ECHO Complete 2D W Doppler W ColorOrdered By: Ronen Cuevas on 02-11-2022 [employer] Work Phone: Echo Complete w/wo Contrasto n 02-11-2022 Echo Complete w/wo Contrast Patient Name: REBECA TIRADO Ultrasound ACCESSION EXAM DATE/TIME PROCEDURE ORDERING PROVIDER [id number] 02/11/2022 11:07 EDT Echo Complete w/wo MD YADI., [facility], KIMBERLY López Reason For Exam (Echo Complete w/wo Contrast) HFrEF, reassess after guideline directed medical therapy Report TRANSTHORACIC ECHOCARDIOGRAM PATIENT: Rebeca Tirado STUDY DATE: 02/11/2022 : 1960 AGE: 61 HT/WT: 157.5 cm (62 136.1 kg in) (299.4 lb) GENDER: F BP: 144 / 84 LOCATION: [facility] PATIENT Outpatient [facility] STATUS: *ORDERING PHYSICIAN: * Kimberly Grullon MD, [facility] *READING PHYSICIAN: * Mason, *WOOD GANG SAWYER: * uSry Hardwick MD [facility] ----- INDICATIONS: HFrEF (heart failure with reduced ejection fraction). ----- CONCLUSIONS SUMMARY: 1. Technically difficult study. 2. Left ventricle: Not well visualized. Systolic function is normal by visual assessment. The estimated ejection fraction is 65%. 3. Right ventricle: The cavity size is normal. Systolic function is normal by visual assessment. ----- STUDY DATA: Complete transthoracic echocardiogram. Procedure: Image quality was fair. M-mode, complete 2D, complete spectral Doppler, and color flow Doppler images were acquired and archived for permanent storage and are available for subsequent review. Study status: Routine. Patient status: Outpatient. ----- FINDINGS LEFT VENTRICLE: Not well visualized. The cavity size is normal. Wall thickness is mildly increased. Systolic function is normal by visual assessment. The estimated ejection fraction is 65%. There are no regional wall motion abnormalities. Left ventricular diastolic function parameters are normal. RIGHT VENTRICLE: Not well visualized. The cavity size is normal. Systolic function is normal by visual assessment. Systolic pressure is Ultrasound Report not estimated. VENTRICULAR SEPTUM: There is no evidence of a ventricular septal defect. LEFT ATRIUM: The atrium is normal in size. RIGHT ATRIUM: The atrium is normal in size. ATRIAL SEPTUM: Color Doppler shows no shunt. MITRAL VALVE: Not well visualized. Doppler: There is trivial, less than 1+ regurgitation. The peak diastolic gradient is 3 mm Hg. AORTIC VALVE: Not well visualized. Doppler: There is no stenosis. There is no regurgitation. The peak systolic gradient is 6 mm Hg. The peak systolic velocity is 1.2 m/sec. TRICUSPID VALVE: Not well visualized. Doppler: There is trivial, less than 1+ regurgitation. PULMONIC VALVE: Structurally normal valve. Doppler: There is trivial, less than 1+ regurgitation. AORTA: The aorta is normal. PULMONARY ARTERY: Main pulmonary artery: Normal. PERICARDIUM: There is no pericardial effusion. SYSTEMIC VEINS: Inferior vena cava: Not well visualized. ----- Measurements Value 09/27/2017 Reference Aortic root ID 3.6 cm <4.5 Aortic root ID, STJ, ED 2.8 cm 2.0 - 3.2 Aortic root ID/bsa, STJ, ED 1.1 cm/m^2 1.1 - 1.9 Value 09/27/2017 Reference Ascending aorta ID 3.5 cm 1.9 - 3.5 Ascending aorta ID/bsa, A-P 1.4 cm/m^2 1.0 - 2.2 Ascending aorta ID, A-P, S 3.5 cm 3.6 Ascending aorta ID/bsa, 1.4 cm/m^2 A-P, S Left ventricle Value 09/27/2017 Reference LV ID, ED 4.7 cm 4.7 3.8 - 5.2 LV ID, ES 3.0 cm 3.1 2.2 - 3.5 LV ID/bsa, ED (L) 1.8 cm/m^2 2.3 - 3.1 LV ID/bsa, ES (L) 1.2 cm/m^2 1.3 - 2.1 LV PW thickness, ED (H) 1.0 cm 1.6 0.6 - 0.9 LV PW/LV ID ratio, ED 0.22 LV wall mass (H) 187 g 66 - 150 LV wall mass/bsa 74 g/m^2 44 - 88 Stroke volume/bsa, 1-p A2C 28.8 ml/m^2 LV end-diastolic volume, 106 ml 121 48 - 140 1-p A4C LV end-systolic volume, 1-p 38 ml 43 12 - 60 A4C LV end-diastolic volume, 98 ml 102 46 - 106 2-p LV end-systolic volume, 2-p 27 ml 38 14 - 42 LV ejection fraction, 2-p 65 % 54 - 74 LV E/e', lateral 14.5 8.6 LV E/e', medial 11 10.2 LV E/e', average 12.5 9.3 Ventricular septum Value 09/27/2017 Reference IVS thickness, ED (H) 1.2 cm 1.3 0.6 - 0.9 LVOT Value 09/27/2017 Reference Ultrasound Report LVOT ID, A-P 2.1 cm 2.0 LVOT mean velocity, S 0.7 m/sec 0.7 LVOT peak gradient, S 5 mm Hg 3 Stroke volume (SV), LVOT DP 79 ml 61 Stroke index (SV/bsa), LVOT 31 ml/m^2 28 DP Aortic valve Value 09/27/2017 Refe (more content not included)... Normal [facility] OPERATIVE REPORTon 2 Ordered by an unspecified provider. [facility] Laboratory - Microbiology an d Antimicrobial susceptibilityon 10-26-2021 SARS-CoV-2 (COVID-19) RNA RODGER+probe Ql (Unsp spec) Detected [facility] Work Phone: No Panel Informationon 10-26 Influenza Types A,B Rapid (Clinic) Not detected [facility] Work Phone: Laboratory - Microbiology an d Antimicrobial susceptibilityon 10-19-2021 SARS-CoV-2 (COVID-19) RNA RODGER+probe Ql (Unsp spec) Not detected [facility] Work Phone: Comment on above: POC Samira Covid PCR p reviously reported as Detected No Panel Informationon 10-19 Influenza Types A,B Rapid (Clinic) Not detected [facility] Work Phone: CNOVon 08-31-2021 CNOV Office Visit (DERMST ) REBECA TIRADO ([id number]) 1960 F Date Time Provider Department 08/31/21 9:00 AM HUA BARBOSA During your visit today, we recorded the following information about you: Hua Barbosa MD 08/31/2021 10:18 AM Signed Department of Dermatology Hua Barbosa MD 08/31/2021 Last visit in Dermatology: 07/27/2021 Objective/Assessment/P zulema 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 No active lesions at present. We discussed the condition. Reviewed medications and none of them seem to explain a February 2021 onset. Patient has subsequently taken all of these and not noted a recurrence after completing steroid taper about 2 weeks ago. We reviewed the causes and treatment for Well's syndrome. The patient's blood count is reviewed which was completely normal. Will plan to treat as needed for recurrence. Future treatment with minocycline, dapsone or colchicine could be held in reserve for recurrence. Use desoximetasone cream twice daily as needed for any flares. Contact us for recurrent problems, but if it remains resolved, then no additional treatment for now. Additionally, patient will observe the discomfort in the left thigh, likely a reactive process / node. Observe for improvement, but if not happening, then contact PCP for additional evaluation. Signed Prescriptions Disp Refills desoximetasone (TOPICORT) 0.25 % cream 60 g 2 Sig: Apply to affected area twice daily as needed (for flares of rash). Follow-up as noted below or as needed. - Chief Complaint: Patient presents with: Rash Subjective and Objective HPI: Rebeca Tirado is a 61 year old female who presents for: -follow up superficial and deep perivascular mixed inflammation on the legs -seen by Cass Polanco CNP -Per last note -obtain CBC for further investigation of eosinophils DONE 07/29/21 -patient states she finished prednisone taper and thinks it helped Some proximal left thigh pain after biopsy. Feels that the muscle is sore. Some difficulty with ambulation. No other inciting factors. Review of Systems Constitutional: Negative for appetite change, chills and fever. Respiratory: Negative for shortness of breath and wheezing. Cardiovascular: Positive for leg swelling (generally well treated with intermittent Lasix). Musculoskeletal: Positive for myalgias. Skin: Negative for color change and rash. ? Past medical history is reviewed. Medication list is reviewed. Physical Exam included: bilateral lower extremities Attending signature: Hua Barbosa MD This note is completed at 9:46 AM on 08/31/2021 and reflects the services provided at the time of the appointment. I agree with the Chief Complaint, ROS, and Past Histories independently gathered by the clinical field support rep. I spent a total of 42 minutes on the date of the service which included preparing to see the patient, [id number] patient care, completing clinical documentation, performing a medically appropriate examination and counseling and educating the patient/family/[facility] er. Hua Barbosa MD 08/31/2021 9:44 AM Signed If you have questions or need to reach the office, please either use RipCode or call [phone]. Let the brine process operator know that you need to leave a message for a dermatology provider or one of the dermatology nurses. Provide whomever takes the message with the details of your concern. Include medication names, symptoms you are experiencing, appropriate pharmacy and leave a phone number and best time to reach you. They will create a message and we will respond to you as soon as possible. 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 - furosemide (LASIX) 20 mg tablet Take 10 mg by mouth. - desoximetasone (TOPICORT) 0.25 % cream Apply to affected area twice daily as needed (for flares of rash). - sacubitril-valsartan (ENTRESTO) 97-103 mg tablet Take 1 tablet by mouth twice daily. - carvedilol (COREG) 12.5 mg tablet Take 12.5 mg by mouth twice daily with meals. - spironolactone (ALDACTONE) 25 mg tablet Take 25 mg by mouth once daily. - dapagliflozi (more content not included)... Normal [facility] CBC W Auto Differential pane l (Bld)on 07-29-2021 Basophils (Bld) [#/Vol] 0.09 10*3/uL Normal <0.11 [facility] Comment on above: Order Comment: Speci men Type: BLOOD SPECIMEN Ordering Facility: [facility] Address: [address] [phone] Performed By: #### 5 7021-8 #### [facility] CLIA [id number] [address] [place] [address] [place] Basophils/100 WBC (Bld) 1.1 % Normal C [facility] Comment on above: Order Comment: Speci men Type: BLOOD SPECIMEN Ordering Facility: [facility] Address: [address] [address] Performed By: #### 5 7021-8 #### [facility] CLIA [id number] [address] [place] [address] [place] Differential cell count method Nom (Bld) Auto Normal [facility] Comment on above: Order Comment: Speci men Type: BLOOD SPECIMEN Ordering Facility: [facility] Address: [address] [place] [address] Performed By: #### 5 7021-8 #### [facility] CLIA [id number] [address] [place] [address] [place] Eosinophils (Bld) [#/Vol] 0.27 10*3/uL Normal <0.46 [facility] Comment on above: Order Comment: Speci men Type: BLOOD SPECIMEN Ordering Facility: [facility] Address: [address] [place] [address] Performed By: #### 5 7021-8 #### [facility] [id number] [address] [place] [address] [place] Eosinophils/100 WBC (Bld) 3.2 % Normal [facility] Comment on above: Order Comment: Speci men Type: BLOOD SPECIMEN Ordering Facility: [facility] Address: [address] [place] [address] Performed By: #### 5 7021-8 #### [facility] [id number] [address] [place] [address] [place] Erythrocyte distribution width (RBC) [Ratio] 12.8 % Normal 11.5-15.0 [facility] Comment on above: Order Comment: Speci men Type: BLOOD SPECIMEN Ordering Facility: [facility] Address: [address] [place], [place] [phone] Performed By: #### 5 7021-8 #### [facility] CLIA [id number] [address] [place] [address] [place] Hematocrit (Bld) [Volume fraction] 43.7 % Normal 36.0-46.0 [facility] Comment on above: Order Comment: Speci men Type: BLOOD SPECIMEN Ordering Facility: [facility] Address: [address] [place] [address] Performed By: #### 5 7021-8 #### [facility] CLIA [id number] [address] [place] [address] [place] Hemoglobin (Bld) [Mass/Vol] 13.7 g/dL Normal 11.5-15.5 [facility] Comment on above: Order Comment: Speci men Type: BLOOD SPECIMEN Ordering Facility: [facility] Address: [address] [place] [address] Performed By: #### 5 7021-8 #### [facility] CLIA [id number] [address] [place] [address] [place] IMMATURE GRAN % 0.1 % Normal [facility] Comment on above: Order Comment: Speci men Type: BLOOD SPECIMEN Ordering Facility: [facility] Address: [address] [place] [address] Performed By: #### 5 7021-8 #### [facility] CLIA [id number] [address] [place] [address] [place] IMMATURE GRAN ABS <0.03 Normal <0.10 [facility] Comment on above: Order Comment: Speci men Type: BLOOD SPECIMEN Ordering Facility: [facility] Address: [address] [place] [address] Performed By: #### 5 7021-8 #### [facility] CLIA [id number] [address] [place] [address] [place] Lymphocytes (Bld) [#/Vol] 3.57 10*3/uL Normal 1.00-4.00 [facility] Comment on above: Order Comment: Speci men Type: BLOOD SPECIMEN Ordering Facility: [facility] Address: [address] [place], [place] [phone] Performed By: #### 5 7021-8 #### [facility] CLIA [id number] [address] [place] [address] STATES [facility] Lymphocytes/100 WBC (Bld) 42.6 % Normal [facility] Comment on above: Order Comment: Speci men Type: BLOOD SPECIMEN Ordering Facility: [facility] Address: [address] [place], [place] [id number] Performed By: #### 5 7021-8 #### [facility] CLIA [id number] [address] [place] [address] [place] MCH (RBC) [Entitic mass] 30.0 pg Normal 26.0-34.0 [facility] Comment on above: Order Comment: Speci men Type: BLOOD SPECIMEN Ordering Facility: [facility] Address: [address] [place], [place] [id number] Performed By: #### 5 7021-8 #### [facility] CLIA [id number] [address] [place] [address] [place] MCHC (RBC) [Mass/Vol] 31.4 g/dL Normal 30.5-36.0 [facility] Comment on above: Order Comment: Speci men Type: BLOOD SPECIMEN Order[facility] Address: [address] [place], [place] [id number] Performed By: #### 5 7021-8 #### [facility] CLIA [id number] [address] [place] [address] [place] MCV (RBC) [Entitic vol] 95.6 fL Normal 80.0-100.0 C [facility] Comment on above: Order Comment: Speci men Type: BLOOD SPECIMEN Ordering Facility: [facility] Address: [address] [place], [place] [phone] Performed By: #### 5 7021-8 #### [facility] CLIA [id number] [address] [place] [address] [place] Monocytes (Bld) [#/Vol] 0.78 10*3/uL Normal <0.87 [facility] Comment on above: Order Comment: Speci men Type: BLOOD SPECIMEN Ordering Facility: [facility] Address: [address] [place] [address] Performed By: #### 5 7021-8 #### [facility] CLIA [id number] [address] [place] [address] [place] Monocytes/100 WBC (Bld) 9.3 % Normal [facility] Comment on above: Order Comment: Speci men Type: BLOOD SPECIMEN Ordering Facility[facility] Address: [address] [place] [address] Performed By: #### 5 7021-8 #### [facility] CLIA [id number] [address] [place] [address] [place] Neutrophils (Bld) [#/Vol] 3.66 10*3/uL Normal 1.45-7.50 [facility] Comment on above: Order Comment: Speci men Type: BLOOD SPECIMEN Order[facility] Facility[facility] Address: [address] [place] [address] Performed By: #### 5 7021-8 #### [facility] CLIA [id number] [address] [place] [address] [place] Neutrophils/100 WBC (Bld) 43.7 % Normal [facility] Comment on above: Order Comment: Speci men Type: BLOOD SPECIMEN Order[facility] Facility[facility] Address: [address] [place], [place] [id number] Performed By: #### 5 7021-8 #### [facility] CLIA [id number] [address] [place] [address] [place] Nucleated RBC (Bld) [#/Vol] 10*3/uL Normal <0.01 [facility] Comment on above: Order Comment: Speci men Type: BLOOD SPECIMEN Order[facility] Facility[facility] Address: [address] [place], [place] [phone] Performed By: #### 5 7021-8 #### [facility] CLIA [id number] [address] [place] [address] [place] Nucleated RBC/100 WBC (Bld) [Ratio] 0.0 /100 WBC Normal [facility] Comment on above: Order Comment: Speci men Type: BLOOD SPECIMEN Order[facility] Address: [address] [place], [place] [id number] Performed By: #### 5 7021-8 #### [facility] CLIA [id number] [address] [place] [address] [place] Platelet mean volume (Bld) [Entitic vol] 9.3 fL Normal 9.0-12.7 [facility] Comment on above: Order Comment: Speci men Type: BLOOD SPECIMEN Order[facility] Address: [address] [place], [place] [id number] Performed By: #### 5 7021-8 #### [facility] CLIA [id number] [address] [place] [address] [place] Platelets (Bld) [#/Vol] 272 10*3/uL Normal 150-400 [facility] Comment on above: Order Comment: Speci men Type: BLOOD SPECIMEN Order[facility] Address: [address] [place], [place] [phone] Performed By: #### 5 7021-8 #### [facility] CLIA [id number] [address] [place] [address] [place] RBC (Bld) [#/Vol] 4.57 10*6/uL Normal 3.90-5.20 [facility] Comment on above: Order Comment: Speci men Type: BLOOD SPECIMEN Ordering Facility[facility] Address: [address] [phone] Performed By: #### 5 7021-8 #### [facility] CLIA [id number] [address] [place] [address] WBC (Bld) [#/Vol] 8.38 10*3/uL Normal 3.70-11.00 [facility] Comment on above: Order Comment: Speci men Type: BLOOD SPECIMEN Ordering Facility[facility] Address: [address] [place] [address] Performed By: #### 5 7021-8 #### [facility] CLIA [id number] [address] [place] [address] [place] [facility] Abs Immature Gran <0.03 <0.10 k/uL [facility] Basophils (Bld) [#/Vol] 0.09 10*3/uL <0.11 k/uL [facility] Basophils/100 WBC (Bld) 1.1 % [facility] Differential cell count method Nom (Bld) Auto [facility] Eosinophils (Bld) [#/Vol] 0.27 10*3/uL <0.46 k/uL [facility] Eosinophils/100 WBC (Bld) 3.2 % [facility] Erythrocyte distribution width (RBC) [Ratio] 12.8 % 11.5 - 15.0 % [facility] Hematocrit (Bld) [Volume fraction] 43.7 % 36.0 - 46.0 % [facility] Hemoglobin (Bld) [Mass/Vol] 13.7 g/dL 11.5 - 15.5 g/dL [facility] Immature Gran % 0.1 % [facility] Lymphocytes (Bld) [#/Vol] 3.57 10*3/uL 1.00 - 4.00 k/uL [facility] Lymphocytes/100 WBC (Bld) 42.6 % [facility] MCH (RBC) [Entitic mass] 30.0 pg 26.0 - 34.0 pg [facility] MCHC (RBC) [Mass/Vol] 31.4 g/dL 30.5 - 36.0 g/dL [facility] MCV (RBC) [Entitic vol] 95.6 fL 80.0 - 100.0 fL [facility] Monocytes (Bld) [#/Vol] 0.78 10*3/uL <0.87 k/uL [facility] Monocytes/100 WBC (Bld) 9.3 % [facility] Neutrophils (Bld) [#/Vol] 3.66 10*3/uL 1.45 - 7.50 k/uL [facility] Neutrophils/100 WBC (Bld) 43.7 % [facility] Nucleated RBC (Bld) [#/Vol] 10*3/uL <0.01 k/uL [facility] Nucleated RBC/100 WBC (Bld) [Ratio] 0.0 /100 WBC [facility] Platelet mean volume (Bld) [Entitic vol] 9.3 fL 9.0 - 12.7 fL [facility] Platelets (Bld) [#/Vol] 272 10*3/uL 150 - 400 k/uL [facility] RBC (Bld) [#/Vol] 4.57 10*6/uL 3.90 - 5.2 0 m/uL [facility] WBC (Bld) [#/Vol] 8.38 10*3/uL 3.70 - 11. 00 k/uL [facility] CNPNon 07-29-2021 CNPN Telephone (DEBO) JOSE ELIASREBECA ALVAREZ Nancy ([id number]) 1960 F Date Time Provider Department 07/29/21 CASS POLANCO During your visit today, we recorded the following information about you: Cass Polanco APRN.CNP 07/29/2021 12:34 PM Signed Patient and pathology reports reviewed with Dr. Barbosa. Treatment plan developed in conjunction with Dr. Barbosa. I called and spoke with the patient regarding her skin biopsy results: FINAL DIAGNOSIS A. Skin, left lower leg-anterior, punch biopsy: - Superficial and deep perivascular mixed inflammation with dense collections of eosinophils (see comment). ? WFB/SA/mm 07/28/2021 at ?4:04 PM Diagnosis Comment A. Sections demonstrate compact orthokeratosis overlying a mildly spongiotic epidermis. There is papillary dermal edema. There is fibrosis, in addition to a moderately dense perivascular inflammatory infiltrate composed of lymphocytes, histiocytes, and numerous eosinophils with extension into the underlying subcutaneous fat. There is admixed superficial dermal hemorrhage. ? The clinical history and photos are reviewed. ? Overall, the histologic findings are those of superficial and deep perivascular chronic inflammation with dense collections of eosinophils. The findings could be consistent with Wells syndrome in the correct clinical context. A robust arthropod assault or drug eruption cannot be excluded. Clinical correlation is recommended. 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 Patient to discuss with chief cloth finishing range operator. -follow-up in [address] Barbosa for further evaluation. Cass Polanco APRN.BREAKER BOSS Erin Joseph RN 07/29/2021 1:27 PM Signed Spoke to patient. Scheduled accordingly. Allergies As of Date: 07/29/2021 Noted Allergy Reaction FOSAMAX (ALENDRONATE SODIUM) 07/20/2015 10 - Anaphylaxis 14 - Other: See Comments Comments: Chest pains JENNIFER 10/01/2014 12 - Shortness of Breath NAPROXEN 06/26/2014 7 - Swelling Date Reviewed: 07/27/2021 Reviewed by: Laura Chino MA - Fully Assessed Reason for Visit: Results [95] Primary Visit Diagnosis:Rash and nonspecific skin eruption [R21] Order(s):CBC + DIFF [SQCBCDIF] Order #: [id number] FUTURE predniSONE (DELTASONE) 10 mg tabletTake 4 tablets by mouth once daily for 7 days, THEN 3 tablets once daily for 7 days, THEN 2 tablets once daily for 7 days, THEN 1 tablet once daily for 7 days.Disp: 70 tabletRfl: 0 Prescriptions as of 07/29/2021 - predniSONE (DELTASONE) 10 mg tablet Take 4 tablets by mouth once daily for 7 days, THEN 3 tablets once daily for 7 days, THEN 2 tablets once daily for 7 days, THEN 1 tablet once daily for 7 days. - sacubitril-valsartan (ENTRESTO) 97-103 mg tablet Take 1 tablet by mouth twice daily. - carvedilol (COREG) 12.5 mg tablet Take 12.5 mg by mouth twice daily with meals. - spironolactone (ALDACTONE) 25 mg tablet Take 25 mg by mouth once daily. - dapagliflozin (FARXIGA) 10 mg tablet Take by mouth daily with breakfast. - cephALEXin (KEFLEX) 500 mg capsule Take 1 capsule by mouth twice daily for 10 days. - losartan-hydroCHLOROth iazide (HYZAAR) 50-12.5 mg per tablet - furosemide (LASIX) 40 mg tablet take 1 tablet by mouth once daily for 3 doses - meloxicam (MOBIC) 15 mg tablet - fluticasone (FLONASE) 50 mcg/actuation nasal spray - CELECOXIB (CELEBREX ORAL) Take by mouth. - risedronate (ACTONEL) 35 mg tablet Take 1 tablet by mouth once each week. - Cholecalciferol, Vitamin D3, (VITAMIN D-3) 5,000 unit tab Take 1 tablet by mouth once daily. - Calcium Carbonate-Vitamin D3 (OSCAL 500+D) 500 mg(1,250mg) -600 unit chew Take 1 tablet by mouth three times daily. - MAGNESIUM CARBONATE ORAL Take 1 tablet by mouth once daily. - ALBUTEROL INHALATION Inhale 2 Puffs as instructed four times daily as needed. - venlafaxine ER (EFFEXOR XR) 75 mg 24 hr capsule Take 75 mg by mouth once daily. - CPAP as directed. Problem List As Of Date 07/29/2021 Noted Resolved Morbid obesity with BMI of 40.0-44.9, adult (HC*06/26/2014 Hyperparathyroidism (HCC) [E21.3] 08/30/2014 Menopause [Z78.0] 08/30/2014 Hirsutism [L68.0] 08/30/2014 Hypercalcemia [E83.52] 08/30/2014 Prescriptions ordered this encounter Disp Refills Start End PREDNISONE 10 MG TABLET 70 t* 0 07/29/2021 08/26/2021 Route: ORAL Sig: Take 4 tablets by mouth once daily for 7 days, THEN 3 tablets once daily for 7 days, THEN 2 tablets once daily for 7 days, THEN 1 tablet once daily for 7 days. Encounter Status:Closed by ERIN JOSEPH on (more content not included)... Normal [facility] CNOVon 07-27-2021 CNOV Office Visit (DERMST ) CANDIDAREBECA L ([id number]) 1960 F Date Time Provider Department 07/27/21 9:00 AM CASS POLANCO During your visit today, we recorded the following information about you: Cass Polanco APRN.CNP 07/27/2021 10:01 AM Signed Department of Dermatology Cass Polanco APRN.CNP 07/27/2021 Last visit in Dermatology: Visit date not found Objective/Assessment/P zulema 1. Rash and nonspecific skin eruption Objective Left Lower Leg - Anterior: Erythematous pruritic tender plaque with underlying edema SKIN / NAIL BIOPSY - Left Lower Leg - Anterior Type of biopsy: punch Timeout: patient name, date of , surgical site, and procedure verified Procedure prep: Patient was prepped and draped in usual sterile fashion Prep type: Isopropyl alcohol Anesthesia: the lesion was anesthetized in a standard fashion Anesthetic: 0.5% bupivicaine w/ epinephrine 1-100,000 local infiltration Suture size: 4-0 Suture type: fast-absorbing plain gut Hemostasis achieved with: suture Outcome: patient tolerated procedure well Post-procedure details: sterile dressing applied Dressing type: bandage and petrolatum Additional details: Punch Procedure: I discussed treatment options with the patient. The risks of bleeding, infection, scarring, damage to underlying structures and potential need for future procedures discussed. The patient verbalized understanding and desires us to proceed. The area is identified, prepped in the usual fashion, anesthetized with local anesthesia and a sterile dermal punch is used to obtain the full thickness specimen. Hemostasis with direct pressure and the wound is closed as outlined above. Dressed with white petrolatum and a sterile dressing as needed. Sutures out in as instructed. Wound care discussed. Specimen A - SURGICAL PATHOLOGY SKIN ONLY The nature of sun-induced photo-aging and skin cancers is discussed. Sun avoidance, protective clothing, and the use of 30-SPF sunscreens is advised. Patient is instructed to perform regular self exams. Observe for changing, symptomatic, or new skin lesions and seek care with the patient's primary care provider or with dermatology if any lesions of concern are noted. Follow-up as noted below or as needed. Cass Polanco APRN.JOSE ALFREDO - Chief Complaint: Patient presents with: New Patient: bilateral lower leg redness Subjective and Objective HPI: Rebeca Tirado is a 61 year old female who presents for: Rash: Description: itching that turns into redness and blistering Location(s): various locations on the bilateral lower legs Duration: on and off since April 2021 Severity: mild Inciting factors: lower extremity swelling? Associated symptoms: no associated symptoms Previous treatments: keflex, benadryl lotion Past medical history is reviewed. Medication list is reviewed. Physical Exam included: Bilateral lower extremities Intake completed by Laura Chino MA UNIVERSAL PROTOCOL / SAFETY CHECKLIST Procedure to be Performed: Punch biopsy x 1 Sign In: A Moment of CARE was completed. Personnel directly involved with the procedure wore the appropriate PPE (Personal Protective Equipment). No special equipment needed. Patient/Surrogate Stated/Verified: PATIENT VERIFIED(optional for EMERGENT procedures): Patient name, Date of , Relevant allergies and The intended procedure Time Out Communication: Intended patient and procedure match the source documents. Consent documented and matches the intended procedure. No relevant labs, photos, and/or imaging studies were applicable for review. Correct side/site marked and visible. Medications required for procedure verified. Fire risk assessed and interventions discussed. No implant(s) inserted. Sign Out: SIGN OUT (optional for EMERGENT procedures): All specimen containers correctly labeled. All instruments, equipment, possible retained foreign bodies accounted for. Post-procedure follow-up management communicated and Plan of Care Visit completed when applicable. Leesa Polanco APRN.JOSE ALFREDO Galloway 07/27/2021 9:15 AM Signed WOUND CARE FOR DISSOLVABLE SUTURES 1.) Keep the wound clean, dry and bandaged the day of the procedure. 2.) You may shower after 24 hours; please remove the bandage before getting int the shower. Once done, you may pat the wound dry. 3.) You may experience some discomfort, redness or swelling after your procedure. Over the counter acetaminophen (Tylenol) may be used as instructed on the packaging if needed for discomfort. We generally recommend avoiding products like ibuprofen, aspirin, or naproxen for at least 72 hours after the procedure. Aspirin that is used for preventing heart problems or blood clots should be continued -- please discuss thi (more content not included)... Normal [facility] SURGICAL PATHOLOGY SKIN ONLY on 07-27-2021 CASE REPORT Normal [facility] Comment on above: Order Comment: Speci men Type: SPECIMEN FROM SKIN Ordering Facility: [facility] Address: [address] [place] [address] Result Comment: Surg ical Pathology Report Case: [id number] Authorizing Provider: Cass Polanco APRN.BREAKER BOSS Collected: 07/27/2021 09:00 AM Ordering Location: Dermatology Received: 07/27/2021 01:03 PM Pathologist: Monica Ortiz MD Specimen: SKIN, Left Lower Leg - Anterior Performed By: #### S PSKIN #### [facility] CLIA [id number] [address] [place] [address] [place] DIAGNOSIS COMMENT Normal [facility] Comment on above: Order Comment: Speci men Type: SPECIMEN FROM SKIN Ordering Facility: [facility] Address: [address] [place], [place] [id number] Result Comment: A. S ections demonstrate compact orthokeratosis overlying a mildly spongiotic epidermis. There is papillary dermal edema. There is fibrosis, in addition to a moderately dense perivascular inflammatory infiltrate composed of lymphocytes, histiocytes, and numerous eosinophils with extension into the underlying subcutaneous fat. There is admixed superficial dermal hemorrhage. The clinical history and photos are reviewed. Overall, the histologic findings are those of superficial and deep perivascular chronic inflammation with dense collections of eosinophils. The findings could be consistent with Wells syndrome in the correct clinical context. A robust arthropod assault or drug eruption cannot be excluded. Clinical correlation is recommended. Performed By: #### S PSKIN #### [facility] CLIA [id number] [address] [place] [address] FINAL DIAGNOSIS Normal [facility] Comment on above: Order Comment: Speci men Type: SPECIMEN FROM SKIN Ordering Facility: [facility] Address: [address] [place] [address] Result Comment: A. S kin, left lower leg-anterior, punch biopsy: - Superficial and deep perivascular mixed inflammation with dense collections of eosinophils (see comment). WFB/SA/mm 07/28/2021 Performed By: #### S PSKIN #### [facility] CLIA [id number] [address] [place] [address] FINAL PERFORMING LAB Normal [facility] Comment on above: Order Comment: Speci men Type: SPECIMEN FROM SKIN Ordering Facility: [facility] Address: [address] [place] [address] Result Comment: Diag nostic interpretation performed at [facility], [address] [place] [address] CLIA# [id number] Student Truck Driver: Chris Humphries M.D. Performed By: #### S PSKIN #### [facility] CLIA [id number] [address] [place] [address] GROSS DESCRIPTION A. SKIN. Normal [facility] Comment on above: Order Comment: Speci men Type: SPECIMEN FROM SKIN Ordering Facility: [facility] Address: [address] [place] [address] Result Comment: Rece ived in formalin is a cylindrical segment of skin and subcutaneous tissue measuring 0.4 x 0.4 x 0.7 cm. On the skin surface there is a 0.4 cm, rush and slightly elevated area. The specimen is bisected. Totally submitted in one cassette. SS July 27, 2021 9:41 PM Gross examination performed at [facility], [address] [place], [place] [address]e., [place] [id number] Performed By: #### S MICHELLE #### [facility] CLIA [id number] [address] [place] [address] [id number] [address] [place] Basic Metabolic Panelon 03-2 Anion gap [Moles/Vol] 6 mmol/L Normal 3-13 [facility] Comment on above: Performed By: #### B MP3 #### [facility] [address] [place] [address] Calcium [Mass/Vol] 9.4 mg/dL Normal 8.4-10.4 [facility] Comment on above: Performed By: #### B MP3 #### [facility] [address] [place] [address] CO2 [Moles/Vol] 30 mmol/L Normal 22-30 [facility] Comment on above: Performed By: #### B MP3 #### [facility] [address] [place] [address] Glucose [Mass/Vol] 108 mg/dL High 70-100 [facility] Comment on above: Performed By: #### B MP3 #### [facility] [address] [place] [address] Urea nitrogen [Mass/Vol] 26 mg/dL High 9-20 [facility] Comment on above: Performed By: #### B MP3 #### [facility] [address] [place] [address] Creatinine [Mass/Vol] 0.79 mg/dL Normal 0.52-1.25 [facility] Comment on above: Performed By: #### B MP3 #### [facility] [address] [place] [address] GFR/1.73 sq M.predicted among blacks MDRD (S/P/Bld) [Vol rate/Area] mL/min/{1.73_m2} Normal >60 [facility] Comment on above: Performed By: #### B MP3 #### [facility] [address] [place] [address] GFR/1.73 sq M.predicted among non-blacks MDRD (S/P/Bld) [Vol rate/Area] 81.9 mL/min/{1.73_m2} Normal >60 [facility] Comment on above: Result Comment: KDIG O guidelines provide the following GFR categories: Stage GFR(ml/min/1.73 m2) Terms G1 >=90 Normal or high G2 60-89 Mildly decreased* G3a 45-59 Mildly to moderately decreased G3b 30-44 Moderately to severely decreased G4 15-29 Severely decreased G5 <15 Kidney failure *Relative to young adult level. In the absence of evidence of kidney damage, neither GFR category G1 nor G2 fulfill the criteria for CKD. The CKD-EPI equation is validated in individuals 18 years of age and older. Currently the best equation for estimating glomerular filtration rate (GFR) from serum creatinine in children is the Bedside Powell equation. It is less accurate in patients with extremes of muscle mass, restriction of dietary protein, ingestion of creatine, extra-renal metabolism of creatinine, or treatment with medications that affect renal tubular creatinine secretion. Performed By: #### B MP3 #### [facility] [address] [place] [address] Chloride [Moles/Vol] 104 mmol/L Normal 98-107 [facility] Comment on above: Performed By: #### B MP3 #### [facility] [address] [place] [address] Potassium [Moles/Vol] 4.9 mmol/L Normal 3.5-5.1 [facility] Comment on above: Performed By: #### B MP3 #### [facility] [address] [place] [address] Sodium [Moles/Vol] 141 mmol/L Normal 135-145 [facility] Comment on above: Performed By: #### B MP3 #### [facility] [address] [place] [address] Anion gap [Moles/Vol] 6 mmol/L 3 - 13 mmol/L [facility] Calcium [Mass/Vol] 9.4 mg/dL 8.4 - 10. 4 mg/dL [facility] Chloride [Moles/Vol] 104 mmol/L 98 - 10 7 mmol/L [facility] CO2 [Moles/Vol] 30 mmol/L 22 - 30 mmol/L [facility] Creatinine [Mass/Vol] 0.79 mg/dL 0.52 - 1.25 mg/dL [facility] EGFR IF NonAfrican [place] 81.9 mL/min >60 [facility] Comment on above: KDIGO guidelines pro vide the following GFR categories: Stage GFR(ml/min/1.73 m2) Terms G1 >=90 Normal or high G2 60-89 Mildly decreased* G3a 45-59 Mildly to moderately decreased G3b 30-44 Moderately to severely decreased G4 15-29 Severely decreased G5 <15 Kidney failure *Relative to young adult level. In the absence of evidence of kidney damage, neither GFR category G1 nor G2 fulfill the criteria for CKD. The CKD-EPI equation is validated in individuals 18 years of age and older. Currently the best equation for estimating glomerular filtration rate (GFR) from serum creatinine in children is the Bedside Powell equation. It is less accurate in patients with extremes of muscle mass, restriction of dietary protein, ingestion of creatine, extra-renal metabolism of creatinine, or treatment with medications that affect renal tubular creatinine secretion. GFR/1.73 sq M.predicted among blacks MDRD (S/P/Bld) [Vol rate/Area] mL/min/{1.73_m2} >60 mL/min [facility] Glucose [Mass/Vol] 108 mg/dL High 70 - 100 mg/dL [facility] Interpretation and review of laboratory results Abnormal [facility] Potassium [Moles/Vol] 4.9 mmol/L 3.5 - 5.1 mmol/L [facility] Sodium [Moles/Vol] 141 mmol/L 135 - 145 mmol/L [facility] Urea nitrogen (BldV) [Mass/Vol] 26 mg/dL High 9 - 20 mg/dL [facility] Test Performed by [facility], [address] , [address] LAB [facility] Basic Metabolic Panelon 05-26 Calcium [Mass/Vol] 9.8 mg/dL Normal 8.4-10.4 [facility] Comment on above: Performed By: #### B MP3 #### [facility] [address] [place] [address] Glucose [Mass/Vol] 104 mg/dL High 70-100 [facility] Comment on above: Performed By: #### B MP3 #### [facility] [address] [place] [address] Urea nitrogen [Mass/Vol] 35 mg/dL High 9-20 [facility] Comment on above: Performed By: #### B MP3 #### [facility] [address] [place] [address] Anion gap [Moles/Vol] 6 mmol/L Normal 3-13 [facility] Comment on above: Performed By: #### B MP3 #### [facility] [address] [place] [address] CO2 [Moles/Vol] 30 mmol/L Normal 22-30 [facility] Comment on above: Performed By: #### B MP3 #### [facility] [address] [place] [address] Creatinine [Mass/Vol] 1.11 mg/dL Normal 0.52-1.25 [facility] Comment on above: Performed By: #### B MP3 #### [facility] [address] [place] [address] GFR/1.73 sq M.predicted among blacks MDRD (S/P/Bld) [Vol rate/Area] 63.0 mL/min/{1.73_m2} Normal >60 [facility] Comment on above: Performed By: #### B MP3 #### [facility] [address] [place] [address] GFR/1.73 sq M.predicted among non-blacks MDRD (S/P/Bld) [Vol rate/Area] 54.3 mL/min/{1.73_m2} Abnormal >60 [facility] Comment on above: Result Comment: KDIG O guidelines provide the following GFR categories: Stage GFR(ml/min/1.73 m2) Terms G1 >=90 Normal or high G2 60-89 Mildly decreased* G3a 45-59 Mildly to moderately decreased G3b 30-44 Moderately to severely decreased G4 15-29 Severely decreased G5 <15 Kidney failure *Relative to young adult level. In the absence of evidence of kidney damage, neither GFR category G1 nor G2 fulfill the criteria for CKD. The CKD-EPI equation is validated in individuals 18 years of age and older. Currently the best equation for estimating glomerular filtration rate (GFR) from serum creatinine in children is the Bedside Powell equation. It is less accurate in patients with extremes of muscle mass, restriction of dietary protein, ingestion of creatine, extra-renal metabolism of creatinine, or treatment with medications that affect renal tubular creatinine secretion. Performed By: #### B MP3 #### [facility] [address] [place] [address] Potassium [Moles/Vol] 4.7 mmol/L Normal 3.5-5.1 [facility] Comment on above: Performed By: #### B MP3 #### [facility] [address] [place] [address] Chloride [Moles/Vol] 104 mmol/L Normal 98-107 [facility] Comment on above: Performed By: #### B MP3 #### [facility] [address] [place] [address] Sodium [Moles/Vol] 140 mmol/L Normal 135-145 [facility] Comment on above: Performed By: #### B MP3 #### [facility] [address] [place] [address] Basic Metabolic Panelon 01-0 Calcium [Mass/Vol] 9.1 mg/dL Normal 8.4-10.4 [facility] Comment on above: Performed By: #### B MP3 #### [facility] [address] [place] [address] Anion gap [Moles/Vol] 5 mmol/L Normal 3-13 [facility] Comment on above: Performed By: #### B MP3 #### [facility] [address] [place] [address] CO2 [Moles/Vol] 31 mmol/L High 22-30 [facility] Comment on above: Performed By: #### B MP3 #### [facility] [address] [place] [address] Creatinine [Mass/Vol] 0.86 mg/dL Normal 0.52-1.25 [facility] Comment on above: Performed By: #### B MP3 #### [facility] [address] [place] [address] GFR/1.73 sq M.predicted among blacks MDRD (S/P/Bld) [Vol rate/Area] 85.8 mL/min/{1.73_m2} Normal >60 [facility] Comment on above: Performed By: #### B MP3 #### [facility] [address] [place] [address] GFR/1.73 sq M.predicted among non-blacks MDRD (S/P/Bld) [Vol rate/Area] 74.1 mL/min/{1.73_m2} Normal >60 [facility] Comment on above: Result Comment: KDIG O guidelines provide the following GFR categories: Stage GFR(ml/min/1.73 m2) Terms G1 >=90 Normal or high G2 60-89 Mildly decreased* G3a 45-59 Mildly to moderately decreased G3b 30-44 Moderately to severely decreased G4 15-29 Severely decreased G5 <15 Kidney failure *Relative to young adult level. In the absence of evidence of kidney damage, neither GFR category G1 nor G2 fulfill the criteria for CKD. The CKD-EPI equation is validated in individuals 18 years of age and older. Currently the best equation for estimating glomerular filtration rate (GFR) from serum creatinine in children is the Bedside Powell equation. It is less accurate in patients with extremes of muscle mass, restriction of dietary protein, ingestion of creatine, extra-renal metabolism of creatinine, or treatment with medications that affect renal tubular creatinine secretion. Performed By: #### B MP3 #### [facility] [address] [place] [address] Glucose [Mass/Vol] 112 mg/dL High 70-100 [facility] Comment on above: Performed By: #### B MP3 #### [facility] [address] [place] [address] Urea nitrogen [Mass/Vol] 21 mg/dL High 9-20 [facility] Comment on above: Performed By: #### B MP3 #### [facility] [address] [place] [address] Chloride [Moles/Vol] 103 mmol/L Normal 98-107 [facility] Comment on above: Performed By: #### B MP3 #### [facility] [address] [place] [address] Potassium [Moles/Vol] 4.3 mmol/L Normal 3.5-5.1 [facility] Comment on above: Performed By: #### B MP3 #### [facility] [address] [place] [address] Sodium [Moles/Vol] 139 mmol/L Normal 135-145 [facility] Comment on above: Performed By: #### B MP3 #### [facility] [address] [place] [address] Anion gap [Moles/Vol] 5 mmol/L 3 - 13 mmol/L [facility] Calcium [Mass/Vol] 9.1 mg/dL 8.4 - 10. 4 mg/dL [facility] Chloride [Moles/Vol] 103 mmol/L 98 - 10 7 mmol/L [facility] CO2 [Moles/Vol] 31 mmol/L High 22 - 30 mmol/L [facility] Creatinine [Mass/Vol] 0.86 mg/dL 0.52 - 1.25 mg/dL [facility] EGFR IF NonAfrican [place] 74.1 mL/min >60 [facility] Comment on above: KDIGO guidelines pro vide the following GFR categories: Stage GFR(ml/min/1.73 m2) Terms G1 >=90 Normal or high G2 60-89 Mildly decreased* G3a 45-59 Mildly to moderately decreased G3b 30-44 Moderately to severely decreased G4 15-29 Severely decreased G5 <15 Kidney failure *Relative to young adult level. In the absence of evidence of kidney damage, neither GFR category G1 nor G2 fulfill the criteria for CKD. The CKD-EPI equation is validated in individuals 18 years of age and older. Currently the best equation for estimating glomerular filtration rate (GFR) from serum creatinine in children is the Bedside Powell equation. It is less accurate in patients with extremes of muscle mass, restriction of dietary protein, ingestion of creatine, extra-renal metabolism of creatinine, or treatment with medications that affect renal tubular creatinine secretion. GFR/1.73 sq M.predicted among blacks MDRD (S/P/Bld) [Vol rate/Area] 85.8 mL/min/{1.73_m2} >60 [facility] Glucose [Mass/Vol] 112 mg/dL High 70 - 100 mg/dL [facility] Interpretation and review of laboratory results Abnormal [facility] Potassium [Moles/Vol] 4.3 mmol/L 3.5 - 5.1 mmol/L [facility] Sodium [Moles/Vol] 139 mmol/L 135 - 145 mmol/L [facility] Urea nitrogen (BldV) [Mass/Vol] 21 mg/dL High 9 - 20 mg/dL [facility] Test Performed by [facility] [address] , [address] LAB [facility] CNPIrasema 03-29-2021 CNPSumi Telephone ([facility]) CANDIDAREBECA L ([id number]) 1960 F Date Time Provider Department 03/29/21 JOSE E REED [facility] During your visit today, we recorded the following information about you: Jose E Reed MD 03/29/2021 2:42 PM Signed The shingles test was negative. She can stop valtrex and complete keflex as planned at her visit. Anel Reese LPN 03/29/2021 3:12 PM Signed Patient notified of results, verbalizes understanding of instructions. Anel Reese LPN Allergies As of Date: 03/29/2021 Noted Allergy Reaction FOSAMAX (ALENDRONATE SODIUM) 07/20/2015 10 - Anaphylaxis 14 - Other: See Comments Comments: Chest pains JENNIFER 10/01/2014 12 - Shortness of Breath NAPROXEN 06/26/2014 7 - Swelling Date Reviewed: 03/28/2021 Reviewed by: Penelope Cameron - Fully Assessed Reason for Visit: Results [95] Cmt: VZV negative Prescriptions as of 04/08/2021 - losartan-hydroCHLOROth iazide (HYZAAR) 50-12.5 mg per tablet - furosemide (LASIX) 40 mg tablet take 1 tablet by mouth once daily for 3 doses - meloxicam (MOBIC) 15 mg tablet - fluticasone (FLONASE) 50 mcg/actuation nasal spray - CELECOXIB (CELEBREX ORAL) Take by mouth. - risedronate (ACTONEL) 35 mg tablet Take 1 tablet by mouth once each week. - Cholecalciferol, Vitamin D3, (VITAMIN D-3) 5,000 unit tab Take 1 tablet by mouth once daily. - Calcium Carbonate-Vitamin D3 (OSCAL 500+D) 500 mg(1,250mg) -600 unit chew Take 1 tablet by mouth three times daily. - MAGNESIUM CARBONATE ORAL Take 1 tablet by mouth once daily. - ALBUTEROL INHALATION Inhale 2 Puffs as instructed four times daily as needed. - venlafaxine ER (EFFEXOR XR) 75 mg 24 hr capsule Take 75 mg by mouth once daily. - CPAP as directed. Problem List As Of Date 03/29/2021 Noted Resolved Morbid obesity with BMI of 40.0-44.9, adult (HC*06/26/2014 Hyperparathyroidism (HCC) [E21.3] 08/30/2014 Menopause [Z78.0] 08/30/2014 Hirsutism [L68.0] 08/30/2014 Hypercalcemia [E83.52] 08/30/2014 Encounter Status:Closed by JOSE E REED on 04/08/21 [facility] Margarito 03-28-2021 CN Office Visit ([facility] ) REBECA TIRADO ([id number]) 1960 F Date Time Provider Department 03/28/21 9:00 AM [facility] [facility] During your visit today, we recorded the following information about you: Temperature Pulse Respiration Blood pressure 97.3 degrees 76/minute 16/minute 122/76 Weight 128.4 kg Inocencia Zamarripa APRN.[employer] 03/28/2021 9:51 AM Signed Subjective The history is provided by the patient and a relative. No speech language pathologist prn was used. HPI Rebeca Tirado is a 60 year old female who presents today for CC of blistered rash, reddness of skin on left lower leg. This started over night. she has a burning tingling symptom. She has not used any medication or treatment. H/o cellulitis in right leg. She has not had shingles vaccine. BP 122/76 Pulse 76 Temp 36.3 ?C (97.3 ?F) Resp 16 Wt 128.4 kg (283 lb) SpO2 95% BMI 51.76 kg/m? Social History Tobacco Use - Smoking status: Never Smoker - Smokeless tobacco: Never Used Substance Use Topics - Alcohol use: No - Drug use: No PAST MEDICAL HISTORY Diagnosis Date - Arthritis - Depression - Fatty liver - Hyperparathyroidism (HCC) - Menopause - Osteoporosis - Sleep apnea I have confirmed and edited as necessary, the [facility] Review of Systems Constitutional: Positive for malaise/fatigue. Negative for chills and fever. Respiratory: Negative for cough. Cardiovascular: Negative for chest pain. Musculoskeletal: Negative for myalgias. Neurological: Negative for headaches. Objective Physical Exam Vitals and nursing note reviewed. HENT: Head: Normocephalic and atraumatic. Mouth/Throat: Pharynx: Uvula midline. Cardiovascular: Rate and Rhythm: Normal rate and regular rhythm. Heart sounds: Normal heart sounds. Pulmonary: Effort: Pulmonary effort is normal. Breath sounds: Normal breath sounds. No decreased breath sounds. Skin: General: Skin is warm and dry. Findings: Erythema and rash present. Rash is vesicular. Neurological: Mental Status: She is alert. Psychiatric: Mood and Affect: Affect normal. MDM: Cellulitis, shingles. Culture done ASSESSMENT/PLAN: 1. Rash - ICD9: 782.1, ICD10: R21 (primary diagnosis) 2. Redness of skin - ICD9: 695.9, ICD10: L53.9 Cellulitis versus shingles Culture done will send off for testing Start keflex, valtrex if culture negative for shingles can stop valtrex and complete keflex If redness is extending even with keflex to ED for further treatment . Follow up this week with Dr. Garcia. Diagnosis and treatment plan were discussed and questions were answered to the patient's satisfaction. Pt acknowledged understanding of concepts and follow up plan. Specific signs and symptoms that would indicate the need for higher level of care were discussed in detail warranting prompt ER evaluation. BRAYAN Shook APRN.CNP 03/28/2021 9:26 AM Signed Cellulitis versus shingles Culture done will send off for testing Start keflex, valtrex if culture negative for shingles can stop valtrex and complete keflex Follow up this week with Dr. Garcia. Inocencia Zamarripa APRN.CNP 03/28/2021 12:37 PM Signed Addended by: INOCENCIA ZAMARRIPA on: 03/28/2021 12:37 PM Modules accepted: Orders Referring Provider: SELF [[id number]] Allergies As of Date: 03/28/2021 Noted Allergy Reaction FOSAMAX (ALENDRONATE SODIUM) 07/20/2015 10 - Anaphylaxis 14 - Other: See Comments Comments: Chest pains JENNIFER 10/01/2014 12 - Shortness of Breath NAPROXEN 06/26/2014 7 - Swelling Date Reviewed: 03/28/2021 Reviewed by: Penelope Cameron - Fully Assessed Reason for Visit: Derm Problem [33] Cmt: redness, heat and swelling around left ankle area x 1 day Primary Visit Diagnosis:Rash [R21] Other Visit Diagnosis:Redness of skin [L53.9] Order(s):cephALEXin (KEFLEX) 500 mg capsuleTake 1 capsule by mouth four times daily for 5 days.Disp: 20 capsuleRfl: 0 valACYclovir (VALTREX) 1 gramTake 1 tablet by mouth three times daily for 7 days.Disp: 21 tabletRfl: 0 HSV 1,2/VZV AMP MOLECULAR DETECT [SQHSVVZV] Order #: [id number] FUTURE Prescriptions as of 03/28/2021 - cephALEXin (KEFLEX) 500 mg capsule Take 1 capsule by mouth four times daily for 5 days. - valACYclovir (VALTREX) 1 gram Take 1 tablet by mouth three times daily for 7 days. - losartan-hydroCHLOROth iazide (HYZAAR) 50-12.5 mg per tablet - furosemide (LASIX) 40 mg tablet take 1 tablet by mouth once daily for 3 doses - meloxicam (MOBIC) 15 mg tablet - fluticasone (FLONASE) 50 mcg/actuation nasal spray - CELECOXIB (CELEBREX ORAL) Take by mouth. - risedronate (ACTONEL) 35 mg tablet Take 1 tablet by mouth once each week. - Cholecalciferol, Vitamin D3, (VITAMIN D-3) 5,000 unit tab Take 1 tablet by mouth once daily. - Calcium Carbonate-Vitamin D3 (OSCAL 500+D) 500 mg(1,250mg) -600 unit chew Take 1 tablet by mouth three times daily. - MAGNESIUM CA (more content not included)... Normal [facility] HSV1,2/VZV Amplifon 03-28-20 21 HSV Type 1, HDA Negative for Herpes Simplex virus Type 1 by Molecular [facility]. Normal [facility] Comment on above: Performed By: #### S PSKIN #### [facility] CLIA [id number] [address] [place] [address] [place] HSV Type 2, HDA Negative for Herpes Simplex virus Type 2 by Molecular Detection. Normal [facility] Comment on above: Performed By: #### S PSKIN #### [facility] CLIA [id number] [facility] [place] [address] [place] Specimen source Nom (Unsp spec) Lesion Normal [facility] Comment on above: Performed By: #### S PSKIN #### [facility] CLIA [id number] [facility] [place] [address] [place] V Zoster Virus, HDA Negative for Varicel la Zoster virus by Molecular Detection. Normal [facility] Comment on above: Performed By: #### S PSKIN #### [facility] CLIA [id number] [facility] [place] [address] [place] Hematocriton 03-02-2021 Hematocrit (Bld) [Volume fraction] 43.2 % Normal 35.0-47.0 [facility] Comment on above: Performed By: #### H CT #### [facility] [employer] [facility] [address] [place] [id number] Hematocrit (Bld) [Volume fraction] 43.2 % 35.0 - 47.0 % [facility] Test Performed by [employer] [address] [address] [facility] MRI Cardiac Morphology w/ Co ntraston 03-02-2021 MRI Cardiac Morphology w/ Contrast Patient Name: REBECA TIRADO [facility] ACCESSION EXAM DATE/TIME PROCEDURE ORDERING PROVIDER [id number] 03/02/2021 11:26 EST MRI Cardiac Morphology MD. 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 Consider hypertensive etiology. No evidence of scarring or infiltrative disease. SUMMARY 60 year-old woman with HFPEF. Study performed to evaluate for infiltrative cardiomyopathy. LEFT VENTRICLE: There is mild concentric LV hypertrophy. LV cavity is mildly enlarged. LV systolic function is moderately decreased globally. Quantitative LVEF 39%. VIABILITY: Hyperenhancement is normal.No evidence for fibrosis or scarring. RIGHT VENTRICLE: RV is mildly enlarged. RV systolic function is mildly decreased globally. Quantitative RVEF 45%. LV/RV SEPTUM: The ventricular septum is intact. LA/RA SEPTUM: The atrial septum is intact. LEFT ATRIUM: LA is mildly enlarged. RIGHT ATRIUM: RA is mildly enlarged. PERICARDIUM: There is no pericardial effusion. Pericardium is normal. AORTIC VALVE: Aortic valve is trileaflet. There is no aortic stenosis. There is no aortic regurgitation. MITRAL VALVE: Mitral valve leaflets are normal. There is no mitral regurgitation. TRICUSPID VALVE: Tricuspid valve leaflets are normal. There is no significant tricuspid regurgitation. PULMONIC VALVE: Pulmonic valve leaflets are normal. AORTIC ROOT: The aortic root is normal. Ascending aorta is upper normal to mildly dilated at 3.8 cm. OTHER FINDINGS: Parametric mapping findings: T1 maps suggest upper normal to mildly elevated extracellular volume (ECV) at 29%. This suggests against infiltrative disease. Mild elevation is a nonspecific abnormality. Magnetic Resonance Imaging Report CORE EXAM MEASUREMENTS VOLUMETRIC ANALYSIS -- . . LV Reference RV Reference +------+ +-- ----+ +----- -+ + EDV ml 165 (86-166) 132 (81-166) ml/m^2 75.7 (56-90) 60.6 (53-90) ESV ml 100 (22-59) 72 (15-68) ml/m^2 45.9 (14-33) 33.0 (11-37) CO L/min 4.81 4.44 L/min/m^2 2.2 2.0 MASS g 178 (72-144) g/m^2 81.7 (48-78) SV ml 65 (57-113) 60 (56-108) ml/m^2 29.8 (37-62) 27.5 (36-60) EF % 39 (59-77) 45 (55-79) '------+ +-- ----+ +----- -+ ' CARDIAC OUTPUT HR: 74 bpm LV DIMENSIONS -- WALL THICKNESS - ANTEROSEPTAL: 1.0 cm WALL THICKNESS - INFEROLATERAL: 1.0 cm LV SHRUTI: 5.7 cm LV ESD: 4.5 cm 17 SEGMENT . --. Segments Wall Motion Hyperenhancement Stress Perfusion Interpretation + + +-------- + -------+ --+ Base Anterior None Base Anteroseptal None Base Inferoseptal None Base Inferior None Base Inferolateral None Base Anterolateral None Mid Anterior None Mid Anteroseptal None Mid Inferoseptal None Mid Inferior None Mid Inferolateral None Mid Anterolateral None Apical Anterior None Apical Septal None Magnetic Resonance Imaging Report Apical Inferior None Apical Lateral None [place] None + + +-------- + -------+ --+ RV Segments Wall Motion Hyperenhancement Stress Perfusion Interpretation + + +-------- +- (more content not included)... [facility] MYOCARDIUM W CONTRASTon 03-02-2021 [facility]: [id number] Res[facility] Imaging ACCESSION EXAM DATE/TIME PROCEDURE ORDERING PROVIDER [id number] 03/02/2021 11:26 EST MRI Cardiac Morphology MD. 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 Consider hypertensive etiology. No evidence of scarring or infiltrative disease. SUMMARY ======= ====== 60 year-old woman with HFPEF. Study performed to evaluate for infiltrative cardiomyopathy. LEFT VENTRICLE: There is mild concentric LV hypertrophy. LV cavity is mildly enlarged. LV systolic function is moderately decreased globally. Quantitative LVEF 39%. VIABILITY: Hyperenhancement is normal.No evidence for fibrosis or scarring. RIGHT VENTRICLE: RV is mildly enlarged. RV systolic function is mildly decreased globally. Quantitative RVEF 45%. LV/RV SEPTUM: The ventricular septum is intact. LA/RA SEPTUM: The atrial septum is intact. LEFT ATRIUM: LA is mildly enlarged. RIGHT ATRIUM: RA is mildly enlarged. PERICARDIUM: There is no pericardial effusion. Pericardium is normal. AORTIC VALVE: Aortic valve is trileaflet. There is no aortic stenosis. There is no aortic regurgitation. MITRAL VALVE: Mitral valve leaflets are normal. There is no mitral regurgitation. TRICUSPID VALVE: Tricuspid valve leaflets are normal. There is no significant tricuspid regurgitation. PULMONIC VALVE: Pulmonic valve leaflets are normal. AORTIC ROOT: The aortic root is normal. Ascending aorta is upper normal to mildly dilated at 3.8 cm. OTHER FINDINGS: Parametric mapping findings: T1 maps suggest upper normal to mildly elevated extracellular volume (ECV) at 29%. This suggests against infiltrative disease. Mild elevation is a nonspecific abnormality. Magnetic Resonance Imaging Report CORE EXAM ======= ====== MEASUREMENTS VOLUMETRIC ANALYSIS -- . . LV Reference RV Reference +------+ +-- ----+ +----- -+ + EDV ml 165 (86-166) 132 (81-166) ml/m^2 75.7 (56-90) 60.6 (53-90) ESV ml 100 (22-59) 72 (15-68) ml/m^2 45.9 (14-33) 33.0 (11-37) CO L/min 4.81 4.44 L/min/m^2 2.2 2.0 MASS g 178 (72-144) g/m^2 81.7 (48-78) SV ml 65 (57-113) 60 (56-108) ml/m^2 29.8 (37-62) 27.5 (36-60) EF % 39 (59-77) 45 (55-79) '------+ +-- ----+ +----- -+ ' CARDIAC OUTPUT HR: 74 bpm LV DIMENSIONS -- WALL THICKNESS - ANTEROSEPTAL: 1.0 cm WALL THICKNESS - INFEROLATERAL: 1.0 cm LV SHRUTI: 5.7 cm LV ESD: 4.5 cm 17 SEGMENT . --. Segments Wall Motion Hyperenhancement Stress Perfusion Interpretation + + +-------- + -------+ --+ Base Anterior None Base Anteroseptal None Base Inferoseptal None (more content not included)... [facility] Kimberly Grullon MD - 03/02/2021 Patient Name: REBECA TIRADO Magnetic Resonance Imaging ACCESSION EXAM DATE/TIME PROCEDURE ORDERING PROVIDER [id number] 03/02/2021 11:26 EST MRI Cardiac Morphology MD YADI., [facility], KIMBERLY Carr w/ Contrast CPT code 97450 Reason For Exam (MRI Cardiac Morphology w/ Contrast) amyloid Report [facility] CMR Report Name: REBECA TIRADO : 1960 Scan Date: 2021-03-02 10:36:25 Electronically signed by Kimberly Grullon 17:30:26 VITALS ========= ====== HEIGHT: 61.00 in (154.94 cm) WEIGHT: 280.01 lbs (127.01 kgs) BSA: 2.18 m^2 FINAL IMPRESSION: ========= ====== Moderate LV dysfunction due to nonischemic cardiomyopathy. Consider hypertensive etiology. No evidence of scarring or infiltrative disease. SUMMARY ========= ====== 60 year-old woman with HFPEF. Study performed to evaluate for infiltrative cardiomyopathy. LEFT VENTRICLE: There is mild concentric LV hypertrophy. LV cavity is mildly enlarged. LV systolic function is moderately decreased globally. Quantitative LVEF 39%. VIABILITY: Hyperenhancement is normal.No evidence for fibrosis or scarring. RIGHT VENTRICLE: RV is mildly enlarged. RV systolic function is mildly decreased globally. Quantitative RVEF 45%. LV/RV SEPTUM: The ventricular septum is intact. LA/RA SEPTUM: The atrial septum is intact. LEFT ATRIUM: LA is mildly enlarged. RIGHT ATRIUM: RA is mildly enlarged. PERICARDIUM: There is no pericardial effusion. Pericardium is normal. AORTIC VALVE: Aortic valve is trileaflet. There is no aortic stenosis. There is no aortic regurgitation. MITRAL VALVE: Mitral valve leaflets are normal. There is no mitral regurgitation. TRICUSPID VALVE: Tricuspid valve leaflets are normal. There is no significant tricuspid regurgitation. PULMONIC VALVE: Pulmonic valve leaflets are normal. AORTIC ROOT: The aortic root is normal. Ascending aorta is upper normal to mildly dilated at 3.8 cm. OTHER FINDINGS: Parametric mapping findings: T1 maps suggest upper normal to mildly elevated extracellular volume (ECV) at 29%. This suggests against infiltrative disease. Mild elevation is a nonspecific abnormality. Magnetic Resonance Imaging Report CORE EXAM ========= ====== MEASUREMENTS --------- VOLUMETRIC ANALYSIS -- . . LV Reference RV Reference +------+ +-- ----+ +----- -+ + EDV ml 165 (86-166) 132 (81-166) ml/m^2 75.7 (56-90) 60.6 (53-90) ESV ml 100 (22-59) 72 (15-68) ml/m^2 45.9 (14-33) 33.0 (11-37) CO L/min 4.81 4.44 L/min/m^2 2.2 2.0 MASS g 178 (72-144) g/m^2 81.7 (48-78) SV ml 65 (57-113) 60 (56-108) ml/m^2 29.8 (37-62) 27.5 (36-60) EF % 39 (59-77) 45 (55-79) '------+ +-- ----+ +----- -+ ' CARDIAC OUTPUT HR: 74 bpm LV DIMENSIONS -- WALL THICKNESS - ANTEROSEPTAL: 1.0 cm WALL THICKNESS - INFEROLATERAL: 1.0 cm LV SHRUTI: 5.7 cm LV ESD: 4.5 cm 17 SEGMENT --------- . --------- . Segments Wall Motion Hyperenhancement Stress Perfusion Interpretation + + +-------- + -------+- + Base Anterior None Base Anteroseptal None Base Inferoseptal None Base Inferior None Base Inferolateral None Base Anterolateral None Mid Anterior None Mid Anteroseptal None Mid Inferoseptal None Mid Inferior None Mid Inferolateral None Mid Anterolateral None Apical Anterior None Apical Septal None Magnetic Resonance Imaging Report Apical Inferior None Apical Lateral None [place] None + + +-------- + -------+- + R (more content not included)... [employer] Work Phone: [employer] Work Phone: Radiology Study observation (narrative) [employer] Work Phone: CNOVon 02-25-2021 CNOV Office Visit (UCWSTR ) REBECA TIRADO ([id number]) 1960 F Date Time Provider Department 02/25/21 12:15 PM TARSHA ARTSHAISTA During your visit today, we recorded the following information about you: Temperature Pulse Respiration Blood pressure 97.7 degrees 76/minute 18/minute 110/78 Weight 129.2 kg Tarsha Art APRN.JOSE ALFREDO 02/27/2021 2:31 PM Signed This note was created using [employer]. Subjective Rebeca Tirado is a 60 year old female. 60 year old female with PMH arthritis, depression, and menopause with chief Complaint think I have cellulitis Acute onset of symptoms was Monday morning. 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 States that she spilled some chemicals, but then also states think something bit me +redness +tenderness lower right leg. Denies fever or chills. Denies drainage. Denies numbness or tingling. Utilized hydrocortisone cream. The history is provided by the patient. No speech language pathologist prn was used. Rash This is a new problem. The current episode started in the past 7 days. The problem is unchanged. Location: right lower leg. The rash is characterized by pain and redness. She was exposed to an insect bite/sting and chemicals. Pertinent negatives include no anorexia, congestion, cough, diarrhea, eye pain, facial edema, fatigue, fever, joint pain, nail changes, rhinorrhea, shortness of breath, sore throat or vomiting. Past treatments include topical steroids. The treatment provided no relief. There is no history of allergies, asthma, eczema or varicella. 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 venlafaxine ER (EFFEXOR XR) 75 mg 24 hr capsule Take 75 mg by mouth once daily. CPAP as directed. meloxicam (MOBIC) 15 mg tablet doxycycline (VIBRA-TABS) 100 mg tablet Take 1 tablet by mouth twice daily for 10 days. CELECOXIB (CELEBREX ORAL) Take by mouth. risedronate (ACTONEL) 35 mg tablet Take 1 tablet by mouth once each week. Cholecalciferol, Vitamin D3, (VITAMIN D-3) 5,000 unit tab Take 1 tablet by mouth once daily. Calcium Carbonate-Vitamin D3 (OSCAL 500+D) 500 mg(1,250mg) -600 unit chew Take 1 tablet by mouth three times daily. MAGNESIUM CARBONATE ORAL Take 1 tablet by mouth once daily. FAMILY HISTORY Problem Relation Age of Onset - Osteoporosis Mother - Osteoporosis Maternal Grandmother - Stroke Brother - Heart Mother - Heart Brother - Hypertension Father - Kidney Disease Mother stone - Diabetes Paternal Grandmother - Breast Cancer Other Social History Tobacco Use - Smoking status: Never Smoker - Smokeless tobacco: Never Used Substance Use Topics - Alcohol use: No - Drug use: No Review of Systems Constitutional: Negative for activity change, appetite change, chills, diaphoresis, fatigue and fever. HENT: Negative for congestion, dental problem, drooling, ear discharge, ear pain, nosebleeds, postnasal drip, rhinorrhea, sinus pressure, sinus pain, sore throat and trouble swallowing. Eyes: Negative for photophobia, pain, discharge, redness, itching and visual disturbance. Respiratory: Negative for apnea, cough, chest tightness and shortness of breath. Cardiovascular: Negative for chest pain, palpitations and leg swelling. Gastrointestinal: Negative for abdominal pain, anorexia, diarrhea, nausea and vomiting. Musculoskeletal: Negative for arthralgias, back pain, gait problem and joint pain. Skin: Positive for color change and rash. Negative for nail changes, pallor and wound. Allergic/Immunologic: Negative for environmental allergies, food allergies and immunocompromised state. Neurological: Negative for dizziness, tremors, seizures, syncope, facial asymmetry, speech difficulty, weakness, light-headedness, numbness and headaches. Hematological: Negative for adenopathy. Does not bruise/bleed easily. Psychiatric/Behavioral : Negative for agitation and behavioral problems. Objective BP 110/78 Pulse 76 Temp 36.5 ?C (97.7 ?F) (Tympanic) Resp 18 Wt 129.2 kg (284 lb 12.8 oz) SpO2 97% BMI 52.09 kg/m? Physical Exam Vitals and nursing note reviewed. Constitutional: General: She is not in acute distress. Appearance: Normal appearance. She is obese. She is not ill-appearing, toxic-appearing or diaphoretic. HENT: Head: Normocep (more content not included)... Normal [facility] Basic Metabolic PanelOrdered By: Kimberly Grullon on 01-29-2021 Anion gap [Moles/Vol] 5 mmol/L 3 - 13 mmol/L [facility] Work Phone: Calcium [Mass/Vol] 9.7 mg/dL 8.4 - 10. 4 mg/dL [facility] Work Phone: Chloride [Moles/Vol] 103 mmol/L 98 - 10 7 mmol/L [facility] Work Phone: CO2 [Moles/Vol] 31 mmol/L High 22 - 30 mmol/L [facility] Work Phone: Creatinine [Mass/Vol] 0.79 mg/dL 0.52 - 1.25 mg/dL [facility] Work Phone: EGFR IF NonAfrican [place] 82.2 mL/min >60 [facility] Work Phone: Comment on above: KDIGO guidelines pro vide the following GFR categories: Stage GFR(ml/min/1.73 m2) Terms G1 >=90 Normal or high G2 60-89 Mildly decreased* G3a 45-59 Mildly to moderately decreased G3b 30-44 Moderately to severely decreased G4 15-29 Severely decreased G5 <15 Kidney failure *Relative to young adult level. In the absence of evidence of kidney damage, neither GFR category G1 nor G2 fulfill the criteria for CKD. The CKD-EPI equation is validated in individuals 18 years of age and older. Currently the best equation for estimating glomerular filtration rate (GFR) from serum creatinine in children is the Bedside Powell equation. It is less accurate in patients with extremes of muscle mass, restriction of dietary protein, ingestion of creatine, extra-renal metabolism of creatinine, or treatment with medications that affect renal tubular creatinine secretion. GFR/1.73 sq M.predicted among blacks MDRD (S/P/Bld) [Vol rate/Area] mL/min/{1.73_m2} >60 mL/min [facility] Work Phone: Glucose [Mass/Vol] 132 mg/dL High 70 - 100 mg/dL [facility] Work Phone: Interpretation and review of laboratory results Abnormal [facility] Work Phone: Potassium [Moles/Vol] 4.6 mmol/L 3.5 - 5.1 mmol/L [employer] Work Phone: Sodium [Moles/Vol] 139 mmol/L 135 - 145 mmol/L [employer] Work Phone: Urea nitrogen (BldV) [Mass/Vol] 15 mg/dL 9 - 20 mg/dL [employer] Work Phone: Test Performed by [employer], [address] [place] [address] [employer] Work Phone: [employer] Work Phone: HematocritOrdered By: Kimberly peralta on 01-29-2021 Hematocrit (Bld) [Volume fraction] 42.9 % 35.0 - 47.0 % [employer] Work Phone: Test Performed by [employer], [address] [place] [address] [employer] Work Phone: [employer] Work Phone: ECHO Complete 2D W Doppler W ColorOrdered By: Omi Garcia on 12-23-2020 TRANSTHORACIC ECHOCARDIOGRAM PATIENT: Rebeca Tirado STUDY DATE: 12/23/2020 : 1960 AGE: 60 HT/WT: 157.5 cm (62 127 kg in) (279.4 lb) GENDER: F BP: 133 / 80 LOCATION: [facility] PATIENT Outpatient [facility] STATUS: [facility] *ORDERING PHYSICIAN: * Omi Garcia *READING PHYSICIAN: * Martha Chavarria *WOOD GANG SAWYER: * Eliz ALLEN ----- INDICATIONS: SOB , LA ENLARGEMENT. ----- CONCLUSIONS SUMMARY: 1. Left ventricle: The cavity size is normal. Wall thickness is mildly increased. Systolic function is by the biplane method of disks. The estimated ejection fraction is 47%. Regional wall motion abnormalities cannot be excluded. 2. Right ventricle: The cavity size is mildly dilated. Systolic function is normal. 3. Left atrium: The atrium is severely dilated. 4. No significant valve disease. 5. Technically difficult study. ----- STUDY DATA: Complete transthoracic echocardiogram. Procedure: Image quality was suboptimal. The study was technically limited due to poor acoustic window availability and body habitus. Intravenous imaging enhancement (Definity) was administered to opacify the chamber. Definity lot #: [id number]. M-mode, complete 2D, complete spectral Doppler, and color flow Doppler images were acquired and archived for permanent storage and are available for subsequent review. Study status: Routine. Patient status: Outpatient. ----- FINDINGS LEFT VENTRICLE: The cavity size is normal. Wall thickness is mildly increased. Systolic function is by the biplane method of disks. The estimated ejection fraction is 47%. Regional wall motion abnormalities cannot be excluded. RIGHT VENTRICLE: The cavity size is mildly dilated. Systolic function is normal. LEFT ATRIUM: The atrium is severely dilated. RIGHT ATRIUM: The atrium is normal in size. ATRIAL SEPTUM: Color Doppler shows no shunt. MITRAL VALVE: Structurally normal valve. Doppler: There is trivial, less than 1+ regurgitation. The peak diastolic gradient is 6 mm Hg. AORTIC VALVE: Structurally normal valve. Trileaflet; normal thickness leaflets. Doppler: There is no stenosis. There is no regurgitation. The peak systolic gradient is 8 mm Hg. The peak systolic velocity is 1.4 m/sec. TRICUSPID VALVE: Structurally normal valve. Doppler: There is trivial, less than 1+ regurgitation. PULMONIC VALVE: Structurally normal valve. Doppler: There is trivial, less than 1+ regurgitation. AORTA: The aorta is well visualized, normal, and normal size. PULMONARY ARTERY: Main pulmonary artery: Normal. PERICARDIUM: There is no pericardial effusion. SYSTEMIC VEINS: Not visualized. ----- Measurements Value Reference Aortic root ID 3.3 cm <4.5 Aortic root ID, STJ, ED 2.8 cm 2.0 - 3.2 Aortic root ID/bsa, STJ, ED 1.1 cm/m^2 1.1 - 1.9 Value Reference Ascending aorta ID 3.5 cm 1.9 - 3.5 Ascending aorta ID/bsa, A-P 1.4 cm/m^2 1.0 - 2.2 Left ventricle Value Reference LV ID, ED (H) 5.3 cm 3.8 - 5.2 LV ID, ES (H) 4.1 cm 2.2 - 3.5 LV ID/bsa, ED (L) 2.2 cm/m^2 2.3 - 3.1 LV ID/bsa, ES 1.7 cm/m^2 1.3 - 2.1 LV PW thickness, ED (H) 1.1 cm 0.6 - 0.9 LV PW/LV ID ratio, ED 0.21 --------- LV wall mass (H) 230 g 66 - 150 LV wall mass/bsa (H) 94 g/m^2 44 - 88 Stroke volume/bsa, 1-p A2C 35.2 ml/m^2 --------- LV end-diastolic volume, 1-p A4C (H) 159 ml 48 - 140 LV end-systolic volume, 1-p A4C (H) 92 ml 12 - 60 LV end-diastolic volume, 2-p (H) 178 ml 46 - 106 LV end-systolic volume, 2-p (H) 94 ml 14 - 42 LV ejection fraction, 2-p (L) 47 % 54 - 74 LV E/e', lateral 16.8 --------- LV E/e', medial 21.3 --------- LV E/e', average 18.8 --------- Ventricular septum Value Reference IVS (more content not included)... [employer] Work Phone: Sy, [employer] Incoming Cardiology Results From [facility] - 12/23/2020 12:36 PM EDT TRANSTHORACIC ECHOCARDIOGRAM PATIENT: Rebeca Tirado STUDY DATE: 12/23/2020 : 1960 AGE: 60 HT/WT: 157.5 cm (62 127 kg in) (279.4 lb) GENDER: F BP: 133 / 80 LOCATION: [facility] PATIENT Outpatient [facility] STATUS: [facility] Center *ORDERING PHYSICIAN: * Omi Garcia *READING PHYSICIAN: * Martha Chavarria *WOOD GANG SAWYER: * Eliz Oviedo MD [facility] ----- INDICATIONS: SOB , LA ENLARGEMENT. ----- CONCLUSIONS SUMMARY: 1. Left ventricle: The cavity size is normal. Wall thickness is mildly increased. Systolic function is by the biplane method of disks. The estimated ejection fraction is 47%. Regional wall motion abnormalities cannot be excluded. 2. Right ventricle: The cavity size is mildly dilated. Systolic function is normal. 3. Left atrium: The atrium is severely dilated. 4. No significant valve disease. 5. Technically difficult study. ----- STUDY DATA: Complete transthoracic echocardiogram. Procedure: Image quality was suboptimal. The study was technically limited due to poor acoustic window availability and body habitus. Intravenous imaging enhancement (Definity) was administered to opacify the chamber. Definity lot #: [id number]. M-mode, complete 2D, complete spectral Doppler, and color flow Doppler images were acquired and archived for permanent storage and are available for subsequent review. Study status: Routine. Patient status: Outpatient. ----- FINDINGS LEFT VENTRICLE: The cavity size is normal. Wall thickness is mildly increased. Systolic function is by the biplane method of disks. The estimated ejection fraction is 47%. Regional wall motion abnormalities cannot be excluded. RIGHT VENTRICLE: The cavity size is mildly dilated. Systolic function is normal. LEFT ATRIUM: The atrium is severely dilated. RIGHT ATRIUM: The atrium is normal in size. ATRIAL SEPTUM: Color Doppler shows no shunt. MITRAL VALVE: Structurally normal valve. Doppler: There is trivial, less than 1+ regurgitation. The peak diastolic gradient is 6 mm Hg. AORTIC VALVE: Structurally normal valve. Trileaflet; normal thickness leaflets. Doppler: There is no stenosis. There is no regurgitation. The peak systolic gradient is 8 mm Hg. The peak systolic velocity is 1.4 m/sec. TRICUSPID VALVE: Structurally normal valve. Doppler: There is trivial, less than 1+ regurgitation. PULMONIC VALVE: Structurally normal valve. Doppler: There is trivial, less than 1+ regurgitation. AORTA: The aorta is well visualized, normal, and normal size. PULMONARY ARTERY: Main pulmonary artery: Normal. PERICARDIUM: There is no pericardial effusion. SYSTEMIC VEINS: Not visualized. ----- Measurements Value Reference Aortic root ID 3.3 cm <4.5 Aortic root ID, STJ, ED 2.8 cm 2.0 - 3.2 Aortic root ID/bsa, STJ, ED 1.1 cm/m^2 1.1 - 1.9 Value Reference Ascending aorta ID 3.5 cm 1.9 - 3.5 Ascending aorta ID/bsa, A-P 1.4 cm/m^2 1.0 - 2.2 Left ventricle Value Reference LV ID, ED (H) 5.3 cm 3.8 - 5.2 LV ID, ES (H) 4.1 cm 2.2 - 3.5 LV ID/bsa, ED (L) 2.2 cm/m^2 2.3 - 3.1 LV ID/bsa, ES 1.7 cm/m^2 1.3 - 2.1 LV PW thickness, ED (H) 1.1 cm 0.6 - 0.9 LV PW/LV ID ratio, ED 0.21 --------- LV wall mass (H) 230 g 66 - 150 LV wall mass/bsa (H) 94 g/m^2 44 - 88 Stroke volume/bsa, 1-p A2C 35.2 ml/m^2 --------- LV end-diastolic volume, 1-p A4C (H) 159 ml 48 - 140 LV end-systolic volume, 1-p A4C (H) 92 ml 12 - 60 LV end-diastolic volume, 2-p (H) 178 ml 46 - 106 LV end-systolic volume, 2-p (H) 94 ml 14 - 42 LV ejection fraction, 2-p (L) 47 % 54 - 74 LV E/e', lateral 16.8 --------- LV E/e', medial 21.3 --------- LV E/e', average 18.8 --------- Ventricular septum Value Reference IVS thickness, ED (H) 1.1 cm 0.6 - 0.9 LVOT Value Reference LVOT ID, A-P 2.0 cm --------- LVOT mean velocity, S 0.6 m/sec --------- LVOT peak gradient, S 3 mm Hg --------- Stroke volume (SV), LVOT DP 54 ml --------- Stroke index (SV/bsa), LVOT DP 22 ml/m^2 --------- Aortic valve Value Reference Aortic valve peak velocity, S 1.4 m/sec --------- Aortic peak gradient, S 8 mm Hg --------- Left atrium Value Reference LA volume/bsa, ES, 2-p (H) 55 ml/m^2 16 - 34 Mitral valve Value Reference Mitral E-wave peak velocity 1.2 m/sec --------- Mitral A-wave peak velocity 0.4 m/sec --------- Mitral deceleration time 87 ms --------- Mitral peak gradient, D 6 mm Hg --------- (more content not included)... [employer] Work Phone: [employer] Phone: Brain Natriuretic PeptideOrd ered By: Jose E Szymanski on 12-11-2020 Interpretation and review of laboratory results Abnormal [employer] Phone: Natriuretic peptide B (Bld) [Mass/Vol] 1663 pg/mL High 0 - 125 pg/mL [employer] Phone: Test Performed by [employer], [facility] [address] , [place], [place] [address] [employer] Work Phone: [employer] Phone: CBC Auto DifferentialOrdered By: Latonia Owens on 12-11-2020 Absolute Baso # 0.1 10*3/uL 0.0 - 0.2 10*3/uL [facility] Work Phone: Absolute Neut # 5.6 10*3/uL 1.8 - 7.0 10*3/uL [facility] Work Phone: Basophils/100 WBC (Bld) 0.8 % 0.0 - 2.0 % [facility] Work Phone: Eosinophils (Bld) [#/Vol] 0.2 10*3/uL 0.0 - 0.5 10*3/uL [facility] Work Phone: Eosinophils/100 WBC (Bld) 2.1 % 1.0 - 6.0 % [facility] Work Phone: Granulocytes/100 WBC (Bld) 63.6 % 40.0 - 80.0 % [facility] Work Phone: Hematocrit (Bld) [Volume fraction] 40.6 % 35.0 - 47.0 % [facility] Work Phone: Hemoglobin.gastrointest inal spec 1 Ql (Stl) 13.6 g/dL 11.7 - 16.0 g/dL [facility] Work Phone: Lymphocytes (Bld) [#/Vol] 2.3 10*3/uL 1.0 - 4.3 10*3/uL [facility] Work Phone: Lymphocytes/100 WBC (Bld) 26.4 % 20.0 - 40.0 % [facility] Work Phone: MCH (RBC) [Entitic mass] 29.6 pg 26.0 - 34.0 pg [facility] Work Phone: MCHC (RBC) [Mass/Vol] 33.6 % 32.0 - 36.0 % [facility] Work Phone: MCV (RBC) [Entitic vol] 88.3 fL 79.0 - 98.0 fL [facility] Work Phone: Monocytes (Bld) [#/Vol] 0.6 10*3/uL 0.0 - 0.8 10*3/uL [facility] Work Phone: Monocytes/100 WBC (Bld) 7.1 % 2.0 - 10.0 % [employer] Work Phone: Platelet distribution width (Bld) [Ratio] 14.0 % 11.5 - 14.5 % [employer] Work Phone: Platelet mean volume (Bld) [Entitic vol] 7.4 fL 7.4 - 10.4 fL [employer] Work Phone: Platelets (Bld) [#/Vol] 321 10*3/uL 140 - 440 10*3/uL [employer] Work Phone: RBC (Bld) [#/Vol] 4.60 10*6/uL 3.80 - 5.2 0 10*6/uL [employer] Work Phone: WBC (Bld) [#/Vol] 8.8 10*3/uL 3.6 - 10.7 10*3/uL [employer] Work Phone: Test Performed by [facility], [address] [place] [address] [employer] Work Phone: [employer] Work Phone: CTA Chest W WO (PE study)Ord ered By: Jose E Szymanski on 12-11-2020 Patient Name: REBECA VALLE Computed Tomography ACCESSION EXAM DATE/TIME PROCEDURE ORDERING PROVIDER [id number] 12/11/2020 20:31 EDT CTA Chest w/ + w/o MD JUAN CARLOS, JOSE E Key Contrast CPT code 54598 Q9967 Reason For Exam (CTA Chest w/ + w/o Contrast) sob, elevated ddimer, tachycardia Report CTA CHEST WITH CONTRAST CLINICAL INDICATION: Chest pain. Shortness of breath with tachycardia. Serial axial CT images were obtained from the lung apices through the upper abdomen after a bolus tracked intravenous contrast injection over the pulmonary arteries. 75 cc of Isovue 370 contrast was given intravenously. Three-dimensional and surface-shaded reconstructions were performed by myself on a separate workstation at the time of dictation. COMPARISON: Correlation is made to chest x-ray obtained earlier the same day. FINDINGS: Examination is somewhat limited by streak artifact and motion artifact. There is cardiomegaly. There is ectasia of the ascending thoracic aorta which measures about 3.9 cm. Pulmonary trunk is normal in caliber. No filling defects within the pulmonary arterial tree to the level of the lobar and segmental branches. More peripheral branches are suboptimally evaluated. Several prominent and mildly enlarged mediastinal and perihilar lymph nodes are nonspecific. Trace layering right pleural effusion with diffuse mosaic attenuation with prominence of the pulmonary vasculature. Scattered areas of atelectasis. No pneumothorax. Tiny hiatal hernia with questionable wall thickening involving the esophagus. Suspected hepatic steatosis. No discrete adrenal mass or nodule. A few prominent periportal lymph nodes are nonspecific. Mild degenerative spondylosis in the visualized spine. No significant soft tissue abnormality. IMPRESSION: 1. Somewhat limited evaluation. No CTA evidence of pulmonary embolism to the level of the lobar and segmental branches. 2. Trace layering right pleural effusion with nonspecific diffuse mosaic attenuation which is favored to reflect pulmonary vascular congestion/edema. Atypical infection could also be considered. 3. Tiny hiatal hernia with questionable wall thickening involving the distal esophagus. Correlate for reflux esophagitis. Computed Tomography Report Report Dictated on --- Final --- Dictating Physician: MD ISABEL VLADIMIR Signed Date and Time: 12/11/2020 8:56 pm Signed by: MD ISABEL VLADIMIR Transcribed Date and Time: 12/11/2020 8:57 [facility] Work Phone: [facility] Incoming Radiology [facility] - 12/11/2020 8:57 PM EDT Patient Name: REBECA TIRADO Computed Tomography ACCESSION EXAM DATE/TIME PROCEDURE ORDERING PROVIDER [id number] 12/11/2020 20:31 EDT CTA Chest w/ + w/o MD JUAN CARLOS, JOSE E Key Contrast CPT code 30682 Q9967 Reason For Exam (CTA Chest w/ + w/o Contrast) sob, elevated ddimer, tachycardia Report CTA CHEST WITH CONTRAST CLINICAL INDICATION: Chest pain. Shortness of breath with tachycardia. Serial axial CT images were obtained from the lung apices through the upper abdomen after a bolus tracked intravenous contrast injection over the pulmonary arteries. 75 cc of Isovue 370 contrast was given intravenously. Three-dimensional and surface-shaded reconstructions were performed by myself on a separate workstation at the time of dictation. COMPARISON: Correlation is made to chest x-ray obtained earlier the same day. FINDINGS: Examination is somewhat limited by streak artifact and motion artifact. There is cardiomegaly. There is ectasia of the ascending thoracic aorta which measures about 3.9 cm. Pulmonary trunk is normal in caliber. No filling defects within the pulmonary arterial tree to the level of the lobar and segmental branches. More peripheral branches are suboptimally evaluated. Several prominent and mildly enlarged mediastinal and perihilar lymph nodes are nonspecific. Trace layering right pleural effusion with diffuse mosaic attenuation with prominence of the pulmonary vasculature. Scattered areas of atelectasis. No pneumothorax. Tiny hiatal hernia with questionable wall thickening involving the esophagus. Suspected hepatic steatosis. No discrete adrenal mass or nodule. A few prominent periportal lymph nodes are nonspecific. Mild degenerative spondylosis in the visualized spine. No significant soft tissue abnormality. IMPRESSION: 1. Somewhat limited evaluation. No CTA evidence of pulmonary embolism to the level of the lobar and segmental branches. 2. Trace layering right pleural effusion with nonspecific diffuse mosaic attenuation which is favored to reflect pulmonary vascular congestion/edema. Atypical infection could also be considered. 3. Tiny hiatal hernia with questionable wall thickening involving the distal esophagus. Correlate for reflux esophagitis. Computed Tomography Report Report Dictated on --- Final --- Dictating Physician: MD ISABEL VLADIMIR Signed Date and Time: 12/11/2020 8:56 pm Signed by: MD ISABEL VLADIMIR Transcribed Date and Time: 12/11/2020 8:57 [facility] Work Phone: [facility] Work Phone: Comprehensive Metabolic Pane lOrdered By: Latonia Owens on 12-11-2020 Albumin [Mass/Vol] 4.2 g/dL 3.5 - 5.0 g/dL [facility] Work Phone: ALP (Bld) [Catalytic activity/Vol] 125 U/L 38 - 126 U/L [facility] Work Phone: ALT [Catalytic activity/Vol] 41 U/L High 0 - 34 U/L [facility] Work Phone: Comment on above: The ALT test is perf ormed by an updated assay method. Please note that the reference intervals have been changed and are now sex specific. Anion gap [Moles/Vol] 5 mmol/L 3 - 13 mmol/L [facility] Work Phone: AST [Catalytic activity/Vol] 45 U/L 15 - 46 U/L [facility] Work Phone: Bilirubin [Mass/Vol] 0.5 mg/dL 0.2 - 1 .3 mg/dL [facility] Work Phone: Calcium [Mass/Vol] 9.2 mg/dL 8.4 - 10. 4 mg/dL [facility] Work Phone: Chloride [Moles/Vol] 106 mmol/L 98 - 10 7 mmol/L [facility] Work Phone: CO2 [Moles/Vol] 30 mmol/L 22 - 30 mmol/L [facility] Work Phone: Creatinine [Mass/Vol] 0.76 mg/dL 0.52 - 1.25 mg/dL [facility] Work Phone: EGFR IF NonAfrican [place] 86.2 mL/min >60 [facility] Work Phone: Comment on above: KDIGO guidelines pro vide the following GFR categories: Stage GFR(ml/min/1.73 m2) Terms G1 >=90 Normal or high G2 60-89 Mildly decreased* G3a 45-59 Mildly to moderately decreased G3b 30-44 Moderately to severely decreased G4 15-29 Severely decreased G5 <15 Kidney failure *Relative to young adult level. In the absence of evidence of kidney damage, neither GFR category G1 nor G2 fulfill the criteria for CKD. The CKD-EPI equation is validated in individuals 18 years of age and older. Currently the best equation for estimating glomerular filtration rate (GFR) from serum creatinine in children is the Bedside Powell equation. It is less accurate in patients with extremes of muscle mass, restriction of dietary protein, ingestion of creatine, extra-renal metabolism of creatinine, or treatment with medications that affect renal tubular creatinine secretion. Free PSA/Total PSA [Mass fraction] 7.5 g/dL 6.3 - 8.2 g/dL [employer] Work Phone: GFR/1.73 sq M.predicted among blacks MDRD (S/P/Bld) [Vol rate/Area] mL/min/{1.73_m2} >60 mL/min [facility] Work Phone: Glucose [Mass/Vol] 101 mg/dL High 70 - 100 mg/dL [facility] Work Phone: Interpretation and review of laboratory results Abnormal [employer] Work Phone: Potassium [Moles/Vol] 4.7 mmol/L 3.5 - 5.1 mmol/L [facility] Work Phone: Sodium [Moles/Vol] 141 mmol/L 135 - 145 mmol/L [facility] Work Phone: Urea nitrogen (BldV) [Mass/Vol] 16 mg/dL 7 - 20 mg/dL [facility] Work Phone: Test Performed by [employer], [facility] [address] [place] [address] [employer] Work Phone: [employer] Work Phone: D-Dimer, QuantitativeOrdered By: Latonia Owens on 12-11-2020 D-Dimer, Quant 0.55 mg/L High <0.19 - 0.50 [facility] Work Phone: Comment on above: [employer] D-Dimer va lues of <0.50 mg/L FEU can be used in combination with a pre-test probability model (e.g. Well's) to exclude pulmonary embolism (PE) disease, as well as an aid in the diagnosis of deep vein thrombosis (DVT). Interpretation and review of laboratory results Abnormal [employer] Work Phone: Test Performed by [employer], [address] [place] [id number] [employer] Work Phone: [employer] Work Phone: TSH without ReflexOrdered By : Latonia Owens on 12-11-2020 TSH Qn 2.069 u[IU]/mL 0.465 - 4.680 u[IU]/mL [employer] Work Phone: Test Performed by [employer], [address] , [place], [place] [address] [employer] Work Phone: [employer] Work Phone: Troponin [id number] By: Jose E Szymanski on 12-11-2020 Troponin I.cardiac [Mass/Vol] 0.015 ng/mL 0.000 - 0.034 ng/mL [employer] Work Phone: Comment on above: Slightly hemolysed, interpret with caution. Revised: Comment was added, verified by RONAK at 20:19 on 12/11/20 . Test Performed by [employer], [address] [place], [place] [address] [employer] Work Phone: [employer] Work Phone: XR CHEST (2 VW)Ordered By: Jairo Owens on 12-11-2020 Patient Name: REBECA VALLE Diagnostic Radiology ACCESSION EXAM DATE/TIME PROCEDURE ORDERING PROVIDER [id number] 12/11/2020 17:34 EDT CR Chest PA & LAT JOSE ALFREDO OWENS CYNTHIA LYNN CPT code 39781 Reason For Exam (CR Chest PA & LAT) R06.02 Report CTA CHEST WITH CONTRAST CLINICAL INDICATION: Chest pain. Shortness of breath with tachycardia. Serial axial CT images were obtained from the lung apices through the upper abdomen after a bolus tracked intravenous contrast injection over the pulmonary arteries. 75 cc of Isovue 370 contrast was given intravenously. Three-dimensional and surface-shaded reconstructions were performed by myself on a separate workstation at the time of dictation. COMPARISON: Correlation is made to chest x-ray obtained earlier the same day. FINDINGS: Examination is somewhat limited by streak artifact and motion artifact. There is cardiomegaly. There is ectasia of the ascending thoracic aorta which measures about 3.9 cm. Pulmonary trunk is normal in caliber. No filling defects within the pulmonary arterial tree to the level of the lobar and segmental branches. More peripheral branches are suboptimally evaluated. Several prominent and mildly enlarged mediastinal and perihilar lymph nodes are nonspecific. Trace layering right pleural effusion with diffuse mosaic attenuation with prominence of the pulmonary vasculature. Scattered areas of atelectasis. No pneumothorax. Tiny hiatal hernia with questionable wall thickening involving the esophagus. Suspected hepatic steatosis. No discrete adrenal mass or nodule. A few prominent periportal lymph nodes are nonspecific. Mild degenerative spondylosis in the visualized spine. No significant soft tissue abnormality. IMPRESSION: 1. Somewhat limited evaluation. No CTA evidence of pulmonary embolism to the level of the lobar and segmental branches. 2. Trace layering right pleural effusion with nonspecific diffuse mosaic attenuation which is favored to reflect pulmonary vascular congestion/edema. Atypical infection could also be considered. 3. Tiny hiatal hernia with questionable wall thickening involving the distal esophagus. Correlate for reflux esophagitis. Diagnostic Radiology Report Report Dictated on --- Final --- Dictating Physician: MD ISABEL VLADIMIR Signed Date and Time: 12/11/2020 8:56 pm Signed by: MD ISABEL VLADIMIR Transcribed Date and Time: 12/11/2020 8:57 [facility] Work Phone: [facility] Incoming Radiology Results From [facility] - 12/11/2020 8:57 PM EDT Patient Name: REBECA TIRADO Diagnostic Radiology ACCESSION EXAM DATE/TIME PROCEDURE ORDERING PROVIDER [id number] 12/11/2020 17:34 EDT CR Chest PA & LAT JOSE ALFREDO OWENS CYNTHIA LYNN CPT code 10218 Reason For Exam (CR Chest PA & LAT) R06.02 Report CTA CHEST WITH CONTRAST CLINICAL INDICATION: Chest pain. Shortness of breath with tachycardia. Serial axial CT images were obtained from the lung apices through the upper abdomen after a bolus tracked intravenous contrast injection over the pulmonary arteries. 75 cc of Isovue 370 contrast was given intravenously. Three-dimensional and surface-shaded reconstructions were performed by myself on a separate workstation at the time of dictation. COMPARISON: Correlation is made to chest x-ray obtained earlier the same day. FINDINGS: Examination is somewhat limited by streak artifact and motion artifact. There is cardiomegaly. There is ectasia of the ascending thoracic aorta which measures about 3.9 cm. Pulmonary trunk is normal in caliber. No filling defects within the pulmonary arterial tree to the level of the lobar and segmental branches. More peripheral branches are suboptimally evaluated. Several prominent and mildly enlarged mediastinal and perihilar lymph nodes are nonspecific. Trace layering right pleural effusion with diffuse mosaic attenuation with prominence of the pulmonary vasculature. Scattered areas of atelectasis. No pneumothorax. Tiny hiatal hernia with questionable wall thickening involving the esophagus. Suspected hepatic steatosis. No discrete adrenal mass or nodule. A few prominent periportal lymph nodes are nonspecific. Mild degenerative spondylosis in the visualized spine. No significant soft tissue abnormality. IMPRESSION: 1. Somewhat limited evaluation. No CTA evidence of pulmonary embolism to the level of the lobar and segmental branches. 2. Trace layering right pleural effusion with nonspecific diffuse mosaic attenuation which is favored to reflect pulmonary vascular congestion/edema. Atypical infection could also be considered. 3. Tiny hiatal hernia with questionable wall thickening involving the distal esophagus. Correlate for reflux esophagitis. Diagnostic Radiology Report Report Dictated on --- Final --- Dictating Physician: MD ISABEL VLADIMIR Signed Date and Time: 12/11/2020 8:56 pm Signed by: MD ISABEL VLADIMIR Transcribed Date and Time: 12/11/2020 8:57 [facility] Work Phone: [facility] Work Phone: XR KNEE RIGHT (MIN 4 VIEWS)o n 10-21-2019 Patient Name: REBECA VALLE ---Diagnostic Radiology--- Exam Date/Time 10/21/2019 13:20:00 EDT Exam CR Knee Complete 4+ Views Right Ordering Physician DO GARCIA JOSHUA D Accession Number [id number] CPT4 Codes 07933 () Reason For Exam RT KNEE PAIN Report RIGHT KNEE History: Knee pain Findings: Four views of the right knee show osteoarthritis changes with spurring at the tibial, femoral, and patellar joint margins. There is narrowing of the medial tibiofemoral joint space with mild marginal sclerosis. The patellofemoral joint space is maintained. There is no acute fracture, dislocation, periosteal reaction or bone erosion. FRONTAL WEIGHT-BEARING VIEW OF BOTH KNEES History: Knee pain Findings: Frontal weight-bearing view of both knees show right knee joint osteoarthritis with narrowed medial tibiofemoral joint space and marginal sclerosis/spurring. Evaluation of the left knee is limited due to lack of other routine views of its medial tibiofemoral joint space appears slightly narrowed.. IMPRESSION: Right knee osteoarthritis. Mild medial left tibiofemoral joint space narrowing. Report Dictated on --- Final --- Dictating Physician: MD STARR AHMAD Signed Date and Time: 10/21/2019 1:42 pm Signed by: MD STARR AHMAD Transcribed Date and Time: 10/21/2019 1:43 [facility], [place] [facility], [facility] Incoming Radiology Results From [facility] - 10/21/2019 1:44 PM EDT Patient Name: REBECA TIRADO ---Diagnostic Radiology--- Exam Date/Time 10/21/2019 13:20:00 EDT Exam CR Knee Complete 4+ Views Right Ordering Physician DO GARCIA JOSHUA D Accession Number [id number] CPT4 Codes 28427 () Reason For Exam RT KNEE PAIN Report RIGHT KNEE History: Knee pain Findings: Four views of the right knee show osteoarthritis changes with spurring at the tibial, femoral, and patellar joint margins. There is narrowing of the medial tibiofemoral joint space with mild marginal sclerosis. The patellofemoral joint space is maintained. There is no acute fracture, dislocation, periosteal reaction or bone erosion. FRONTAL WEIGHT-BEARING VIEW OF BOTH KNEES History: Knee pain Findings: Frontal weight-bearing view of both knees show right knee joint osteoarthritis with narrowed medial tibiofemoral joint space and marginal sclerosis/spurring. Evaluation of the left knee is limited due to lack of other routine views of its medial tibiofemoral joint space appears slightly narrowed.. IMPRESSION: Right knee osteoarthritis. Mild medial left tibiofemoral joint space narrowing. Report Dictated on --- Final --- Dictating Physician: MD STARR AHMAD Signed Date and Time: 10/21/2019 1:42 pm Signed by: MD STARR AHMAD Transcribed Date and Time: 10/21/2019 1:43 [employer] [employer] XR Knee Bilateral Standingon 10-21-2019 Patient Name: REBECA VALLE ---Diagnostic Radiology--- Exam Date/Time 10/21/2019 13:20:00 EDT Exam CR Knee Standing AP Bilateral Ordering Physician DO GARCIA JOSHUA D Accession Number [id number] CPT4 Codes 51014 () Reason For Exam RT KNEE PAIN Report RIGHT KNEE History: Knee pain Findings: Four views of the right knee show osteoarthritis changes with spurring at the tibial, femoral, and patellar joint margins. There is narrowing of the medial tibiofemoral joint space with mild marginal sclerosis. The patellofemoral joint space is maintained. There is no acute fracture, dislocation, periosteal reaction or bone erosion. FRONTAL WEIGHT-BEARING VIEW OF BOTH KNEES History: Knee pain Findings: Frontal weight-bearing view of both knees show right knee joint osteoarthritis with narrowed medial tibiofemoral joint space and marginal sclerosis/spurring. Evaluation of the left knee is limited due to lack of other routine views of its medial tibiofemoral joint space appears slightly narrowed.. IMPRESSION: Right knee osteoarthritis. Mild medial left tibiofemoral joint space narrowing. Report Dictated on --- Final --- Dictating Physician: MD STARR AHMAD Signed Date and Time: 10/21/2019 1:42 pm Signed by: MD STARR AHMAD Transcribed Date and Time: 10/21/2019 1:43 [facility] Results From [facility] - 10/21/2019 1:44 PM EDT Patient Name: REBECA TIRADO ---Diagnostic Radiology--- Exam Date/Time 10/21/2019 13:20:00 EDT Exam CR Knee Standing AP Bilateral Ordering Physician DO GARCIA JOSHUA D Accession Number [id number] CPT4 Codes 78631 () Reason For Exam RT KNEE PAIN Report RIGHT KNEE History: Knee pain Findings: Four views of the right knee show osteoarthritis changes with spurring at the tibial, femoral, and patellar joint margins. There is narrowing of the medial tibiofemoral joint space with mild marginal sclerosis. The patellofemoral joint space is maintained. There is no acute fracture, dislocation, periosteal reaction or bone erosion. FRONTAL WEIGHT-BEARING VIEW OF BOTH KNEES History: Knee pain Findings: Frontal weight-bearing view of both knees show right knee joint osteoarthritis with narrowed medial tibiofemoral joint space and marginal sclerosis/spurring. Evaluation of the left knee is limited due to lack of other routine views of its medial tibiofemoral joint space appears slightly narrowed.. IMPRESSION: Right knee osteoarthritis. Mild medial left tibiofemoral joint space narrowing. Report Dictated on --- Final --- Dictating Physician: MD STARR AHMAD Signed Date and Time: 10/21/2019 1:42 pm Signed by: MD STARR AHMAD Transcribed Date and Time: 10/21/2019 1:43 [place], [place] DEXA BONE DENSITY AXIAL SKEL ETONOrdered By: Omi Garcia on 05-02-2019 Patient Name: REBECA VALLE ---Bone Density--- Exam Date/Time 05/02/2019 15:42:38 EST Exam OT Bone Density DEXA Axial Skeleton Ordering Physician DO GARCIA JOSHUA D Accession Number [id number] CPT4 Codes 75982 () Reason For Exam osteoporosis Report DXA BONE DENSITOMETRY: CLINICAL INDICATION: Asymptomatic post-menopausal status. Screening for osteoporosis. COMPARISON: None TECHNIQUE: Quantitative bone mineral densitometry of the hip and lumbar spine was performed with a dual energy x-ray observed absorptiometry device - [employer] at some institutions, [employer] at others. Regions of interest were obtained through the proximal femur and compared to the normal value of young adult women. Regions of interest were also obtained through the lumbar vertebrae with an average value determined and compared to the normal value of young adult women. The difference between your measured bone density and the bone density of a normal young woman is expressed in standard deviations as the T score. Similarly, your measured bone density is also compared to age and race matched values, and expressed in standard deviations as the Z score. According to World Health Organization criteria: T-score of -1.0 or higher is normal. T-score between -1.1 to < -2.5 is low bone density or osteopenia. T-score of -2.5 or lower is abnormally low, compatible with osteoporosis. T-score of -2.5 or less plus fragility fracture indicates severe osteoporosis. FINDINGS: Femoral neck LEFT Density: 0.741 g/cm2 T-score: -1.0. This falls within the normal range. Z-score: 0.2 Total Hip LEFT Density: 0.977 g/cm2 T-score: 0.3. This falls within the normal range. Z-score: 1.1 Spine: L1-L4 Density 0.812 g/cm2 T-score: -2.1. This falls within the osteopenic range. Z-score: -0.9 IMPRESSION: 1. Osteopenia (especially in the lumbar spine). FRACTURE RISK: The estimated 10 year risk for a hip fracture is 0.2% and for a major osteoporosis-related fracture is 5.2%. (FRAX web version 3.11). RECOMMENDATIONS: General recommendations for prevention of bone loss include: 7194-3915 mg calcium intake per day for adults >50yrs, and no history of renal calculi 800-1000 IU of vitamin D3 per day for adults >50yrs, and no history of renal calculi Weight bearing exercise Discontinue smoking Avoid excessive use of caffeine, soft drinks, and alcoholic beverages In addition, balance training and fall prevention programs can help reduce the risk of fractures Pharmacologic treatment recommendations: Initiate pharmacologic treatment in patients with hip or vertebral fracture. In those with T scores spine by DXA In postmenopausal women and men age 50 or older with low bone mass (T score between -1.0 and -2.5 [osteopenia]) at the femoral neck, total hip, or lumbar spine by DXA have a 10 year hip fracture probability >/= 3% or a 10 year major osteoporosis-related fracture probability >/= 20% based on the [place]-adapted WHO fracture risk model (FRAX). Current FDA-approved pharmacologic options for osteoporosis treatment include bisphosphonates (Fosamax), ibandronate (Boniva), risedronate (Actonel), zoledronic acid (Reclast), estrogens and other hormonal therapies (Evista), parathyroid hormone (Forteo), and denosumab (Prolia). Initiation of pharmacologic therapy should happen only after thorough medical evaluation, discussion of risks and benefits, and with regular monitoring of the therapeutic regimen. Follow-up recommendations: Patients with osteoporosis or or at high risk for fracture should have follow-up bone density tests. For Medicare patients, routine testing is allowed every 2 years. Patients who have low bone mass (T score -2.0 to -2.49), who are currently on treatment for low bone mass, or having risk factors for accelerated bone loss (glucocorticoids, aromatase inhibitors, etc.), consider repeat DXA in 1-2 years. Patients with osteopenia and no risk factors may consider follow-up every 3-5 years. References: National Osteoporosis Foundation. Clinician's Guide to Prevention and Treatment of Osteoporosis. Osteoporosis International. Ybarra, 2014. DXA Scan Screening, Reporting (FRAX Score) and Follow-up. [employer] Knowledge Evidence - based Summaries. [facility] 2017. Report Dictated on --- Final --- Dictating Physician: MD VELAZCO JEFFREY Signed Date and Time: 05/02/2019 4:49 pm Signed by: MD VELAZCO JEFFREY Transcribed Date and Time: 05/02/2019 4:50 [facility] Work Phone: [facility], [facility] Incoming Radiology Results From [facility] - 05/02/2019 4:50 PM EST Patient Name: REBECA TIRADO ---Bone Density--- Exam Date/Time 05/02/2019 15:42:38 EST Exam OT Bone Density DEXA Axial Skeleton Ordering Physician DO GARCIA JOSHUA D Accession Number [id number] CPT4 Codes 20833 () Reason For Exam osteoporosis Report DXA BONE DENSITOMETRY: CLINICAL INDICATION: Asymptomatic post-menopausal status. Screening for osteoporosis. COMPARISON: None TECHNIQUE: Quantitative bone mineral densitometry of the hip and lumbar spine was performed with a dual energy x-ray observed absorptiometry device - [employer] at some institutions, [employer] at others. Regions of interest were obtained through the proximal femur and compared to the normal value of young adult women. Regions of interest were also obtained through the lumbar vertebrae with an average value determined and compared to the normal value of young adult women. The difference between your measured bone density and the bone density of a normal young woman is expressed in standard deviations as the T score. Similarly, your measured bone density is also compared to age and race matched values, and expressed in standard deviations as the Z score. According to World Health Organization criteria: T-score of -1.0 or higher is normal. T-score between -1.1 to < -2.5 is low bone density or osteopenia. T-score of -2.5 or lower is abnormally low, compatible with osteoporosis. T-score of -2.5 or less plus fragility fracture indicates severe osteoporosis. FINDINGS: Femoral neck LEFT Density: 0.741 g/cm2 T-score: -1.0. This falls within the normal range. Z-score: 0.2 Total Hip LEFT Density: 0.977 g/cm2 T-score: 0.3. This falls within the normal range. Z-score: 1.1 Spine: L1-L4 Density 0.812 g/cm2 T-score: -2.1. This falls within the osteopenic range. Z-score: -0.9 IMPRESSION: 1. Osteopenia (especially in the lumbar spine). FRACTURE RISK: The estimated 10 year risk for a hip fracture is 0.2% and for a major osteoporosis-related fracture is 5.2%. (FRAX web version 3.11). RECOMMENDATIONS: General recommendations for prevention of bone loss include: 7789-3995 mg calcium intake per day for adults >50yrs, and no history of renal calculi 800-1000 IU of vitamin D3 per day for adults >50yrs, and no history of renal calculi Weight bearing exercise Discontinue smoking Avoid excessive use of caffeine, soft drinks, and alcoholic beverages In addition, balance training and fall prevention programs can help reduce the risk of fractures Pharmacologic treatment recommendations: Initiate pharmacologic treatment in patients with hip or vertebral fracture. In those with T scores spine by DXA In postmenopausal women and men age 50 or older with low bone mass (T score between -1.0 and -2.5 [osteopenia]) at the femoral neck, total hip, or lumbar spine by DXA have a 10 year hip fracture probability >/= 3% or a 10 year major osteoporosis-related fracture probability >/= 20% based on the [place]-adapted WHO fracture risk model (FRAX). Current FDA-approved pharmacologic options for osteoporosis treatment include bisphosphonates (Fosamax), ibandronate (Boniva), risedronate (Actonel), zoledronic acid (Reclast), estrogens and other hormonal therapies (Evista), parathyroid hormone (Forteo), and denosumab (Prolia). Initiation of pharmacologic therapy should happen only after thorough medical evaluation, discussion of risks and benefits, and with regular monitoring of the therapeutic regimen. Follow-up recommendations: Patients with osteoporosis or or at high risk for fracture should have follow-up bone density tests. For Medicare patients, routine testing is allowed every 2 years. Patients who have low bone mass (T score -2.0 to -2.49), who are currently on treatment for low bone mass, or having risk factors for accelerated bone loss (glucocorticoids, aromatase inhibitors, etc.), consider repeat DXA in 1-2 years. Patients with osteopenia and no risk factors may consider follow-up every 3-5 years. References: National Osteoporosis Foundation. Clinician's Guide to Prevention and Treatment of Osteoporosis. Osteoporosis International. Ybarra, 2014. DXA Scan Screening, Reporting (FRAX Score) and Follow-up. [employer] of Knowledge Evidence - based Summaries. [facility] 2017. Report Dictated on --- Final --- Dictating Physician: MD VELAZCO JEFFREY Signed Date and Time: 05/02/2019 4:49 pm Signed by: MD VELAZCO JEFFREY Transcribed Date and Time: 05/02/2019 4:50 [facility] Work Phone: Echo Complete w/wo Contrasto n 09-27-2017 Echo Complete w/wo Contrast Patient Name: REBECA TIRADO Ultrasound Exam Date/Time 09/27/2017 14:21:03 EDT Exam Echo Complete w/wo Contrast Ordering Physician MD SMITH, MOO Accession Number [id number] Reason For Exam palpitations Report TRANSTHORACIC ECHOCARDIOGRAM PATIENT: Rebeca Tirado STUDY DATE: 09/27/2017 : 1960 AGE: 57 HT/WT: 132.1 cm (52 116.6 kg in) (256.5 lb) GENDER: F BP: 136 / 84 LOCATION: [facility] STATUS: *ORDERING PHYSICIAN: * Karan Espino *RN: * Bhakti Mobley RN *READING PHYSICIAN: * Hardik Adorno MD *[facility] [place] SAWYER: * [place] [facility], [place] --------- --- INDICATIONS: R00.2/ Palpitations, G47.33/ Obstructive sleep apnea syndrome, R06.09/ Dyspnea on exertion, --SOB and precordial chest pain. --------- --- CONCLUSIONS SUMMARY: 1. Left ventricle: Systolic function is normal by the biplane method of disks. The estimated ejection fraction is 50%. Hypokinesis of the inferior myocardium. 2. Right ventricle: The cavity size is mildly dilated. 3. Left atrium: The atrium is mildly dilated. 4. Pulmonary arteries: Systolic pressure is within the normal range. 5. No significant valve disease. --------- --- STUDY DATA: Complete transthoracic echocardiogram. Procedure: Image quality was adequate to suboptimal. The study was technically limited due to body habitus and respiratory interference. Intravenous imaging enhancement (Definity) was administered to opacify the chamber and enhance Doppler signals. Definity lot #: [id number]. M-mode, complete 2D, complete spectral Doppler, and color flow Doppler images were acquired and archived for permanent storage and are available for subsequent review. Study status: Routine. Patient status: Outpatient. --------- --- FINDINGS LEFT VENTRICLE: Apical views not well visualized. The cavity size is normal. Wall thickness is moderately increased. Systolic function is normal by the biplane method of disks. The estimated ejection fraction is 50%. Regional wall motion abnormalities: Hypokinesis of the inferior myocardium. RIGHT VENTRICLE: Not well visualized. The cavity size is mildly dilated. Systolic function is normal. VENTRICULAR SEPTUM: There is no evidence of a ventricular septal defect. LEFT ATRIUM: Not well visualized. The atrium is mildly dilated. RIGHT ATRIUM: Not well visualized. The atrium is normal in size. ATRIAL SEPTUM: Poorly visualized. Color Doppler shows no evidence of shunt. MITRAL VALVE: Not well visualized. Structurally normal valve. Doppler: There is trivial, less than 1+ regurgitation. AORTIC VALVE: Not well visualized. Structurally normal valve. Trileaflet. Doppler: There is no stenosis. There is no regurgitation. TRICUSPID VALVE: Not well visualized. Structurally normal valve. Doppler: There is trivial, less than 1+ regurgitation. PULMONIC VALVE: Not well visualized. Structurally normal valve. Doppler: There is no evidence for stenosis. There is no regurgitation. Peak gradient (S): 2 mm Hg. AORTA: The aorta is normal. PULMONARY ARTERY: Systolic pressure is within the normal range. Main pulmonary artery: Normal. PERICARDIUM: There is no pericardial effusion. SYSTEMIC VEINS: Inferior vena cava: Not well visualized. The vessel is dilated at 2.4 cm. The IVC collapses by greater than 50% with inspiration. --------- --- Measurements Left ventricle Value Reference LV ID, ED 4.7 cm 3.9 - 5.3 LV ID, ES 3.1 cm --------- LV PW thickness, ED (H) 1.6 cm 0.6 - 0.9 LV end-diastolic volume, 1-p A4C (H) 121 ml 56 - 104 LV end-systolic volume, 1-p A4C 43 ml 19 - 49 LV end-diastolic volume, 2-p 102 ml 56 - 104 LV end-systolic volume, 2-p 38 ml 19 - 49 LV E/e', lateral 8.6 --------- LV E/e', medial 10.2 --------- LV E/e', average 9.3 --------- Ventricular septum Value Reference IVS thickness, ED (H) 1.3 cm 0.6 - 0.9 LVOT Value Reference LVOT ID, A-P 2.0 cm --------- LVOT mean velocity, S 0.7 m/sec --------- LVOT VTI, S 19.4 cm --------- LVOT peak gradient, S 3 mm Hg --------- Stroke volume (SV), LVOT DP 61 ml --------- Stroke index (SV/bsa), LVOT DP 28 ml/m2 --------- Aortic valve Value Reference Aortic annulus diameter, ED 2.0 cm --------- Aorta Value Reference Ascending aorta ID, A-P, S 3.6 cm --------- Left atrium Value Reference LA volume/bsa, ES, 2-p 32 ml/m2 --------- Mitral valve Value Reference Mitral E-wave peak velocity 0.5 m/sec --------- Mitral A-wave peak velocity 0.5 m/sec --------- Mitral deceleration time 190 ms --------- Mitral E/A ratio, peak 1.0 --------- Tricuspid valve Value Reference Tricuspid regurg peak velocity 2.6 m/sec --------- Tricuspid peak RV-RA gradient 26 mm Hg --------- Right atrium Value Reference RA area, ES, A4C 15 cm2 10 - 18 Right ventricle Value Reference RV ID, minor axis, ED, A4C mid (H) 3.7 cm 2.0 - 3.5 Pulmonic valve Value Reference Pulmonic peak gradient, S 2 mm Hg --------- Legend: (L) and (H) kimberly values outside specified reference range. Electronically signed by Hardik Adorno MD 09/27/2017 16:56 Final Dictated: 09/27/2017 4:56 pm Dictating Physician: HARDIK ADORNO Signed Date and Time: 09/27/2017 4:56 pm Signed by: HARDIK ADORNO Normal [facility] SKIN / NAIL BIOPSY [facility] Vital Signs Date Time Vital Sign Value Performing Clinician Facility 02-07-2025 09:15-0400 Body height 158.8 cm Reina Cunha MD Work Phone: [facility] 02-07-2025 09:15-0400 Body mass index (BMI) [Ratio] 56.52 kg/m2 Reina Cunha MD Work Phone: [facility] 02-07-2025 09:15-0400 Body weight 142.43 kg Reina Cunha MD Work Phone: [facility] 02-07-2025 09:15-0400 Diastolic blood pressure 60 mm[Hg] Reina Cunha MD Work Phone: [facility] 02-07-2025 09:15-0400 Heart rate 71 /min Reina Cunha MD Work Phone: [facility] 02-07-2025 09:15-0400 Systolic blood pressure 97 mm[Hg] Reina Cunha MD Work Phone: [facility] 01-03-2025 10:54-0400 Body height 158.8 cm Kimberly Grullon MD Work Phone: [facility] 01-03-2025 10:54-0400 Body mass index (BMI) [Ratio] 55.98 kg/m2 Kimberly Grullon MD Work Phone: [facility] 01-03-2025 10:54-0400 Body weight 141.07 kg Kimberly Grullon MD Work Phone: [facility] 01-03-2025 10:54-0400 Diastolic blood pressure 84 mm[Hg] Kimberly Grullon MD Work Phone: [facility] 01-03-2025 10:54-0400 Heart rate 80 /min Kimberly Grullon MD Work Phone: [facility] 01-03-2025 10:54-0400 Respiratory rate 15 /min Kimberly Grullon MD Work Phone: [facility] 01-03-2025 10:54-0400 Systolic blood pressure 123 mm[Hg] Kimberly Grullon MD Work Phone: [facility] 12-06-2024 10:30-0400 Body height 158.8 cm Reina Cunha MD Work Phone: [facility] 12-06-2024 10:30-0400 Body mass index (BMI) [Ratio] 55.8 kg/m2 Reina Cunha MD Work Phone: [facility] 12-06-2024 10:30-0400 Body weight 140.62 kg Reina Cunha MD Work Phone: [facility] 12-06-2024 10:30-0400 Diastolic blood pressure 74 mm[Hg] Reina Cunha MD Work Phone: [facility] 12-06-2024 10:30-0400 Heart rate 64 /min Reina Cunha MD Work Phone: [facility] 12-06-2024 10:30-0400 Systolic blood pressure 110 mm[Hg] Reina Cunha MD Work Phone: [facility] 10-18-2024 10:22-0400 Body height 158.8 cm Reina Cunha MD Work Phone: [facility] 10-18-2024 10:22-0400 Body mass index (BMI) [Ratio] 54.86 kg/m2 Reina Cunha MD Work Phone: [facility] 10-18-2024 10:220400 Body weight 138.26 kg Reina Cunha MD Work Phone: [facility] 10-18-2024 10:22-0400 Diastolic blood pressure 75 mm[Hg] Reina Cunha MD Work Phone: [facility] 10-18-2024 10:22-0400 Heart rate 64 /min Reina Cunha MD Work Phone: [facility] 10-18-2024 10:22-0400 Systolic blood pressure 116 mm[Hg] Reina Cunha MD Work Phone: [facility] 07-24-2024 14:23-0400 Body height 158.8 cm Reina Cunha MD Work Phone: [facility] 07-24-2024 14:23-0400 Body mass index (BMI) [Ratio] 55.76 kg/m2 Reina Cunha MD Work Phone: [facility] 07-24-2024 14:23-0400 Body weight 140.52 kg Reina Cunha MD Work Phone: [facility] 07-24-2024 14:23-0400 Diastolic blood pressure 66 mm[Hg] Reina Cunha MD Work Phone: [facility] 07-24-2024 14:23-0400 Heart rate 80 /min Reina Cunha MD Work Phone: [facility] 07-24-2024 14:23-0400 Systolic blood pressure 106 mm[Hg] Reina Cunha MD Work Phone: [facility] 07-01-2024 09:51-0400 Body height 158.8 cm Maddison Jordan APRN - [employer] Work Phone: [facility] 07-01-2024 09:51-0400 Body mass index (BMI) [Ratio] 55.26 kg/m2 Maddison Jordan APRN - [employer]ER [employer]OSS Work Phone: [facility] [employer] 07-01-2024 09:51-0400 Body weight 139.25 kg Maddison Jordan FRETTED STRING INSTRUMENT REPAIRER - BREAKER [employer]OSS Work Phone: [facility] [employer] 07-01-2024 09:51-0400 Diastolic blood pressure 82 mm[Hg] Maddison Jordan APRN - BREAKER [employer]OSS Work Phone: [facility] [employer] 07-01-2024 09:51-0400 Heart rate 69 /min Maddison Jordan APRN - BREAKER BOSS Work Phone: [facility] [employer] 07-01-2024 09:51-0400 Systolic blood pressure 124 mm[Hg] Maddison Jordan APRN - BREAKER BOSS Work Phone: [facility] [employer] 01-02-2024 10:29-0400 Diastolic blood pressure 68 mm[Hg] Maddison Jordan APRN - BREAKER BOSS Work Phone: [facility] 01-02-2024 10:29-0400 Systolic blood pressure 110 mm[Hg] Maddison Jordan APRN - BREAKER BOSS Work Phone: [facility] [employer] 01-02-2024 09:42-0400 Body height 158.8 cm Maddison Jordan APRN - BREAKER BOSS Work Phone: [facility] 01-02-2024 09:42-0400 Body mass index (BMI) [Ratio] 55.8 kg/m2 Maddison Jordan APRN - BREAKER BOSS Work Phone: [facility] [employer] 01-02-2024 09:42-0400 Body weight 140.62 kg Maddison Jordan APRN - BREAKER BOSS Work Phone: [facility] 01-02-2024 09:42-0400 Heart rate 76 /min Maddison Jordan FRETTED STRING INSTRUMENT REPAIRER - BREAKER BOSS Work Phone: [facility] 01-02-2024 09:42-0400 Respiratory rate 16 /min Maddison Jordan FRETTED STRING INSTRUMENT REPAIRER - BREAKER BOSS Work Phone: [facility] 07-17-2023 20:48-0400 Body temperature 97.9 [degF] [facility] 07-17-2023 20:48-0400 Diastolic blood pressure 84 mm[Hg] [facility] 07-17-2023 20:48-0400 Heart rate 72 /min [facility] 07-17-2023 20:48-0400 Respiratory rate 18 /min [facility] 07-17-2023 20:48-0400 SaO2% (BldA) [Mass fraction] 97 % [facility] 07-17-2023 20:48-0400 Systolic blood pressure 141 mm[Hg] [facility] 07-17-2023 18:46-0400 Body height 157.48 cm [facility] 07-17-2023 18:46-0400 Body mass index (BMI) [Ratio] 55.7 kg/m2 [facility] 07-17-2023 18:46-0400 Body weight 138.34 kg [facility] 06-23-2023 10:54-0500 Body height 158.8 cm Kimberly Grullon MD Work Phone: [facility] 06-23-2023 10:54-0500 Body mass index (BMI) [Ratio] 54.9 kg/m2 Kimberly Grullon MD Work Phone: [facility] 06-23-2023 10:54-0500 Body weight 138.35 kg Kimberly Grullon MD Work Phone: [facility] 06-23-2023 10:54-0500 Diastolic blood pressure 60 mm[Hg] Kimberly Grullon MD Work Phone: [facility] 06-23-2023 10:54-0500 Heart rate 64 /min Kimberly Grullon MD Work Phone: [facility] 06-23-2023 10:54-0500 Respiratory rate 15 /min Kimberly Grullon MD Work Phone: [facility] 06-23-2023 10:54-0500 Systolic blood pressure 100 mm[Hg] Kimberly Grullon MD Work Phone: [facility] 04-14-2023 21:14-0500 Diastolic blood pressure 82 mm[Hg] [facility] 04-14-2023 21:14-0500 Heart rate 79 /min [facility] 04-14-2023 21:14-0500 Respiratory rate 20 /min [facility] 04-14-2023 21:14-0500 SaO2% (BldA) [Mass fraction] 99 % [facility] 04-14-2023 21:14-0500 Systolic blood pressure 130 mm[Hg] [facility] 04-14-2023 17:34-0500 Body height 157.48 cm [facility] 04-14-2023 17:34-0500 Body mass index (BMI) [Ratio] 56.1 kg/m2 [facility] 04-14-2023 17:34-0500 Body temperature 97.6 [degF] [facility] 04-14-2023 17:34-0500 Body weight 139.25 kg [facility] 01-17-2023 14:40-0400 Body height 158.8 cm Danielle Huertas MD Work Phone: [facility] 01-17-2023 14:40-0400 Body mass index (BMI) [Ratio] 54.9 kg/m2 Danielle Huertas MD Work Phone: [facility] 01-17-2023 14:40-0400 Body weight 138.35 kg Danielle Huertas MD Work Phone: [facility] 01-17-2023 14:40-0400 Diastolic blood pressure 75 mm[Hg] Danielle Huertas MD Work Phone: [facility] 01-17-2023 14:40-0400 Systolic blood pressure 122 mm[Hg] Danielle Huertas MD Work Phone: [facility] 06-10-2022 10:12-0500 Body height 158.8 cm Maddison Jordan APRN - BREAKER BOSS Work Phone: [facility] 06-10-2022 10:12-0500 Body mass index (BMI) [Ratio] 55.98 kg/m2 Maddison Jordan APRN - BREAKER BOSS Work Phone: [facility] 06-10-2022 10:12-0500 Body weight 141.07 kg Maddison Jordan APRN - BREAKER BOSS Work Phone: [facility] 06-10-2022 10:12-0500 Diastolic blood pressure 82 mm[Hg] Maddison Jordan APRN - BREAKER BOSS Work Phone: [facility] 06-10-2022 10:12-0500 Heart rate 69 /min Maddison Jordan APRN - BREAKER BOSS Work Phone: [facility] 06-10-2022 10:12-0500 Respiratory rate 16 /min Maddison Jordan APRN - BREAKER BOSS Work Phone: [facility] 06-10-2022 10:12-0500 Systolic blood pressure 114 mm[Hg] Maddison Jordan APRN - BREAKER BOSS Work Phone: [facility] 05-02-2022 09:13-0500 Body height 158.75 cm [facility] 05-02-2022 09:13-0500 Body weight 139.61 kg [facility] 03-28-2022 09:24-0500 Body height 158.75 cm [facility] Work Phone: 03-28-2022 09:24-0500 Body weight 139.43 kg [facility] 02-21-2022 09:22-0400 Body height 158.[address] Omi Garcia Work Phone: [facility] Work Phone: 02-21-2022 09:22-0400 Body weight 139.[address] Omi Garcia Work Phone: [facility] 01-11-2022 09:37-0400 Body height 158.[address] Omi Garcia Work Phone: [facility] Work Phone: 01-11-2022 09:37-0400 Body weight 138.[address] Omi Garcia Work Phone: [facility] Work Phone: 12-17-2021 08:16-0400 Body temperature 97.11 [degF] Inderjit Snyder MD Work Phone: [facility] 12-17-2021 08:16-0400 Diastolic blood pressure 83 mm[Hg] Inderjit Snyder MD Work Phone: [facility] 12-17-2021 08:16-0400 Heart rate 70 /min Inderjit Snyder MD Work Phone: [facility] 12-17-2021 08:16-0400 Respiratory rate 16 /min Inderjit Snyder MD Work Phone: [facility] 12-17-2021 08:16-0400 SaO2% (BldA) [Mass fraction] 95 % Inderjit Snyder MD Work Phone: [facility] 12-17-2021 08:16-0400 Systolic blood pressure 121 mm[Hg] Inderjit Snyder MD Work Phone: [facility] 12-13-2021 09:20-0400 Body height 158.[address] Omi Garcia Work Phone: [facility] Work Phone: 12-13-2021 09:20-0400 Body weight 137.[address] Omi Garcia Work Phone: [facility] Work Phone: 11-09-2021 08:53-0400 Body height 158.[address] Omi Garcia Work Phone: [facility] Work Phone: 11-09-2021 08:53-0400 Body weight 136.[address] Omi Garcia Work Phone: [facility] Work Phone: 10-26-2021 12:19-0400 Body temperature 97.7 [degF] Dr. Omi Garcia Work Phone: [facility] Work Phone: 10-26-2021 12:19-0400 Diastolic blood pressure 82 mm[Hg] Dr. Omi Garcia Work Phone: [facility] Work Phone: 10-26-2021 12:19-0400 Heart rate 80 /min Dr. Omi Garcia Work Phone: [facility] Work Phone: 10-26-2021 12:19-0400 Respiratory rate 16 /min Dr. Omi Garcia Work Phone: [facility] Work Phone: 10-26-2021 12:19-0400 SaO2% (BldA) [Mass fraction] 96 % Dr. Omi Garcia Work Phone: [facility] Work Phone: 10-26-2021 12:19-0400 Systolic blood pressure 120 mm[Hg] Dr. Omi Garcia Work Phone: [facility] Work Phone: 10-19-2021 16:11-0400 Body mass index (BMI) [Ratio] 54.1 kg/m2 Dr. Omi Garcia Work Phone: [facility] Work Phone: 10-19-2021 16:11-0400 Body temperature 98.4 [degF] Dr. Omi Garcia Work Phone: [facility] Work Phone: 10-19-2021 16:11-0400 Body weight 134.[address] Omi Garcia Work Phone: [facility] Work Phone: 10-19-2021 16:11-0400 Diastolic blood pressure 86 mm[Hg] Dr. Omi Garcia Work Phone: [facility] Work Phone: 10-19-2021 16:11-0400 Heart rate 75 /min Dr. Omi Garcia Work Phone: [facility] Work Phone: 10-19-2021 16:11-0400 Respiratory rate 14 /min Dr. Omi Garcia Work Phone: [facility] Work Phone: 10-19-2021 16:11-0400 SaO2% (BldA) [Mass fraction] 95 % Dr. Omi Garcia Work Phone: [facility] Work Phone: 10-19-2021 16:11-0400 Systolic blood pressure 120 mm[Hg] Dr. Omi Garcia Work Phone: [facility] Work Phone: 12-11-2020 21:37-0400 Heart rate 96 /min Jose E Szymanski MD Work Phone: [facility] Work Phone: 12-11-2020 19:27-0400 Body height 158.8 cm Jose E Szymanski MD Work Phone: [facility] Work Phone: 12-11-2020 19:27-0400 Body mass index (BMI) [Ratio] 51.66 kg/m2 Jose E Szymanski MD Work Phone: [facility] Work Phone: 12-11-2020 19:27-0400 Body temperature 98.49 [degF] Jose E Szymanski MD Work Phone: [facility] Work Phone: 12-11-2020 19:27-0400 Body weight 130.18 kg Jose E Szymanski MD Work Phone: [facility] Work Phone: 12-11-2020 19:27-0400 Diastolic blood pressure 95 mm[Hg] Jose E Szymanski MD Work Phone: [facility] Work Phone: 12-11-2020 19:27-0400 Respiratory rate 22 /min Jose E Szymanski MD Work Phone: [facility] Work Phone: 12-11-2020 19:27-0400 SaO2% (BldA) [Mass fraction] 94 % Jose E Szymanski MD Work Phone: [facility] Work Phone: 12-11-2020 19:27-0400 Systolic blood pressure 149 mm[Hg] Jose E Szymanski MD Work Phone: [facility] Work Phone: Encounters Encounter Date Encounter Type Care Provider Facility Start: 02-13-2025 End: 02-13-2025 Refill Iraida Kaplan FRETTED STRING INSTRUMENT REPAIRER - BREAKER BOSS Work Phone: [facility] Cardiology - [place] Start: 02-07-2025 End: 02-07-2025 Office outpatient visit 15 minutes Reina Cunha MD Work Phone: [facility] Weight Management [facility] Comment on above: JENY treated with BiP AP (Primary Dx); BMI 50.0-59.9, adult (CMS/[facility]); Class 3 severe obesity due to excess calories with serious comorbidity and body mass index (BMI) of 50.0 to 59.9 in adult (CMS/HCC); Water retention Start: 02-07-2025 End: 02-07-2025 ambulatory [facility] Start: 01-24-2025 End: 01-28-2025 Refill Maddison Jordan FRETTED STRING INSTRUMENT REPAIRER - BREAKER BOSS Work Phone: [facility] Cardiology - [place] Start: 01-03-2025 End: 01-03-2025 Office outpatient visit 25 minutes Kimberly Grullon MD Work Phone: [facility] Cardiology - [place] Comment on above: Chronic diastolic he art failure (HCC) (Primary Dx); BMI 50.0-59.9, adult (HCC) Start: 01-03-2025 End: 01-03-2025 ambulatory OMI GARCIA [facility] Start: 12-27-2024 End: 12-27-[address] Omi Garcia DO Work Phone: -Cardiovascular Services Start: 12-27-2024 End: 12-27-[address] Johnnie Kenney MD -Cardiovascular Services Work Phone: Start: 12-27-2024 End: 12-27-2024 ambulatory Omi Garcia Facility:[facility] Start: 12-25-2024 Non-patient / Non-visit Dr. Kamran garcia MD -[facility] Start: 12-25-2024 End: 12-25-2024 ambulatory Omi Wali Garcia Facility:[facility] Start: 12-25-2024 End: 12-25-[address] Johnnie Kenney MD -Cardiovascular Services Work Phone: Start: 12-25-2024 End: 12-25-2024 ambulatory Omi Keyes Jose Facility:[facility] Start: 12-06-2024 End: 12-06-2024 Office outpatient visit 15 minutes Reina Cunha MD Work Phone: [facility] Weight Management - [place] Comment on above: JENY treated with BiP AP (Primary Dx); BMI 50.0-59.9, adult (HCC); Class 3 severe obesity due to excess calories with serious comorbidity and body mass index (BMI) of 50.0 to 59.9 in adult; Water retention Start: 12-06-2024 End: 12-06-2024 ambulatory OMI JOSE [facility] Start: 12-03-2024 End: 12-03-[address] Omi Garcia DO Work Phone: -Laboratory [place] Start: 12-03-2024 End: 12-03-[address] Johnnie Kenney MD -[facility]atory [place] Work Phone: Start: 12-03-2024 End: 12-03-2024 ambulatory [facility] Facility:[facility] Start: 11-20-2024 End: 11-21-2024 Telephone encounter Kimberly Grullon MD Work Phone: [facility] Comment on above: Med Management Start: 10-22-2024 Non-patient / Non-visit Dr. Lin edouard MD -[facility] Work Phone: Start: 10-18-2024 End: 10-18-2024 Office outpatient visit 15 minutes [facility] C[facility] MD [facility] Comment on above: JENY treated with BiP AP (Primary Dx); BMI 50.0-59.9, adult (HCC); Class 3 severe obesity due to excess calories with serious comorbidity and body mass index (BMI) of 50.0 to 59.9 in adult Start: 10-18-2024 End: 10-18-2024 ambulatory [facility] Start: 09-30-2024 End: 09-30-2024 Refill Maddison Sosa [facility] Start: 09-09-2024 End: 09-09-2024 Telephone encounter Reina Cunha MD Work Phone: [facility] Weight Management [facility] Start: 09-06-2024 End: 09-06-2024 ambulatory [facility] Start: 09-06-2024 End: 09-06-2024 Office outpatient visit 15 minutes Reina Cunha MD Work [facility]: [facility] Comment on above: JENY treated with BiP AP (Primary Dx); BMI 50.0-59.9, adult (HCC); Class 3 severe obesity due to excess calories with serious comorbidity and body mass index (BMI) of 50.0 to 59.9 in adult Start: 08-25-2024 End: 08-25-2024 ambulatory Alea Rod RN [facility] Clinical Communication Start: 08-25-2024 End: 08-25-2024 Patient encounter procedure Alea Rod RN [facility] Clinical Communication Start: 07-24-2024 End: 07-24-2024 Office outpatient new 45 minutes Reina Cunha MD Work Phone: [facility] Weight Management - [place] Comment on above: JENY treated with BiP AP (Primary Dx); BMI 50.0-59.9, adult ([facility]); Class 3 severe obesity due to excess calories with serious comorbidity and body mass index (BMI) of 50.0 to 59.9 in adult ([facility]) Start: 07-24-2024 End: 07-24-2024 ambulatory [facility] Start: 07-01-2024 End: 07-01-2024 Office outpatient visit 25 minutes Maddison Sosa CNP Work Phone: [facility] Cardiology - [place] Comment on above: Obstructive sleep ap solomon syndrome (Primary Dx); Heart failure with recovered ejection fraction (HFrecEF) ([facility]) Start: 07-01-2024 End: 07-01-2024 ambulatory [facility] Start: 06-28-2024 End: 06-28-[address] Omi Garcia DO Work Phone: [facility] Work Phone: Start: 06-28-2024 End: 06-28-[address] Omi Garcia DO -Outpatient Breast Imaging Work Phone: Start: 06-28-2024 End: 06-28-2024 ambulatory Omi Garcia Facility:[facility] Start: 06-05-2024 End: 06-05-2024 ambulatory TARSHA CARCAMO [facility] Start: 06-05-2024 End: 09-04-2024 Subsequent hospital visit by physician Tarsha Carcamo Work Phone: [facility] Radiology Comment on above: Pain in left shoulde r Pain in left shoulde r (Primary Dx) Start: 04-22-2024 End: 04-22-2024 Refill Kimberly A Iler MD Work Phone: [facility] [place] Start: 01-02-2024 End: 01-02-2024 Office outpatient visit 25 minutes Maddison Jordan FRETTED STRING INSTRUMENT REPAIRER - BREAKER BOSS Work Phone: [facility] Comment on above: Chronic systolic hea rt failure (HCC) (Primary Dx); BMI 50.0-59.9, adult (HCC); Sleep apnea, unspecified type Start: 09-28-2023 Refill Maddison Jordan FRETTED STRING INSTRUMENT REPAIRER - BREAKER BOSS Work Phone: [facility] Cardiology Start: 09-06-2023 Refill Maddison Jordan FRETTED STRING INSTRUMENT REPAIRER - BREAKER BOSS Work Phone: [facility] Cardiology Start: 07-17-2023 End: 07-17-2023 Emergency department patient visit [facility]-Emergency Department Work Phone: Start: 06-23-2023 End: 06-23-2023 Office outpatient visit 25 minutes Kimberly Grullon MD Work Phone: [facility] Cardiology Comment on above: Chronic systolic hea rt failure (HCC) (Primary Dx); BMI 50.0-59.9, adult (HCC) Start: 06-17-2023 Transcribe Orders Omi marc DO Work Phone: [facility] Central Scheduling Comment on above: Paresthesia of skin (Primary Dx) Start: 06-05-2023 Refill Kimberly Grullon MD Work Phone: [facility] Cardiology Start: 04-14-2023 End: 04-14-2023 Emergency department patient visit [facility]-Emergency Department Work Phone: Start: 01-17-2023 End: 01-17-2023 Office outpatient visit 25 minutes Danielle Huertas MD Work Phone: [facility] Orthopedics and Sports Medicine Comment on above: Primary osteoarthrit is of right knee (Primary Dx) Start: 12-16-2022 Telephone encounter Juan villa MD Work Phone: [facility] Comment on above: Cancelled Appointmen t Start: 11-04-2022 End: 11-04-2022 ambulatory Omi Garcia DO Work Phone: [facility] Laboratory Comment on above: Arrived Prediabetes (Primary Dx); Pure hypercholesterolemia, unspecified; Hyperparathyroidism, unspecified (HCC); Vitamin D deficiency, unspecified Start: 09-27-2022 Telephone encounter Lary Herr MD Work Phone: [facility] Clinical Communication Comment on above: Appointment Request Start: 09-17-2022 Refill Kimberly Grullon MD Work Phone: [facility] Cardiology Start: 08-12-2022 Refill Kimberly Grullon MD Work Phone: [facility] Cardiology Start: 06-10-2022 End: 06-10-2022 Office outpatient visit 25 minutes Maddison Sosa CNP Work Phone: [facility] Comment on above: Chronic systolic hea rt failure (CMS/HCC) (HCC) (Primary Dx); Hypertension, essential; Obstructive sleep apnea syndrome; Palpitations; BMI 50.0-59.9, adult (CMS/HCC) (HCC) Start: 05-02-2022 End: 05-24-2022 ambulatory Kimberly Grullon MD Work Phone: [facility] Start: 05-02-2022 End: 05-24-2022 [facility] Start: 03-28-2022 End: 04-23-2022 ambulatory [facility] Work Phone: Start: 03-28-2022 End: 04-23-2022 Discharged Recurring [facility]-Nutritional Services Start: 03-28-2022 Registered Recurring [facility] Start: 02-21-2022 End: 02-21-[address] Omi Garcia Work Phone: [facility] Work Phone: Start: 02-21-2022 End: 02-21-[address] Omi Garcia Work Phone: [facility]-Nutritional Services Start: 02-18-2022 End: 02-18-[address] Omi Garcia Work Phone: [facility] Work Phone: Start: 02-18-2022 End: 02-18-[address] Omi Garcia Work Phone: [facility]-Outpatient Breast Imaging Start: 02-15-2022 ambulatory Omi Garcia [facility] Start: 02-11-2022 ambulatory [facility] Start: 02-11-2022 End: 02-11-2022 Subsequent hospital visit by physician Kimberly Grullon MD Work Phone: [facility] Comment on above: HFrEF (heart failure with reduced ejection fraction) ([facility]) Start: 02-02-2022 End: 02-02-2022 Subsequent hospital visit by physician Brittnee PACHECO [facility] Start: 01-28-2022 End: 01-28-2022 Subsequent hospital visit by physician Brittnee PACHECO Work Phone: [facility] [place] [facility] Start: 01-14-2022 End: 01-14-2022 Subsequent hospital visit by physician Brittnee PACHECO Work Phone: [facility] [place] [facility] Start: 01-11-2022 End: 01-21-[address] Omi Garcia Work Phone: [facility] Work Phone: Start: 01-11-2022 End: 01-21-[address] Omi Garcia Work Phone: [facility]-Nutritional Services Start: 01-07-2022 End: 01-07-2022 ambulatory [facility] Work Phone: Start: 01-07-2022 End: 01-07-2022 Discharged Recurring [facility]-Occupational Therapy Start: 01-07-[address] Dae Garcia Work Phone: [facility]-Occupational Therapy Start: 12-17-2021 End: 12-17-2021 ambulatory [facility] Start: 12-17-2021 End: 12-17-2021 Subsequent hospital visit by physician Inderjit Snyder MD Work Phone: [facility] Surgery Comment on above: S/P trigger finger r elease (Primary Dx) Start: 12-13-2021 End: 12-22-[address] Omi Garcia Work Phone: [facility] Work Phone: Start: 12-13-2021 End: 12-22-[address] [facility] Start: 12-09-[address] [facility] Start: 11-18-[address] [facility] Start: 11-09-2021 End: 11-21-[address] [facility] Start: 10-26-2021 End: 10-26-[address] Omi Garcia Work Phone: [facility] Start: 10-19-2021 End: 10-19-[address] Omi Garcia Work Phone: [facility] Start: 08-31-2021 End: 08-31-2021 Patient encounter procedure Hua Barbosa MD Work Phone: Dermatology Comment on above: Wells' syndrome (Zee laquita Dx) Start: 07-30-2021 ambulatory [facility] Start: 07-29-2021 Telephone encounter Cass Kervin flynn FRETTED STRING INSTRUMENT REPAIRER.BREAKER BOSS Work Phone: Dermatology Comment on above: Results Start: 07-27-2021 End: 07-27-2021 Patient encounter procedure Cass Polanco FRETTED STRING INSTRUMENT REPAIRER.BREAKER BOSS Work Phone: Dermatology Comment on above: Rash and nonspecific skin eruption (Primary Dx) Start: 07-13-2021 [facility] Start: 07-13-2021 End: 07-13-2021 Subsequent hospital visit by physician Pamela Bautista FRETTED STRING INSTRUMENT REPAIRER - BREAKER BOSS Work Phone: [facility] Comment on above: Chronic systolic hea rt failure (HCC) Start: 06-16-2021 ambulatory [facility] PROVIDER [facility] Start: 04-30-2021 ambulatory [facility] Start: 04-30-2021 End: 04-30-2021 Subsequent hospital visit by physician Kimberly Grullon MD Work Phone: [facility] Comment on above: Chronic systolic hea rt failure (HCC) Start: 03-02-2021 ambulatory [facility] PROVIDER [facility] Start: 03-02-2021 End: 03-02-2021 Subsequent hospital visit by physician Diana Romero MD Work Phone: [facility] [address] [facility] Comment on above: SOB (shortness of br eath) Start: 03-02-2021 ambulatory [facility] PROVIDER [facility] Start: 03-02-2021 End: 03-02-2021 Subsequent hospital visit by physician Kimberly Grullon MD Work Phone: [facility] Comment on above: Arrived Start: 02-01-2021 End: 02-01-2021 Subsequent hospital visit by physician Kimberly Grullon MD Work Phone: [facility] Start: 01-29-2021 End: 01-29-2021 Subsequent hospital visit by physician Kimberly Grullon MD Work Phone: [facility] Comment on above: Acute on chronic hea rt failure with preserved ejection fraction (HCC); Shortness of breath Start: 12-23-2020 End: 12-23-2020 Subsequent hospital visit by physician Omi Garcia DO Work Phone: [facility] Comment on above: Arrived Start: 12-11-2020 End: 12-11-2020 Emergency department patient visit Jose E Szymanski MD Work Phone: [facility] Comment on above: Acute congestive hea rt failure, unspecified heart failure type (HCC) (Primary Dx); Dyspnea, unspecified type; Acute pulmonary edema (HCC) Start: 12-11-2020 End: 12-11-2020 Subsequent hospital visit by physician Latonia Sosa CNP Other Phone: [facility] Start: 10-21-2019 End: 10-21-2019 Subsequent hospital visit by physician Omi Garcia Work Phone: [facility] Start: 05-02-2019 End: 05-02-2019 Subsequent hospital visit by physician Omi Garcia DO Work Phone: [facility] Comment on above: Arrived Start: 09-27-[address] [facility] Procedures Date Procedure Procedure Detail Performing Clinician Start: 07-01-2024 Ecg routine ecg w/least 12 lds trcg only w/o i&r Kimberly Grullon MD Work Phone: Start: 06-28-2024 End: 06-28-[address] Omi Garcia DO Work Phone: Start: 06-05-2024 Radex shoulder complete minimum 2 views Tarsha Carcamo Work Phone: Start: 06-23-2023 Ecg routine ecg w/least 12 lds w/i&r Kimberly Grullon MD Work Phone: Start: 04-14-2023 CT angiography of chest with contrast Start: 04-14-2023 Plain chest X-ray Start: 04-14-2023 SARS-CoV-2 & FLU Antigen (Rapid) Start: 04-14-2023 Viral antigen assay Start: 11-04-2022 Comprehensive metabolic panel Omi Garcia DO Work Phone: Start: 11-04-2022 Lipid panel Omigrzegorz Garcia DO Work Phone: Start: 11-04-2022 Lipid 1996 panel - Serum or Plasma [facility] Start: 06-10-2022 Ecg routine ecg w/least 12 lds w/i&r Dillan Peterson MD Work Phone: Start: 02-18-2022 End: 02-18-[address] Omi Garcia Work Phone: Start: 02-11-2022 Echo tthrc r-t 2d w/wom-mode compl spec&colr d Kimberly Grullon MD Work Phone: Start: 12-17-2021 OPERATIVE REPORT Physician Generic Start: 07-27-2021 SKIN / NAIL BIOPSY Cass Polanco FRETTED STRING INSTRUMENT REPAIRER.[employer] Work Phone: Start: 07-13-2021 Basic metabolic panel calcium total Pamela Bautista FRETTED STRING INSTRUMENT REPAIRER - [employer]ER [employer] Work Phone: Start: 04-30-2021 Basic metabolic panel calcium total Kimberly Grullon MD Work Phone: Start: 03-02-2021 Blood count hematocrit Diana Romero MD Work Phone: Start: 03-02-2021 Cardiac mri w/wo contrast & further seq Kimberly Grullon MD Work Phone: Start: 01-29-2021 Basic metabolic panel calcium total Kimberly Grullon MD Work Phone: Start: 12-23-2020 Echo tthrc r-t 2d w/wom-mode compl spec&colr d Omi Garcia DO Work Phone: Start: 12-11-2020 Ct angiography chest w/contrast/noncontrast Jose E Szymanski MD Work Phone: Start: 12-11-2020 Natriuretic peptide Jose E strickland MD Work Phone: Start: 12-11-2020 Ecg routine ecg w/least 12 lds w/i&r Jose E Szymanski MD Work Phone: Start: 12-11-2020 Radiologic exam chest 2 views Latonia Owens FRETTED STRING INSTRUMENT REPAIRER - [employer]ER [employer]OSS Other Phone: Start: 12-11-2020 Comprehensive metabolic panel Latonia Owens MICHELLE - [employer]ER [employer] Other Phone: Start: 10-21-2019 Radiologic exam both knees standing anteropost Omi Garcia Work Phone: Start: 10-21-2019 Radiologic exam knee complete 4/more views Omi Garcia Work Phone: Start: 05-02-2019 Dxa bone density study 1/> sites axial skel Omi Garcia DO Work Phone: Start: 04-28-2014 Mammography Cass Collin MARTINEZ.BREAKER BOSS Work Phone: Start: 06-26-2013 Colonoscopy Cass Polanco APRN.[employer]ER [employer] Work Phone: H/O: surgery S/P trigger fing er release Inderjit Snyder MD Work Phone: Plan of Treatment Date Care Activity Detail Author Start: 06-30-2025 Depression Monitoring Depression Monitoring [facility] Start: 06-28-2025 Screening for malignant neoplasm of breast Mammogram [facility] Start: 03-07-2025 End: 03-07-2025 Patient encounter procedure 03/07/2025 10:30 AM EST Office Visit [facility] [place] [address] Reina Cunha MD [address] [place], [place] [id number] [facility] Weight Management - [place] Start: 02-07-2025 End: 02-07-2025 Patient encounter procedure 02/07/2025 9:30 AM EDT Office Visit [facility] Weight Management [place] [address] Reina Cunha MD [address] [place] [address] [facility] Weight Management - [place] Start: 01-03-2025 End: 01-03-2025 Patient encounter procedure 01/03/2025 11:00 AM EDT Office Visit [facility] Cardiology - [place] [address] [place] [phone] Kimberly Grullon MD [address] [place] [address] [facility] Cardiology - [place] Start: 12-23-2024 COVID-19 Vaccine ( season) COVID-19 Vaccine () [facility] Start: 12-23-2024 Influenza vaccination [facility] Start: 12-06-2024 End: 12-06-2024 Patient encounter procedure 12/06/2024 10:30 AM EDT Office Visit [facility] Weight Management - [place] [phone] Reina Cunha MD [address] [place], [place] [phone] [facility] Weight Management - [place] Start: 10-18-2024 End: 10-18-2024 Patient encounter procedure [facility] Weight Management - [place] Start: 09-06-2024 End: 09-06-2024 Patient encounter procedure 09/06/2024 12:40 PM EDT Office Visit [facility] Weight Management - [place] [address] [place] [phone] Reina Cunha MD [address] [facility] [address] [place], [place] [phone] [facility] Weight Management - [place] Start: 07-24-2024 End: 07-24-2024 Patient encounter procedure 07/24/2024 2:30 PM EDT Office Visit [facility] Weight Management - [place] [address] Reina Cunha MD [address] [place] [address] [facility] Weight Management - [place] Start: 07-01-2024 End: 07-01-2024 Patient encounter procedure 07/01/2024 10:00 AM EDT Office Visit [facility] Cardiology [place] [facility] [address] [place] [phone] Maddison Jordan, FRETTED STRING INSTRUMENT REPAIRER - BREAKER [employer]OSS [address] [place], [place] [address] [facility] Start: 12-24-2023 COVID-19 Vaccine ( season) COVID-19 Vaccine () [facility] Start: 12-24-2023 COVID-19 Vaccine ( season) COVID-19 Vaccine ( season) [facility] Start: 12-24-2023 Influenza vaccination [facility] Start: 11-05-2023 Creatinine measurement Creatinine Level [facility] Start: 11-05-2023 Diabetes: Estimated Glomerular Filtration Rate for Kidney Health Diabetes: Estimated Glomerular Filtration Rate for Kidney Health [facility] Start: 11-05-2023 Hemoglobin A1c measurement Diabetes: Hemoglobin A1C [facility] Start: 11-05-2023 Lipid panel Lipid Panel [facility] Start: 11-05-2023 Potassium measurement Potassium Level [facility] Start: 09-25-2023 DIABETES SCREEN DIABETES SCREEN [facility] Start: 07-17-2023 [facility] Start: 07-17-2023 X-ray of both feet Foot min 3 Views [facility] Start: 07-17-2023 XR Foot GE 3 Views [facility] Start: 07-17-2023 End: 07-17-2023 Blood culture [facility] Start: 07-17-2023 Bacteria identified in Blood by Culture Blood Culture [facility] Start: 06-27-2023 Screening for malignant neoplasm of colon [facility] Start: 06-27-2023 End: 06-27-2023 Patient encounter procedure 06/27/2023 10:30 AM EST Appointment [facility] [address] [place] [address] [place] [phone] [facility] Start: 06-23-2023 End: 06-23-2023 Patient encounter procedure 06/23/2023 10:30 AM EST Office Visit [facility] Cardiology [address] [place] [phone] Kimberly Grullon MD [address] [place], [place] [phone] [facility] Cardiology Start: 04-14-2023 [facility] Start: 04-14-2023 [facility] Start: 02-18-2023 Screening for malignant neoplasm of breast Mammogram [facility] Start: 01-17-2023 End: 01-17-2023 Patient encounter procedure 01/17/2023 2:40 PM EDT Office Visit [facility] Orthopedics and Sports Medicine [address] [place] [phone] Danielle Huertas MD [address] [place], [place] [address] [facility] Start: 12-23-2022 COVID-19 Vaccine ( season) COVID-19 Vaccine ( season) [facility] Start: 12-23-2022 Influenza vaccination Influenza Vaccine (#1) [facility] Start: 09-09-2022 End: 09-09-2022 Patient encounter procedure 09/09/2022 Office Visit Cardiology Maddison Jordan, MICHELLE - JOSE ALFREDO [address] [place], [place] [phone] [facility] Cardiology Start: 2022 Hepatitis B Vaccines (1 of 3 - Risk 3-dose series) Hepatitis B Vaccines (1 of 3 - Risk 3-dose series) [facility] Start: 2022 RSV Immunization aged 60 or older (1 - 1-dose 60+ series) RSV Immunization aged 60 or older (1 - 1-dose 60+ series) [facility] Start: 2022 RSV Immunization for Adults (1 - Risk 60-74 years 1-dose series) RSV Immunization for Adults (1 - Risk 60-74 years 1-dose series) [facility] Start: 07-13-2022 Creatinine measurement [facility] Start: 07-13-2022 Potassium measurement Potassium Level [facility] Start: 07-13-2022 Potassium monitoring Potassium monitoring [facility] Start: 06-10-2022 End: 06-10-2022 Patient encounter procedure 06/10/2022 Office Visit Cardiology Maddison Jordan APRN - CNP [address] [place] [address] [facility] Start: 04-30-2022 Creatinine measurement Creatinine monitoring [facility] Start: 04-30-2022 Potassium monitoring Potassium monitoring [facility] Start: 04-01-2022 Hemoglobin A1c measurement A1C test (Diabetic or Prediabetic) [facility] Start: 03-28-2022 End: 03-28-2022 Patient encounter procedure 03/28/2022 Office Visit Orthopedic Surgery Marcus Heredia PA-C [address] [place] [address] [facility] Medical [facility] Orthopedics and Sports Medicine [place] Start: 02-18-2022 End: 02-18-2022 Patient encounter procedure 02/18/2022 Office Visit Cardiology Kimberly Grullon MD [address] [place] [address] [facility] Start: 02-11-2022 End: 02-11-2022 Patient encounter procedure 02/11/2022 Appointment Echocardiography [facility] [address] [facility] Start: 01-31-2022 End: 01-31-2022 Patient encounter procedure 01/31/2022 Office Visit Orthopedic Surgery Marcus Heredia PA-C [address] [place], [place] [address] [facility] Orthopedics and Sports Medicine [place] Start: 01-29-2022 Creatinine measurement Creatinine monitoring [facility] Start: 01-29-2022 Potassium monitoring Potassium monitoring [facility] Start: 12-30-2021 End: 12-30-2021 Patient encounter procedure 12/30/2021 Office Visit Orthopedic Surgery Marcus Heredia PA-C [address] [place] [address] [facility] [place] Start: 12-23-2021 Influenza vaccination Flu vaccine (#1) [facility] Start: 12-11-2021 Creatinine measurement Creatinine monitoring [facility] Work Phone: Start: 12-11-2021 Potassium monitoring Potassium monitoring [facility] Work Phone: Start: 11-22-2021 Influenza vaccination Flu vaccine (#1) [facility] Start: 07-26-2021 End: 07-26-2021 Patient encounter procedure 07/26/2021 Office Visit Cardiology Kimberly Grullon MD [address] [place], [place] [address] [facility] Start: 07-11-2021 COVID-19 Vaccine (4 - Booster for Pfizer series) COVID-19 Vaccine (4 - Booster for Pfizer series) [facility] Start: 05-10-2021 End: 05-10-2021 Patient encounter procedure 05/10/2021 Office Visit Cardiology Pamela Bautista, FRETTED STRING INSTRUMENT REPAIRER - BREAKER BOSS [address] [place] [address] [facility] Start: 05-08-2021 COVID-19 Vaccine (4 - Booster for Pfizer series) COVID-19 Vaccine (4 - Booster for Pfizer series) [facility] Start: 05-08-2021 COVID-19 Vaccine (4 - Pfizer series) COVID-19 Vaccine (4 - Pfizer series) [facility] Start: 05-02-2021 Screening for osteoporosis Bone Density Scan [facility] Start: 04-12-2021 End: 04-12-2021 Patient encounter procedure [facility] Start: 02-01-2021 End: 02-01-2021 Patient encounter procedure 02/01/2021 Appointment MRI Kimberly Grullon MD [address] [place] [address] [phone] [facility] Start: 01-09-2021 COVID-19 Vaccine (3 - Booster for Pfizer series) COVID-19 Vaccine (3 - Booster for Pfizer series) [facility] Start: 12-23-2020 Influenza vaccination Flu vaccine (#1) [facility] Start: 12-09-2020 COVID-19 VACCINE (3 - Booster for Pfizer series) COVID-19 VACCINE (3 - Booster for Pfizer series) [facility] Start: 09-07-2020 HPV TESTING HPV TESTING [facility] Start: 09-07-2020 PAP TESTING PAP TESTING [facility] Start: 12-24-2019 Influenza vaccination Flu vaccine (Season Ended) [place], [place] Start: 05-30-2019 End: 05-30-2019 Patient encounter procedure 05/30/2019 Office Visit Orthopedic Surgery Inderjit Snyder MD [address] [place] [address] [phone] [facility] Orthopedics and Sports Medicine [place] Start: 12-23-2018 Influenza vaccination Flu vaccine (#1) [facility] Work Phone: Start: 06-26-2018 Colonoscopy COLONOSCOPY [facility] Start: 06-26-2018 COLORECTAL CANCER SCREENING COLORECTAL CANCER SCREENING [facility] Start: 04-09-2016 Screening for malignant neoplasm of colon [facility] Start: 04-28-2015 Mammography MAMMOGRAM [facility] Start: 04-21-2015 DTaP/Tdap/Td vaccine (1 - Tdap) DTaP/Tdap/Td vaccine (1 - Tdap) [facility] Start: 04-21-2015 DTaP/Tdap/Td Vaccines (1 - Tdap) DTaP/Tdap/Td Vaccines (1 - Tdap) [facility] Start: 2012 Breast cancer screen Breast cancer screen [facility] Work Phone: Start: 2012 Colon cancer screen colonoscopy Colon cancer screen colonoscopy [facility] Work Phone: Start: 2012 Screening for malignant neoplasm of breast Breast cancer screen [facility] Start: 2012 Screening for malignant neoplasm of colon Colon cancer screen colonoscopy [place], [place] Start: 2012 Shingles Vaccine (1 of 2) Shingles Vaccine (1 of 2) [facility] Start: 2012 SHINGRIX VACCINE (1 of 2) SHINGRIX VACCINE (1 of 2) [facility] Start: 2012 Zoster Vaccines (1 of 2) Zoster Vaccines (1 of 2) [facility] Start: 03-25-2009 MMR Vaccines (1 of 1 - Standard series) MMR Vaccines (1 of 1 - Standard series) [facility] Start: 07-22-2007 COLOGUARD (FIT-DNA) COLOGUARD (FIT-DNA) [facility] Start: 07-22-[address] COLONOGRAPHY [facility] Start: 07-22-2007 FECAL OCCULT BLOOD FECAL OCCULT BLOOD [facility] Start: 07-22-2007 LIPID SCREEN LIPID SCREEN [facility] Start: 07-22-2007 Screening for malignant neoplasm of colon [facility] Start: 07-22-2007 SIGMOIDOSCOPY SIGMOIDOSCOPY [facility] Start: 2002 Diabetes screen Diabetes screen [facility] Start: 2002 Lipid panel Lipid screen [facility] Start: 2002 Lipid screen Lipid screen [facility] Work Phone: Start: 2002 Screening for malignant neoplasm of breast Mammogram [facility] Start: 1992 Screening for malignant neoplasm of cervix [facility] Start: 07-22-1983 Cervical cancer screen Cervical cancer screen [facility] Work Phone: Start: 07-22-1983 Screening for malignant neoplasm of cervix [facility] Start: 1981 DTaP/Tdap/Td vaccine (1 - Tdap) DTaP/Tdap/Td vaccine (1 - Tdap) [place] Start: 1981 Hepatitis A Vaccines (1 of 2 - Risk 2-dose series) Hepatitis A Vaccines (1 of 2 - Risk 2-dose series) [facility] Start: 1981 Hepatitis B vaccine (1 of 3 - Risk 3-dose series) Hepatitis B vaccine (1 of 3 - Risk 3-dose series) [facility] Start: 1981 Pneumococcal Vaccine: 50+ Years (1 of 2 - PCV) Pneumococcal Vaccine: 50+ Years (1 of 2 - PCV) [facility] Start: 1981 Urine microalbumin profile DTAP,TDAP,TD (1 - Tdap) [facility] Start: 1981 Urine screening for protein Diabetes: Urine Protein Screening [facility] Start: 1980 Diabetes: Urine Albumin-Creatinine Ratio for Kidney Health Diabetes: Urine Albumin-Creatinine Ratio for Kidney Health [facility] Start: 1980 Diabetic retinal exam Diabetic retinal exam [facility] Start: 1980 HEPATITIS C SCREENING HEPATITIS C SCREENING [facility] Start: 1980 Hepatitis C screening [facility] Start: 1980 HIV SCREENING HIV SCREENING [facility] Start: 1980 Urine screening for protein Diabetic microalbuminuria test [facility] Start: 1977 HIV screen HIV screen [facility] Work Phone: Start: 1977 HIV screening HIV screen [facility] Start: 1974 Adult depression screening assessment DEPRESSION SCREENING [facility] Start: 1974 COVID-19 Vaccine (1) COVID-19 Vaccine (1) [facility] Work Phone: Start: 1974 Depression Monitoring Depression Monitoring [facility] Start: 1974 Depression Screen [facility] Screen [facility] Start: 1973 DTaP/Tdap/Td vaccine (1 - Tdap) DTaP/Tdap/Td vaccine (1 - Tdap) [facility] Work Phone: Start: 1972 Diabetic foot examination [facility] Start: 1972 Glaucoma screening Diabetes: Retinopathy Screening [facility] Start: 1972 Hemoglobin A1c measurement A1C test (Diabetic or Prediabetic) [facility] Start: 1972 Lipid panel [facility] Start: 1972 Preventive dental service Diabetes: Dental Exam [facility] Start: 1968 Pneumococcal 0-64 years Vaccine (1 - PCV) Pneumococcal 0-64 years Vaccine (1 - PCV) [facility] Start: 1968 Pneumococcal 0-64 years Vaccine (1 of 2 - PPSV23) Pneumococcal 0-64 years Vaccine (1 of 2 - PPSV23) [facility] Start: 1968 Pneumococcal Vaccine: Pediatrics (0 to 5 Years) and At-Risk Patients (6 to 64 Years) (1 - PCV) Pneumococcal Vaccine: Pediatrics (0 to 5 Years) and At-Risk Patients (6 to 64 Years) (1 - PCV) [facility] Start: 1968 Pneumococcal Vaccine: Pediatrics (0 to 5 Years) and At-Risk Patients (6 to 64 Years) (1 of 2 - PCV) Pneumococcal Vaccine: Pediatrics (0 to 5 Years) and At-Risk Patients (6 to 64 Years) (1 of 2 - PCV) [facility] Start: 07-22-1963 Hepatitis A Vaccines (1 of 2 - Risk 2-dose series) Hepatitis A Vaccines (1 of 2 - Risk 2-dose series) [facility] Start: 1962 Echocardiography Echocardiogram [facility] Start: 1962 Hemoglobin A1c measurement Diabetes: Hemoglobin A1C [facility] Start: 1962 Hepatitis B Vaccines (1 of 3 - 3-dose series) Hepatitis B Vaccines (1 of 3 - 3-dose series) [facility] Start: 1962 Hepatitis C screen Hepatitis C screen [facility] Work Phone: Start: 1962 Hepatitis C screening Hepatitis C screen [facility] Start: 1962 HIV screening HIV Screening [facility] Start: 1962 Lipid panel Lipid Panel [facility] Start: 1962 Screening for malignant neoplasm of colon [facility] ECG 12 lead ECG 12 lead CV E CG Routine Heart failure with recovered ejection fraction (HFrecEF) ([facility]) 07/01/2024 10:01 AM EDT [facility] [employer] Work Phone: EKG 12 Lead - Chest Pain EKG 12 Lead - Chest Pain ECG STAT 12/11/2020 7:27 PM EDT [facility] Work Phone: OUTSIDE PROCEDURE SCAN OUTSIDE P ROCEDURE SCAN Procedures Ordered: 11/04/2022 [facility] Comment on above: Ordered: 11/04/2022 OUTSIDE PROCEDURE SCAN OUTSIDE P ROCEDURE SCAN Procedures Ordered: 06/05/2024 [facility] Comment on above: Ordered: 06/05/2024 Patient Education [facility] Work Phone: Patient referral [facility] Work Phone: SURGICAL PATHOLOGY S KIN ONLY [facility] Work Phone: Comment on above: Release Upon Ordering for 1 Occurrences starting 07/27/2021 [facility] Immunizations Immunization Date Immunization Notes Care Provider Fa cili 01-22-2024 influenza virus vaccine, unspecified formulation Reina Cunha MD Work Phone: [facility] 03-01-2022 influenza virus vaccine, unspecified formulation [facility] Drawstation [facility] 03-13-2021 Pfizer SARS-CoV-2 Vaccination Kimberly Grullon MD Work Phone: [facility] 07-09-2020 Pfizer SARS-CoV-2 Vaccination Kimberly Grullon MD Work Phone: [facility] 06-18-2020 Pfizer SARS-CoV-2 Vaccination Kimberly Grullon MD Work Phone: [facility] 01-25-2016 influenza virus vaccine, unspecified formulation Cass Polanco APRN.CNP Work Phone: [facility] Payers Date Payer Category Payer Self-pay [id number] 2021 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MED [id number] 2021 Unknown 2017 Unknown [employer] [address] xxxxxxxxxxxx 2017-Present [phone] [address] [place] [address] xxxxxxxxxxxx [id number] 2017 Unknown [id number] 2016 Unknown MMO MMO SUPERMED PLUS [id number] 2016-Present [phone] [address] [place] [address] PPO [id number] 1960 Unknown [id number] .1960 Unknown [id number] 1960 Unknown [id number] 2.16.840.1.699013.3.579.2 .8 1960 Unknown [id number] 2.16.840.1.777290.3.579.2 .8 1960 Unknown [id number] 2.16.840.1.364371.3.579.2 .1960 Unknown [id number] 2.16.840.1.584487.3.579.2 .1960 Unknown [id number] 2.16.840.1.631610.3.579.2 8 1960 Unknown [id number] 2.16.840.1.923564.3.579.2 .8 1960 Unknown [id number] 2.16.840.1.697853.3.579.2 .668 Unknown [id number] 2.16.840.1.796226.3.579.2 .462 Unknown [id number] 2.16.840.1.575818.3.579.2 .462 Unknown [id number] 2.16.840.1.226278.3.579.2 .462 Unknown [id number] [id number] .462 Unknown [id number] .462 Social History Date Type Detail Facility Start: 01-18-2018 End: 12-02-2021 Tobacco smoking status NHIS Former smoker [facility] Work Phone: Start: 01-18-2018 End: 12-05-2024 Alcohol intake Current non-drinker of alcohol (finding) [facility] Work Phone: Start: 1960 Sex Assigned At Not on file [facility] Work Phone: Exposure to SARS-CoV -2 (event) Unable to assess [place], [place] Start: 01-18-2018 End: 12-02-2021 Tobacco use and exposure Never used [facility] Start: 05-22-2021 End: 11-04-2022 Exposure to SARS-CoV-2 (event) Not sure [facility] Start: 06-26-2014 End: 09-20-2023 Tobacco smoking status NHIS Never smoked tobacco [facility] Start: 10-26-2021 End: 07-17-2023 Tobacco smoking status NHIS Unknown if ever smoked [facility] Start: 1960 Sex Assigned At Female [facility] History of tobacco use Current smoker [facility] Work Phone: Start: 09-09-2022 End: 12-31-2024 History of Social function [facility] Start: 09-09-2022 End: 12-31-2024 Tobacco use panel [facility] Start: 11-22-2021 End: 07-11-2024 Sex Female (finding) [facility] Start: 01-03-2025 End: 02-06-2025 Alcoholic beverage intake Lifetime non-drinker (finding) [facility] Mental Status Date Assessment Result Facility 04-14-2023 Cognitive function Voice/Name [facility] Work Phone: Clinical Notes 12-11-2020 to 02-13-2025 Telephone Encounter - Myrna Tariq RN - 02/13/2025 7:36 AM EDTTelephone Encounter - Myrna Tariq RN - 02/13/2025 7:36 AM EDTReina Cunha MD - 02/07/2025 9:30 AM EDTDischarge Instructions Note Date & Type Note Facility 02-13-2025 Telephone encounter Note Last seen 01/03/25. CMP done 07/01/24. GFR 72 [facility] 02-13-2025 Miscellaneous Notes Last seen 01/03/25. CMP done 07/01/24. GFR 72 documented in this encounter [facility] 02-07-2025 History of Present illness Narrative HPI, PHYSICAL EXAMINATION & PLAN HPI: Patient here today for follow up for non-surgical weight loss management Weight trend since last visit: no change stable water retention This patient's excess weight is causing the following co-morbid conditions at this time:JENY with or without CPAP Physical Examination: Blood pressure 97/60, pulse 71, height 5' 2.5 (1.588 m), weight (!) 314 lb (142 kg). General: This patient is calm and pleasant General: This patient is awake, alert, and oriented, and is in no apparent distress. Extremities: No cyanosis, clubbing or edema/ No calf tenderness/No restrictions of movement, is ambulatory without assistance. Neurological: Intact x 4 extremities, no focal deficits notes. Skin: No rashes or lesions noted. Social History: This patient is alone for the evaluation today. She does notsmoke, and does notdrink alcohol. Current Diet This patient s current diet is: 80% meal plan Her diet contains adequate amounts of protein, adequate amounts of healthy fats, adequate amounts of green, leafy vegetables, and adequate amounts of fruits. Her comfort foods include:none Current Activity Planning to start mobility training next week Current Eating Behaviors This patients demonstrates the following behaviors as they relate to her eating:structured, making better choices She eats approximately 3-4 times per day. Her last meal/snack was at 6 am/pm. Progress Made Towards Goals: 3 month weight goal: 20 6 month weight goal: 20 12 month weight goal: 20 Plan: Obesity stable Class 3 Continue current management, continue weight loss program Focus on the meal structure, composition and portion control Zepbound and wegovy is not covered Discuss intermittent fasting Trial of wegovy Referral to bariatric surgery JENY stable Continue current management, continue weight loss program water retention worsening Working with cardiology on etiology of water retention [x] Protein goal of 1g protein per 1 kg of ideal body weight: 75 grams [x] Patient advised to maintain a food/exercise/behavior diary until next physician visit and to bring the completed diary to next visit [x] Referred patient to surgical weight loss management program (FD to place referral) Physician Diet Recommendations given to patient See Follow up Section of today's encounter for next visit and additional scheduling orders Obtain follow up lab work: BARIATRIC; Non Surg Lab orders: no I spend a total of 20 minutes on the same day of the visit in discussing/counseling the patient regarding the diet and exercise in order to lose weight.Education on the meal plan and 7 rules of eating is provided. Meal prep is encouraged as a foundation of the meal plan. Food journal is encouraged as a feedback system. Exercise and its role in weight loss is explained. Weight loss medications role in weight loss journey is discussed JENY Is associated with obesity and weight loss is discussed as a treatment option for JENY Full chart review was performed.Clinical documentation is updated and completed. [facility] MEDICAL WEIGHT LOSS MANAGEMENT PROGRAM ROOMING NOTE: FOLLOW UP VISIT Patient: Rebeca Tirado Date of : 1960 Service Date: 02/07/2025 Patient History/Assessment Summary: The patient is a pleasant 64 y.o. year old female, who stands Height: 5' 2.5 (158.8 cm) tall with a weight of Weight: (!) 314 lb (142 kg) pounds, resulting in a BMI of Body mass index is 56.52 kg/m . kg/m2. She is here for follow-up for medical treatment of Morbid Obesity Patient has the following question(s): none Pre Program Weight Metrics (Epic) (Surgical Wt Loss Management- baseline) This Visit Medical Subsequent Eval Date: 02/07/25 Height: 5' 2.5 (158.8 cm) Weight: 314 lb (142 kg) BMI: 56.51 Weight Change: 4 lbs Total Weight Change: 4.2 lbs % EBWL: -2% Subsequent Body Fat %: 67.81 Body Fat % Change: 0.86 Follow Up Weight Metrics Last Three Weights Including Today's Weight: Wt Readings from Last 3 Encounters: 02/07/25 (!) 314 lb (142 kg) 01/03/25 (!) 311 lb (141 kg) 12/06/24 (!) 310 lb (141 kg) Diabetes Do you currently have diabetes? No Are you currently prescribed insulin? No Are you currently prescribed an oral medication for diabetes? No GERD (Gastroesophageal Reflux Disease) Do you currently have GERD? No Do you get heartburn type symptoms more than twice per week? No Are you currently on a medication for GERD? (not TUMS) (examples: Prilosec/omeprazole, Zantac/ranitidine, etc.) No Hyperlipidemia (high cholesterol) Do you currently have a diagnosis of high cholesterol? No Are you currently prescribed a medication for high cholesterol? (examples Lipitor/Atorvastatin, Pravastatin, Zetia, Tricor, etc.) No Have you been diagnosed with high cholesterol but chosen not to take medication? No Hypertension (high blood pressure) Do you currently have a diagnosis of Hypertension? Yes Are you currently on a medication for Hypertension? Yes Have you been diagnosed with Hypertension but have chosen not to take the medication? No Sleep Apnea Do you currently have Sleep Apnea? Yes Are you on a device (CPAP, BiPAP, etc) for Sleep Apnea? Yes Have you been diagnosed with Sleep Apnea but cannot tolerate or have chosen not to treat? No Comorbids summary (flow sheet comorbids) Falls Risk Assessment Patient does take medications which affect BP or mental status Patient does not have newly prescribed or changed dosage of medications within past 30 days which affect BP or mental status Patient has fallen in the past 2 months Patient does not demonstrate unsteady gait Patient uses the following ambulatory assistive devices: cane Patient states the presence of the following traits which increases risk of fall: none Patient is not on home O2 Completed by: Annie Alexandra MA documented in this encounter [facility] 01-03-2025 History of Present illness Narrative Images from the original note were not included. [facility] Cardiology Office Note DATE of SERVICE: 01/03/25 TIME of SERVICE: 12:18 PM Reason for Visit Chief Complaint Patient presents with 6 Month Follow-up History Rebeca Tirado is a 64 y.o. female who returns for follow-up of heart failure with normalized ejection fraction. She presented with HFrEF in November 2020. Cardiac MRI shortly after that showed no evidence of infiltrative disease or myocardial scarring. She subsequently had recovery of left ventricular function with medical therapy. She has severe obesity and is now seeing a bariatric physician for dietary modification. Unfortunately her insurance provider is refusing to cover a GLP-1 agonist that has the potential for significant health benefit. She has sleep apnea and is compliant with CPAP. Today she reports that she recently had an increase in the shortness of breath and lower extremity swelling over the summer. It turns out that she was taking her water pill on only an as needed basis. She was sent for some testing by her personal care home administrator in the last week or 2. This included an echo that showed normal left ventricular function with some RV enlargement and dysfunction. Doppler of the legs was negative for DVT. PFTs were basically normal. Stress testing was apparently nonischemic per her report but I do not have the latter result. Meanwhile she started taking the furosemide daily and the edema resolved and she is feeling much better. As detailed previously, she has an interesting family history with several brothers developing a significant cardiomyopathy and nearly dying. Assessment and Plan 1. Chronic diastolic heart failure (HCC) 2. BMI 50.0-59.9, adult (HCC) 1. Heart failure with normalized ejection fraction and chronic right heart failure. NYHA class I-II, stage C. At this time she appears well compensated and euvolemic. She apparently had a decompensation over the summer that is now improved by taking her furosemide daily. I would recommend continuing that and the other GDMT regimen including Farxiga and Entresto. If further agents are needed and electrolytes acceptable, consider spironolactone. We again discussed the critical importance of lifestyle changes and gradual sustained weight loss. She is motivated to lose weight. This would make treating her heart failure much easier. She is compliant with BIPAP. As discussed previously, the most likely cause of her heart failure which at this point is primarily diastolic in nature is hypertensive cardiomyopathy, although a familial cardiomyopathy exacerbated by hypertension may be possible. Certainly obesity is a contributing factor. Ischemic heart disease is not completely excluded, however a lack of angina or family history of vascular disease and no scarring on the MRI suggested against this. This seems less likely. Nonetheless, a CAD work-up such as coronary CTA or stress testing could also be considered in the future if clinically indicated. 2. Severe obesity. She is seeing a physician for weight loss. She may very well benefit from GLP-1 agonist for her cardiovascular health and this should be revisited if insurance is willing to cover at any point. Follow up in about 6 months (around 07/03/2025) for STANLEY. Kimberly Grullon M.D., Amie.AlexC. Guard Chief Chief, Division of Cardiac Imaging Clinical [place], [facility] Cardiac Testing Echocardiogram 12/25/2024 [facility] Technically difficult, mild LVH, ejection fraction 65% with stage I diastolic dysfunction, moderately dilated right ventricular cavity with mild RV systolic dysfunction, moderate biatrial enlargement, mildly dilated aortic root. Echo 02/11/2022: SUMMARY: 1. Technically difficult study. 2. Left ventricle: Not well visualized. Systolic function is normal by visual assessment. The estimated ejection fraction is 65%. 3. Right ventricle: The cavity size is normal. Systolic function is normal by visual assessment. CMR 03/02/2021 FINAL IMPRESSION: Moderate LV dysfunction due to nonischemic cardiomyopathy. Consider hypertensive etiology. No evidence of scarring or infiltrative disease. SUMMARY 60 year-old woman with HFPEF. Study performed to evaluate for infiltrative cardiomyopathy. LEFT VENTRICLE: There is mild concentric LV hypertrophy. LV cavity is mildly enlarged. LV systolic function is moderately decreased globally. Quantitative LVEF 39%. VIABILITY: Hyperenhancement is normal.No evidence for fibrosis or scarring. RIGHT VENTRICLE: RV is mildly enlarged. RV systolic function is mildly decreased globally. Quantitative RVEF 45%. LV/RV SEPTUM: The ventricular septum is intact. LA/RA SEPTUM: The atrial septum is intact. LEFT ATRIUM: LA is mildly enlarged. RIGHT ATRIUM: RA is mildly enlarged. PERICARDIUM: There is no pericardial effusion. Pericardium is normal. AORTIC VALVE: Aortic valve is trileaflet. There is no aortic stenosis. There is no aortic regurgitation. MITRAL VALVE: Mitral valve leaflets are normal. There is no mitral regurgitation. TRICUSPID VALVE: Tricuspid valve leaflets are normal. There is no significant tricuspid regurgitation. PULMONIC VALVE: Pulmonic valve leaflets are normal. AORTIC ROOT: The aortic root is normal. Ascending aorta is upper normal to mildly dilated at 3.8 cm. OTHER FINDINGS: Parametric mapping findings: T1 maps suggest upper normal to mildly elevated extracellular volume (ECV) at 29%. This suggests against infiltrative disease. Mild elevation is a nonspecific abnormality. Echo (date: 12/23/2020): personally reviewed - there is a restrictive diastolic filling pattern, only mild LVH 1. Left ventricle: The cavity size is normal. Wall thickness is mildly increased. Systolic function is by the biplane method of disks. The estimated ejection fraction is 47%. Regional wall motion abnormalities cannot be excluded. 2. Right ventricle: The cavity size is mildly dilated. Systolic function is normal. 3. Left atrium: The atrium is severely dilated. 4. No significant valve disease. 5. Technically difficult study. Event monitor 08/02/21-08/31/2021 1. The patient wore the recorder for the above documented period of time.(08/02/2021 - 08/31/2021) Baseline Recordings show sinus rhythm and sinus arrhythmia. Maximum HR was 105 BPM. 2. There were automatically triggered, asymptomatic events. They showed sinus tachycardia with artifact. 3. Unremarkable Event Recorder Current Medications Current Outpatient Medications: acetaminophen (Tylenol) 500 MG tablet, Take 500 mg by mouth every 6 hours as needed., Disp: , Rfl: albuterol 108 (90 Base) MCG/ACT inhaler, Inhale 2 puffs every 6 hours as needed., Disp: , Rfl: Ascorbic Acid (vitamin C) 1000 MG tablet, Take 1,000 mg by mouth daily., Disp: , Rfl: b complex vitamins capsule, Take 1 capsule by mouth daily., Disp: , Rfl: carvedilol (Coreg) 12.5 MG tablet, Take 1 tablet (12.5 mg) by mouth 2 times daily (with meals)., Disp: 180 tablet, Rfl: 1 ergocalciferol (Vitamin D-2) 1.25 MG (50042 UT) capsule, Take 1.25 mg by mouth 1 (one) time per week., Disp: , Rfl: Farxiga 10 MG tablet, Take 1 tablet (10 mg) by mouth daily., Disp: 90 tablet, Rfl: 3 fluticasone (Flonase) 50 MCG/ACT nasal spray, Administer 1 spray into affected nostril(s) daily., Disp: , Rfl: furosemide (Lasix) 40 MG tablet, Take 1 tablet (40 mg) by mouth daily. PRN, Disp: 90 tablet, Rfl: 0 MULTIPLE VITAMINS PO, Take by mouth 1 (one) time each day., Disp: , Rfl: naproxen (Naprosyn) 250 MG tablet, Take by mouth., Disp: , Rfl: sacubitril-valsartan (Entresto) 97-103 MG tablet, Take 1 tablet by mouth 2 times daily., Disp: 180 tablet, Rfl: 3 Turmeric (QC Tumeric Complex) 500 MG capsule, Take 1,000 mg by mouth daily., Disp: , Rfl: venlafaxine XR (Effexor XR) 150 MG 24 hr capsule, Take 150 mg by mouth daily., Disp: , Rfl: Allergies Allergen Reactions Alendronate Anaphylaxis and Other Other reaction(s): Other: See Comments Chest pains Jennifer Shortness of breath Nirmatrelvir-Ritonavir Hives Pedi-Pre Tape Scott [Wound Dressing Adhesive] Rash Severe blisters where tape touched her Naproxen Swelling swelling Nirmatrelvir Other Reaction(s): hives Ritonavir Other Reaction(s): hives Physical Exam and Review of Systems Vitals: 01/03/25 1054 BP: 123/84 Pulse: 80 Resp: 15 Wt Readings from Last 4 Encounters: 01/03/25 (!) 311 lb (141 kg) 12/06/24 (!) 310 lb (141 kg) 10/18/24 (!) 304 lb 12.8 oz (138 kg) 07/24/24 (!) 309 lb 12.8 oz (141 kg) Physical Exam Vitals reviewed. Constitutional: General: She is not in acute distress. Appearance: She is morbidly obese. HENT: Head: Normocephalic. Eyes: General: No scleral icterus. Conjunctiva/sclera: Conjunctivae normal. Cardiovascular: Rate and Rhythm: Normal rate and regular rhythm. Heart sounds: No murmur heard. No gallop. Pulmonary: Effort: Pulmonary effort is normal. Breath sounds: Normal breath sounds. No wheezing or rales. Abdominal: General: There is no distension. Palpations: Abdomen is soft. Musculoskeletal: General: Normal range of motion. Right lower leg: No edema. Left lower leg: No edema. Skin: General: Skin is warm and dry. Neurological: General: No focal deficit present. Mental Status: She is alert. Psychiatric: Mood and Affect: Mood normal. Thought Content: Thought content normal. Review of Systems Constitutional: Negative for activity change, chills, diaphoresis, fatigue and fever. HENT: Negative for nosebleeds and trouble swallowing. Eyes: Negative for discharge and visual disturbance. Respiratory: Positive for shortness of breath. Negative for apnea, cough, chest tightness and wheezing. Cardiovascular: Positive for chest pain (one time last month). Negative for palpitations and leg swelling. Gastrointestinal: Negative for abdominal distention, abdominal pain, blood in stool, diarrhea, nausea and vomiting. Endocrine: Negative for cold intolerance and heat intolerance. Genitourinary: Negative for hematuria. Musculoskeletal: Positive for arthralgias. Negative for gait problem and myalgias. Skin: Negative for color change and rash. Neurological: Positive for dizziness. Negative for seizures, syncope, facial asymmetry, speech difficulty, weakness, light-headedness, numbness and headaches. Hematological: Does not bruise/bleed easily. Psychiatric/Behavioral: Negative for dysphoric mood. Past Medical/Family/Social History Past Medical History: Diagnosis Date Acute congestive heart failure (HCC) 12/12/2020 Anxiety Blurred vision Daytime sleepiness Depression Family history of Ptbrh-Xcwluleyp-Beuge (WPW) syndrome Fatty liver Hypertension 2020 Joint pain Lipoma of breast 06/2009 Chacon's neuroma 10/18/2012 LEDESMA (nonalcoholic steatohepatitis) JENY (obstructive sleep apnea) uses CPAP Osteoarthritis Osteoporosis Palpitation Parathyroid disease (HCC) 09/30/2014 hyperparathyroid, parathyroid adenoma Prediabetes PVC (premature ventricular contraction) occasional Simple ovarian cyst 09/24/2010 Thyroid goiter 09/30/2014 resolved Trigger finger 08/17/2017 right middle and ring fingers Vertigo Vertigo Past Surgical History: Procedure Laterality Date CHOLECYSTECTOMY FINGER SURGERY Right 11/2021 trigger finger PARATHYROIDECTOMY THYROID SURGERY TUBAL LIGATION 1998 Family History Problem Relation Name Age of Onset Heart disease Mother Clotting disorder Mother Heart disease Father Dementia Father Hypertension Father Pacemaker Father High Blood Pressure Father Atrial fibrillation Father Obesity Father Heart disease Brother Obesity Brother Hypertension Brother Clotting disorder Brother Heart disease Brother Heart disease Brother Arrhythmia Brother WPW Heart disease Brother Diabetes Paternal Grandmother Obesity Paternal Grandmother Hypertension Paternal Grandfather Heart disease Paternal Grandfather Arthritis Father Roshan Moon Depression Mother Leesa Moon Social History Tobacco Use Smoking status: Never Smokeless tobacco: Never Substance Use Topics Alcohol use: Never documented in this encounter [facility] 12-06-2024 Telephone encounter Note Patient scheduled for 01/[address] Grullon. She said Dr. Kenney ordered her to get some labs, a stress test and an echo because she said he thought one side of her heart sounded different. Put the appointment with Dr. Grullon after all the testing is complete and will get results from his office. She did say she is still having some issues with swelling and wondering if there is anything else she can do in the mean time. [facility] 12-06-2024 Miscellaneous Notes Patient scheduled for 01/[address] Grullon. She said Dr. Kenney ordered her to get some labs, a stress test and an echo because she said he thought one side of her heart sounded different. Put the appointment with Dr. Grullon after all the testing is complete and will get results from his office. She did say she is still having some issues with swelling and wondering if there is anything else she can do in the mean time. Lmom with recs. Any further questions, instructed to call office to discuss further. Pt called and stated she has more increased swelling and pain in her shoulder blades. She states when this occurs she is starting to have CHF flare up. She reports her shortness of breath is about the same, she cannot tell with the humidity of weather and weight affecting it. She has been out of her lasix for a couple weeks now. She reports only taking it when symptoms do occur. documented in this encounter [facility] 12-06-2024 History of Present illness Narrative HPI, PHYSICAL EXAMINATION & PLAN HPI: Patient here today for follow up for non-surgical weight loss management Weight trend since last visit: no change stable water retention This patient's excess weight is causing the following co-morbid conditions at this time:JENY with or without CPAP Physical Examination: Blood pressure 110/74, pulse 64, height 5' 2.5 (1.588 m), weight (!) 310 lb (141 kg). General: This patient is calm and pleasant General: This patient is awake, alert, and oriented, and is in no apparent distress. Extremities: No cyanosis, clubbing or edema/ No calf tenderness/No restrictions of movement, is ambulatory without assistance. Neurological: Intact x 4 extremities, no focal deficits notes. Skin: No rashes or lesions noted. Social History: This patient is alone for the evaluation today. She does notsmoke, and does notdrink alcohol. Current Diet This patient s current diet is: 80% meal plan Her diet contains adequate amounts of protein, adequate amounts of healthy fats, adequate amounts of green, leafy vegetables, and adequate amounts of fruits. Her comfort foods include:none Current Activity Planning to start mobility training next week Current Eating Behaviors This patients demonstrates the following behaviors as they relate to her eating:structured, making better choices She eats approximately 3-4 times per day. Her last meal/snack was at 6 am/pm. Progress Made Towards Goals: 3 month weight goal: 20 6 month weight goal: 20 12 month weight goal: 20 Plan: Obesity stable Continue current management, continue weight loss program Focus on the meal structure, composition and portion control Zepbound is not covered Discuss intermittent fasting Trial of wegovy Zepbound is denied JENY stable Continue current management, continue weight loss program water retention worsening Working with cardiology on etiology of water retention [x] Protein goal of 1g protein per 1 kg of ideal body weight: 75 grams [x] Patient advised to maintain a food/exercise/behavior diary until next physician visit and to bring the completed diary to next visit [] Referred patient to surgical weight loss management program (FD to place referral) Physician Diet Recommendations given to patient See Follow up Section of today's encounter for next visit and additional scheduling orders Obtain follow up lab work: BARIATRIC; Non Surg Lab orders: no I spend a total of 20 minutes on the same day of the visit in discussing/counseling the patient regarding the diet and exercise in order to lose weight.Education on the meal plan and 7 rules of eating is provided. Meal prep is encouraged as a foundation of the meal plan. Food journal is encouraged as a feedback system. Exercise and its role in weight loss is explained. Weight loss medications role in weight loss journey is discussed JENY Is associated with obesity and weight loss is discussed as a treatment option for JENY Full chart review was performed.Clinical documentation is updated and completed. [facility] MEDICAL WEIGHT LOSS MANAGEMENT PROGRAM ROOMING NOTE: FOLLOW UP VISIT Patient: Rebeca Tirado Date of : 1960 Service Date: 12/06/2024 Patient History/Assessment Summary: The patient is a pleasant 64 y.o. year old female, who stands Height: 5' 2.5 (158.8 cm) tall with a weight of Weight: (!) 310 lb (141 kg) pounds, resulting in a BMI of Body mass index is 55.8 kg/m . kg/m2. She is here for follow-up for medical treatment of Morbid Obesity Patient has the following question(s): none Pre Program Weight Metrics (Epic) (Surgical Wt Loss Management- baseline) This Visit Non-Surgical Subsequent Eval Date: 12/06/24 Height: 5' 2.5 (158.8 cm) Weight: 310 lb (141 kg) BMI: 55.79 Weight Change: 5.2 lbs Total Weight Change: .2 lbs % EBWL: 0% Subsequent Body Fat %: 66.95 Body Fat % Change: 1.13 Follow Up Weight Metrics Last Three Weights Including Today's Weight: Wt Readings from Last 3 Encounters: 12/06/24 (!) 310 lb (141 kg) 10/18/24 (!) 304 lb 12.8 oz (138 kg) 07/24/24 (!) 309 lb 12.8 oz (141 kg) Diabetes Do you currently have diabetes? No Are you currently prescribed insulin? No Are you currently prescribed an oral medication for diabetes? No GERD (Gastroesophageal Reflux Disease) Do you currently have GERD? No Do you get heartburn type symptoms more than twice per week? No Are you currently on a medication for GERD? (not TUMS) (examples: Prilosec/omeprazole, Zantac/ranitidine, etc.) No Hyperlipidemia (high cholesterol) Do you currently have a diagnosis of high cholesterol? No Are you currently prescribed a medication for high cholesterol? (examples Lipitor/Atorvastatin, Pravastatin, Zetia, Tricor, etc.) No Have you been diagnosed with high cholesterol but chosen not to take medication? No Hypertension (high blood pressure) Do you currently have a diagnosis of Hypertension? Yes Are you currently on a medication for Hypertension? Yes Have you been diagnosed with Hypertension but have chosen not to take the medication? No Sleep Apnea Do you currently have Sleep Apnea? Yes Are you on a device (CPAP, BiPAP, etc) for Sleep Apnea? Yes Have you been diagnosed with Sleep Apnea but cannot tolerate or have chosen not to treat? No Comorbids summary (flow sheet comorbids) Falls Risk Assessment Patient does take medications which affect BP or mental status Patient does not have newly prescribed or changed dosage of medications within past 30 days which affect BP or mental status Patient has not fallen in the past 2 months Patient does not demonstrate unsteady gait Patient uses the following ambulatory assistive devices: cane Patient states the presence of the following traits which increases risk of fall: balance Patient is not on home O2 Completed by: Annie Alexandra MA documented in this encounter [facility] 12-06-2024 History of Present illness Narrative HPI, PHYSICAL EXAMINATION & PLAN HPI: Patient here today for follow up for non-surgical weight loss management Weight trend since last visit: no change stable water retention This patient's excess weight is causing the following co-morbid conditions at this time:JENY with or without CPAP Physical Examination: Blood pressure 110/74, pulse 64, height 5' 2.5 (1.588 m), weight (!) 310 lb (141 kg). General: This patient is calm and pleasant General: This patient is awake, alert, and oriented, and is in no apparent distress. Extremities: No cyanosis, clubbing or edema/ No calf tenderness/No restrictions of movement, is ambulatory without assistance. Neurological: Intact x 4 extremities, no focal deficits notes. Skin: No rashes or lesions noted. Social History: This patient is alone for the evaluation today. She does notsmoke, and does notdrink alcohol. Current Diet This patient s current diet is: 80% meal plan Her diet contains adequate amounts of protein, adequate amounts of healthy fats, adequate amounts of green, leafy vegetables, and adequate amounts of fruits. Her comfort foods include:none Current Activity Planning to start mobility training next week Current Eating Behaviors This patients demonstrates the following behaviors as they relate to her eating:structured, making better choices She eats approximately 3-4 times per day. Her last meal/snack was at 6 am/pm. Progress Made Towards Goals: 3 month weight goal: 20 6 month weight goal: 20 12 month weight goal: 20 Plan: Obesity stable Class 3 Continue current management, continue weight loss program Focus on the meal structure, composition and portion control Zepbound is not covered Discuss intermittent fasting Trial of wegovy Zepbound is denied JENY stable Continue current management, continue weight loss program water retention worsening Working with cardiology on etiology of water retention [x] Protein goal of 1g protein per 1 kg of ideal body weight: 75 grams [x] Patient advised to maintain a food/exercise/behavior diary until next physician visit and to bring the completed diary to next visit [] Referred patient to surgical weight loss management program (FD to place referral) Physician Diet Recommendations given to patient See Follow up Section of today's encounter for next visit and additional scheduling orders Obtain follow up lab work: BARIATRIC; Non Surg Lab orders: no I spend a total of 20 minutes on the same day of the visit in discussing/counseling the patient regarding the diet and exercise in order to lose weight.Education on the meal plan and 7 rules of eating is provided. Meal prep is encouraged as a foundation of the meal plan. Food journal is encouraged as a feedback system. Exercise and its role in weight loss is explained. Weight loss medications role in weight loss journey is discussed JENY Is associated with obesity and weight loss is discussed as a treatment option for JENY Full chart review was performed.Clinical documentation is updated and completed. [facility] MEDICAL WEIGHT LOSS MANAGEMENT PROGRAM ROOMING NOTE: FOLLOW UP VISIT Patient: Rebeca Tirado Date of : 1960 Service Date: 12/06/2024 Patient History/Assessment Summary: The patient is a pleasant 64 y.o. year old female, who stands Height: 5' 2.5 (158.8 cm) tall with a weight of Weight: (!) 310 lb (141 kg) pounds, resulting in a BMI of Body mass index is 55.8 kg/m . kg/m2. She is here for follow-up for medical treatment of Morbid Obesity Patient has the following question(s): none Pre Program Weight Metrics (Epic) (Surgical Wt Loss Management- baseline) This Visit Non-Surgical Subsequent Eval Date: 12/06/24 Height: 5' 2.5 (158.8 cm) Weight: 310 lb (141 kg) BMI: 55.79 Weight Change: 5.2 lbs Total Weight Change: .2 lbs % EBWL: 0% Subsequent Body Fat %: 66.95 Body Fat % Change: 1.13 Follow Up Weight Metrics Last Three Weights Including Today's Weight: Wt Readings from Last 3 Encounters: 12/06/24 (!) 310 lb (141 kg) 10/18/24 (!) 304 lb 12.8 oz (138 kg) 07/24/24 (!) 309 lb 12.8 oz (141 kg) Diabetes Do you currently have diabetes? No Are you currently prescribed insulin? No Are you currently prescribed an oral medication for diabetes? No GERD (Gastroesophageal Reflux Disease) Do you currently have GERD? No Do you get heartburn type symptoms more than twice per week? No Are you currently on a medication for GERD? (not TUMS) (examples: Prilosec/omeprazole, Zantac/ranitidine, etc.) No Hyperlipidemia (high cholesterol) Do you currently have a diagnosis of high cholesterol? No Are you currently prescribed a medication for high cholesterol? (examples Lipitor/Atorvastatin, Pravastatin, Zetia, Tricor, etc.) No Have you been diagnosed with high cholesterol but chosen not to take medication? No Hypertension (high blood pressure) Do you currently have a diagnosis of Hypertension? Yes Are you currently on a medication for Hypertension? Yes Have you been diagnosed with Hypertension but have chosen not to take the medication? No Sleep Apnea Do you currently have Sleep Apnea? Yes Are you on a device (CPAP, BiPAP, etc) for Sleep Apnea? Yes Have you been diagnosed with Sleep Apnea but cannot tolerate or have chosen not to treat? No Comorbids summary (flow sheet comorbids) Falls Risk Assessment Patient does take medications which affect BP or mental status Patient does not have newly prescribed or changed dosage of medications within past 30 days which affect BP or mental status Patient has not fallen in the past 2 months Patient does not demonstrate unsteady gait Patient uses the following ambulatory assistive devices: cane Patient states the presence of the following traits which increases risk of fall: balance Patient is not on home O2 Completed by: Annie Alexandra MA documented in this encounter [facility] 11-21-2024 Telephone encounter Note Lmom with recs. Any further questions, instructed to call office to discuss further. [facility] 11-20-2024 Telephone encounter Note Pt called and stated she has more increased swelling and pain in her shoulder blades. She states when this occurs she is starting to have CHF flare up. She reports her shortness of breath is about the same, she cannot tell with the humidity of weather and weight affecting it. She has been out of her lasix for a couple weeks now. She reports only taking it when symptoms do occur. [facility] 10-18-2024 History of Present illness Narrative [facility] MEDICAL WEIGHT LOSS MANAGEMENT PROGRAM ROOMING NOTE: FOLLOW UP VISIT Patient: Rebeca Tirado Date of : 1960 Service Date: 10/18/2024 Patient History/Assessment Summary: The patient is a pleasant 64 y.o. year old female, who stands Height: 5' 2.5 (158.8 cm) tall with a weight of Weight: (!) 304 lb 12.8 oz (138 kg) pounds, resulting in a BMI of Body mass index is 54.86 kg/m . kg/m2. She is here for follow-up for medical treatment of Morbid Obesity Patient has the following question(s): none Pre Program Weight Metrics (Epic) (Surgical Wt Loss Management- baseline) This Visit Non-Surgical Subsequent Eval Date: 10/18/24 Height: 5' 2.5 (158.8 cm) Weight: 304 lb 12.8 oz (138 kg) BMI: 54.85 Weight Change: -5 lbs Total Weight Change: -5 lbs % EBWL: 3% Subsequent Body Fat %: 65.82 Body Fat % Change: -1.08 Follow Up Weight Metrics Last Three Weights Including Today's Weight: Wt Readings from Last 3 Encounters: 10/18/24 (!) 304 lb 12.8 oz (138 kg) 07/24/24 (!) 309 lb 12.8 oz (141 kg) 07/01/24 (!) 307 lb (139 kg) Diabetes Do you currently have diabetes? No Are you currently prescribed insulin? No Are you currently prescribed an oral medication for diabetes? No GERD (Gastroesophageal Reflux Disease) Do you currently have GERD? No Do you get heartburn type symptoms more than twice per week? No Are you currently on a medication for GERD? (not TUMS) (examples: Prilosec/omeprazole, Zantac/ranitidine, etc.) No Hyperlipidemia (high cholesterol) Do you currently have a diagnosis of high cholesterol? No Are you currently prescribed a medication for high cholesterol? (examples Lipitor/Atorvastatin, Pravastatin, Zetia, Tricor, etc.) No Have you been diagnosed with high cholesterol but chosen not to take medication? No Hypertension (high blood pressure) Do you currently have a diagnosis of Hypertension? Yes Are you currently on a medication for Hypertension? Yes Have you been diagnosed with Hypertension but have chosen not to take the medication? No Sleep Apnea Do you currently have Sleep Apnea? Yes Are you on a device (CPAP, BiPAP, etc) for Sleep Apnea? Yes Have you been diagnosed with Sleep Apnea but cannot tolerate or have chosen not to treat? No Comorbids summary (flow sheet comorbids) Falls Risk Assessment Patient does take medications which affect BP or mental status Patient does not have newly prescribed or changed dosage of medications within past 30 days which affect BP or mental status Patient has not fallen in the past 2 months Patient does not demonstrate unsteady gait Patient uses the following ambulatory assistive devices: cane Patient states the presence of the following traits which increases risk of fall: unsteady Patient is not on home O2 Completed by: Annie Alexandra MA HPI, PHYSICAL EXAMINATION & PLAN HPI: Patient here today for follow up for non-surgical weight loss management Weight trend since last visit: lost 2 lbs over 1 m stable This patient's excess weight is causing the following co-morbid conditions at this time:JENY with or without CPAP Physical Examination: W 306.4 lb Blood pressure 116/75, pulse 64, height 5' 2.5 (1.588 m), weight (!) 304 lb 12.8 oz (138 kg). General: This patient is calm and pleasant General: This patient is awake, alert, and oriented, and is in no apparent distress. Extremities: No cyanosis, clubbing or edema/ No calf tenderness/No restrictions of movement, is ambulatory without assistance. Neurological: Intact x 4 extremities, no focal deficits notes. Skin: No rashes or lesions noted. Social History: This patient is alone for the evaluation today. She does notsmoke, and does notdrink alcohol. Current Diet This patient s current diet is: 80% meal plan Her diet contains adequate amounts of protein, adequate amounts of healthy fats, adequate amounts of green, leafy vegetables, and adequate amounts of fruits. Her comfort foods include:none Current Activity Planning to start mobility training next week Current Eating Behaviors This patients demonstrates the following behaviors as they relate to her eating:structured, making better choices She eats approximately 3-4 times per day. Her last meal/snack was at 6 am/pm. Progress Made Towards Goals: 3 month weight goal: 20 6 month weight goal: 20 12 month weight goal: 20 Plan: Obesity stable Continue current management, continue weight loss program Focus on the meal structure, composition and portion control Zepbound is not covered Discuss intermittent fasting Continue current management, continue weight loss program Add zepbound [x] Protein goal of 1g protein per 1 kg of ideal body weight: 75 grams [x] Patient advised to maintain a food/exercise/behavior diary until next physician visit and to bring the completed diary to next visit [] Referred patient to surgical weight loss management program (FD to place referral) Physician Diet Recommendations given to patient See Follow up Section of today's encounter for next visit and additional scheduling orders Obtain follow up lab work: BARIATRIC; Non Surg Lab orders: no I spend a total of 20 minutes on the same day of the visit in discussing/counseling the patient regarding the diet and exercise in order to lose weight.Education on the meal plan and 7 rules of eating is provided. Meal prep is encouraged as a foundation of the meal plan. Food journal is encouraged as a feedback system. Exercise and its role in weight loss is explained. Weight loss medications role in weight loss journey is discussed JENY Is associated with obesity and weight loss is discussed as a treatment option for Jeny Full chart review was performed.Clinical documentation is updated and completed. documented in this encounter [facility] 09-10-2024 Telephone encounter Note PA denied pt notified. [facility] 09-10-2024 Miscellaneous Notes PA denied pt notified. PA submitted via ml for Zepbound pt notified. ----- Message from Reina Cunha MD sent at 09/06/2024 1:32 PM EDT ----- Please tara zapata and let the pt know Thank you documented in this encounter [facility] 09-09-2024 Telephone encounter Note PA submitted via ml for Zepbound pt notified. [facility] 09-09-2024 Telephone encounter Note ----- Message from Reina Cunha MD sent at 09/06/2024 1:32 PM EDT ----- Please tara zapata and let the pt know Thank you [facility] 09-06-2024 History of Present illness Narrative HPI, PHYSICAL EXAMINATION & PLAN HPI: Patient here today for follow up for non-surgical weight loss management Weight trend since last visit: lost 4 lbs over 1 m stable This patient's excess weight is causing the following co-morbid conditions at this time:JENY with or without CPAP Physical Examination: W 206.4 lb General: This patient is calm and pleasant General: This patient is awake, alert, and oriented, and is in no apparent distress. Extremities: No cyanosis, clubbing or edema/ No calf tenderness/No restrictions of movement, is ambulatory without assistance. Neurological: Intact x 4 extremities, no focal deficits notes. Skin: No rashes or lesions noted. Social History: This patient is alone for the evaluation today. She does notsmoke, and does notdrink alcohol. Current Diet This patient s current diet is: 80% meal plan Her diet contains adequate amounts of protein, adequate amounts of healthy fats, adequate amounts of green, leafy vegetables, and adequate amounts of fruits. Her comfort foods include:none Current Activity Planning to start mobility training next week Current Eating Behaviors This patients demonstrates the following behaviors as they relate to her eating:structured, making better choices She eats approximately 3-4 times per day. Her last meal/snack was at 6 am/pm. Progress Made Towards Goals: 3 month weight goal: 20 6 month weight goal: 20 12 month weight goal: 20 Plan: Obesity stable Continue current management, continue weight loss program Focus on the meal structure, composition and portion control Discuss weight loss medications including the mechanism of action, side effects, efficacy and health insurance coverage limitations. Provided additional information regarding the corresponding websites. Trial of zepbound JENY with or without CPAP Continue current management, continue weight loss program Add zepbound [x] Protein goal of 1g protein per 1 kg of ideal body weight: 75 grams [x] Patient advised to maintain a food/exercise/behavior diary until next physician visit and to bring the completed diary to next visit [] Referred patient to surgical weight loss management program (FD to place referral) Physician Diet Recommendations given to patient See Follow up Section of today's encounter for next visit and additional scheduling orders Obtain follow up lab work: BARIATRIC; Non Surg Lab orders: no I spend a total of 20 minutes on the same day of the visit in discussing/counseling the patient regarding the diet and exercise in order to lose weight.Education on the meal plan and 7 rules of eating is provided. Meal prep is encouraged as a foundation of the meal plan. Food journal is encouraged as a feedback system. Exercise and its role in weight loss is explained. Weight loss medications role in weight loss journey is discussed JENY Is associated with obesity and weight loss is discussed as a treatment option for Jeny Full chart review was performed.Clinical documentation is updated and completed. documented in this encounter [facility] 08-25-2024 Telephone encounter Note S: Patient spoke with [facility] nurse regarding sinusitis B: Onset of symptoms/concern one week A: Patient reports yellow/green sinus and nasal drainage for the past week, dizziness x 3 days getting worse, headache, face is flushed has not taken temperature. Denies chest pain, difficulty breathing. OTC Arti taken with no relief. Patient requesting treatment for sinus infection. States she was going to Urgent Care but decided to call office first. Pharmacy and allergies verified. R: Dr. Rodriguez traffic monitor specialist provider messaged advised We don't usually start antibiotics without evaluation and the fact it's bad allergy season, she should be evaluated to determine best next steps. If she hasn't done it already, starting Mucinex DM with Flonase and Claritin would be a good idea.Patient informed. Home care advice given, fluids encouraged.Patient understands care advice, advised if she is not better in a few days after trying OTC to call office for appointment. No further needs at this time. Patient instructed to call back with new or worsening symptoms. Reason for Disposition [1] Redness or swelling on the cheek, forehead or around the eye AND [2] no fever Protocols used: Sinus Pain or [id number] [facility] 08-25-2024 Miscellaneous Notes S: Patient spoke with [facility] nurse regarding sinusitis B: Onset of symptoms/concern one week A: Patient reports yellow/green sinus and nasal drainage for the past week, dizziness x 3 days getting worse, headache, face is flushed has not taken temperature. Denies chest pain, difficulty breathing. OTC Arti taken with no relief. Patient requesting treatment for sinus infection. States she was going to Urgent Care but decided to call office first. Pharmacy and allergies verified. R: Dr. Rodriguez traffic monitor specialist provider messaged advised We don't usually start antibiotics without evaluation and the fact it's bad allergy season, she should be evaluated to determine best next steps. If she hasn't done it already, starting Mucinex DM with Flonase and Claritin would be a good idea.Patient informed. Home care advice given, fluids encouraged.Patient understands care advice, advised if she is not better in a few days after trying OTC to call office for appointment. No further needs at this time. Patient instructed to call back with new or worsening symptoms. Reason for Disposition [1] Redness or swelling on the cheek, forehead or around the eye AND [2] no fever Protocols used: Sinus Pain or [id number] documented in this encounter [facility] 07-24-2024 History of Present illness Narrative [facility] NON-SURGICAL WEIGHT LOSS MANAGEMENT PROGRAM ROOMING NOTE - INITIAL CONSULTATION Patient: Rebeca Tirado Date of : 1960 Service Date: 07/24/2024 Patient is here today to discuss non-surgical weight loss management. This patient is alone for the evaluation today Weight Metrics: Non-Surgical Initial Eval Consult Date: 07/24/24 Initial Height: 5' 2.5 (158.8 cm) Initial Weight: 309 lb 12.8 oz (141 kg) Saxis Body Weight: 128 lb (58.1 kg) Initial BMI: 55.75 Initial Body Fat %: 66.9 EBW: 181 lb (Flow Sheet: Surgical Wt Loss Management: Baseline) Diabetes Do you currently have diabetes? No Are you currently prescribed insulin? No Are you currently prescribed an oral medication for diabetes? No GERD (Gastroesophageal Reflux Disease) Do you currently have GERD? No Do you get heartburn type symptoms more than twice per week? No Are you currently on a medication for GERD? (not TUMS) (examples: Prilosec/omeprazole, Zantac/ranitidine, etc.) No Hyperlipidemia (high cholesterol) Do you currently have a diagnosis of high cholesterol? No Are you currently prescribed a medication for high cholesterol? (examples Lipitor/Atorvastatin, Pravastatin, Zetia, Tricor, etc.) No Have you been diagnosed with high cholesterol but chosen not to take medication? No Hypertension (high blood pressure) Do you currently have a diagnosis of Hypertension? Yes Are you currently on a medication for Hypertension? Yes Have you been diagnosed with Hypertension but have chosen not to take the medication? No Sleep Apnea Do you currently have Sleep Apnea? Yes Are you on a device (CPAP, BiPAP, etc) for Sleep Apnea? Yes Have you been diagnosed with Sleep Apnea but cannot tolerate or have chosen not to treat? No Comorbids Summary (flow sheet comorbids) Falls Risk Assessment Patient does take medications which affect BP or mental status Patient does not have newly prescribed or changed dosage of medications within past 30 days which affect BP or mental status Patient has not fallen in the past 2 months Patient doesdemonstrate unsteady gait Patient uses the following ambulatory assistive devices: cane Patient states the presence of the following traits which increases risk of fall: unsteady gait Patient is not on home O2 Completed by: Raul Pratt [facility] NON-SURGICAL WEIGHT LOSS MANAGEMENT PROGRAM PROGRESS NOTE INITIAL EVALUATION Patient: Rebeca Tirado Service Date: 07/24/24 Date of : 1960 Patient History/Assessment Summary: The patient is a pleasant 64 y.o. year old female, who stands Height: 5' 2.5 (158.8 cm) tall with a weight of Weight: (!) 309 lb 12.8 oz (141 kg) pounds, resulting in a BMI of Body mass index is 55.76 kg/m . kg/m2. She has been overweight for 10+ years, and has tried and failed multiple previous diet attempts and is now seeking non-surgical treatment of obesity. This patient is unaccompanied for the evaluation today. PLAN ROS: I have reviewed New Patient Assessment Form with the Patient, which is located in the Agricultural Equipment Sales Manager Tab. 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/2012 LEDESMA (nonalcoholic steatohepatitis) JENY (obstructive sleep apnea) uses CPAP Osteoarthritis Osteoporosis Palpitation Parathyroid disease (HCC) 09/30/2014 hyperparathyroid, parathyroid adenoma Prediabetes PVC (premature ventricular contraction) occasional Simple ovarian cyst 09/24/2010 Thyroid goiter 09/30/2014 resolved Trigger finger 08/17/2017 right middle and ring fingers Vertigo Vertigo Past Surgical History: Procedure Laterality Date CHOLECYSTECTOMY FINGER SURGERY Right 11/2021 trigger finger PARATHYROIDECTOMY THYROID SURGERY TUBAL LIGATION 1998 Family History Problem Relation Name Age of Onset Heart disease Mother Clotting disorder Mother Heart disease Father Dementia Father Hypertension Father Pacemaker Father High Blood Pressure Father Atrial fibrillation Father Obesity Father Heart disease Brother Obesity Brother Hypertension Brother Clotting disorder Brother Heart disease Brother Heart disease Brother Arrhythmia Brother WPW Heart disease Brother Diabetes Paternal Grandmother Obesity Paternal Grandmother Hypertension Paternal Grandfather Heart disease Paternal Grandfather Social History Tobacco Use Smoking status: Never Smokeless tobacco: Never Substance Use Topics Alcohol use: No This patient's excess weight is causing the following co-morbid conditions at this time:JENY with or without CPAP Physical Examination: BP 106/66 Pulse 80 Ht 5' 2.5 (1.588 m) Wt (!) 309 lb 12.8 oz (141 kg) BMI 55.76 kg/m Weight Metrics: Saxis Body Weight: Saxis Body Weight: 128 lb (58.1 kg) Excess Body Weight: Saxis BMI: 24 General: This patient is alert and oriented X3 General: This patient is obese, and is in no apparent distress. Psychological: Patient is awake, alert and oriented to person, place and time Patient's mood is Euthymic Current Diet This patient s current diet is:high in animal fat, high in sugar, high in wheat, high in simple carbohydrates, and contains large amounts of high glycemic index foods Her diet contains adequate amounts of protein, inadequate amounts of healthy fats, inadequate amounts of green, leafy vegetables, and inadequate amounts of fruits. Her comfort foods include:sweets Current Activity This patient currently does not exercise ambulation with a cane Current Eating Behaviors No meal planning Fast food and ordering out frequent Working 2 shift Health and Behavior Inventory Patient scores as (Select one): [] Unguided Grazer [] Nighttime Nibbler [x] Convenient Consumer [] Fruitless Moriah [] Mindless Muncher [] Hearty Portioner [] Deprived Sneaker [] Hate to Move Struggler [] Self-Conscious Hider [] Inexperienced [place] [] Gcx-zj-Yalhigp Doer [] Set-Routine Repeater [] Pcqvv-lup-Vnpwt Sufferer [] Pc-dyvq-wu-Exercise Protester [] Emotional Mcat Instructor [] Vnc-Fbzv-Hpiuao Sufferer [] Persistent Procrastinator [] Can t-Say-No Pleaser [] Fast Pacer [] Pessimistic Thinker [] Unrealistic Achiever This patients demonstrates the following behaviors as they relate to her eating:eats large portions and eats at night She eats approximately 3-4 times per day. Second shift Plan: Obesity stable Continue current management, start weight loss program Focus on the meal structure, composition and portion control Discuss options for the meal, Discuss carb substitutes Discuss portion control Discuss chair exercise Discuss how to implement the project Discuss batch cooking Discuss weight loss medications including the mechanism of action, side effects, efficacy and health insurance coverage limitations. Provided additional information regarding the corresponding websites. Due to CHF ( cor pulmonale) will not be able to use adipex, qsymia Referral to psychology stress eating JENY Severe Trial of zepbound Indicated for moderate to severe JENY with obesity Advised patient that they are cleared medically to proceed with enrollment in our non-surgical weight loss management program Goals: 3 month weight goal: 20 lbs 6 month weight goal: 20 lbs 12 month weight goal: 20 lbs Tests Labwork: reviewed during the visit to be drawn 2 weeks prior to first physician follow up visit Additional Labwork: None - to be drawn 2 weeks prior to first physician follow up visit Consultations: Cardiology Risk Stratification: None Pulmonary Evaluation: None Other Consultations:None Obtain prior medical records from: Available record is reviewed PreDM A1C 6.1 [] Refer for Surgical Weight Loss Evaluation Mail labwork order with schedule Current Meds Patient's Medications New Prescriptions No medications on file Previous Medications ACETAMINOPHEN (TYLENOL) 500 MG TABLET Take 500 mg by mouth every 6 hours as needed. ALBUTEROL 108 (90 BASE) MCG/ACT INHALER Inhale 2 puffs every 6 hours as needed. ASCORBIC ACID (VITAMIN C) 1000 MG TABLET Take 1,000 mg by mouth daily. B COMPLEX VITAMINS CAPSULE Take 1 capsule by mouth daily. CARVEDILOL (COREG) 12.5 MG TABLET Take 1 tablet (12.5 mg) by mouth 2 times daily (with meals). CRANBERRY 500 MG CHEWABLE TABLET Chew. ERGOCALCIFEROL (VITAMIN D-2) 1.25 MG (86625 UT) CAPSULE Take 1.25 mg by mouth 1 (one) time per week. ESTRADIOL (ESTRACE) 0.1 MG/GM VAGINAL CREAM Insert 2 g into the vagina daily. FARXIGA 10 MG TABLET Take 1 tablet (10 mg) by mouth daily. FLUTICASONE (FLONASE) 50 MCG/ACT NASAL SPRAY Administer 1 spray into affected nostril(s) daily. FUROSEMIDE (LASIX) 40 MG TABLET Take 1 tablet (40 mg) by mouth daily. MULTIPLE VITAMINS PO Take by mouth 1 (one) time each day. NAPROXEN (NAPROSYN) 250 MG TABLET Take by mouth. PROBIOTIC PRODUCT (PROBIOTIC DAILY PO) Take by mouth. SACUBITRIL-VALSARTAN (ENTRESTO) 97-103 MG TABLET Take 1 tablet by mouth 2 times daily. TURMERIC (QC TUMERIC COMPLEX) 500 MG CAPSULE Take 1,000 mg by mouth daily. VENLAFAXINE XR (EFFEXOR XR) 150 MG 24 HR CAPSULE Take 150 mg by mouth daily. VIBEGRON (GEMTESA) 75 MG TABLET Take 75 mg by mouth 1 (one) time each day. Modified Medications No medications on file Discontinued Medications No medications on file Patient is not taking anti-obesity medication. I spent a total of 45 minutes on the day of the visit in counseling, discussing lifestyle changes that are pertinent to a successful weight loss journey;and reviewing the chart including available communication from the the patient and the referring provider. 1.Education on meal composition,meal structure, meal preps, shopping list 2. Discussion on elements of behavioral strategies such self-monitoring, controlling and modifying the stimuli that activate eating;slowing down the eating process;goal-setting on the process,behavioral gloria and reinforcement,cognitive restructuring, problem-solving,assertiveness training. 3. Physical activity - build fitness to aerobic physical activity 150-300 min/wk and strength training 2-3 times per wk. 4.JENY Is associated with obesity and weight loss is discussed as a treatment option for JENY 5. Weight loss medications and their role in weight loss journey discussed The patient was seen and a full chart review was performed.Clinical documentation is updated and completed. documented in this encounter [facility] 07-24-2024 Note [facility] NON-SURGICAL WEIGHT LOSS MANAGEMENT PROGRAM PROGRESS NOTE INITIAL EVALUATION Patient: Rebeca Tirado Service Date: 07/24/24 Date of : 1960 Patient History/Assessment Summary: The patient is a pleasant 64 y.o. year old female, who stands Height: 5' 2.5 (158.8 cm) tall with a weight of Weight: (!) 309 lb 12.8 oz (141 kg) pounds, resulting in a BMI of Body mass index is 55.76 kg/m?. kg/m2. She has been overweight for 10+ years, and has tried and failed multiple previous diet attempts and is now seeking non-surgical treatment of obesity. This patient is unaccompanied for the evaluation today. PLAN ROS: I have reviewed New Patient Assessment Form with the Patient, which is located in the Agricultural Equipment Sales Manager Tab. History: Past Medical History: Diagnosis Date Acute congestive heart failure (HCC) 12/12/2020 Anxiety Blurred vision Daytime sleepiness Depression Family history of Fsqzd-Rfhjmqdvp-Pubkf (WPW) syndrome Fatty liver Hypertension Joint pain Lipoma of breast 06/2009 Chacon's neuroma 10/18/2012 LEDESMA (nonalcoholic steatohepatitis) JENY (obstructive sleep apnea) uses CPAP Osteoarthritis Osteoporosis Palpitation Parathyroid disease (HCC) 09/30/2014 hyperparathyroid, parathyroid adenoma Prediabetes PVC (premature ventricular contraction) occasional Simple ovarian cyst 09/24/2010 Thyroid goiter 09/30/2014 resolved Trigger finger 08/17/2017 right middle and ring fingers Vertigo Vertigo Past Surgical History: Procedure Laterality Date CHOLECYSTECTOMY FINGER SURGERY Right 11/2021 trigger finger PARATHYROIDECTOMY THYROID SURGERY TUBAL LIGATION 1998 Family History Problem Relation Name Age of Onset Heart disease Mother Clotting disorder Mother Heart disease Father Dementia Father Hypertension Father Pacemaker Father High Blood Pressure Father Atrial fibrillation Father Obesity Father Heart disease Brother Obesity Brother Hypertension Brother Clotting disorder Brother Heart disease Brother Heart disease Brother Arrhythmia Brother WPW Heart disease Brother Diabetes Paternal Grandmother Obesity Paternal Grandmother Hypertension Paternal Grandfather Heart disease Paternal Grandfather Social History Tobacco Use Smoking status: Never Smokeless tobacco: Never Substance Use Topics Alcohol use: No This patient's excess weight is causing the following co-morbid conditions at this time:JENY with or without CPAP Physical Examination: BP 106/66 Pulse 80 Ht 5' 2.5 (1.588 m) Wt (!) 309 lb 12.8 oz (141 kg) BMI 55.76 kg/m? Weight Metrics: Saxis Body Weight: Saxis Body Weight: 128 lb (58.1 kg) Excess Body Weight: Saxis BMI: 24 General: This patient is alert and oriented X3 General: This patient is obese, and is in no apparent distress. Psychological: Patient is awake, alert and oriented to person, place and time Patient's mood is Euthymic Current Diet This patient?s current diet is:high in animal fat, high in sugar, high in wheat, high in simple carbohydrates, and contains large amounts of high glycemic index foods Her diet contains adequate amounts of protein, inadequate amounts of healthy fats, inadequate amounts of green, leafy vegetables, and inadequate amounts of fruits. Her comfort foods include:sweets Current Activity This patient currently does not exercise ambulation with a cane Current Eating Behaviors No meal planning Fast food and ordering out frequent Working 2 shift Health and Behavior Inventory Patient scores as (Select one): [] Unguided Grazer [] Nighttime Nibbler [x] Convenient Consumer [] Fruitless Moriah [] Mindless Muncher [] Hearty Portioner [] Deprived Sneaker [] Hate to Move Struggler [] Self-Conscious Hider [] Inexperienced [place] [] Ltk-vq-Nykfeqk Doer [] Set-Routine Repeater [] Fadwt-mbn-Etlpe Sufferer [] Se-hcbj-lm-Exercise Protester [] Emotional Mcat Instructor [] Fxd-Kdvr-Ctrrmv Sufferer [] Persistent Procrastinator [] Can?t-Say-No Pleaser [] Fast Pacer [] Pessimistic Thinker [] Unrealistic Achiever This patients demonstrates the following behaviors as they relate to her eating:eats large portions and eats at night She eats approximately 3-4 times per day. Second shift Plan: Obesity stable Continue current management, start weight loss program Focus on the meal structure, composition and portion control Discuss options for the meal, Discuss carb substitutes Discuss portion control Discuss chair exercise Discuss how to implement the project Discuss batch cooking Discuss weight loss medications including the mechanism of action, side effects, efficacy and health insurance coverage limitations. Provided additional information regarding the corresponding websites. Due to CHF ( cor pulmonale) will not be able to use adipex, qsymia Referral to psychology stress eating JENY Severe (more content not included)... [facility] 07-01-2024 History of Present illness Narrative Images from the original note were not included. [facility] Cardiology Office Note DATE of SERVICE: 07/01/24 TIME of SERVICE: 10:45 AM Reason for Visit Chief Complaint Patient presents with 6 Month Follow-up Congestive Heart Failure History Rebeca Tirado is a 63 y.o. female who returns for follow-up of heart failure with normalized ejection fraction. She presented with HFrEF in November 2020. Cardiac MRI which showed no evidence of infiltrative disease or myocardial scarring. She has severe obesity. She has very significant sleep apnea. As detailed previously, she has an interesting family history with several brothers developing a significant cardiomyopathy and nearly dying. Last seen by Dr. Grullon 06/2023. She had not had any heart failure and only takes the furosemide once in a while. She did have some atypical chest pain at the time of URI right before the holidays. She states that she went into the ED at [place] and basic cardiac workup was negative. Last seen in office 12/2023, at which time she was switching from CPAP to BIPAP because of increased needs, and possibly oxygen bleed-in, depending on insurance. She presents today for 6 month follow-up. Had Covid in April 2024, reports it's taken awhile to recover. 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 Despite this, she still feels like her quality of life could be better. She easily tires, and reports her SOB is stable. She always brings up her right knee as the biggest limitation to progressing her mobility. She will be establishing with bariatric clinic in a couple weeks; wants assistance with lifestyle changes. She also tells me today how everyone in her family is overweight and she just becomes so overwhelmed. From a HF standpoint she appears stable and euvolemic. She had labs done recently per PCP, and we will obtain a copy. Assessment and Plan 1. Obstructive sleep apnea syndrome 2. Heart failure with recovered ejection fraction (HFrecEF) ([facility]) - ECG 12 lead 1. Heart failure with normalized ejection fraction. NYHA class I-II, stage C. At this time she appears well compensated and euvolemic. -echo 01/2022 shows LVEF 65%, no WMA, and no significant valvular disease -continues on coreg 12.5 mg twice daily -continues on Farxiga 10 mg daily -continues on Entresto 97-103 mg twice daily -continues on lasix 40 mg daily-PRN -ongoing HF care reviewed -encouraged compliance with BIPAP -encouraged portion control, exercise, and weight loss As discussed previously by Dr. Grullon, the most likely cause of her heart failure which at this point is primarily diastolic in nature is hypertensive cardiomyopathy, although a familial cardiomyopathy exacerbated by hypertension may be possible. Certainly obesity is a contributing factor. Ischemic heart disease is not completely excluded, however a lack of angina or family history of vascular disease and no scarring on the MRI suggested against this. This seems less likely. Nonetheless, a CAD work-up such as coronary CTA or stress testing could also be considered in the future if clinically indicated. 2. Severe obesity. She has been interested in pursuing evaluation at the [facility] [place]. We have made several referrals -today she states she has an appt to get started with the bariatric clinic next month; she appears motivated to change, and I have commended her on this big step she is taking. Follow up in about 6 months (around 01/01/2025) for Dr. Yadi Davis I, MICHELLE Cristobal CNP, furnish ongoing care related to Rebeca Tirado single, serious and complex condition(s) HFpEF. I assume responsibility for the patient's ongoing medical care of this condition. MAURICIO [facility] Cardiac Testing EK07/01/2024 Echo 02/11/2022: SUMMARY: 1. Technically difficult study. 2. Left ventricle: Not well visualized. Systolic function is normal by visual assessment. The estimated ejection fraction is 65%. 3. Right ventricle: The cavity size is normal. Systolic function is normal by visual assessment. Echo (date: 12/23/2020): personally reviewed - there is a restrictive diastolic filling pattern, only mild LVH 1. Left ventricle: The cavity size is normal. Wall thickness is mildly increased. Systolic function is by the biplane method of disks. The estimated ejection fraction is 47%. Regional wall motion abnormalities cannot be excluded. 2. Right ventricle: The cavity size is mildly dilated. Systolic function is normal. 3. Left atrium: The atrium is severely dilated. 4. No significant valve disease. 5. Technically difficult study. Event monitor 08/02/21-08/31/2021 1. The patient wore the recorder for the above documented period of time.(08/02/2021 - 08/31/2021) Baseline Recordings show sinus rhythm and sinus arrhythmia. Maximum HR was 105 BPM. 2. There were automatically triggered, asymptomatic events. They showed sinus tachycardia with artifact. 3. Unremarkable Event Recorder Current Medications Current Outpatient Medications: acetaminophen (Tylenol) 500 MG tablet, Take 500 mg by mouth every 6 hours as needed., Disp: , Rfl: albuterol 108 (90 Base) MCG/ACT inhaler, Inhale 2 puffs every 6 hours as needed., Disp: , Rfl: Ascorbic Acid (vitamin C) 1000 MG tablet, Take 1,000 mg by mouth daily., Disp: , Rfl: b complex vitamins capsule, Take 1 capsule by mouth daily., Disp: , Rfl: carvedilol (Coreg) 12.5 MG tablet, Take 1 tablet (12.5 mg) by mouth 2 times daily (with meals)., Disp: 180 tablet, Rfl: 1 Cranberry 500 MG chewable tablet, Chew., Disp: , Rfl: ergocalciferol (Vitamin D-2) 1.25 MG (98017 UT) capsule, Take 1.25 mg by mouth 1 (one) time per week., Disp: , Rfl: estradiol (Estrace) 0.1 MG/GM vaginal cream, Insert 2 g into the vagina daily., Disp: , Rfl: Farxiga 10 MG tablet, Take 1 tablet (10 mg) by mouth daily., Disp: 90 tablet, Rfl: 3 fluticasone (Flonase) 50 MCG/ACT nasal spray, Administer 1 spray into affected nostril(s) daily., Disp: , Rfl: furosemide (Lasix) 40 MG tablet, Take 1 tablet (40 mg) by mouth daily. (Patient taking differently: Take 40 mg by mouth as needed (for lower extremity swelling).), Disp: 90 tablet, Rfl: 1 naproxen (Naprosyn) 250 MG tablet, Take by mouth., Disp: , Rfl: Probiotic Product (PROBIOTIC DAILY PO), Take by mouth., Disp: , Rfl: sacubitril-valsartan (Entresto) 97-103 MG tablet, Take 1 tablet by mouth 2 times daily., Disp: 180 tablet, Rfl: 3 Turmeric (QC Tumeric Complex) 500 MG capsule, Take 1,000 mg by mouth daily., Disp: , Rfl: venlafaxine XR (Effexor XR) 150 MG 24 hr capsule, Take 150 mg by mouth daily., Disp: , Rfl: Vibegron (Gemtesa) 75 MG tablet, Take 75 mg by mouth 1 (one) time each day., Disp: , Rfl: Allergies Allergen Reactions Alendronate Anaphylaxis and Other Other reaction(s): Other: See Comments Chest pains Jennifer Shortness of breath Nirmatrelvir-Ritonavir Hives Pedi-Pre Tape Scott [Wound Dressing Adhesive] Rash Severe blisters where tape touched her Naproxen Swelling swelling Nirmatrelvir Other Reaction(s): hives Ritonavir Other Reaction(s): hives Physical Exam and Review of Systems Vitals: 07/01/24 0951 BP: 124/82 Pulse: 69 Wt Readings from Last 4 Encounters: 07/01/24 (!) 307 lb (139 kg) 01/02/24 (!) 310 lb (141 kg) 06/23/23 (!) 305 lb (138 kg) 01/17/23 (!) 305 lb (138 kg) Physical Exam Constitutional: General: She is not in acute distress. Appearance: She is morbidly obese. She is not diaphoretic. HENT: Head: Normocephalic. Nose: Nose normal. Mouth/Throat: Mouth: Mucous membranes are moist. Pharynx: No oropharyngeal exudate. Eyes: General: No scleral icterus. Right eye: No discharge. Left eye: No discharge. Neck: Thyroid: No thyromegaly. Vascular: No carotid bruit or JVD. Comments: No JVD Cardiovascular: Rate and Rhythm: Normal rate and regular rhythm. Pulses: Normal pulses. Heart sounds: Normal heart sounds. Pulmonary: Effort: Pulmonary effort is normal. Breath sounds: Normal breath sounds. Comments: CTA Abdominal: General: Bowel sounds are normal. There is no distension. Palpations: There is no hepatomegaly. Tenderness: There is no abdominal tenderness. Musculoskeletal: General: Normal range of motion. Cervical back: Normal range of motion. Right lower leg: No edema. Left lower leg: No edema. Skin: General: Skin is warm and dry. Neurological: Mental Status: She is oriented to person, place, and time. Psychiatric: Mood and Affect: Mood normal. Behavior: Behavior normal. Review of Systems Constitutional: Positive for fatigue (since Covid 04/2024). Negative for activity change, chills, diaphoresis and fever. HENT: Negative for nosebleeds and trouble swallowing. Eyes: Positive for visual disturbance. Negative for discharge. Respiratory: Positive for apnea (compliant with BIPAP) and shortness of breath. Negative for cough, chest tightness and wheezing. Cardiovascular: Negative for chest pain, palpitations and leg swelling. Gastrointestinal: Negative for abdominal distention, abdominal pain, blood in stool, diarrhea, nausea and vomiting. Endocrine: Negative for cold intolerance and heat intolerance. Genitourinary: Negative for hematuria. Musculoskeletal: Positive for arthralgias (right knee) and gait problem (ambulates with cane). Negative for myalgias. Skin: Negative for color change and rash. Neurological: Negative for dizziness (no recent dizziness), seizures, syncope, facial asymmetry, speech difficulty, weakness, light-headedness, numbness and headaches (no recent headaches). Vertigo Hematological: Does not bruise/bleed easily. Psychiatric/Behavioral: Negative for dysphoric mood. 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/18/2012 LEDESMA (nonalcoholic steatohepatitis) JENY (obstructive sleep apnea) uses CPAP Osteoarthritis Osteoporosis Palpitation Parathyroid disease (HCC) 09/30/2014 hyperparathyroid, parathyroid adenoma PVC (premature ventricular contraction) occasional Simple ovarian cyst 09/24/2010 Thyroid goiter 09/30/2014 resolved Trigger finger 08/17/2017 right middle and ring fingers Vertigo Past Surgical History: Procedure Laterality Date CHOLECYSTECTOMY FINGER SURGERY Right 11/2021 trigger finger PARATHYROIDECTOMY THYROID SURGERY TUBAL LIGATION 1998 Family History Problem Relation Name Age of Onset Heart disease Father Dementia Father Heart disease Mother Heart disease Brother Hypertension Father Heart disease Brother Pacemaker Father Heart disease Brother Arrhythmia Brother WPW High Blood Pressure Father Atrial fibrillation Father Heart disease Brother Diabetes Paternal Grandmother Social History Tobacco Use Smoking status: Never Smokeless tobacco: Never Substance Use Topics Alcohol use: No Received a copy of labs per primary care provider collected 06/03/2024: Vitamin D 36 within normal limits parathyroid hormone 32 within normal limits CMP shows NA 142 K 4.9 BUN 21.4 creat 0.9 EGFR 72 LFTs within normal limits CBC shows hemoglobin 14.1 hematocrit 44.4 WBC 7.7 platelets 272 A1c 6.1% Lipids show LDL 90 triglycerides 72 HDL 57 total cholesterol 161 At this time we will continue current plans as discussed in office today. We will reach out to patient to discuss her cholesterol with primary care provider. documented in this encounter [facility] 04-22-2024 Telephone encounter Note Patient left message requesting refill on carvedilol, send to [facility] in [place]. [facility] 04-22-2024 Miscellaneous Notes Patient left message requesting refill on carvedilol, send to [facility] in [place]. documented in this encounter [facility] 01-02-2024 History of Present illness Narrative Images from the original note were not included. [facility] Cardiology Office Note DATE of SERVICE: 01/02/24 TIME of SERVICE: 10:41 AM Reason for Visit Chief Complaint Patient presents with 6 Month Follow-up Congestive Heart Failure History Rebeca Tirado is a 63 y.o. female who returns for follow-up of heart failure with normalized ejection fraction. She presented with HFrEF in November 2020. Cardiac MRI which showed no evidence of infiltrative disease or myocardial scarring. She has severe obesity. She has very significant sleep apnea. As detailed previously, she has an interesting family history with several brothers developing a significant cardiomyopathy and nearly dying. Last seen by Dr. Grullon 06/2023. Since our last visit she has been fairly stable. She has not had any heart failure and only takes the furosemide once in a while. She did have some atypical chest pain at the time of URI right before the holidays. She states that she went into the ED at [place] and basic cardiac workup was negative. She presents today for routine 6 month follow-up. She is switching from CPAP to BIPAP because of increased needs. Possibly oxygen bleed-in, to be determined with insurance. Having issues with vertigo and headaches, My head doesn't feel right. BP normal x 2 readings. No falls, has not hit her head. She will discuss further with PCP. If her oxygen levels are running low at night that could certainly contribute to daytime headaches. Continues with SOB, I'm overweight, so it's always kind of there. 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 Assessment and Plan 1. Chronic systolic heart failure (HCC) 2. BMI 50.0-59.9, adult (HCC) 3. Sleep apnea, unspecified type 1. Heart failure with normalized ejection fraction. NYHA class I-II, stage C. At this time she appears well compensated and euvolemic. -echo 01/2022 shows LVEF 65%, no WMA, and no significant valvular disease -continues on coreg 12.5 mg twice daily -continues on Farxiga 10 mg daily -continues on Entresto 97-103 mg twice daily -continues on lasix 40 mg daily-PRN -ongoing HF care reviewed -encouraged compliance with BIPAP -encouraged portion control, exercise, and weight loss As discussed previously, the most likely cause of her heart failure which at this point is primarily diastolic in nature is hypertensive cardiomyopathy, although a familial cardiomyopathy exacerbated by hypertension may be possible. Certainly obesity is a contributing factor. Ischemic heart disease is not completely excluded, however a lack of angina or family history of vascular disease and no scarring on the MRI suggested against this. This seems less likely. Nonetheless, a CAD work-up such as coronary CTA or stress testing could also be considered in the future if clinically indicated. 2. Severe obesity. She has been interested in pursuing evaluation at the [facility] [place]. We have made several referrals and she has not followed through but nonetheless again expressed interest today. -she also has been referred to the weight loss center, but has been, dragging her feet on filling out the paperwork -we reviewed at length that weight loss will help all of her other problems; she frequently brings up her knees [id number] Follow up in about 6 months (around 07/01/2024). I, Maddison Jordan APRN - JOSE ALFREDO, furnish ongoing care related to Rebeca Tirado single, serious and complex condition(s) HFpEF. I assume responsibility for the patient's ongoing medical care of this condition. Maddison Jordan APRN-JOSE ALFREDO Cardiac Testing EK06/23/2023 Echo 02/11/2022: SUMMARY: 1. Technically difficult study. 2. Left ventricle: Not well visualized. Systolic function is normal by visual assessment. The estimated ejection fraction is 65%. 3. Right ventricle: The cavity size is normal. Systolic function is normal by visual assessment. Echo (date: 12/23/2020): personally reviewed - there is a restrictive diastolic filling pattern, only mild LVH 1. Left ventricle: The cavity size is normal. Wall thickness is mildly increased. Systolic function is by the biplane method of disks. The estimated ejection fraction is 47%. Regional wall motion abnormalities cannot be excluded. 2. Right ventricle: The cavity size is mildly dilated. Systolic function is normal. 3. Left atrium: The atrium is severely dilated. 4. No significant valve disease. 5. Technically difficult study. Event monitor 08/02/21-08/31/2021 1. The patient wore the recorder for the above documented period of time.(08/02/2021 - 08/31/2021) Baseline Recordings show sinus rhythm and sinus arrhythmia. Maximum HR was 105 BPM. 2. There were automatically triggered, asymptomatic events. They showed sinus tachycardia with artifact. 3. Unremarkable Event Recorder Current Medications Current Outpatient Medications: acetaminophen (Tylenol) 500 MG tablet, Take 500 mg by mouth every 6 hours as needed., Disp: , Rfl: albuterol 108 (90 Base) MCG/ACT inhaler, Inhale 2 puffs every 6 hours as needed., Disp: , Rfl: Ascorbic Acid (vitamin C) 1000 MG tablet, Take 1,000 mg by mouth daily., Disp: , Rfl: b complex vitamins capsule, Take 1 capsule by mouth daily., Disp: , Rfl: carvedilol (Coreg) 12.5 MG tablet, TAKE 1 TABLET BY MOUTH IN THE MORNING AND 1 IN THE EVENING WITH MEALS, Disp: 180 tablet, Rfl: 0 cephalexin (Keflex) 250 MG capsule, Take 250 mg by mouth in the morning and 250 mg at noon and 250 mg in the evening and 250 mg before bedtime., Disp: , Rfl: Cranberry 500 MG chewable tablet, Chew., Disp: , Rfl: ergocalciferol (Vitamin D-2) 1.25 MG (33963 UT) capsule, Take 1.25 mg by mouth 1 (one) time per week., Disp: , Rfl: estradiol (Estrace) 0.1 MG/GM vaginal cream, Insert 2 g into the vagina daily., Disp: , Rfl: Farxiga 10 MG tablet, Take 1 tablet (10 mg) by mouth daily., Disp: 90 tablet, Rfl: 3 fluticasone (Flonase) 50 MCG/ACT nasal spray, Administer 1 spray into affected nostril(s) daily., Disp: , Rfl: furosemide (Lasix) 40 MG tablet, Take 1 tablet (40 mg) by mouth daily. (Patient taking differently: Take 40 mg by mouth daily as needed.), Disp: 90 tablet, Rfl: 1 naproxen (Naprosyn) 250 MG tablet, Take by mouth., Disp: , Rfl: nitrofurantoin (Macrodantin) 100 MG capsule, Take 100 mg by mouth Nightly., Disp: , Rfl: sacubitril-valsartan (Entresto) 97-103 MG tablet, Take 1 tablet by mouth 2 times daily., Disp: 180 tablet, Rfl: 3 Turmeric (QC Tumeric Complex) 500 MG capsule, Take 1,000 mg by mouth daily., Disp: , Rfl: venlafaxine XR (Effexor XR) 150 MG 24 hr capsule, Take 150 mg by mouth daily., Disp: , Rfl: Vibegron (Gemtesa) 75 MG tablet, Take 75 mg by mouth 1 (one) time each day., Disp: , Rfl: Allergies Allergen Reactions Alendronate Anaphylaxis and Other Other reaction(s): Other: See Comments Chest pains Jennifer Shortness of breath Nirmatrelvir-Ritonavir Hives Pedi-Pre Tape Scott [Wound Dressing Adhesive] Rash Severe blisters where tape touched her Naproxen Swelling swelling Physical Exam and Review of Systems Vitals: 01/02/24 1029 BP: 110/68 Pulse: Resp: Wt Readings from Last 4 Encounters: 01/02/24 (!) 310 lb (141 kg) 06/23/23 (!) 305 lb (138 kg) 01/17/23 (!) 305 lb (138 kg) 09/09/22 (!) 305 lb 9.6 oz (139 kg) Physical Exam Constitutional: General: She is not in acute distress. Appearance: She is morbidly obese. She is not diaphoretic. HENT: Head: Normocephalic. Nose: Nose normal. Mouth/Throat: Mouth: Mucous membranes are moist. Pharynx: No oropharyngeal exudate. Eyes: General: No scleral icterus. Right eye: No discharge. Left eye: No discharge. Neck: Thyroid: No thyromegaly. Vascular: No carotid bruit or JVD. Cardiovascular: Rate and Rhythm: Normal rate and regular rhythm. Pulses: Normal pulses. Heart sounds: Normal heart sounds. Pulmonary: Effort: Pulmonary effort is normal. Breath sounds: Normal breath sounds. Abdominal: General: Bowel sounds are normal. There is no distension. Palpations: There is no hepatomegaly. Tenderness: There is no abdominal tenderness. Musculoskeletal: General: Normal range of motion. Cervical back: Normal range of motion. Right lower leg: No edema. Left lower leg: No edema. Skin: General: Skin is warm and dry. Neurological: Mental Status: She is oriented to person, place, and time. Psychiatric: Mood and Affect: Mood normal. Behavior: Behavior normal. Review of Systems Constitutional: Negative for chills, diaphoresis and fever. HENT: Negative for nosebleeds. Eyes: Positive for visual disturbance. Respiratory: Positive for apnea (now with BIPAP instead of CPAP), chest tightness (in bed once, while resting, resolved quickly) and shortness of breath. Negative for wheezing. Cardiovascular: Negative for chest pain, palpitations and leg swelling. Gastrointestinal: Negative for abdominal pain, blood in stool and diarrhea. Genitourinary: Negative for hematuria. Musculoskeletal: Negative for myalgias. Neurological: Positive for dizziness and headaches. Negative for syncope. Vertigo Hematological: Does not bruise/bleed easily. Past Medical/Family/Social History Past Medical History: Diagnosis Date Acute congestive heart failure (HCC) 12/12/2020 Depression Family history of Jplsk-Scubhyfvg-Ejyqg (WPW) syndrome Fatty liver Lipoma of breast 06/2009 Chacon's neuroma 10/18/2012 LEDESMA (nonalcoholic steatohepatitis) JENY (obstructive sleep apnea) uses CPAP Osteoarthritis Osteoporosis Palpitation Parathyroid disease (HCC) 09/30/2014 hyperparathyroid, parathyroid adenoma PVC (premature ventricular contraction) occasional Simple ovarian cyst 09/24/2010 Thyroid goiter 09/30/2014 resolved Trigger finger 08/17/2017 right middle and ring fingers Vertigo Past Surgical History: Procedure Laterality Date CHOLECYSTECTOMY FINGER SURGERY Right 11/2021 trigger finger PARATHYROIDECTOMY THYROID SURGERY TUBAL LIGATION 1998 Family History Problem Relation Name Age of Onset Heart disease Father Dementia Father Heart disease Mother Heart disease Brother Hypertension Father Heart disease Brother Pacemaker Father Heart disease Brother Arrhythmia Brother WPW High Blood Pressure Father Atrial fibrillation Father Heart disease Brother Diabetes Paternal Grandmother Social History Tobacco Use Smoking status: Never Smokeless tobacco: Never Substance Use Topics Alcohol use: No Received a copy of labs collected 12/26/2023 by PCP: CBC Hgb 14.6 Hcct 45.5 WBC 8.3 Plt 307 BMP Na 139 K 4.6 Bun 19 creat 0.74 eGFR 85 12/01/2023- PTH 41 nml Lipids TCHOL 164 HDL 56 LDL 94 TGL 72 - mgt per pcp Vitamin D 24 - low A1c 6.0% Continue current heart failure regimen. documented in this encounter [facility] 06-23-2023 History of Present illness Narrative Images from the original note were not included. [facility] Cardiology Office Note DATE of SERVICE: 06/23/23 TIME of SERVICE: 11:30 AM Reason for Visit Chief Complaint Patient presents with 6 Month Follow-up History Rebeca Tirado is a 62 y.o. female who returns for follow-up of heart failure with normalized ejection fraction. She presented with HFrEF in November 2020. Cardiac MRI which showed no evidence of infiltrative disease or myocardial scarring. She has severe obesity. She has sleep apnea and is compliant with CPAP. As detailed previously, she has an interesting family history with several brothers developing a significant cardiomyopathy and nearly dying. Since our last visit she has been fairly stable. She has not had any heart failure and only takes the furosemide once in a while. She did have some atypical chest pain at the time of URI right before the holidays. She states that she went into the ED at [place] and basic cardiac workup was negative. Assessment and Plan 1. Chronic systolic heart failure (HCC) - ECG 12 lead 2. BMI 50.0-59.9, adult (HCC) - [facility] 1. Heart failure with normalized ejection fraction, recent onset. NYHA class I-II, stage C. At this time she appears well compensated and euvolemic. She rarely requires furosemide. 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 She is on her feet the entire shift. We will continue her excellent regimen of guideline directed medical therapy. We again discussed the critical importance of lifestyle changes and gradual sustained weight loss. She is compliant with CPAP. As discussed previously, the most likely cause of her heart failure which at this point is primarily diastolic in nature is hypertensive cardiomyopathy, although a familial cardiomyopathy exacerbated by hypertension may be possible. Certainly obesity is a contributing factor. Ischemic heart disease is not completely excluded, however a lack of angina or family history of vascular disease and no scarring on the MRI suggested against this. This seems less likely. Nonetheless, a CAD work-up such as coronary CTA or stress testing could also be considered in the future if clinically indicated. 2. Severe obesity. She has been interested in pursuing evaluation at the [facility] [place]. We have made several referrals and she has not followed through but nonetheless again expressed interest today so I placed a new referral. Follow up in about 6 months (around 12/24/2023) for STANLEY and for MD 1 year. Kimberly Grullon M.D., F.A.C.C. Guard Chief Chief, Division of Cardiac Imaging Clinical [place], [facility] Cardiac Testing Echo 02/11/2022: SUMMARY: 1. Technically difficult study. 2. Left ventricle: Not well visualized. Systolic function is normal by visual assessment. The estimated ejection fraction is 65%. 3. Right ventricle: The cavity size is normal. Systolic function is normal by visual assessment. Echo (date: 12/23/2020): personally reviewed - there is a restrictive diastolic filling pattern, only mild LVH 1. Left ventricle: The cavity size is normal. Wall thickness is mildly increased. Systolic function is by the biplane method of disks. The estimated ejection fraction is 47%. Regional wall motion abnormalities cannot be excluded. 2. Right ventricle: The cavity size is mildly dilated. Systolic function is normal. 3. Left atrium: The atrium is severely dilated. 4. No significant valve disease. 5. Technically difficult study. Event monitor 08/02/21-08/31/2021 1. The patient wore the recorder for the above documented period of time.(08/02/2021 - 08/31/2021) Baseline Recordings show sinus rhythm and sinus arrhythmia. Maximum HR was 105 BPM. 2. There were automatically triggered, asymptomatic events. They showed sinus tachycardia with artifact. 3. Unremarkable Event Recorder Current Medications Current Outpatient Medications: acetaminophen (Tylenol) 500 MG tablet, Take 500 mg by mouth every 6 hours as needed., Disp: , Rfl: albuterol 108 (90 Base) MCG/ACT inhaler, Inhale 2 puffs every 6 hours as needed., Disp: , Rfl: b complex vitamins capsule, Take 1 capsule by mouth daily., Disp: , Rfl: carvedilol (Coreg) 12.5 MG tablet, Take 1 tablet (12.5 mg) by mouth in the morning and 1 tablet (12.5 mg) in the evening. Take with meals., Disp: 180 tablet, Rfl: 0 Farxiga 10 MG tablet, Take 1 tablet (10 mg) by mouth daily., Disp: 90 tablet, Rfl: 3 fluticasone (Flonase) 50 MCG/ACT nasal spray, Administer 1 spray into affected nostril(s) daily., Disp: , Rfl: furosemide (Lasix) 40 MG tablet, Take 1 tablet (40 mg) by mouth daily. (Patient taking differently: Take 40 mg by mouth daily as needed.), Disp: 90 tablet, Rfl: 1 sacubitril-valsartan (Entresto) 97-103 MG tablet, Take 1 tablet by mouth 2 times daily., Disp: 180 tablet, Rfl: 3 venlafaxine XR (Effexor XR) 150 MG 24 hr capsule, Take 150 mg by mouth daily., Disp: , Rfl: Allergies Allergen Reactions Alendronate Anaphylaxis and Other Other reaction(s): Other: See Comments Chest pains Jennifer Shortness of breath Nirmatrelvir-Ritonavir Hives Pedi-Pre Tape Scott [Wound Dressing Adhesive] Rash Severe blisters where tape touched her Naproxen Swelling swelling Physical Exam and Review of Systems Vitals: 06/23/23 1054 BP: 100/60 Pulse: 64 Resp: 15 Wt Readings from Last 4 Encounters: 06/23/23 (!) 305 lb (138 kg) 01/17/23 (!) 305 lb (138 kg) 09/09/22 (!) 305 lb 9.6 oz (139 kg) 06/10/22 (!) 311 lb (141 kg) Physical Exam Vitals reviewed. Constitutional: General: She is not in acute distress. Appearance: She is morbidly obese. HENT: Head: Normocephalic. Eyes: General: No scleral icterus. Conjunctiva/sclera: Conjunctivae normal. Cardiovascular: Rate and Rhythm: Normal rate and regular rhythm. Heart sounds: No murmur heard. No gallop. Pulmonary: Effort: Pulmonary effort is normal. Breath sounds: Normal breath sounds. No wheezing or rales. Abdominal: General: There is no distension. Palpations: Abdomen is soft. Musculoskeletal: General: Normal range of motion. Right lower leg: No edema. Left lower leg: No edema. Skin: General: Skin is warm and dry. Neurological: General: No focal deficit present. Mental Status: She is alert. Psychiatric: Mood and Affect: Mood normal. Thought Content: Thought content normal. Review of Systems Constitutional: Negative for activity change, chills, diaphoresis, fatigue and fever. HENT: Negative for nosebleeds and trouble swallowing. Eyes: Negative for discharge and visual disturbance. Respiratory: Positive for shortness of breath. Negative for apnea, cough, chest tightness and wheezing. Cardiovascular: Positive for chest pain. Negative for palpitations and leg swelling. Gastrointestinal: Negative for abdominal distention, abdominal pain, blood in stool, diarrhea, nausea and vomiting. Endocrine: Negative for cold intolerance and heat intolerance. Genitourinary: Negative for hematuria. Musculoskeletal: Positive for arthralgias. Negative for gait problem and myalgias. Skin: Negative for color change and rash. Neurological: Positive for dizziness. Negative for seizures, syncope, facial asymmetry, speech difficulty, weakness, light-headedness, numbness and headaches. Hematological: Does not bruise/bleed easily. Psychiatric/Behavioral: Negative for dysphoric mood. Past Medical/Family/Social History Past Medical History: Diagnosis Date Acute congestive heart failure (HCC) 12/12/2020 Depression Family history of Xanbg-Gccosxcer-Ubkvx (WPW) syndrome Fatty liver Lipoma of breast 06/2009 Chacon's neuroma 10/18/2012 LEDESMA (nonalcoholic steatohepatitis) JENY (obstructive sleep apnea) uses CPAP Osteoarthritis Osteoporosis Palpitation Parathyroid disease (HCC) 09/30/2014 hyperparathyroid, parathyroid adenoma PVC (premature ventricular contraction) occasional Simple ovarian cyst 09/24/2010 Thyroid goiter 09/30/2014 resolved Trigger finger 08/17/2017 right middle and ring fingers Vertigo Past Surgical History: Procedure Laterality Date CHOLECYSTECTOMY FINGER SURGERY Right 11/2021 trigger finger PARATHYROIDECTOMY THYROID SURGERY TUBAL LIGATION 1998 Family History Problem Relation Name Age of Onset Heart disease Father Dementia Father Heart disease Mother Heart disease Brother Hypertension Father Heart disease Brother Pacemaker Father Heart disease Brother Arrhythmia Brother WPW High Blood Pressure Father Atrial fibrillation Father Heart disease Brother Diabetes Paternal Grandmother Social History Tobacco Use Smoking status: Never Smokeless tobacco: Never Substance Use Topics Alcohol use: No documented in this encounter [facility] 06-05-2023 Telephone encounter Note Patient called requesting refill on carvedilol 12.5 mg, send to [facility] in [place]. She is completely out. [facility] 06-05-2023 Miscellaneous Notes Patient called requesting refill on carvedilol 12.5 mg, send to [facility] in [place]. She is completely out. documented in this encounter [facility] 01-17-2023 History of Present illness Narrative Images from the original note were not included. [facility] [address] [place] [address] [place] [id number] Dept: [phone] Dept Chief Complaint Patient presents with Knee Pain Right Subjective History of Present Illness: Rebeca Tirado is a 62 y.o. female who presents today for evaluation of right knee pain. 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 Location: medial and anterior Onset: 3 years, chronic Injury: No recent injuries, fall 5 years ago onto knee Quality: aching, dull Mechanical symptoms: no, feels as if knee cap slides to side Radiation of symptoms: no Severity: 0/10 at rest and 6/10 at worst Exacerbating factor(s): walking, prolonged standing, climbing/descending stairs, and squatting Relieving factor(s): rest, elevate Timing: in the morning, pt works nights Imaging to date: X-ray December 2022 Treatment to date: PT/OT/HEP: yes, formal physical therapy for 6 weeks . 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 Respiratory: Breathing comfortably on room air. No respiratory distress. Skin: Warm, dry, intact. No visible rashes or erythema overlying area of focused exam. Musculoskeletal/Neurologic: Right Knee. Contralateral side is normal unless otherwise noted. Gait: Antalgic. Using a cane in the left hand. Inspection: Alignment: Valgus on the right. Effusion: None. Ecchymosis: No ecchymosis noted of the examined area. Palpation: Tender to palpation: medial joint line Range of Motion: Right Knee: Full, pain with terminal flexion. Left Knee: Full, pain free. Strength: 5/5 bilateral lower extremity strength testing, within normal limits for age. Sensation: Sensation to light touch intact, symmetric of the examined bilateral lower extremities. Special Tests: Varus stress (LCL): Normal. Valgus stress (MCL): Normal. Dariana's: Normal. Posterior Drawer: Normal. Lucrecia's: Normal. Fat pad impingement: Normal. External Notes None available Labs Lab Results Component Value Date HGBA1C 5.5 11/04/2022 Lab Results Component Value Date CREATININE 0.65 11/04/2022 Imaging Images reviewed with patient today I have personally reviewed the images obtained today Personal interpretation: AP weight-bearing, PA flexion weight-bearing, lateral and sunrise views of the patient's Right knee were performed today and reviewed by me. No fracture, Normal alignment, and No effusion. Medial joint space: Narrowed severe on right Lateral joint space: Within normal limits bilaterally Medial PF joint: Narrowed severe on right Lateral PF joint: Narrowed severe on right. The patella is well seated within the femoral trochlea. EMG/NCT None available Procedure No procedures completed today Assessment Diagnosis Plan 1. Primary osteoarthritis of right knee Patient has OA of right knee based on symptoms and physical exam today. Xrays notable for degenerative changes above. Discussed conservative management to invasive treatment options for osteoarthritis of the knee including physical therapy, oral medications, steroid injections, gel injections, iovera, and knee replacement. Patient would benefit from HEP, mobic, reaction brace. Patient has allergy with naproxen however has been okay with aleve. Discussed this with patient and see stated she wants to try the mobic regardless so medication prescribed with caution advised. Will see back as needed. Plan Activity: knee OA home exercise handout given today. Medication(s): Ice. Heat. OTC tylenol as needed for pain. Meloxicam as prescribed. Discussed with the patient to not take any other anti-inflammatories such as ibuprofen, naproxen, aleve etc while taking meloxicam but it is okay to take tylenol for break through pain. Test(s)/Imaging/Referral(s): X-rays ordered, completed and reviewed today. Fitted for DJO Reaction brace today. Additional Intervention(s): Consider corticosteroid injection. Follow up: If symptoms worsen or fail to improve as anticipated. Danielle Huertas MD 01/17/2023 2:41 PM Please note that portions of this note may have been completed with voice recognition software. Documentation reviewed prior to signing but minor errors in sports anchor may have occurred. documented in this encounter [facility] 12-16-2022 Telephone encounter Note Name of Caller: Rebeca Contact Reason for Appointment: Patient Rebeca calling in to cancel appointment for 12-16-2022 due to vertigo. Would like to r/s. Please advise Office Name: Orthopedics Medication Refills need, if any: N/A Medication Name: N/A [facility] 12-16-2022 Miscellaneous Notes Name of Caller: Rebeca Contact Reason for Appointment: Patient Rebeca calling in to cancel appointment for 12-16-2022 due to vertigo. Would like to r/s. Please advise Office Name: Orthopedics Medication Refills need, if any: N/A Medication Name: N/A documented in this encounter [facility] 10-05-2022 Telephone encounter Note Spoke to patient informing she needs to return her new patient packet so we can schedule for non surg program. [facility] 10-05-2022 Miscellaneous Notes Spoke to patient informing she needs to return her new patient packet so we can schedule for non surg program. Printed Name of Caller: Rebeca Contact Reason for Appointment: LEARNING FACILITATOR appt request Office Name: Weight Management [place] Medication Refills need, if any: n/a Medication Name: n/a documented in this encounter [facility] 09-29-2022 Telephone encounter Note Printed [facility] 09-27-2022 Telephone encounter Note Name of Caller: Rebeca Contact Reason for Appointment: LEARNING FACILITATOR appt request Office Name: [facility] [place] Medication Refills need, if any: n/a Medication Name: n/a [facility] 08-12-2022 Telephone encounter Note Patient called for refill on her Entresto, she said she is completely out. Please send to [facility] in [place]. [facility] 08-12-2022 Miscellaneous Notes Patient called for refill on her Entresto, she said she is completely out. Please send to [facility] in [place]. documented in this encounter [facility] 06-10-2022 Evaluation + Plan note Associated Problem(s): Chronic systolic heart failure (CMS/HCC) (HCC) Stage C NYHA Class II. Normalized LVEF on echo January 2022. -continue coreg, farxiga, lasix, hyzaar, and entresto -she does have trace ankle edema today, but tells me she has missed a couple days of lasix. I encourage her to take as prescribed. -monitor edema, SOB, weight [facility] 06-10-2022 Miscellaneous Notes Associated Problem(s): Chronic systolic heart failure (CMS/HCC) (HCC) Stage C NYHA Class II. Normalized LVEF on echo January 2022. -continue coreg, farxiga, lasix, hyzaar, and entresto -she does have trace ankle edema today, but tells me she has missed a couple days of lasix. I encourage her to take as prescribed. -monitor edema, SOB, weight Associated Problem(s): BMI 50.0-59.9, adult (CMS/HCC) (HCC) Familial and metabolic. Discussed impact on health and she voiced her ongoing struggles. She is agreeable to see the [facility] clinic for non-surgical assistance. I will place that referral today. 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 Associated Problem(s): Sleep apnea Compliant with CPAP. In June she is scheduled to go for a split study - possible BiPAP. Associated Problem(s): Palpitations This is less of a concern at this time. An event monitor in 2021 showed no significant arrhythmia. She is certainly at risk for atrial fibrillation.. -EKG at least yearly -continue beta adeline documented in this encounter [facility] 06-10-2022 Evaluation + Plan note Associated Problem(s): BMI 50.0-59.9, adult (CMS/HCC) (HCC) Familial and metabolic. Discussed impact on health and she voiced her ongoing struggles. She is agreeable to see the [facility] Bariat[facility] clinic for non-surgical assistance. I will place that referral today. 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 [facility] 06-10-2022 Evaluation + Plan note Associated Problem(s): Sleep apnea Compliant with CPAP. In June she is scheduled to go for a split study - possible BiPAP. [facility] 06-10-2022 Evaluation + Plan note Associated Problem(s): Palpitations This is less of a concern at this time. An event monitor in 2021 showed no significant arrhythmia. She is certainly at risk for atrial fibrillation.. -EKG at least yearly -continue beta adeline [facility] 06-10-2022 Note Sinus Rhythm -Left axis. -Poor R-wave progression -may be secondary to pulmonary disease consider old anterior infarct. Low voltage -possible pulmonary disease. ABNORMAL [facility] 06-10-2022 History of Present illness Narrative Images from the original note were not included. [address] [facility] [address] Dept: [phone] Dept Loc: [phone] Visit type: Established : 1960 Reason for Visit: Follow-up Assessment and Plan 1. Chronic systolic heart failure (CMS/HCC) ([facility]) Assessment & Plan: Stage C NYHA Class II. Normalized LVEF on echo January 2022. -continue coreg, farxiga, lasix, hyzaar, and entresto -she does have trace ankle edema today, but tells me she has missed a couple days of lasix. I encourage her to take as prescribed. -monitor edema, SOB, weight Orders: - [facility]-Non Surgical Wt Mgmt 2. Hypertension, essential - ECG 12 lead - CLINIC PERFORMED 3. Obstructive sleep apnea syndrome Assessment & Plan: Compliant with CPAP. In June she is scheduled to go for a split study - possible BiPAP. 4. Palpitations Assessment & Plan: This is less of a concern at this time. An event monitor in 2021 showed no significant arrhythmia. She is certainly at risk for atrial fibrillation.. -EKG at least yearly -continue beta adeline 5. BMI 50.0-59.9, adult (CMS/HCC) ([facility]) Assessment & Plan: Familial and metabolic. Discussed impact on health and she voiced her ongoing struggles. She is agreeable to see the [facility] Bariat[facility] clinic for non-surgical assistance. I will place that referral today. 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 [facility] Follow up in about 3 months (around 09/07/2022). Subjective This is a patient known to Dr. Grullon with family significant family history - brothers with cardiomyopathy nearly dying. History of HFrEF November 2020 with since normalized LVEF. She is also seen for palpitations, JENY compliant with CPAP, and obesity. Past surgical history includes removal of 3 parathyroid glands. She comes in today for follow-up. Denies chest pain or palpitations. Continues with fatigue at baseline. She recently had a mechanical fall at work, and has had some subsequent pain in her right shoulder. 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 We discussed lifestyle modification at length, and she is agreeable to go to the [facility] Bariat[facility] clinic for non-surgical mgt. She tells me about her weight struggles and her family's genetic trends, and how hard it has been for her. She understands the progression of disease and wants to make changes. I encourage her to meet with them, as well as create a routine for her days off. She works nights, and this continues to be hard on her body. Right knee arthritis is also a limiting factor. She will come back in about 3 months, sooner if needed. I have made changes to her medications today. Review of Systems Constitutional: Positive for diaphoresis (w/ exertion, chronic) and fever. Negative for activity change, chills and fatigue. HENT: Negative for nosebleeds and trouble swallowing. Eyes: Negative for discharge and visual disturbance. Respiratory: Positive for apnea (wears CPAP) and shortness of breath. Negative for cough, chest tightness and wheezing. Cardiovascular: Negative for chest pain, palpitations (palpitations resolved per pt) and leg swelling. Gastrointestinal: Negative for abdominal distention, abdominal pain, blood in stool, diarrhea, nausea and vomiting. Endocrine: Negative for cold intolerance and heat intolerance. Genitourinary: Negative for hematuria. Musculoskeletal: Negative for gait problem and myalgias. Skin: Negative for color change and rash. Neurological: Negative for dizziness, seizures, syncope, facial asymmetry, speech difficulty, weakness, light-headedness, numbness and headaches. Hematological: Does not bruise/bleed easily. Psychiatric/Behavioral: Negative for dysphoric mood. Allergies Allergen Reactions Alendronate Anaphylaxis and Other Other reaction(s): Other: See Comments Chest pains Jennifer Shortness of breath Nirmatrelvir-Ritonavir Hives Pedi-Pre Tape Scott [Wound Dressing Adhesive] Rash Severe blisters where tape touched her Naproxen Swelling swelling Outpatient Medications Prior to Visit Medication Sig Dispense Refill acetaminophen (Tylenol) 500 MG tablet Take 500 mg by mouth every 6 hours as needed. albuterol 108 (90 Base) MCG/ACT inhaler Inhale 2 puffs every 6 hours as needed. carvedilol (Coreg) 12.5 MG tablet Take 12.5 mg by mouth in the morning and 12.5 mg in the evening. Take with meals. Farxiga 10 MG Take 1 tablet (10 mg) by mouth daily. 90 tablet 3 fluticasone (Flonase) 50 MCG/ACT nasal spray Administer 1 spray into affected nostril(s) daily. furosemide (Lasix) 40 MG tablet Take 1 tablet (40 mg) by mouth daily. 90 tablet 3 losartan-hydroCHLOROthiazide (Hyzaar) 50-12.5 MG tablet Take 1 tablet by mouth daily. montelukast (Singulair) 10 MG tablet Take 10 mg by mouth daily. sacubitril-valsartan (Entresto) 97-103 MG tablet Take 1 tablet by mouth in the morning and 1 tablet before bedtime. venlafaxine XR (Effexor XR) 150 MG 24 hr capsule Take 150 mg by mouth daily. No facility-administered medications prior to visit. 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/2012 LEDESMA (nonalcoholic steatohepatitis) JENY (obstructive sleep apnea) uses CPAP Osteoarthritis Osteoporosis Palpitation Parathyroid disease (HCC) 09/30/2014 hyperparathyroid, parathyroid adenoma PVC (premature ventricular contraction) occasional Simple ovarian cyst 09/24/2010 Thyroid goiter 09/30/2014 resolved Trigger finger 08/17/2017 right middle and ring fingers Vertigo Social History Tobacco Use Smoking status: Never Smokeless tobacco: Never Substance Use Topics Alcohol use: No Past Surgical History: Procedure Laterality Date CHOLECYSTECTOMY FINGER SURGERY Right 11/2021 trigger finger PARATHYROIDECTOMY THYROID SURGERY TUBAL LIGATION 1998 Family History Problem Relation Name Age of Onset Heart disease Father Dementia Father Heart disease Mother Heart disease Brother Hypertension Father Heart disease Brother Pacemaker Father Heart disease Brother Arrhythmia Brother WPW High Blood Pressure Father Atrial fibrillation Father Heart disease Brother Diabetes Paternal Grandmother Objective Vitals: 06/10/22 1012 BP: 114/82 BP Location: Left arm Patient Position: Sitting BP Cuff Size: Large adult Pulse: 69 Resp: 16 Weight: (!) 311 lb (141 kg) Height: 5' 2.5 (1.588 m) Physical Exam Constitutional: Appearance: Normal appearance. She is obese. HENT: Head: Normocephalic. Eyes: General: No scleral icterus. Right eye: No discharge. Left eye: No discharge. Cardiovascular: Rate and Rhythm: Normal rate and regular rhythm. Pulses: Normal pulses. Heart sounds: Normal heart sounds. No murmur heard. Pulmonary: Effort: Pulmonary effort is normal. Breath sounds: Normal breath sounds. Abdominal: General: Abdomen is flat. Palpations: Abdomen is soft. Musculoskeletal: General: Normal range of motion. Cervical back: Normal range of motion. Right lower leg: No edema. Left lower leg: No edema. Skin: General: Skin is warm and dry. Capillary Refill: Capillary refill takes less than 2 seconds. Neurological: Mental Status: She is alert and oriented to person, place, and time. Psychiatric: Mood and Affect: Mood normal. Affect is tearful. Data Reviewed and Summarized Labs: Lab Results Component Value Date GLUCOSE 108 (H) 07/13/2021 CALCIUM 9.4 07/13/2021 NA 141 07/13/2021 K 4.9 07/13/2021 CO2 30 07/13/2021 CL 104 07/13/2021 BUN 26 (H) 07/13/2021 CREATININE 0.79 07/13/2021 Lab Results Component Value Date AST 45 12/11/2020 ALKPHOS 125 12/11/2020 BILITOT 0.5 12/11/2020 Lab Results Component Value Date WBC 8.8 12/11/2020 HGB 13.6 12/11/2020 MCV 88.3 12/11/2020 Lab Results Component Value Date TSH 2.069 12/11/2020 No results found for: CHOL No results found for: HDL No results found for: LDLCALC No results found for: TRIG No results found for: CHOLHDL No results found for: HGBA1C Wt Readings from Last 3 Encounters: 06/10/22 (!) 311 lb (141 kg) 03/28/22 300 lb (136 kg) 01/31/22 300 lb (136 kg) Cardiac Tests / Imaging: Echo: 01/2022 SUMMARY: 1. Technically difficult study. 2. Left ventricle: Not well visualized. Systolic function is normal by visual assessment. The estimated ejection fraction is 65%. 3. Right ventricle: The cavity size is normal. Systolic function is normal by visual assessment. MICHELLE Marsh CNP documented in this encounter [facility] 05-02-2022 Telephone encounter Note Received fax from [facility] for refill on farxiga 10 mg, fill through [facility]. [facility] 05-02-2022 Miscellaneous Notes Received fax from [facility] for refill on farxiga 10 mg, fill through [facility]. documented in this encounter [facility] 12-17-2021 History of Present illness Narrative Occupational therapy script given to pt Pt received from OR via cart to phase II. Alert spont. Resp. Pt alert and orient, awake and talking to at bedside, elevation to RT hand with ice pack and tolerating diet coke well [facility]: [facility] Discharge instructions TARA Cisneros - 12/17/2021 7:31 AM EDT Images from the original note were not included. Trigger Finger Release: What to Expect at Home Your Recovery Your finger and hand may be sore and swollen for several days or weeks. It may be hard to move your finger at first. This usually gets better after several weeks. You may feel numbness or tingling near the cut, called an incision, that the doctor made. This feeling will probably get better in a few days, but it may take several months to completely go away. Your stitches will be removed 1 to 2 weeks after surgery. You received a local injection in your operative finger(s) with lidocaine and epinephrine today. It is normal for your finger tip(s) to look pale or white for up to 10 hours after surgery but if this persists past the 10 hours please call the office immediately at [phone]. It will probably take about 6-12 weeks for your finger to heal completely. Once healed, your finger may move easily without pain. How soon you can return to work depends on your job. If you can do your job without using the hand, you may be able to go back 1 or 2 days after surgery. But if your job requires you to do repeated finger movements, put pressure on your hand, or lift things, you may need to take up to 6 weeks off work. How much time you will need to take off work can be decided at your initial post operative appointment. This care sheet gives you a general idea about how long it will take for you to recover. But each person recovers at a different pace. Follow the steps below to get better as quickly as possible. How can you care for yourself at home? Activity Rest when you feel tired. Getting enough sleep will help you recover. Try to walk each day. Start by walking a little more than you did the day before. Bit by bit, increase the amount you walk. Until your stitches are removed in the office, you are to remain non weight bearing in operative extremity. For 1 to 2 weeks after surgery, avoid using your hand. This includes lifting things heavier than 1 to 2 pounds or doing repeated finger or hand movements, such as typing, using a computer mouse, washing windows, vacuuming, or chopping food. Do not use power tools, and avoid other activities that make your hand vibrate. Ask when you can drive again. You may be able to go back to work 1 or 2 days after surgery. It depends on the type of work you do and how you feel. You may shower, but do not get your hand wet. Keep the bandage dry by covering it with plastic. Do not take a bath, swim, use a hot tub, or soak your hand until cleared by the surgeon's office. Diet You can eat your normal diet. If your stomach is upset, try bland, low-fat foods like plain rice, broiled chicken, toast, and yogurt. Medicines Your can restart your normal medicines immediately after surgery. Instructions will be provided if you are to be taking any new medicines. Take pain medicines exactly as directed. If you are not taking a prescription pain medicine, take an rhxl-jfp-ynabtsq medicine such as acetaminophen (Tylenol), ibuprofen (Advil, Motrin), or naproxen (Aleve). Read and follow all instructions on the label. Do not take two or more pain medicines at the same time unless told to do so. Many pain medicines have acetaminophen, which is Tylenol. Too much acetaminophen (Tylenol) can be harmful. If you think your pain medicine is making you sick to your stomach: Take your medicine after meals. Ask for a different pain medicine. If prescribed antibiotics, take them as directed. Do not stop taking them just because you feel better. You need to take the full course of antibiotics. Incision care Leave the operative bandage on your hand for one week and please keep clean and dry. After one week from the date of surgery, you can remove the bandage. After the bandage is removed, it is okay to shower and get the incision wet but do not soak the incision. Please keep a dry dressing or band aid over the incision until follow up appointment in 1-2 weeks. After bandage removal, wash the area daily with warm, soapy water and pat it dry. Don't use hydrogen peroxide or alcohol, which can slow healing. You may cover the area with a gauze bandage or Band-Aid. Change the bandage every day. Keep the area clean and dry. Exercise Gently bend and straighten your fingers throughout the day to keep them flexible and help reduce swelling. Perform range of motion exercises of index finger, long finger, ring finger, little finger, and thumb in dressing with goal of touching fingertips to palm by initial post op appointment. Please see below instructions on finger exercises. You may need finger and hand therapy. This helps you regain range of motion, strength, and library services dean in your finger and hand. To get the best results, you need to do the exercises correctly and as often and as long as your doctor or your physical or occupational therapist tells you to. This will be decided at your initial post op appointment. Ice and elevation Put ice or a cold pack on your hand and wrist for 10 to 20 minutes at a time. Try to do this every 1 to 2 hours for the next 3 days (when you are awake) or until the swelling goes down. Put a thin cloth between the ice and your skin. Prop up your hand on a pillow anytime you sit or lie down during the first 2 or 3 days after surgery. Try to keep the hand above the level of your heart. This will help reduce swelling. Follow-up care is a kahn part of your treatment and safety. Be sure to make and go to all appointments, and call your doctor if you are having problems. It's also a good idea to know your test results and keep a list of the medicines you take. When should you call for help? Call 911 anytime you think you may need emergency care. For example, call if: You passed out (lost consciousness). You have severe trouble breathing. You have sudden chest pain and shortness of breath, or you cough up blood. Call your doctor now or seek immediate medical care if: You have pain that does not get better after you take pain medicine. You have loose stitches, or your incision comes open. Your incision bleeds through a large bandage. You have signs of infection, such as: Increased pain, swelling, warmth, or redness. Red streaks leading from the incision. Pus draining from the incision. Swollen lymph nodes in your neck, armpits, or groin. A fever. Your hand or fingers are cool or pale or change color after 10 hours from surgery. You have tingling or numbness in your hand or fingers after 10 hours from surgery. You cannot move your fingers. Watch closely for any changes in your health, and be sure to contact your doctor if: You are not getting better as expected. Where can you learn more? Go to [email or web address] and sign in to your RipCode account. Enter F681 in the Search Health Information box to learn more about Trigger Finger Release: What to Expect at Home. If you do not have an account, please click on the Sign Up Now link. Current as of: October 17, 2018Content Version: 12.4 [employer]. Care instructions adapted under license by [employer] If you have questions about a medical condition or this instruction, always ask your healthcare professional. [employer] disclaims any warranty or liability for your use of this information. Finger: Exercises Introduction Here are some examples of exercises for you to try. The exercises may be suggested for a condition or for rehabilitation. Start each exercise slowly. Ease off the exercises if you start to have pain. You will be told when to start these exercises and which ones will work best for you. How to do the exercises Tendon glides In this exercise, the steps follow one another to make a continuous movement. With one hand, point your fingers and thumb straight up. Your wrist should be relaxed, following the line of your fingers and thumb. Curl your fingers so that the top two joints in them are bent, and your fingers wrap down. Your fingertips should touch or be near the base of your fingers. Your fingers will look like a hook. Make a fist by bending your knuckles. Your thumb can gently rest against your index (pointing) finger. Unwind your fingers slightly so that your fingertips can touch the base of your palm. Your thumb can rest against your index finger. Hold that position for about 6 seconds. Move back to your starting position, with your fingers and thumb pointing up. Repeat the series of motions 8 to 12 times. Switch hands, and repeat steps 1 through 6. Thumb flexion/extension Place your forearm and hand on a table with your thumb pointing up. Bend your thumb downward and across your palm so that your thumb touches the base of your little finger. Hold that position for about 6 seconds. Then straighten your thumb. Repeat 8 to 12 times. Switch hands, and repeat steps 1 through 3. Thumb abduction/adduction With one hand, point your fingers and thumb straight up. Your wrist should be relaxed, following the line of your fingers and thumb. Pull your thumb away from your palm as far as you can. Hold that position for about 6 seconds. Then slowly move your thumb back to the starting position, with your thumb resting against your index (pointing) finger. Repeat 8 to 12 times. Switch hands, and repeat steps 1 through 3. Finger opposition With one hand, point your fingers and thumb straight up. Your wrist should be relaxed, following the line of your fingers and thumb. Touch your thumb to each finger, one finger at a time. This will look like an okay sign, but try to keep your other fingers straight and pointing upward as much as you can. Repeat 8 to 12 times. Switch hands, and repeat steps 1 through 3. Follow-up care is a kahn part of your treatment and safety. Be sure to make and go to all appointments, and call your doctor if you are having problems. It's also a good idea to know your test results and keep a list of the medicines you take. Where can you learn more? Go to [email or web address] and sign in to your RipCode account. Enter X265 in the Search Health Information box to learn more about Finger: Exercises. If you do not have an account, please click on the Sign Up Now link. Current as of: October 17, 2018Content Version: 12.4 [id number] [employer]. Care instructions adapted under license by [employer] If you have questions about a medical condition or this instruction, always ask your healthcare professional. [employer] disclaims any warranty or liability for your use of this information. documented in this encounter [facility] Work Phone: 08-31-2021 Note HNO ID: [id number] Author: Hua Barbosa MD Service: ? 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 No active lesions at present. We discussed the condition. Reviewed medications and none of them seem to explain a February 2021 onset. Patient has subsequently taken all of these and not noted a recurrence after completing steroid taper about 2 weeks ago. We reviewed the causes and treatment for Well's syndrome. The patient's blood count is reviewed which was completely normal. Will plan to treat as needed for recurrence. Future treatment with minocycline, dapsone or colchicine could be held in reserve for recurrence. Use desoximetasone cream twice daily as needed for any flares. Contact us for recurrent problems, but if it remains resolved, then no additional treatment for now. Additionally, patient will observe the discomfort in the left thigh, likely a reactive process / node. Observe for improvement, but if not happening, then contact PCP for additional evaluation. Signed Prescriptions Disp Refills desoximetasone (TOPICORT) 0.25 % cream 60 g 2 Sig: Apply to affected area twice daily as needed (for flares of rash). Follow-up as noted below or as needed. Chief Complaint: Patient presents with: Rash Subjective and Objective HPI: Rebeca Tirado is a 61 year old female who presents for: -follow up superficial and deep perivascular mixed inflammation on the legs -seen by Cass Polanco CNP -Per last note -obtain CBC for further investigation of eosinophils DONE 07/29/21 -patient states she finished prednisone taper and thinks it helped Some proximal left thigh pain after biopsy. Feels that the muscle is sore. Some difficulty with ambulation. No other inciting factors. Review of Systems Constitutional: Negative for appetite change, chills and fever. Respiratory: Negative for shortness of breath and wheezing. Cardiovascular: Positive for leg swelling (generally well treated with intermittent Lasix). Musculoskeletal: Positive for myalgias. Skin: Negative for color change and rash. ? Past medical history is reviewed. Medication list is reviewed. Physical Exam included: bilateral lower extremities Attending signature: Hua Barbosa MD This note is completed at 9:46 AM on 08/31/2021 and reflects the services provided at the time of the appointment. I agree with the Chief Complaint, ROS, and Past Histories independently gathered by the clinical field support rep. I spent a total of 42 minutes on the date of the service which included preparing to see the patient, [id number] patient care, completing clinical documentation, performing a medically appropriate examination and counseling and educating the patient/family/caregiver. [facility] 08-31-2021 Instructions Hua Barbosa MD - 08/31/2021 9:35 AM EDT If you have questions or need to reach the office, please either use RipCode or call [phone]. Let the brine process operator know that you need to leave a message for a dermatology provider or one of the dermatology nurses. Provide whomever takes the message with the details of your concern. Include medication names, symptoms you are experiencing, appropriate pharmacy and leave a phone number and best time to reach you. They will create a message and we will respond to you as soon as possible. documented in this encounter [facility] 08-31-2021 History of Present illness Narrative Images from the original note were not included. 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 No active lesions at present. We discussed the condition. Reviewed medications and none of them seem to explain a February 2021 onset. Patient has subsequently taken all of these and not noted a recurrence after completing steroid taper about 2 weeks ago. We reviewed the causes and treatment for Well's syndrome. The patient's blood count is reviewed which was completely normal. Will plan to treat as needed for recurrence. Future treatment with minocycline, dapsone or colchicine could be held in reserve for recurrence. Use desoximetasone cream twice daily as needed for any flares. Contact us for recurrent problems, but if it remains resolved, then no additional treatment for now. Additionally, patient will observe the discomfort in the left thigh, likely a reactive process / node. Observe for improvement, but if not happening, then contact PCP for additional evaluation. Signed Prescriptions Disp Refills desoximetasone (TOPICORT) 0.25 % cream 60 g 2 Sig: Apply to affected area twice daily as needed (for flares of rash). Follow-up as noted below or as needed. Chief Complaint: Patient presents with: Rash Subjective and Objective HPI: Rebeca Tirado is a 61 year old female who presents for: -follow up superficial and deep perivascular mixed inflammation on the legs -seen by Cass Polanco BREAKER BOSS -Per last note -obtain CBC for further investigation of eosinophils DONE 07/29/21 -patient states she finished prednisone taper and thinks it helped Some proximal left thigh pain after biopsy. Feels that the muscle is sore. Some difficulty with ambulation. No other inciting factors. Review of Systems Constitutional: Negative for appetite change, chills and fever. Respiratory: Negative for shortness of breath and wheezing. Cardiovascular: Positive for leg swelling (generally well treated with intermittent Lasix). Musculoskeletal: Positive for myalgias. Skin: Negative for color change and rash. Past medical history is reviewed. Medication list is reviewed. Physical Exam included: bilateral lower extremities Attending signature: Hua Barbosa MD This note is completed at 9:46 AM on 08/31/2021 and reflects the services provided at the time of the appointment. I agree with the Chief Complaint, ROS, and Past Histories independently gathered by the clinical field support rep. I spent a total of 42 minutes on the date of the service which included preparing to see the patient, [id number] patient care, completing clinical documentation, performing a medically appropriate examination and counseling and educating the patient/family/caregiver. documented in this encounter [facility] 07-29-2021 Miscellaneous Notes Spoke to patient. Scheduled accordingly. Patient and pathology reports reviewed with Dr. Barbosa. Treatment plan developed in conjunction with Dr. Barbosa. I called and spoke with the patient regarding her skin biopsy results: FINAL DIAGNOSIS A. Skin, left lower leg-anterior, punch biopsy: - Superficial and deep perivascular mixed inflammation with dense collections of eosinophils (see comment). WFB/SA/mm 07/28/2021 Diagnosis Comment A. Sections demonstrate compact orthokeratosis overlying a mildly spongiotic epidermis. There is papillary dermal edema. There is fibrosis, in addition to a moderately dense perivascular inflammatory infiltrate composed of lymphocytes, histiocytes, and numerous eosinophils with extension into the underlying subcutaneous fat. There is admixed superficial dermal hemorrhage. The clinical history and photos are reviewed. Overall, the histologic findings are those of superficial and deep perivascular chronic inflammation with dense collections of eosinophils. The findings could be consistent with Wells syndrome in the correct clinical context. A robust arthropod assault or drug eruption cannot be excluded. Clinical correlation is recommended. 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 Patient to discuss with chief cloth finishing range operator. -follow-up in [address] Barbosa for further evaluation. Cass Polanco APRN.JOSE ALFREDO documented in this encounter [facility] 07-27-2021 Note HNO ID: [id number] Author: Cass Polanco APRN.CNP Service: ? Author Type: Nurse Practitioner Type: Progress Notes Filed: 07/27/2021 10:01 AM Note Text: Department of Dermatology Cass Polanco APRN.CNP 07/27/2021 Last visit in Dermatology: Visit date not found Objective/Assessment/Plan 1. Rash and nonspecific skin eruption Objective Left Lower Leg - Anterior: Erythematous pruritic tender plaque with underlying edema SKIN / NAIL BIOPSY - Left Lower Leg - Anterior Type of biopsy: punch Timeout: patient name, date of , surgical site, and procedure verified Procedure prep: Patient was prepped and draped in usual sterile fashion Prep type: Isopropyl alcohol Anesthesia: the lesion was anesthetized in a standard fashion Anesthetic: 0.5% bupivicaine w/ epinephrine 1-100,000 local infiltration Suture size: 4-0 Suture type: fast-absorbing plain gut Hemostasis achieved with: suture Outcome: patient tolerated procedure well Post-procedure details: sterile dressing applied Dressing type: bandage and petrolatum Additional details: Punch Procedure: I discussed treatment options with the patient. The risks of bleeding, infection, scarring, damage to underlying structures and potential need for future procedures discussed. The patient verbalized understanding and desires us to proceed. The area is identified, prepped in the usual fashion, anesthetized with local anesthesia and a sterile dermal punch is used to obtain the full thickness specimen. Hemostasis with direct pressure and the wound is closed as outlined above. Dressed with white petrolatum and a sterile dressing as needed. Sutures out in as instructed. Wound care discussed. Specimen A - SURGICAL PATHOLOGY SKIN ONLY The nature of sun-induced photo-aging and skin cancers is discussed. Sun avoidance, protective clothing, and the use of 30-SPF sunscreens is advised. Patient is instructed to perform regular self exams. Observe for changing, symptomatic, or new skin lesions and seek care with the patient's primary care provider or with dermatology if any lesions of concern are noted. Follow-up as noted below or as needed. Cass Polanco APRN.BREAKER [employer]OSS Chief Complaint: Patient presents with: New Patient: bilateral lower leg redness Subjective and Objective HPI: Rebeca Tirado is a 61 year old female who presents for: Rash: Description: itching that turns into redness and blistering Location(s): various locations on the bilateral lower legs Duration: on and off since April 2021 Severity: mild Inciting factors: lower extremity swelling? Associated symptoms: no associated symptoms Previous treatments: keflex, benadryl lotion Past medical history is reviewed. Medication list is reviewed. Physical Exam included: Bilateral lower extremities Intake completed by Laura Chino MA UNIVERSAL PROTOCOL / SAFETY CHECKLIST Procedure to be Performed: Punch biopsy x 1 Sign In: A Moment of CARE was completed. Personnel directly involved with the procedure wore the appropriate PPE (Personal Protective Equipment). No special equipment needed. Patient/Surrogate Stated/Verified: PATIENT VERIFIED(optional for EMERGENT procedures): Patient name, Date of , Relevant allergies and The intended procedure Time Out Communication: Intended patient and procedure match the source documents. Consent documented and matches the intended procedure. No relevant labs, photos, and/or imaging studies were applicable for review. Correct side/site marked and visible. Medications required for procedure verified. Fire risk assessed and interventions discussed. No implant(s) inserted. Sign Out: SIGN OUT (optional for EMERGENT procedures): All specimen containers correctly labeled. All instruments, equipment, possible retained foreign bodies accounted for. Post-procedure follow-up management communicated and Plan of Care Visit completed when applicable. Leesa Polanco APRN.[facility] 07-27-2021 Instructions Leesa Galloway - 07/27/2021 9:14 AM EDT WOUND CARE FOR DISSOLVABLE SUTURES 1.) Keep the wound clean, dry and bandaged the day of the procedure. 2.) You may shower after 24 hours; please remove the bandage before getting int the shower. Once done, you may pat the wound dry. 3.) You may experience some discomfort, redness or swelling after your procedure. Over the counter acetaminophen (Tylenol) may be used as instructed on the packaging if needed for discomfort. We generally recommend avoiding products like ibuprofen, aspirin, or naproxen for at least 72 hours after the procedure. Aspirin that is used for preventing heart problems or blood clots should be continued -- please discuss this with Dr. Barbosa if there are any questions. If pain, redness or swelling perisists for more than a few days or become worse, please call and ask for the Dermatology Nurse Station. 4.) After 4:30 p.m. or on weekends, you will be transferred to the answering service or Xuwqh-ry-eebu for advice. 5.) You will not need to follow-up for suture removal. Any glue or adhesive applied at the time of your surgery will fall off on its own. Your sutures should completely dissolve. If you have what looks like fishing line on the outside of your incision, this should fall off within two weeks. If it does not, you may gently remove the suture with a clean, small pair of scissors. Or, if you feel more comfortable, you may make an appointment for us to remove them for you. 6.) When the glue is gone (after about 10 days) you may start moisture therapy with any type of body lotion or Vaseline. Wounds heal better and faster with moisture therapy. Gently massage into the incision a few times daily. Thank you for allowing us to care for you today. Please contact us with any questions at the phone number above. documented in this encounter [facility] 07-27-2021 History of Present illness Narrative Images from the original note were not included. Department of Dermatology Cass Polanco APRN.BREAKER [employer]OSS 07/27/2021 Last visit in Dermatology: Visit date not found Objective/Assessment/Plan 1. Rash and nonspecific skin eruption Objective Left Lower Leg - Anterior: Erythematous pruritic tender plaque with underlying edema SKIN / NAIL BIOPSY - Left Lower Leg - Anterior Type of biopsy: punch Timeout: patient name, date of , surgical site, and procedure verified Procedure prep: Patient was prepped and draped in usual sterile fashion Prep type: Isopropyl alcohol Anesthesia: the lesion was anesthetized in a standard fashion Anesthetic: 0.5% bupivicaine w/ epinephrine 1-100,000 local infiltration Suture size: 4-0 Suture type: fast-absorbing plain gut Hemostasis achieved with: suture Outcome: patient tolerated procedure well Post-procedure details: sterile dressing applied Dressing type: bandage and petrolatum Additional details: Punch Procedure: I discussed treatment options with the patient. The risks of bleeding, infection, scarring, damage to underlying structures and potential need for future procedures discussed. The patient verbalized understanding and desires us to proceed. The area is identified, prepped in the usual fashion, anesthetized with local anesthesia and a sterile dermal punch is used to obtain the full thickness specimen. Hemostasis with direct pressure and the wound is closed as outlined above. Dressed with white petrolatum and a sterile dressing as needed. Sutures out in as instructed. Wound care discussed. Specimen A - SURGICAL PATHOLOGY SKIN ONLY The nature of sun-induced photo-aging and skin cancers is discussed. Sun avoidance, protective clothing, and the use of 30-SPF sunscreens is advised. Patient is instructed to perform regular self exams. Observe for changing, symptomatic, or new skin lesions and seek care with the patient's primary care provider or with dermatology if any lesions of concern are noted. Follow-up as noted below or as needed. Cass Polanco APRN.JOSE ALFREDO Chief Complaint: Patient presents with: New Patient: bilateral lower leg redness Subjective and Objective HPI: Rebeca Tirado is a 61 year old female who presents for: Rash: Description: itching that turns into redness and blistering Location(s): various locations on the bilateral lower legs Duration: on and off since April 2021 Severity: mild Inciting factors: lower extremity swelling? Associated symptoms: no associated symptoms Previous treatments: keflex, benadryl lotion Past medical history is reviewed. Medication list is reviewed. Physical Exam included: Bilateral lower extremities Intake completed by Laura Chino MA UNIVERSAL PROTOCOL / SAFETY CHECKLIST Procedure to be Performed: Punch biopsy x 1 Sign In: A Moment of CARE was completed. Personnel directly involved with the procedure wore the appropriate PPE (Personal Protective Equipment). No special equipment needed. Patient/Surrogate Stated/Verified: PATIENT VERIFIED(optional for EMERGENT procedures): Patient name, Date of , Relevant allergies and The intended procedure Time Out Communication: Intended patient and procedure match the source documents. Consent documented and matches the intended procedure. No relevant labs, photos, and/or imaging studies were applicable for review. Correct side/site marked and visible. Medications required for procedure verified. Fire risk assessed and interventions discussed. No implant(s) inserted. Sign Out: SIGN OUT (optional for EMERGENT procedures): All specimen containers correctly labeled. All instruments, equipment, possible retained foreign bodies accounted for. Post-procedure follow-up management communicated and Plan of Care Visit completed when applicable. Leesa Polanco APRN.JOSE ALFREDO documented in this encounter [facility] 03-28-2021 Note HNO ID: [id number] Author: Inocencia Zamarripa APRN.CNP Service: ? Author Type: Nurse Practitioner Type: Progress Notes Filed: 03/28/2021 9:51 AM Note Text: Subjective The history is provided by the patient and a relative. No speech language pathologist prn was used. HPI Rebeca Tirado is a 60 year old female who presents today for CC of blistered rash, reddness of skin on left lower leg. This started over night. she has a burning tingling symptom. She has not used any medication or treatment. H/o cellulitis in right leg. She has not had shingles vaccine. BP 122/76 Pulse 76 Temp 36.3 ?C (97.3 ?F) Resp 16 Wt 128.4 kg (283 lb) SpO2 95% BMI 51.76 kg/m? Social History Tobacco Use - Smoking status: Never Smoker - Smokeless tobacco: Never Used Substance Use Topics - Alcohol use: No - Drug use: No PAST MEDICAL HISTORY Diagnosis Date - Arthritis - Depression - Fatty liver - Hyperparathyroidism (HCC) - Menopause - Osteoporosis - Sleep apnea I have confirmed and edited as necessary, the [facility] Review of Systems Constitutional: Positive for malaise/fatigue. Negative for chills and fever. Respiratory: Negative for cough. Cardiovascular: Negative for chest pain. Musculoskeletal: Negative for myalgias. Neurological: Negative for headaches. Objective Physical Exam Vitals and nursing note reviewed. HENT: Head: Normocephalic and atraumatic. Mouth/Throat: Pharynx: Uvula midline. Cardiovascular: Rate and Rhythm: Normal rate and regular rhythm. Heart sounds: Normal heart sounds. Pulmonary: Effort: Pulmonary effort is normal. Breath sounds: Normal breath sounds. No decreased breath sounds. Skin: General: Skin is warm and dry. Findings: Erythema and rash present. Rash is vesicular. Neurological: Mental Status: She is alert. Psychiatric: Mood and Affect: Affect normal. MDM: Cellulitis, shingles. Culture done ASSESSMENT/PLAN: 1. Rash - ICD9: 782.1, ICD10: R21 (primary diagnosis) 2. Redness of skin - ICD9: 695.9, ICD10: L53.9 Cellulitis versus shingles Culture done will send off for testing Start keflex, valtrex if culture negative for shingles can stop valtrex and complete keflex If redness is extending even with keflex to ED for further treatment . Follow up this week with Dr. Garcia. Diagnosis and treatment plan were discussed and questions were answered to the patient's satisfaction. Pt acknowledged understanding of concepts and follow up plan. Specific signs and symptoms that would indicate the need for higher level of care were discussed in detail warranting prompt ER evaluation. Inocencia Zamarripa APRN.JOSE ALFREDO [facility] 02-25-2021 Note HNO ID: [id number] Author: Tarsha Art APRN.JOSE ALFREDO Service: ? Author Type: Nurse Practitioner Type: Progress Notes Filed: 02/27/2021 2:31 PM Note Text: This note was created using [employer]. Subjective Rebeca Tirado is a 60 year old female. 60 year old female with PMH arthritis, depression, and menopause with chief Complaint think I have cellulitis Acute onset of symptoms was Monday morning. 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 States that she spilled some chemicals, but then also states think something bit me +redness +tenderness lower right leg. Denies fever or chills. Denies drainage. Denies numbness or tingling. Utilized hydrocortisone cream. The history is provided by the patient. No speech language pathologist prn was used. Rash This is a new problem. The current episode started in the past 7 days. The problem is unchanged. Location: right lower leg. The rash is characterized by pain and redness. She was exposed to an insect bite/sting and chemicals. Pertinent negatives include no anorexia, congestion, cough, diarrhea, eye pain, facial edema, fatigue, fever, joint pain, nail changes, rhinorrhea, shortness of breath, sore throat or vomiting. Past treatments include topical steroids. The treatment provided no relief. There is no history of allergies, asthma, eczema or varicella. 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 venlafaxine ER (EFFEXOR XR) 75 mg 24 hr capsule Take 75 mg by mouth once daily. CPAP as directed. meloxicam (MOBIC) 15 mg tablet doxycycline (VIBRA-TABS) 100 mg tablet Take 1 tablet by mouth twice daily for 10 days. CELECOXIB (CELEBREX ORAL) Take by mouth. risedronate (ACTONEL) 35 mg tablet Take 1 tablet by mouth once each week. Cholecalciferol, Vitamin D3, (VITAMIN D-3) 5,000 unit tab Take 1 tablet by mouth once daily. Calcium Carbonate-Vitamin D3 (OSCAL 500+D) 500 mg(1,250mg) -600 unit chew Take 1 tablet by mouth three times daily. MAGNESIUM CARBONATE ORAL Take 1 tablet by mouth once daily. FAMILY HISTORY Problem Relation Age of Onset - Osteoporosis Mother - Osteoporosis Maternal Grandmother - Stroke Brother - Heart Mother - Heart Brother - Hypertension Father - Kidney Disease Mother stone - Diabetes Paternal Grandmother - Breast Cancer Other Social History Tobacco Use - Smoking status: Never Smoker - Smokeless tobacco: Never Used Substance Use Topics - Alcohol use: No - Drug use: No Review of Systems Constitutional: Negative for activity change, appetite change, chills, diaphoresis, fatigue and fever. HENT: Negative for congestion, dental problem, drooling, ear discharge, ear pain, nosebleeds, postnasal drip, rhinorrhea, sinus pressure, sinus pain, sore throat and trouble swallowing. Eyes: Negative for photophobia, pain, discharge, redness, itching and visual disturbance. Respiratory: Negative for apnea, cough, chest tightness and shortness of breath. Cardiovascular: Negative for chest pain, palpitations and leg swelling. Gastrointestinal: Negative for abdominal pain, anorexia, diarrhea, nausea and vomiting. Musculoskeletal: Negative for arthralgias, back pain, gait problem and joint pain. Skin: Positive for color change and rash. Negative for nail changes, pallor and wound. Allergic/Immunologic: Negative for environmental allergies, food allergies and immunocompromised state. Neurological: Negative for dizziness, tremors, seizures, syncope, facial asymmetry, speech difficulty, weakness, light-headedness, numbness and headaches. Hematological: Negative for adenopathy. Does not bruise/bleed easily. Psychiatric/Behavioral: Negative for agitation and behavioral problems. Objective BP 110/78 Pulse 76 Temp 36.5 ?C (97.7 ?F) (Tympanic) Resp 18 Wt 129.2 kg (284 lb 12.8 oz) SpO2 97% BMI 52.09 kg/m? Physical Exam Vitals and nursing note reviewed. Constitutional: General: She is not in acute distress. Appearance: Normal appearance. She is obese. She is not ill-appearing, toxic-appearing or diaphoretic. HENT: Head: Normocephalic and atraumatic. Right Ear: Ear canal and external ear normal. Left Ear: Ear canal and external ear normal. Nose: Nose normal. No congestion or rhinorrhea. Mouth/Throat: Mouth: Mucous membranes are moist. Pharynx: No oropharyngeal exudate or posterior oropharyngeal eryt (more content not included)... [facility] 12-11-2020 Hospital Discharge instructions Jose E Szymanski MD - 12/11/2020 Please follow up with your primary doctor for an ultrasound of the heart. Please take additional lasix if you still feel short of breath on exertion or laying down. The following attachments cannot be sent through Care Everywhere.SOB (Shortness of Breath) (Lao)Heart Failure: General Info (Lao)Pulmonary Edema (Lao)documented in this encounter [facility] Work Phone: Evaluation note Diagnosis Acute congestive heart failure, unspecified heart failure type (HCC)- Primary Dyspnea, unspecified type Acute pulmonary edema (HCC) Acute edema of lung, unspecified documented in this encounter [facility] Work Phone: Evaluation note* Diagnosis Acute on chronic heart failure with preserved ejection fraction (HCC) Shortness of breath documented in this encounter [facility] Work Phone: Evaluation note* Diagnosis SOB (shortness of breath) Shortness of breath documented in this encounter [facility] Work Phone: Evaluation note* Diagnosis Chronic systolic heart failure (HCC) Chronic systolic heart failure documented in this encounter [facility] Work Phone: Evaluation note* Diagnosis Chronic systolic heart failure (HCC) Chronic systolic heart failure documented in this encounter [facility] Work Phone: Evaluation note* Diagnosis Rash and nonspecific skin eruption- Primary Rash and other nonspecific skin eruption [facility] Diagnosis Rash and nonspecific skin eruption- Primary Rash and other nonspecific skin eruption documented in this encounter [facility] note* Diagnosis Wells' syndrome- Primary Contact dermatitis and other eczema, due to unspecified cause documented in this encounter [facility] note* Diagnosis Onset Date Resolution Status Acute upper respiratory infection acute Encounter for screening for other viral diseases acute COVID-19 acute [facility] Work Phone: evaluation note* Diagnosis S/P trigger finger release- Primary [facility]* Diagnosis HFrEF (heart failure with reduced ejection fraction) ([facility]) documented in this encounter [facility] Work Phone: Evaluation note* Diagnosis Onset Date Resolution Status COVID-19 acute [facility] Work Phone: Evaluation noteNo assessment information available [facility] Work Phone: evaluation note* Diagnosis Primary osteoarthritis of right knee- Primary documented in this encounter [facility]* Diagnosis Prediabetes- Primary Other abnormal glucose Pure hypercholesterolemia, unspecified Hyperparathyroidism, unspecified ([facility]) Hyperparathyroidism, unspecified Vitamin D deficiency, unspecified documented in this encounter [facility]* Diagnosis Chronic systolic heart failure (HCC)- Primary Chronic systolic heart failure BMI 50.0-59.9, adult (HCC) [facility]* Diagnosis Paresthesia of skin- Primary Paresthesia of skin documented in this encounter [facility]* Diagnosis Chronic systolic heart failure (HCC)- Primary Chronic systolic heart failure BMI 50.0-59.9, adult (HCC) Sleep apnea, unspecified type documented [facility] this encounter [facility]* Diagnosis Chronic systolic heart failure (CMS/HCC) (HCC)- Primary Chronic systolic heart failure Hypertension, essential Unspecified essential hypertension Obstructive sleep apnea syndrome Obstructive sleep apnea (adult) (pediatric) Palpitations BMI 50.0-59.9, adult (CMS/HCC) (HCC) documented [facility] this encounter [facility]* Diagnosis Chronic systolic heart failure (HCC)- Primary Chronic systolic heart failure Hypertension, essential Unspecified essential hypertension Obstructive sleep apnea syndrome Obstructive sleep apnea (adult) (pediatric) Palpitations BMI 50.0-59.9, adult (HCC) Chronic systolic heart failure (HCC)- Primary Chronic systolic heart failure Primary hypertension Unspecified essential hypertension Obstructive sleep apnea syndrome Obstructive sleep apnea (adult) (pediatric) Palpitations BMI 50.0-59.9, adult (HCC) Pain in left shoulder [facility]* Diagnosis Chronic systolic heart failure (HCC)- Primary Chronic systolic heart failure Hypertension, essential Unspecified essential hypertension Obstructive sleep apnea syndrome Obstructive sleep apnea (adult) (pediatric) Palpitations BMI 50.0-59.9, adult (HCC) Chronic systolic heart failure (HCC)- Primary Chronic systolic heart failure Primary hypertension Unspecified essential hypertension Obstructive sleep apnea syndrome Obstructive sleep apnea (adult) (pediatric) Palpitations BMI 50.0-59.9, adult (HCC) Obstructive sleep apnea syndrome- Primary Obstructive sleep apnea (adult) (pediatric) Heart failure with recovered ejection fraction (HFrecEF) ([facility]) documented in this encounter [facility] note* Diagnosis Chronic systolic heart failure (HCC)- Primary Chronic systolic heart failure Hypertension, essential Unspecified essential hypertension Obstructive sleep apnea syndrome Obstructive sleep apnea (adult) (pediatric) Palpitations BMI 50.0-59.9, adult (HCC) Chronic systolic heart failure (HCC)- Primary Chronic systolic heart failure Primary hypertension Unspecified essential hypertension Obstructive sleep apnea syndrome Obstructive sleep apnea (adult) (pediatric) Palpitations BMI 50.0-59.9, adult (HCC) JENY treated with BiPAP- Primary BMI 50.0-59.9, adult (HCC) Class 3 severe obesity due to excess calories with serious comorbidity and body mass index (BMI) of 50.0 to 59.9 in adult (HCC) [facility]* Diagnosis Chronic systolic heart failure (HCC)- Primary Chronic systolic heart failure Hypertension, essential Unspecified essential hypertension Obstructive sleep apnea syndrome Obstructive sleep apnea (adult) (pediatric) Palpitations BMI 50.0-59.9, adult (HCC) Chronic systolic heart failure (HCC)- Primary Chronic systolic heart failure Primary hypertension Unspecified essential hypertension Obstructive sleep apnea syndrome Obstructive sleep apnea (adult) (pediatric) Palpitations BMI 50.0-59.9, adult (HCC) Pain in left shoulder- Primary Pain in left shoulder [facility]* Diagnosis Chronic systolic heart failure (HCC)- Primary Chronic systolic heart failure Hypertension, essential Unspecified essential hypertension Obstructive sleep apnea syndrome Obstructive sleep apnea (adult) (pediatric) Palpitations BMI 50.0-59.9, adult (HCC) Chronic systolic heart failure (HCC)- Primary Chronic systolic heart failure Primary hypertension Unspecified essential hypertension Obstructive sleep apnea syndrome Obstructive sleep apnea (adult) (pediatric) Palpitations BMI 50.0-59.9, adult (HCC) JENY treated with BiPAP- Primary BMI 50.0-59.9, adult (HCC) Class 3 severe obesity due to excess calories with serious comorbidity and body mass index (BMI) of 50.0 to 59.9 in adult [facility]* Diagnosis Chronic systolic heart failure (HCC)- Primary Chronic systolic heart failure Hypertension, essential Unspecified essential hypertension Obstructive sleep apnea syndrome Obstructive sleep apnea (adult) (pediatric) Palpitations BMI 50.0-59.9, adult (HCC) Chronic systolic heart failure (HCC)- Primary Chronic systolic heart failure Primary hypertension Unspecified essential hypertension Obstructive sleep apnea syndrome Obstructive sleep apnea (adult) (pediatric) Palpitations BMI 50.0-59.9, adult (HCC) JENY treated with BiPAP- Primary BMI 50.0-59.9, adult (HCC) Class 3 severe obesity due to excess calories with serious comorbidity and body mass index (BMI) of 50.0 to 59.9 in adult documented in this encounter [facility]* Diagnosis Chronic systolic heart failure (HCC)- Primary Chronic systolic heart failure Hypertension, essential Unspecified essential hypertension Obstructive sleep apnea syndrome Obstructive sleep apnea (adult) (pediatric) Palpitations BMI 50.0-59.9, adult (HCC) Chronic systolic heart failure (HCC)- Primary Chronic systolic heart failure Primary hypertension Unspecified essential hypertension Obstructive sleep apnea syndrome Obstructive sleep apnea (adult) (pediatric) Palpitations BMI 50.0-59.9, adult (HCC) JENY treated with BiPAP- Primary BMI 50.0-59.9, adult (HCC) Class 3 severe obesity due to excess calories with serious comorbidity and body mass index (BMI) of 50.0 to 59.9 in adult [facility]* Diagnosis Chronic systolic heart failure (HCC)- Primary Chronic systolic heart failure Hypertension, essential Unspecified essential hypertension Obstructive sleep apnea syndrome Obstructive sleep apnea (adult) (pediatric) Palpitations BMI 50.0-59.9, adult (HCC) Chronic systolic heart failure (HCC)- Primary Chronic systolic heart failure Primary hypertension Unspecified essential hypertension Obstructive sleep apnea syndrome Obstructive sleep apnea (adult) (pediatric) Palpitations BMI 50.0-59.9, adult (HCC) JENY treated with BiPAP- Primary BMI 50.0-59.9, adult (HCC) Class 3 severe obesity due to excess calories with serious comorbidity and body mass index (BMI) of 50.0 to 59.9 in adult Water retention documented [facility] this encounter [facility]* Diagnosis Chronic systolic heart failure (HCC)- Primary Chronic systolic heart failure Hypertension, essential Unspecified essential hypertension Obstructive sleep apnea syndrome Obstructive sleep apnea (adult) (pediatric) Palpitations BMI 50.0-59.9, adult (HCC) Chronic systolic heart failure (HCC)- Primary Chronic systolic heart failure Primary hypertension Unspecified essential hypertension Obstructive sleep apnea syndrome Obstructive sleep apnea (adult) (pediatric) Palpitations BMI 50.0-59.9, adult (HCC) Chronic diastolic heart failure (HCC)- Primary Chronic diastolic heart failure BMI 50.0-59.9, adult (HCC) documented in this encounter [facility]* Diagnosis Chronic systolic heart failure (HCC)- Primary Chronic systolic heart failure Hypertension, essential Unspecified essential hypertension Obstructive sleep apnea syndrome Obstructive sleep apnea (adult) (pediatric) Palpitations BMI 50.0-59.9, adult (CMS/HCC) Chronic systolic heart failure (HCC)- Primary Chronic systolic heart failure Primary hypertension Unspecified essential hypertension Obstructive sleep apnea syndrome Obstructive sleep apnea (adult) (pediatric) Palpitations BMI 50.0-59.9, adult (CMS/HCC) JENY treated with BiPAP- Primary BMI 50.0-59.9, adult (CMS/HCC) Class 3 severe obesity due to excess calories with serious comorbidity and body mass index (BMI) of 50.0 to 59.9 in adult (CMS/HCC) Water retention [facility] Dis[facility] Additional Instructions Please continue your Keflex as previously prescribed. You will take the Bactrim I prescribed tonight in addition to this.[facility] Work Phone: Instructions* Attachments The following attachments cannot be sent through Care Everywhere. * Tirzepatide, ADULT (Lao) [facility] Consultation (Routine) - Pending Review Specialty Diagnoses / Procedures Referred By Scott iverson Referred To Contact Bariatrics Diagnoses BMI 50.0-59.9, adult (HCC) Procedures [place] OFFICE/OUTPATIENT NEW HIGH MDM 60 MINUTES Kimberly Grullon MD [address] [facility] [place] [address] [facility] [address] [place] [address] Referral ID Status Reason Start Date Expiration Date Visits Requested Visits Authorized [id number] Pending Review Specialty Services Required 06/23/2023 06/22/2024 1 1 [facility] Consultation (Routine) - Pending Review Specialty Diagnoses / Procedures Referred By Scott iverson Referred To Contact Bariatrics Diagnoses BMI 50.0-59.9, adult (CMS/HCC) (HCC) Chronic systolic heart failure (CMS/HCC) (HCC) Procedures [place] OFFICE/OUTPATIENT NEW HIGH MDM 60-74 MINUTES Maddison Jordan APRN - CNP [address] [place] [address] [facility] [address] [place] [address] Referral ID Status Reason Start Date Expiration Date Visits Requested Visits Authorized [id number] Pending Review Specialty Services Required 06/10/2022 06/10/2023 1 1 [facility]No reason for referral [facility] Work Phone: Summary Purpose Family History No Family History Records Found Relationship Condition Age at Onset Recorded Date/T gerhard Not Specified Diabetes mellitus Unknown Arthritis Unknown Cardiac disease Unknown Hypertension Unknown Advance Directives No Advanced Directives Records FoundDocuments on File Type Date Recorded 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 Advance Directives and Living Will Power of Machine Adjuster Leader Documents on File Type Date Recorded 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 ACP-Advance Directive ACP-Power of Machine Adjuster Leader Advance Directive Response Recorded Date/ Time Living Will No January 04, 2021 5:29pm Power of Machine Adjuster Leader No December 5:29pm Latest Code Status on File Code Status Date Activated Date Inactivated Comments Full Code 12/17/2021 6:09 AM Latest Code Status on File Code Status Date Activated Date Inactivated Comments Full Code 12/17/2021 6:09 AM 12/17/2021 10:51 AM Latest Code Status on File Code Status Date Activated Date Inactivated Comments Full Code 12/17/2021 6:09 AM 12/17/2021 10:51 AM Advance Directive Response Recorded Date/ Time Living Will No January 04, 2021 4:29pm Power of Machine Adjuster Leader No December 4:29pm Advance Directive Response Recorded Date/ Time Living Will No April 14, 023 6:05pm Power of Machine Adjuster Leader No April 14, 2023 6:05pm Advance Directive Response Recorded Date/ Time Living Will No July 17, 2023 7:14pm Power of Machine Adjuster Leader No July 16 7:14pm Chief Complaint and Reason for Visit Chief Complaint COVID TEST/SYMPTOMAT IC/ILL X2DAYS LEFT EAR PAIN/COVID TEST/ILL X7DAYS MORBID OBESITY OA R KNEE/RX HERE Reason for Visit Acute upper respirat ory infection Encounter for screening for other viral diseases COVID-19 Chief Complaint COVID TEST/SYMPTOMAT IC/ILL X2DAYS LEFT EAR PAIN/COVID TEST/ILL X7DAYS MORBID OBESITY OA R KNEE/RX HERE MORBID OBESITY Reason for Visit Acute upper respirat ory infection Encounter for screening for other viral diseases COVID-19 Chief Complaint COVID TEST/SYMPTOMAT IC/ILL X2DAYS LEFT EAR PAIN/COVID TEST/ILL X7DAYS MORBID OBESITY MORBID OBESITY OA R KNEE/RX HERE hand. dr to fax MORBID OBESITY Reason for Visit Acute upper respirat ory infection Encounter for screening for other viral diseases COVID-19 Chief Complaint LEFT EAR PAIN/COVID TEST/ILL X7DAYS MORBID OBESITY MORBID OBESITY OA R KNEE/RX HERE hand. dr to fax MORBID OBESITY SCREENING MORBID OBESITY Reason for Visit COVID-19 Chief Complaint MORBID OBESITY OA R KNEE/RX HERE hand. dr to fax MORBID OBESITY SCREENING MORBID OBESITY MORBID OBESITY Chief Complaint OA R KNEE/RX HERE lewis nd. dr to fax MORBID OBESITY SCREENING MORBID OBESITY MORBID OBESITY Chief Complaint SCREENING MORBID OBESITY MORBID OBESITY MORBID OBESITY Chief Complaint CP Chief Complaint CP right foot cellulitis Chief Complaint Admit Date SCREENING June 28, 2024 10:1 4am Chief Complaint Admit Date BNP December 03, 2024 9: 50am Chief Complaint Admit Date BNP December 03, 2024 9: 50am CHF December 25, 2024 10:41am R/O DVT, BLE EDEMA December 27, 2024 10:45am BLE EDEMA December 27, 2024 10:55am Reason for Referral Specialty Diagnoses / Procedures Referred By Scott iverson Referred To Contact Occupational Therapy Diagnoses S/P trigger finger release Marcus Heredia PA-C [address] [facility] [address] [place] [address] Referral ID Status Reason Start Date Expiration Date V isits Requested Visits Authorized [id number] Open Specialty Services Required 12/17/2021 06/15/2022 1 1 Question Answer Reason For External Referral? Patient Preference Comments The patient can be scheduled with any member of the group, including the provider with the first available appointments. Patient is s/p trigger finger release and PIP joint manipulation of the right long finge on 12/17/21r. To be fit with LMB splint of the right long finger. Encourage full ROM of finger with focus on regaining full extension. NWB through operative finger until 2 weeks post op then WBAT. Eval and treat Specialty Diagnoses / Procedures Referred By Scott iverson Referred To Contact Cardiology Diagnoses HFrEF (heart failure with reduced ejection fraction) (HCC) Procedures ECHO Complete 2D W Doppler W Color IleKimberly mack MD [address] [facility] [place] [address] Referral ID Status Reason Start Date Expiration Date Visits Re quested Visits Authorized [id number] Closed 01/25/2022 04/24/2022 1 1 Specialty Diagnoses / Procedures Referred By Scott iverson Referred To Contact Neurology Diagnoses Paresthesia of skin Procedures Nerve conduction test with EMG Omi Garcia DO [address] [place] [address] Referral ID Status Reason Start Date Expiration Date Visits Re quested Visits Authorized [id number] Closed 06/17/2023 06/11/2024 1 1 Additional Source Comments INFORMATION SOURCE (unrecogn ized section and content) DATE CREATED AUTHOR 10/10/2017 [facility] DATE CREATED AUTHOR AUTHOR'S ORGANIZ ATION 09/01/2021 [facility] DATE CREATED AUTHOR AUTHOR'S ORGANIZ ATION 02/15/2022 [facility] DATE CREATED AUTHOR AUTHOR'S ORGANIZ ATION 02/16/2022 [facility] DATE CREATED AUTHOR AUTHOR'S ORGANIZ ATION 01/14/2025 [facility] DATE CREATED AUTHOR AUTHOR'S ORGANIZ ATION 02/14/2025 [facility] Reason for Visit (unrecogniz ed section and content) Reason Comments Shortness of Breath She has been experie ncing SOB for several weeks with worsening today. She had blood work done at her Dr's. Her dimer was slightly elevated and they recommended, she states, that she come to the ER. Abnormal Lab Reason Comments New Patient bilateral lower leg redness Reason Comments Results Reason Comments Rash Reason Onset Date Comments Med Refill 08/12/2022 Reason Comments Med Refill Reason Onset Date Comments Med Refill 11/04/2022 Reason Onset Date Comments Cancelled Appointment 12/16/2022 Reason Onset Date Comments Appointment Request 09/27/2022 Reason Comments Knee Pain Right Specialty Diagnoses / Procedures Referred By Scott iverson Referred To Contact Diagnoses Unilateral primary osteoarthritis, right knee Procedures OTHER DIAGNOSTIC SERVICES-[facility] [address] [place] [address] [address] [place] [address] Juan Johnston MD [address], [address] [place] [address] Referral ID Status Reason Start Date Expiration Date Visits Re quested Visits Authorized [id number] Closed 12/08/2022 12/08/2023 1 1 Reason Onset Date Comments Med Refill 06/05/2023 Reason Comments 6 Month Follow-up Reason Comments 6 Month Follow-up Congestive Heart Failure Reason Onset Date Comments Med Refill 05/02/2022 Reason Comments Follow-up Reason Onset Date Comments Med Refill 04/22/2024 Reason Comments Weight Loss NEW NSURG Specialty Diagnoses / Procedures Referred By Scott iverson Referred To Contact Bariatrics Diagnoses Morbid (severe) obesity due to excess calories (HCC) Procedures eval & treat [facility] [place] [address] [place] [address] Phone: tel: fax: Referral ID Status Reason Start Date Expiration Date V isits Requested Visits Authorized [id number] Pending Review 06/19/2024 12/16/2024 1 1 Reason Onset Date Comments Sinusitis 08/25/2024 Reason Comments Weight Management Reason Comments Weight Management Medical mgmt #3 Reason Comments Weight Management Nsurg #4 Reason Onset Date Comments Med Management 11/20/2024 Reason Comments 6 Month Follow-up Reason Comments Weight Management Nsurg #5 Ordered Prescriptions (unrec ognized section and content) Prescription Sig Dispensed Refills Start Date End Da te furosemide (LASIX) 40 MG tablet Take 1 tablet by mouth daily for 3 doses 3 tablet 0 12/11/2020 12/14/2020 Prescription Sig Dispensed Refills Start Date End Da te traMADol (ULTRAM) 50 MG tabletIndications:S/P trigger finger release Take 1 tablet by mouth every 6 hours as needed for Pain for up to 3 days. Intended supply: 3 days. Take lowest dose possible to manage pain 12 tablet 0 12/17/2021 12/20/2021 Scheduled Active and Recently Administ ered Medications (unrecognized section and content) Medication Order 12/09/2020 12/10/2020 12/11/2020 0.9 % sodium chloride bolus (COMPLETED) 1,000 mL (7.68 mL/kg), Intravenous, at 2,000 mL/hr, Administer over 0.5 Hours, ONCE, On Mon12/11/20 at 1933, For 1 dose 1953 (New Bag - Prov ider: Mee Quiroz RN)2136 (Stopped - Provider: Mee Quiroz RN) furosemide (LASIX) injection 40 mg (COMPLETED) 40 mg, Intravenous, ONCE, On Mon12/11/20 at 2122, For 1 dose 2129 (Given - Provid er: Mee Quiroz RN) ipratropium-albuterol (DUONEB) nebulizer solution 1 ampule (COMPLETED) 1 ampule, Inhalation, ONCE, On Mon12/11/20 at 1939, For 1 dose 1953 (Given - Provid er: Mee Quiroz RN) PRN Medication Order 12/09/2020 12/10/2020 12/11/2020 iopamidol (ISOVUE-370) 76 % injection 75 mL (COMPLETED) 75 mL, Intravenous, IMG ONCE PRN, Other, Starting on Mon12/11/20 at 1940, For 1 dose 2024 (Given - Provid er: Karin Wilson) Scheduled Medication Order 12/15/2021 12/16/2021 12/17/2021 cephALEXin (KEFLEX) capsule 1,000 mg (COMPLETED) 1,000 mg, Oral, ONCE, 1 dose, On Mon12/17/21 at 0745, Antimicrobial Indications: Surgical Prophylaxis, Administer 30 minutes prior to surgery in Pre-Operative area., Pre-op (day of surgery) 07 (Given - Provid er: Loreto Jenkins RN) lidocaine-EPINEPHrine 1 %-1:[id number] injection 8 mL 8 mL, IntraDERmal, ONCE, 1 dose, On Mon12/17/21 at 0745, Combine with Sodium Bicarb in 10cc syringe., Pre-op (day of surgery) 0745 (Due) sodium bicarbonate 4.2 % injection 1 mEq 1 mEq, IntraDERmal, ONCE, 1 dose, On Mon12/17/21 at 0745, Combine with 8 ml of 1% lidocaine with epi in 10 cc syringe., Pre-op (day of surgery) 0745 (Due) sodium chloride flush 0.9 % injection 5-40 mL 5-40 mL, IntraVENous, EVERY 12 HOURS SCHEDULED (2 times per day), First dose on Mon12/17/21 at 0900, Until Discontinued, For Line Patency: Peripheral IV = 5 mL; Midline or Central Line = 10 mL/lumen. If following IV push medication, administer flush at same rate as the IV push. Flush volume is determined by type of infusion therapy being given. For non-viscous solutions use: Peripheral IV = 5 mL Midline or Central Line = 10 mL/lumen For viscous solutions (i.e. blood components, parenteral nutrition, contrast media, or after obtaining blood sample) use: Peripheral IV = 10 mL Midline or Central Line = 20 mL/lumen, Pre-op (day of surgery) 0900 (Due)2100 (Due) PRN Medication Order 12/15/2021 12/16/2021 12/17/2021 0.9 % sodium chloride infusion IntraVENous, at 5-250 mL/hr, PRN, if patient receiving piggyback infusions and maintenance fluids are not ordered OR KVO fluids to protect IV site / prevent frequent line interruptions/ long duration, Starting on Mon12/17/21 at 0609, For piggyback infusion, administer at same rate as piggyback for a total of 25 mL. Enter 25 mL into dose field and piggyback rate into rate field of order. If piggyback is infusing at a rate less than 100 mL/hr, enter 25 mL into dose field and 100 mL/hr into rate field of order. For KVO fluids, enter rate of 20 mL/hr or less into rate field of order., Pre-op (day of surgery) Care Teams (unrecognized sec tion and content) Netsuite Consultant Relationship Specialty Start Date End Date Kashif Garciaua [address] [address] PCP - General 09/27/17 Netsuite Consultant Relationship Specialty Start Date End Date Jose Omi, [address] [address] PCP - General 09/27/17 Netsuite Consultant Relationship Specialty Start Date End Date Jose Omi, [address] [address] PCP - General 09/27/17 Netsuite Consultant Relationship Specialty Start Date End Date Jose Omi [address] [place] [address] PCP - General 09/27/17 Netsuite Consultant Relationship Specialty Start Date End Date Omi Garcia [address] [address] PCP - General Family Practice 07/31/16 Netsuite Consultant Relationship Specialty Start Date End Date Omi Garcia [address] [address] PCP - General Family Practice 07/31/16 Netsuite Consultant Relationship Specialty Start Date End Date Omi Garcia DO [address] [place] [address], [place] [address] PCP - General 09/27/17 Netsuite Consultant Relationship Specialty Start Date End Date Omi Garcia DO [address] [place] [address] PCP - General 09/27/17 Netsuite Consultant Relationship Specialty Start Date End Date Omi Garcia DO [address] [place] [address], [place] [address] PCP - General 09/27/17 Netsuite Consultant Relationship Specialty Start Date End Date Jose Omi, DO [address] [place] [address] PCP - General 09/27/17 Team Status: Active Member Role Status Dates Dr. Omi Garcia , DO Family Provider Active Dr. Omi Garcia , DO Primary Care Provider Active Team Status: Inactive Member Role Status Dates Dr. Omi Garcia , DO Primary Care Provider, Attend ing Provider Active Omi Garcia , DO Referring Provider Active Team Status: Inactive Member Role Status Dates Dr. Omi Garcia , DO Primary Care Provider Active Dr. Jose Nagel MD Attending Provider, Referring P tona Active Team Status: Inactive Member Role Status Dates Dr. Omi Garcia , DO Primary Care Provider Active Dr. Jose Nagel MD Attending Provider Active Netsuite Consultant Relationship Specialty Start Date End Date Jose Omi, DO [address] [place] [phone] PCP - General 09/27/17 Netsuite Consultant Relationship Specialty Start Date End Date Jose Omi, DO [address] [place] [phone] PCP - General 09/27/17 Netsuite Consultant Relationship Specialty Start Date End Date Omi Garcia DO [address] [place] [phone] PCP - General 09/27/17 Netsuite Consultant Relationship Specialty Start Date End Date Omi Garcia DO [address] [place] [phone] PCP - General 09/27/17 Netsuite Consultant Relationship Specialty Start Date End Date Omi Gacria DO [address] [place] [phone] PCP - General 09/27/17 Netsuite Consultant Relationship Specialty Start Date End Date Omi Garcia DO [address] [place], [phone] PCP - General 09/27/17 Team Status: Inactive Member Role Status Dates Dr. Omi Garcia DO Primary Care Provider Active Dr. Laura Rolon MD Emergency Provider Active Netsuite Consultant Relationship Specialty Start Date End Date Omi Garcia DO [address] [place] [phone] PCP - General 09/27/17 Team Status: Inactive Member Role Status Dates Dr. Omi Garcia DO Primary Care Provider Active Dr. Laura Rolon MD Attending Provider, Emergency Provider Active Netsuite Consultant Relationship Specialty Start Date End Date Omi Garcia DO [address] [place] [phone] PCP - General 09/27/17 Netsuite Consultant Relationship Specialty Start Date End Date Omi Garcia DO [address] [place] [phone] PCP - General 09/27/17 Netsuite Consultant Relationship Specialty Start Date End Date Omi Garcia DO [address] [place] [address] PCP - General 09/27/17 Netsuite Consultant Relationship Specialty Start Date End Date JoseOmi smith DO [address] [place] [address] PCP - General 09/27/17 Netsuite Consultant Relationship Specialty Start Date End Date Jose DO Omi [address] [place] [phone] PCP - General 09/27/17 Netsuite Consultant Relationship Specialty Start Date End Date Omi Garcia DO [address] [place] [address] PCP - General 09/27/17 Netsuite Consultant Relationship Specialty Start Date End Date Omi Garcia DO [address] [place] [address] PCP - General 09/27/17 Netsuite Consultant Relationship Specialty Start Date End Date Omi Garcia DO [address] [place] [address] PCP - General 09/27/17 Team Status: Active Member Role Status Dates Dr. Omi Garcia DO Primary Care Provider Active Team Status: Inactive Member Role Status Dates Dr. Omi Garcia DO Primary Care Provider Active Start: June 28, 2024 End: June 28, 2024 Dr. Omi Garcia DO Attending Provider Active Start: June 28, 2024 End: June 28, 2024 Dr. Omi Garcia DO Referring Provider Active Start: June 28, 2024 End: June 28, 2024 Netsuite Consultant Relationship Specialty Start Date End Date Omi Garcia DO [address] [place], [phone] PCP - General 09/27/17 Netsuite Consultant Relationship Specialty Start Date End Date Omi Garcia DO [address] [place] [phone] PCP - General 09/27/17 Netsuite Consultant Relationship Specialty Start Date End Date Omi Garcia DO [address] [place] [phone] PCP - General 09/27/17 Netsuite Consultant Relationship Specialty Start Date End Date Marcia GarciashuaDO [address] [place] [phone] PCP - General 09/27/17 Netsuite Consultant Relationship Specialty Start Date End Date Kashif GarciauaDO [address] [place] [phone] PCP - General 09/27/17 Netsuite Consultant Relationship Specialty Start Date End Date Omi Garcia DO [address] [place] [phone] PCP - General 09/27/17 Team Status: Active Member Role/Relationship Status Dates Dr. Omi D Jose , DO Primary Care Provider Active Team Status: Inactive Member Role/Relationship Status Dates Dr. Omi Garcia DO Primary Care Provider Active Start: October 22, 2024 Dr. Lin Coles MD Attending Provider Active Start: October 22, 2024 Team Status: Inactive Member Role/Relationship Status Dates Dr. Omi Garcia DO Primary Care Provider Active Start: December 03, 2024 End: December 03, 2024 Dr. Johnnie Kenney MD Attending Provider Active Start: December 03, 2024 End: December 03, 2024 Dr. Johnnie Kenney MD Referring Provider Active Start: December 03, 2024 End: December 03, 2024 Team Status: Active Member Role/Relationship Status Dates Dr. Omi Garcia DO Primary care physician Active Team Status: Inactive Member Role/Relationship Status Dates Dr. Omi Garcia DO Primary care physician Active Start: October 22, 2024 Dr. Lin Coles MD Attending physician Active Start: October 22, 2024 Team Status: Inactive Member Role/Relationship Status Dates Dr. Omi Garcia DO Primary care physician Active Start: December 03, 2024 End: December 03, 2024 Dr. Johnnie Kenney MD Attending physician Active Start: December 03, 2024 End: December 03, 2024 Dr. Johnnie Kenney MD Referring Provider Active Start: December 03, 2024 End: December 03, 2024 Team Status: Inactive Member Role/Relationship Status Dates Dr. Omi Garcia DO Primary care physician Active Start: December 25, 2024 End: December 25, 2024 Dr. Johnnie Kenney MD Attending physician Active Start: December 25, 2024 End: December 25, 2024 Dr. Johnnie Kenney MD Referring Provider Active Start: December 25, 2024 End: December 25, 2024 Team Status: Active Member Role/Relationship Status Dates Dr. Omi Garcia DO Primary care physician Active Start: December 25, 2024 Dr. Kamran Fernandez MD Attending physician Active Start: December 25, 2024 Team Status: Inactive Member Role/Relationship Status Dates Dr. Omi Garcia DO Primary care physician Active Start: December 27, 2024 End: December 27, 2024 Dr. Johnnie Kenney MD Attending physician Active Start: December 27, 2024 End: December 27, 2024 Dr. Johnnie Kenney MD Referring Provider Active Start: December 27, 2024 End: December 27, 2024 Team Status: Active Member Role/Relationship Status Dates Dr. Wilfredo Buckner MD Attending physician Active Start: December 27, 2024 Dr. Johnnie Kenney MD Referring Provider Active Start: December 27, 2024 Netsuite Consultant Relationship Specialty Start Date End Date Omi Garcia [place] [phone] PCP - General 09/27/17 Source Comments (unrecognize d section and content) In the event this informatio n is protected by the Federal Confidentiality of Alcohol and Drug Abuse Patient Records regulations: The Federal rules restrict any use of the information to criminally investigate or prosecute any alcohol or drug abuse patient.[facility] the event this information is protected by the Federal Confidentiality of Alcohol and Drug Abuse Patient Records regulations: The Federal rules restrict any use of the information to criminally investigate or prosecute any alcohol or drug abuse patient.[facility] the event this information is protected by the Federal Confidentiality of Alcohol and Drug Abuse Patient Records regulations: The Federal rules restrict any use of the information to criminally investigate or prosecute any alcohol or drug abuse patient.[facility] Goals (unrecognized section and content) Goals may be documented in a n alternate sectionGoals may be documented in an alternate sectionGoals may be documented in an alternate sectionGoals may be documented in an alternate sectionGoals may be documented in an alternate sectionGoals may be documented in an alternate sectionGoals may be documented in an alternate sectionGoals may be documented in an alternate sectionGoals may be documented in an alternate sectionGoals may be documented in an alternate sectionGoals may be documented in an alternate sectionGoals may be documented in an alternate sectionGoals may be documented in an alternate sectionGoals may be documented in an alternate section FOR RECORDS PERTAINING TO PATIENTS WHO ARE OR HAVE BEEN ENROLLED IN A CHEMICAL DEPENDENCY/SUBSTANCEABUSE PROGRAM, SOME INFORMATION MAY BE OMITTED. This clinical summary was aggregated from multiple sources. Caution should be exercised in using it in the provision of clinical care. This summary normalizes information from multiple sources, and as a consequence, information in this document may materially change the coding, format and clinical context of patient data. In addition, data may be omitted in some cases. CLINICAL DECISIONS SHOULD BE BASED ON THE PRIMARY CLINICAL RECORDS. [email or web address] [facility]. provides no warranty or guarantee of the accuracy or completeness of information in this document.
== END | disposition home or self-care (01) ==
LOC: LAB 15:10
PROVIDERS: PCP Family Medicine; Referring Provider Internal Medicine Pulmonary Disease; Visit Provider Internal Medicine Pulmonary Disease
DX: R07.9 Chest pain, unspecified (principal); I50.9 Heart failure, unspecified
CPT/HCPCS: 84484

== ENCOUNTER → 2025-03-21 | Outpatient (CLI) | payer OTHER, SELFPAY ==
--- OUTSIDE RECORDS SUMMARY | 2025-03-21 06:44 | XMS RPT_ITS | CCD ---
Author Organization [facility] Care Team Providers Care Ground Crew Lines Person Name Role Phone GregoriopoojaMoo Unavailable Unavailable PROVIDER, UNKNOWN Unavailable Unavailable Jose, Omi Unavailable Unavailable Jose, Omi Primary Care Provider Jose DOOmi Primary Care Provider JoseOmi smith DO Primary Care Provider JoseOmi smith DO Primary Care Provider Dr. Omi Garcia Primary Care Provider Dr. Omi Garcia Referring Provider TARA Loyola Attending Provider Jose DOOmi Primary Care Provider PROVIDER, UNKNOWN Referring Unavailable IleKimberly mack Attending [...] Unavailable Dr. Omi Garcia Primary Care Provider Dr. Omi Garcia Referring Provider TARA Loyola Attending Provider [phone] Jose DO, Omi Primary Care Provider Jose DO, Omi Primary Care Provider Jose DO, Dr. Oim Keyes Primary Care Provider [phone] Jose DO, Dr. Omi Keyes Attending Provider Jose DO, Dr. Omi Keyes Referring Provider Jose DO, Dr. Omi Keyes Primary Care Provider [phone] Sanket WHIPPLE, Dr. Ceballos Attending Provider Anne [...] Marie WHIPPLE, Dr. Johnnie Steele Attending Physician [phone] Dr. Kamran Fernandez MD Attending Physician [phone] Sita WHIPPLE, Dr. Wilfredo Carr Attending Physician JOSE, OMI Primary Care Unavailable STEPHON REINA Attending Unavailable JOSE, OMI Primary Care Unavailable STEPHON, REINA Attending Unavailable JOSE, OMI Primary Care Unavailable STEPHON, REINA Attending Unavailable JOSE, OMI Primary Care Unavailable REINA CUNHA Attending Unavailable JOSE, OMI Primary Care Unavailable MADDISON JORDAN Attending Unavailable JOSE, OMI Primary Care Unavailable KIMBERLY GRULLON Attending Unavailable TARSHA CARCAMO Referring Unavailable ATRSHA CARCAMO Attending Unavailable [facility] Primary Care Unavailable [facility] Primary Care Unavailable REINA CUNHA Attending Unavailable Allergies Allergy Classification Reported Allergen(s) Allergy Type Date of Onset Reaction(s) Facility Alendronate (1 source) Alendronate Drug Allergy 6 Anaphylaxis, Other [facility] jennifer root (1 source) jennifer root Drug Allergy 5 Shortness of breath [facility] NSAIDs (1 source) Naproxen Drug Allergy 5 Swelling [facility] (20 sources) Alendronate Drug Allergy 6 Anaphylaxis, Other [facility] Work Phone: (20 sources) Naproxen Drug Allergy 5 Swelling [facility] Work Phone: (14 sources) Alendronate Drug Allergy 6 Anaphylaxis, Other (See Comments), Other: See Comments [facility] (20 sources) jennifer root Drug Allergy 5 Shortness Of Breath [facility] (3 sources) Jennifer extract Drug Allergy 5 Shortness of Breath [facility] (5 sources) Adhesive Tape Propensity to adverse reactions to drug 2 Rash [facility] (20 sources) Nirmatrelvir-Rit onavir Propensity to adverse reactions to drug 2 Hives [facility] Work Phone: (20 sources) Wound Dressing Adhesive Drug Intolerance 2 Rash [facility] (20 sources) Ritonavir Drug Allergy 5 [facility] (20 sources) Nirmatrelvir Allergy to substance 5 [facility] (1 source) Naproxen Drug Allergy 4 [facility] Repository Medications Current Medications Medication Drug Class(es) [...] every week ergocalciferol (Vitamin D-2) 1.25 MG (83631 UT) capsule Take 1.25 mg by mouth [...] by mouth once daily Multiple Vitamins-Minerals (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 5 ml sodium chloride 9 [...] treated with BiPAP , BMI 50.0-59.9, adult ([facility]) , Class 3 severe obesity due to [...] on above: Take 1 capsule by mo [facility] twice daily for 10 days. cholecalciferol 0.125 mg oral tablet (3 sources) Vitamin D Start: take 1 tablet by mouth once daily Cholecalciferol, Vitamin D3, (VITAMIN D-3) 5,000 unit tab Indications: Unspecified vitamin D deficiency , Osteoporosis, unspecified Take 1 tablet by mouth once daily. 90 tablet 0 11/10/2014 Active Comment on above: Take 1 tablet by [facility] once daily. CPAP (3 sources) CPAP as [...] 12-17-2021 Chronic Other aftercare (2 sources) Other residential (current) drug therapy; Translations: [Other residential (current) drug therapy] Onset: 12-17-2021 Episodic Other [...] (BMI) of 50.0 to 59.9 in adult ([facility])] 07-24-2024 Chronic Other nutritional; endocrine; and metabolic disorders (4 sources) Body mass index (BMI) 50.0-59.9, adult; Translations: [Body mass index (BMI) 50.0-59.9, adult ([facility])] Onset: 06-10-2022 Chronic Other skin disorders (2 [...] 01/03/25. C MP done 07/01/24. GFR 72 [facility] Office Visiton 02-07-2025 Follow-up visit [id number] Lavell Tirado percy Cruz 1960 F Date Provider Department Center 02/07/2025 62080-GTFWAREINA DAVIS [facility] None Family History Problem [...] Grandfather Paternal Grandmother Paternal Grandfather Level of Service:52917 MS OFFICE/OUTPATIENT ESTABLISHED LOW MDM 20 MIN Reason for Visit and Comments: Weight Management [645] - Nsurg #5 [facility] Progress Noteon 02-07-2025 Progress Note BARIATRIC [...] home O2 Completed by: Annie Alexandra MA [facility] Progress Note HPI, PHYSICAL EXAMINATION & [...] performed.Clinical documentation is updated and completed. Normal [facility] Office Visiton 01-03-2025 Follow-up visit [id number] Reyna Tirado 1960 F Date Provider Department Center 01/03/2025 98763-VCDAKIMBERLY CASTREJON [facility] None Family History Problem Relation Age [...] Grandfather Paternal Grandmother Paternal Grandfather Level of Service:40050 MS OFFICE/OUTPATIENT ESTABLISHED MOD MDM 30 MIN Reason for Visit and Comments: 6 Month Follow-up [671] Normal [facility] Progress Noteon 01-03-2025 Progress Note [facility] Cardiology Office Note DATE of SERVICE: 01/03/25 [...] was sent for some testing by her director sterile processing in the last week or 2. This [...] (around 07/03/2025) for STANLEY. Kimberly Grullon M.D., [place]. Physicist Astrophysics Chief, Division of Cardiac Imaging Clinical Change Of Address Clerk, [facility] Cardiac Testing Echocardiogram 12/25/2024 [facility] Technically difficult, mild LVH, ejection fraction 65% [...] no aorti (more content not included)... Normal [facility] Venous Duplex US - Humza [facility] 12-27-2024 Venous Duplex US - Humza [facility] Cardiovascular Services [address] [place] [address] Venous Duplex US - Humza [facility] 12/27/24 1055 MR#: [id number] Acct: [id number] Name: REBECA TIRADO Rep #: [id number] : 1960 64 From: Wilfredo Buckner MD [...] Date Dictated: 12/27/24 105 Date Transcribed: 12/27/242205 Assistant Product Manager: Signed Normal [facility] Venous duplex ultrasound rep ortOrdered By: Wilfredo Buckner on 12-27-2024 US Vein [facility] Cardiovascular Services [address] [place] [address] Venous Duplex US - Humza [facility] 12/27/24 105 MR#: [id number] Acct: [id number] Name: REBECA TIRADO Rep #:[id number] : 1960 64 From: Wilfredo Buckner MD [...] Date Dictated: 12/27/24 1055 Date Transcribed: 12/27/242205 Assistant Product Manager: Signed [facility] Work Phone: Echo Complete W/ Contraston 12-25-2024 Echo Complete W/ Contrast [facility] Cardiovascular Services [address] [place] [address] Echo Complete W/ Contrast 12/25/24 1049 MR#: [id number] Acct: [id number] Name: REBECA TIRADO Rep #: [id number] : 1960 64 From: Kamran Fernandez MD Attending Dr: Dr. Johnnie Kenney MD Status: REG I Ordering Dr: Johnnie Kenney MD Date: 12/25/24 Location: [facility] Sex: F C Admitted: Reason For [...] Dictated: 12/25/24 1049 Date Transcribed: 12/25/24 153 Assistant Product Manager: Signed Normal [facility] Echocardiogram study reportO rdered By: Kamran Fernandez on 12-25-2024 Study report [facility] Cardiovascular Services [address] [place] [address] Echo Complete W/ Contrast 12/25/24 1049 MR#: [id number] Acct: [id number] Name: REBECA TIRADO Rep #:[id number] : 1960 64 From: Kamran Fernandez MD Attending Dr: Dr. Johnnie Kenney MD Status: REG CLI Ordering Dr: Johnnie Kenney MD Date: 12/25/24 Location: [facility] Sex: F C Admitted: Reason For [...] Date Dictated: 12/25/24 1049 Date Transcribed: 12/25/241529 Assistant Product Manager: Signed [facility] Work Phone: 36on 12-09-2024 36 Wegovy excluded by insurance. Self pay option offered. [facility] 36on 12-06-2024 36 Patient scheduled fo [...] she can do in the mean time. [facility] 36 PA submitted via PENDING SALE TO [facility] for Macarenavy. Pt notified. [facility] 36 ----- Message from Reina Cunha MD sent at 12/06/2024 10:48 AM EDT ----- Please pa for wegovy Thank you [facility] Office Visiton 12-06-2024 Follow-up visit [id number] Reyna Tirado 1960 F Date Provider Department Center 12/06/2024 17909-SOLMVREINA CUNHA [facility] None Family History Problem [...] Grandfather Paternal Grandmother Paternal Grandfather Level of Service:56489 MS OFFICE/OUTPATIENT ESTABLISHED LOW MDM 20 MIN Reason for Visit and Comments: Weight Management [645] - Nsurg #4 [facility] Progress Noteon 12-06-2024 Progress Note BARIATRIC [...] home O2 Completed by: Annie Alexandra MA [facility] Progress Note HPI, PHYSICAL EXAMINATION & [...] performed.Clinical documentation is updated and completed. Normal [facility] Natriuretic peptide.B prohor franklin N-Terminal [Mass/volume] in Serum or PlasmaOrdered By: Johnnie Kenney on 12-03-2024 Natriuretic peptide.B prohormone N-Terminal [Mass/Vol] 52 pg/mL <900 [facility] Comment on above: Heart Failure Unlike ly: < 300 pg/mLHeart Failure Likely< 50 Years: > 450 pg/mL50-75 Years: > 900 pg/mL>75 Years: > 1800 pg/mL Pro- Brain NATRIURETIC PEPTI Catarina 12-03-2024 Natriuretic peptide B (Bld) [Mass/Vol] 52 pg/mL Normal <=900 [facility] Comment on above: Result Comment: Hear t Failure Unlikely: < 300 pg/mL Heart Failure Likely < 50 Years: > 450 pg/mL 50-75 Years: > 900 pg/mL >75 Years: > 1800 pg/mL Performed By: #### L [phone] #### [facility] [address] [place], [address] 36on 11-21-2024 36 Lmom with recs. Any further questions, instructed to call office to discuss further. [facility] 36on 11-20-2024 36 Pt called and [...] only taking it when symptoms do occur. [facility] Office Visiton 10-18-2024 Follow-up visit [id number] Reyna Tirado 1960 F Date Provider Department Center 10/18/2024 58355-ZGKZHREINA CUNHA [facility] None Family History Problem [...] Grandfather Paternal Grandmother Paternal Grandfather Level of Service:76807 MS OFFICE/OUTPATIENT ESTABLISHED LOW MDM 20 MIN Reason for Visit and Comments: Weight Management [645] - Medical mgmt #3 [facility] Progress Noteon 10-18-2024 Progress Note HPI, [...] was performed.Clinical documentation is updated and completed. [facility] Progress Note BARIATRIC CARE [facility] MEDICAL WEIGHT LOSS MANAGEMENT PROGRAM [...] home O2 Completed by: Annie Alexandra MA [facility] 36on 09-10-2024 36 PA denied pt notified. [facility] 36on 09-09-2024 36 PA submitted via ml for Zepbound pt notified. [facility] 36 ----- Message from Reina Cunha MD sent at 09/06/2024 1:32 PM EDT ----- Please pa zepbound and let the pt know Thank you [facility] Office Visiton 09-06-2024 Follow-up visit [id number] Reyna Tirado 1960 F Date Provider Department Center 09/06/2024 65657-PYWNTREINA CUNHA [facility] None Family History Problem [...] Grandfather Paternal Grandmother Paternal Grandfather Level of Service:12651 MS OFFICE/OUTPATIENT ESTABLISHED LOW MDM 20 MIN Reason for Visit and Comments: Weight Management [645] Normal [facility] Progress Noteon 09-06-2024 Progress Note HPI, [...] was performed.Clinical documentation is updated and completed. [facility] 36on 08-25-2024 36 S: Patient spoke wit h [facility] nurse regarding sinusitis B: Onset of symptoms/concern [...] Pharmacy and allergies verified. R: Dr. Rodriguez regional trainer provider messaged advised We don't usually start [...] no fever Protocols used: Sinus Pain or [id number] [facility] Office Visiton 07-24-2024 Follow-up visit [id number] Reyna Tirado 1960 F Date Provider Department Center 07/24/2024 92723-MXDBUREINA DAVIS [facility] None Family History Problem [...] Grandfather Paternal Grandmother Paternal Grandfather Level of Service:83897 MS OFFICE/OUTPATIENT NEW MODERATE MDM 45 MINUTES Reason for Visit and Comments: Weight Loss [838935] - [facility] Progress Noteon 07-24-2024 Progress Note BARIATRIC CARE [...] Weight: 309 lb 12.8 oz (141 kg) Zebulon Body Weight: 128 lb (58.1 kg) Initial [...] home O2 Completed by: Raul Pratt MA [facility] Office Visiton 07-01-2024 Follow-up visit [id number] Lavell Tirado percy Cruz 1960 F Date Provider Department Center 07/01/2024 MADDISON REZA [facility] None Family History Problem Relation Age [...] Grandfather Paternal Grandmother Paternal Grandfather Level of Service:73782 MS OFFICE/OUTPATIENT ESTABLISHED MOD MDM 30 MIN Reason for Visit and Comments: 6 Month Follow-up [671] Congestive Heart Failure [127] [facility] Progress Noteon 07-01-2024 Progress Note Received [...] discuss her cholesterol with primary care provider. [facility] Progress Note [facility] Cardiology Office Note DATE of SERVICE: 07/01/24 [...] that she went into the ED at [place] and basic cardiac workup was negative. Last seen in office 12/2023, at which time she was switching from CPAP to BIPAP because of increased needs, and possibly oxygen bleed-in, depending on insurance. She presents today for 6 month follow-up. Had Covid in April 2024, reports it's taken awhile to recover. 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 Heart failure [...] been interested in pursuing evaluation at the [facility] [place]. We have made several referrals -today she [...] sinus tachyca (more content not included)... Normal [facility] Breast imaging reportOrdered By: Jackie Jacobs on 06-28-2024 Study report [facility] Imaging Services [address] [place] [address] SCRN MAMM (CAD)W/SHAHNAZ BILAT MR#: [id number] Acct: [id number] Name: REBECA TIRADO Rep #: [id number] : 1960 F 63 From: Rose Mary Jacobs MD PCP: Dr. Omi Garcia DO Status: RE G CLI Study:SCRN MAMM (CAD)W/SHAHNAZ BILAT Date of Exa m: 06/28/24 Exam# [id number] Ordering Dr: Kenyatta Garcia DO PROCEDURE: SCRN [...] of the results by letter. Reading Location: [id number] CC: Dr. Omi Garcia DO ~ Assistant Product Manager: Signed [facility] SCRN MAMM (CAD)W/SHAHNAZ BILATo n 06-28-2024 SCRN MAMM (CAD)W/SHAHNAZ BILAT [facility] Imaging Services [address] [place] [address] SCRN MAMM (CAD)W/SHAHNAZ BILAT MR#: [id number] Acct: [id number] Name: REBECA TIRADO Rep #: [id number] : 1960 F 63 From: Jackie Jacobs MD PCP: Dr. Omi Garcia DO Status: REG CLI Study: SCRN MAMM (CAD)W/SHAHNAZ BILAT Date of Exam: 11/15 Exam# [id number] Ordering Dr: Omi Garcia DO PROCEDURE: SCRN [...] of the results by letter. Reading Location: [facility] CC: Dr. Omi Garcia, Assistant Product Manager: Signed Normal [facility] XR Shoulder - left 2 Viewson 06-05-2024 No fracture or dislocation of the left shoulder is identified. Mild degenerative changes of the left acromioclavicular and glenohumeral joints. Report Dictated on Electronically Signed By: Ronen Tejeda MD Electronically Signed Date/Time: 06/05/2024 8:14 PM [facility] EMERGENCY [facility]PARTMENT RADIOLOGY SYSTEM Patient Name: REBECA VALLE : [...] at the left acromioclavicular and glenohumeral joints. [facility] RADIOLOGY SYSTEM Ronen Tejeda MD - 06/05/2024 Patient Name: REBECA TIRADO : 1960 Exam Date/Time: 06/05/2024 16:15 Procedure: XR SHOULDER 2+ VIEWS LEFT Ordering Provider: CARCMAO JESSICA Reason For Exam: [id number] LEFT SHOULDER [...] Electronically Signed Date/Time: 06/05/2024 8:14 PM EST [facility] Radiology Study observation (narrative) [place] [facility] XR Shoulder - left 2 ViewsOr dered By: Ronen Tejeda on 06-05-2024 [facility] 36on 04-22-2024 36 Patient left message requesting refill on carvedilol, send to [facility] in [place]. Normal [facility] Absolute lymphocyte countOrd ered By: Laura Rolon on 07-17-2023 Lymphocytes Auto (Unsp spec) [#/Vol] 2.99 10*3/uL 0.83-4.51 [facility] Automated lymphocyte count a s percentage of total leukocytesOrdered By: Laura Rolon on 07-17-2023 Lymphocytes/100 WBC Auto (Unsp spec) 35.1 % 19-41 [facility] Basophil percentageOrdered B y: Laura Rolon on 07-17-2023 Basophils/100 WBC (Bld) 0.7 % 0-1 [facility] Chloride [Moles/Vol] 109 mmol/L 98-107 [facility] Eosinophils/100 WBC (Bld) 4.9 % 0-5 [facility] Glucose [Mass/Vol] 116 mg/dL 74-106 [facility] Comment on above: Fasting Glucose resu lt from 100 to 125 mg/dL suggests IMPAIRED HOMEOSTASIS per A.D.A. criteria. Hemoglobin (Bld) [Mass/Vol] 13.9 g/dL 12.0-15.0 [facility] Monocytes/100 WBC (Bld) 8.0 % 0-10 [facility] Neutrophils (Bld) [#/Vol] 4.4 10*3/uL 2.0-7.7 [facility] Neutrophils/100 WBC (Bld) 51.1 % 47-70 [facility] Potassium [Moles/Vol] 3.8 mmol/L 3.5-5.1 [facility] Sodium [Moles/Vol] 141 mmol/L 136-145 [facility] WBC (Bld) [#/Vol] 8.5 10*3/uL 4.4-11.0 [facility] Determination of erythrocyte mean corpuscular volume (MCV)Ordered By: Laura Rolon on 07-17-2023 MCV (RBC) [Entitic vol] 93.8 fL 81-99 [facility] Erythrocyte distribution wid th ratioOrdered By: Laura Rolon on 07-17-2023 Erythrocyte distribution width (RBC) [Ratio] 12.7 % 11.6-14.6 [facility] Erythrocyte distribution wid th standard deviationOrdered By: Laura Rolon on 07-17-2023 Erythrocyte distribution width (RBC) [Entitic vol] 43.7 fL 35.1-43.9 [facility] Hematocrit Auto (Bld) [Volum e fraction]Ordered By: Laura Rolon on 07-17-2023 Hematocrit (Bld) [Volume fraction] 42.4 % 37-47 [facility] Immature granulocytes/100 WB C Auto (Bld)Ordered By: Laura Rolon on 07-17-2023 Immature granulocytes/100 WBC (Bld) 0.200 % 0.0-0.9 [facility] Comment on above: IG% - Immature Granu locytes (promyelocytes, myelocytes and metamyelocytes) > 1% indicates that a LEFT SHIFT is Present. Laboratory - Chemistry and C hemistry - challengeOrdered By: Laura Rolon on 07-17-2023 CO2 [Moles/Vol] 27.0 mmol/L 21.0-32.0 [facility] Urea nitrogen/Creatinine [Mass ratio] 19.5 mg/mg 10-20 [facility] Laboratory - Hematology and Cell countsOrdered By: Laura Rolon on 07-17-2023 MCH (RBC) [Entitic mass] 30.8 pg 27.0-32.0 [facility] MCHC (RBC) [Mass/Vol] 32.8 g/dL 32-36 [facility] Nucleated RBC/100 WBC (Bld) [Ratio] 0 % 0-5 [facility] Platelet mean volume (Bld) [Entitic vol] 9.3 fL 6.2-12.0 [facility] Platelets (Bld) [#/Vol] 291 10*3/uL 150-450 [facility] No Panel InformationOrdered By: Laura Rolon on 07-17-2023 Estimated Creatinine Clearance Calc 112.02 ml/min [facility] Estimated GFR (MDRD) Amer 106 mL/min >60 [facility] Comment on above: GFR Calc Estimated GFR (MDRD) Non-Af Amer 88 mL/min >60 [facility] Comment on above: Non- GFR Calc RBC Auto (Bld) [#/Vol]Ordere d By: Laura Rolon on 07-17-2023 RBC (Bld) [#/Vol] 4.52 10*6/uL 4.2-5.4 [facility] Serum or plasma calcium damien urement (mass/volume)Ordered By: Laura Rolon on 07-17-2023 Calcium [Mass/Vol] 8.8 mg/dL 8.5-10.1 [facility] Serum or plasma creatinine m easurement (mass/volume)Ordered By: Laura Rolon on 07-17-2023 Creatinine [Mass/Vol] 0.72 mg/dL 0.55-1.02 [facility] Comment on above: The validity of the calculated GFR & GFRAA in patients over 70 years has not been determined. Clinical correlation is essential. Serum or plasma urea nitroge n measurement (mass/volume)Ordered By: Laura Rolon on 07-17-2023 Urea nitrogen [Mass/Vol] 14 mg/dL 7-18 [facility] Thin prep Papanicolaou smear with manual screeningOrdered By: Laura Rolon on 07-17-2023 Thin prep Papanicolaou smear with manual screening 5 5-15 [facility] Nerve conduction test with E MGon 06-27-2023 Wicho Her DO 06/27/2023 2:29 PM [facility] Neurology Lab EMG/NCS report: Patient: Rebeca [...] for this study were taken from the [facility] reference values. This dictation was done by using the fishfishme dictation system. It has been proofread but still may contain unrecognized voice recognition errors. [facility] Nerve conduction test with E MGOrdered By: Wicho Her on 06-27-2023 [facility] Work Phone: ECG 12 leadon 06-23-2023 Sinus Rhythm PRWP, consider old [facility] Absolute lymphocyte countOrd ered By: Laura Rolon on 04-14-2023 Lymphocytes Auto (Unsp spec) [#/Vol] 2.71 10*3/uL 0.83-4.51 [facility] Basophil percentageOrdered B y: Laura Rolon on 04-14-2023 Basophils/100 WBC (Bld) 0.9 % 0-1 [facility] Chloride [Moles/Vol] 106 mmol/L 98-107 [facility] Eosinophils/100 WBC (Bld) 1.6 % 0-5 [facility] Glucose [Mass/Vol] 107 mg/dL 74-106 [facility] Comment on above: Fasting Glucose resu lt from 100 to 125 mg/dL suggests IMPAIRED HOMEOSTASIS per A.D.A. criteria. Neutrophils (Bld) [#/Vol] 5.6 10*3/uL 2.0-7.7 [facility] Neutrophils/100 WBC (Bld) 60.9 % 47-70 [facility] Potassium [Moles/Vol] 3.6 mmol/L 3.5-5.1 [facility] Sodium [Moles/Vol] 141 mmol/L 136-145 [facility] WBC (Bld) [#/Vol] 9.2 10*3/uL 4.4-11.0 [facility] Blood erythrocytes count (nu mber/volume)Ordered By: Laura Rolon on 04-14-2023 RBC (Bld) [#/Vol] 4.81 10*6/uL 4.2-5.4 [facility] Blood hemoglobin measurement (mass/volume)Ordered By: Laura Rolon on 04-14-2023 Hemoglobin (Bld) [Mass/Vol] 14.5 g/dL 12.0-15.0 [facility] Blood lymphocytes/100 leukoc ytesOrdered By: Laura Rolon on 04-14-2023 Lymphocytes/100 WBC (Bld) 29.4 % 19-41 [facility] Blood monocytes/100 leukocyt esOrdered By: Laura Rolon on 04-14-2023 Monocytes/100 WBC (Bld) 6.8 % 0-10 [facility] Blood platelet mean volumeOr dered By: Laura Rolon on 04-14-2023 Platelet mean volume (Bld) [Entitic vol] 9.4 fL 6.2-12.0 [facility] Determination of erythrocyte mean corpuscular volume (MCV)Ordered By: Laura Rolon on 04-14-2023 MCV (RBC) [Entitic vol] 93.8 fL 81-99 [facility] Hematocrit Auto (Bld) [Volum e fraction]Ordered By: Laura Rolon on 04-14-2023 Hematocrit (Bld) [Volume fraction] 45.1 % 37-47 [facility] Influenza virus A and B and SARS-CoV-2 (COVID-19) Ag panel - Upper respiratory specimOrdered By: Laura Rolon on 04-14-2023 SARS-CoV-2 (COVID-19) RNA RODGER+probe Ql (Resp) [facility] Laboratory - Chemistry and C hemistry - challengeOrdered By: Laura Rolon on 04-14-2023 CO2 [Moles/Vol] 32.0 mmol/L 21.0-32.0 [facility] Urea nitrogen/Creatinine [Mass ratio] 19.0 mg/mg 10-20 [facility] Laboratory - Hematology and Cell countsOrdered By: Laura Rolon on 04-14-2023 Erythrocyte distribution width (RBC) [Entitic vol] 44.3 fL 35.1-43.9 [facility] Erythrocyte distribution width (RBC) [Ratio] 12.8 % 11.6-14.6 [facility] Immature granulocytes/100 WBC (Bld) 0.400 % 0.0-0.9 [facility] Comment on above: IG% - Immature Granu locytes (promyelocytes, myelocytes and metamyelocytes) > 1% indicates that a LEFT SHIFT is Present. MCH (RBC) [Entitic mass] 30.1 pg 27.0-32.0 [facility] Nucleated RBC/100 WBC (Bld) [Ratio] 0 % 0-5 [facility] MCHC Auto (RBC) [Mass/Vol]Or dered By: Laura Rolon on 04-14-2023 MCHC (RBC) [Mass/Vol] 32.2 g/dL 32-36 [facility] No Panel InformationOrdered By: Laura Rolon on 04-14-2023 D-Dimer Quantitative (PE/DVT) 0.83 FEU/ug/m 0.27-0.49 [facility] Comment on above: CRITICAL VALUE VERIF IED. CALLED TO NGUYEN VELARDE RN [id number] Chaz Carver.RESULTS READ BACK BY SAME . D-Dimer ELEVATED (>0.49): Additional studies and clinicalassessments are indicated to conclude diagnosis of:Deep Vein Thrombosis (DVT) or Pulmonary Embolism (PE) Estimated Creatinine Clearance Calc 56.33 ml/min [facility] Estimated GFR (MDRD) Amer 88 mL/min >60 [facility] Comment on above: GFR Calc Estimated GFR (MDRD) Non-Af Amer 73 mL/min >60 [facility] Comment on above: Non- GFR Calc Troponin I High Sensitivity 7 pg/mL 3.0-54.0 [facility] Comment on above: Please Note: New Josephine t Units and Gender Specific Reference Ranges. For more information see Policy Stat Procedure [place] High Sensitivity Troponin (TNIH) and attachments. Platelets bldOrdered By: Marlene Rolon on 04-14-2023 Platelets (Bld) [#/Vol] 305 10*3/uL 150-450 [facility] Serum or plasma calcium damien urement (mass/volume)Ordered By: Laura Rolon on 04-14-2023 Calcium [Mass/Vol] 8.9 mg/dL 8.5-10.1 [facility] Serum or plasma creatinine m easurement (mass/volume)Ordered By: Laura Rolon on 04-14-2023 Creatinine [Mass/Vol] 0.84 mg/dL 0.55-1.02 [facility] Comment on above: The validity of the calculated GFR & GFRAA in patients over 70 years has not been determined. Clinical correlation is essential. Serum or plasma urea nitroge n measurement (mass/volume)Ordered By: Laura Rolon on 04-14-2023 Urea nitrogen [Mass/Vol] 16 mg/dL 7-18 [facility] Thin prep Papanicolaou smear with manual screeningOrdered By: Laura Rolon on 04-14-2023 Thin prep Papanicolaou smear with manual screening 3 5-15 [facility] Upper respiratory specimen i nfluenza A virus, influenza B virus, and severe acute resOrdered By: Laura Rolon on 04-14-2023 Upper respiratory specimen influenza A virus, influenza B virus, and severe acute res [facility] 25-hydroxyvitamin D3 [Mass/V ol]on 11-04-2022 Interpretation and review of laboratory results Normal [facility] Therapy is based on measurement of Total 25-OHD with the following classification levels: Less than 20 ng/mL: Indicative of Vit D deficiency 20-30 ng/mL: Suggests Vit D insufficiency Optimal: Greater than or equal to 30 ng/mL Test performed by [employer] Comp[employer] Immunoassay, measuring Total Vitamin D, not individual fractions. [facility] Comprehensive metabolic 1998 panelon 11-04-2022 Albumin [Mass/Vol] 4.2 g/dL 3.5 - 5.0 g/dL [facility] ALP [Catalytic activity/Vol] 111 U/L 38 - 126 U/L [facility] ALT [Catalytic activity/Vol] 33 U/L 0 - 34 U/L [facility] Anion gap [Moles/Vol] 6 mmol/L 3 - 13 mmol/L [facility] AST [Catalytic activity/Vol] 32 U/L 15 - 46 U/L [facility] Bilirubin [Mass/Vol] 0.6 mg/dL 0.2 - 1 .3 mg/dL [facility] Calcium [Mass/Vol] 8.8 mg/dL 8.4 - 10. 4 mg/dL [facility] Chloride [Moles/Vol] 106 mmol/L 98 - 10 7 mmol/L [facility] CO2 [Moles/Vol] 29 mmol/L 22 - 30 mmol/L [facility] Creatinine [Mass/Vol] 0.65 mg/dL 0.52 - 1.04 mg/dL [facility] GFR/1.73 sq M.predicted MDRD (S/P/Bld) [Vol rate/Area] - PINF [facility] Comment on above: Calculation based on the Chronic Kidney Disease Epidemiology Collaboration (CKD-EPI) equation refit without adjustment for race Glucose [Mass/Vol] 98 mg/dL 70 - 100 mg/dL [facility] Potassium [Moles/Vol] 4.5 mmol/L 3.5 - 5.1 mmol/L [facility] Protein [Mass/Vol] 7.7 g/dL 6.3 - 8.2 g/dL [facility] Sodium [Moles/Vol] 141 mmol/L 135 - 145 mmol/L [facility] Urea nitrogen [Mass/Vol] 23 mg/dL High 7 - 17 mg/dL [facility] HbA1c (Bld) [Mass fraction]o n 11-04-2022 Average glucose Estimated from glycated hemoglobin (Bld) [Mass/Vol] 111 mg/dL [facility] Hemoglobin A1con 11-04-2022 HbA1c (Bld) [Mass fraction] 5.5 % [facility] 5[facility] % [facility] Comment on above: Normal less than 5.7 % Prediabetes 5.7% to 6.4% Diabetes 6.5% or higher --HgbA1C levels may not be accurate in patients who have renal disease, received recent blood transfusions, are anemic, or who have dyshemoglobinemia. Lipid 1996 panelon 3 Cholesterol [Mass/Vol] 174 mg/dL NINF - 200 mg/dL [facility] Cholesterol in HDL [Mass/Vol] 56 mg/dL 40 - 60 mg/dL [facility] Cholesterol in LDL [Mass/Vol] 100 mg/dL High 0 - <100 [facility] Cholesterol.total/Sana sterol in HDL [Mass ratio] 3 {ratio} [facility] Comment on above: Ref Range: < 3 Low Risk for CHD 3-6 Mod Risk for CHD > 6 High Risk for CHD Triglyceride [Mass/Vol] 92 mg/dL NINF - 150 mg/dL [facility] No Panel Informationon 11-04 Interpretation and review of laboratory results Abnormal [facility] PTH, intacton 11-04-2022 Parathyrin.intact [Mass/Vol] 56.0 pg/mL High 7.5 - 53.5 pg/mL [facility] Parathyrin.intact [Mass/Vol] on 11-04-2022 Interpretation and review of laboratory results Abnormal [facility] Vitamin D 25 hydroxyon 11-04 25-hydroxyvitamin D3 [Mass/Vol] 32 ng/mL 30 - 100 ng/mL [facility] ECG 12 lead - CLINIC PERFORM EDOrdered By: Dillan Peterson on 06-10-2022 [facility] Work Phone: ECHO Complete 2D W Doppler W Coloron 02-11-2022 TRANSTHORACIC ECHOCARDIOGRAM PATIENT: Rebeca Tirado STUDY DATE: 02/11/2022 : 1960 AGE: 61 HT/WT: 157.5 cm (62 136.1 kg in) (299.4 lb) GENDER: F BP: 144 / 84 LOCATION: [facility] PATIENT Outpatient [facility][Note 3] STATUS: *ORDERING PHYSICIAN: * Kimberly Grullon MD, [facility] *READING PHYSICIAN: * Mason, *ELECTRICAL DESIGN ENGINEER: * Sury Hardwick MD [facility] ----- INDICATIONS: HFrEF (heart failure with reduced [...] LV E/e', average (more content not included)... [facility] Ronen Cuevas MD - 02/11/2022 TRANSTHORACIC ECHOCARDIOGRAM PATIENT: Rebeca Tirado STUDY DATE: 02/11/2022 : 1960 AGE: 61 HT/WT: 157.5 cm (62 136.1 kg in) (299.4 lb) GENDER: F BP: 144 / 84 LOCATION: [facility] Outpatient [facility][Note 3] STATUS: *ORDERING PHYSICIAN: * Kimberly Grullon MD, [facility] *READING PHYSICIAN: * Mason, *ELECTRICAL DESIGN ENGINEER: * Sury Hardwick MD [facility] ----- INDICATIONS: HFrEF (heart failure with reduced [...] W ColorOrdered By: Ronen Cuevas on 02-11-2022 [employer] Work Phone: Echo Complete w/wo Contrasto n 02-11-2022 Echo Complete w/wo Contrast Patient Name: REBECA TIRADO Ultrasound ACCESSION EXAM DATE/TIME PROCEDURE ORDERING PROVIDER [id number] 02/11/2022 11:07 EDT Echo Complete w/wo MD YADI., [facility], KIMBERLY López Reason For Exam (Echo Complete w/wo Contrast) HFrEF, reassess after guideline directed medical therapy Report TRANSTHORACIC ECHOCARDIOGRAM PATIENT: Rebeca Tirado STUDY DATE: 02/11/2022 : 1960 AGE: 61 HT/WT: 157.5 cm (62 136.1 kg in) (299.4 lb) GENDER: F BP: 144 / 84 LOCATION: [facility] PATIENT Outpatient [facility][Note 3] STATUS: *ORDERING PHYSICIAN: * Kimberly Grullon MD, [facility] *READING PHYSICIAN: * Mason, *ELECTRICAL DESIGN ENGINEER: * Sury Hardwick MD [facility] ----- INDICATIONS: HFrEF (heart failure with reduced [...] 09/27/2017 Refe (more content not included)... Normal [facility] OPERATIVE REPORTon 2 Ordered by an unspecified provider. [facility] Laboratory - Microbiology an d Antimicrobial susceptibilityon 10-26-2021 SARS-CoV-2 (COVID-19) RNA RODGER+probe Ql (Unsp spec) Detected [facility] Work Phone: No Panel Informationon 10-26 Influenza Types A,B Rapid (Clinic) Not detected [facility] Work Phone: Laboratory - Microbiology an d Antimicrobial susceptibilityon 10-19-2021 SARS-CoV-2 (COVID-19) RNA RODGER+probe Ql (Unsp spec) Not detected [facility] Work Phone: Comment on above: POC Samira Covid PCR p reviously reported as Detected No Panel Informationon 10-19 Influenza Types A,B Rapid (Clinic) Not detected [facility] Work Phone: CNOVon 08-31-2021 CNOV Office Visit (DERMST ) REBECA TIRADO ([id number]) 1960 F Date Time Provider Department 08/31/21 [...] Past Histories independently gathered by the clinical lead performance support analyst. I spent a total of 42 minutes on the date of the service which included preparing to see the patient, [id number] patient care, completing clinical documentation, performing a medically appropriate examination and counseling and educating the patient/family/[facility] er. Hua Barbosa MD 08/31/2021 9:44 AM Signed If you have questions or need to reach the office, please either use [employer] or call [phone]. Let the single pass soil stabilizer operator know that you need to leave [...] soon as possible. Referring Provider: HUA BARBOSA [[id number]] Allergies As of Date: 08/31/2021 Noted Allergy [...] - dapagliflozi (more content not included)... Normal [facility] CBC W Auto Differential pane l (Bld)on 07-29-2021 Basophils (Bld) [#/Vol] 0.09 10*3/uL Normal <0.11 [facility] Comment on above: Order Comment: Speci men Type: BLOOD SPECIMEN Ordering Facility: [facility] Address: [address] [id number] Performed By: #### 5 7021-8 #### [facility] CLIA [id number] [address] [place] [address] [place] Basophils/100 WBC (Bld) 1.1 % Normal [facility] Comment on above: Order Comment: Speci men Type: BLOOD SPECIMEN Ordering Facility: [facility] Address: [address] [address] Performed By: #### 5 7021-8 #### [facility] CLIA [id number] [address] [place] [address] [place] Differential cell count method Nom (Bld) Auto Normal [facility] Comment on above: Order Comment: Speci men Type: BLOOD SPECIMEN Ordering Facility: [facility] Address: [address] [place] [address] Performed By: #### 5 7021-8 #### [facility] CLIA [id number] [address] [place] [address] [place] Eosinophils (Bld) [#/Vol] 0.27 10*3/uL Normal <0.46 [facility] Comment on above: Order Comment: Speci men Type: BLOOD SPECIMEN Ordering Facility: [facility] Address: [address] [place] [address] Performed By: #### 5 7021-8 #### [facility] [id number] [address] [place] [address] [place] Eosinophils/100 WBC (Bld) 3.2 % Normal [facility] Comment on above: Order Comment: Speci men Type: BLOOD SPECIMEN Ordering Facility: [facility] Address: [address] [place] [address] Performed By: #### 5 7021-8 #### [facility] [id number] [address] [place] [address] [place] Erythrocyte distribution width (RBC) [Ratio] 12.8 % Normal 11.5-15.0 [facility] Comment on above: Order Comment: Speci men Type: BLOOD SPECIMEN Ordering Facility: [facility] Address: [address] [place], [place] [phone] Performed By: #### 5 7021-8 #### [facility] CLIA [id number] [address] [place] [address] [place] Hematocrit (Bld) [Volume fraction] 43.7 % Normal 36.0-46.0 [facility] Comment on above: Order Comment: Speci men Type: BLOOD SPECIMEN Ordering Facility: [facility] Address: [address] [place] [address] Performed By: #### 5 7021-8 #### [facility] CLIA [id number] [address] [place] [address] [place] Hemoglobin (Bld) [Mass/Vol] 13.7 g/dL Normal 11.5-15.5 [facility] Comment on above: Order Comment: Speci men Type: BLOOD SPECIMEN Ordering Facility: [facility] Address: [address] [place] [address] Performed By: #### 5 7021-8 #### [facility] CLIA [id number] [address] [place] [address] [place] IMMATURE GRAN % 0.1 % Normal [facility] Comment on above: Order Comment: Speci men Type: BLOOD SPECIMEN Ordering Facility: [facility] Address: [address] [place] [address] Performed By: #### 5 7021-8 #### [facility] CLIA [id number] [address] [place] [address] [place] IMMATURE GRAN ABS <0.03 Normal <0.10 [facility] Comment on above: Order Comment: Speci men Type: BLOOD SPECIMEN Ordering Facility: [facility] Address: [address] [place] [address] Performed By: #### 5 7021-8 #### [facility] CLIA [id number] [address] [place] [address] [place] Lymphocytes (Bld) [#/Vol] 3.57 10*3/uL Normal 1.00-4.00 [facility] Comment on above: Order Comment: Speci men Type: BLOOD SPECIMEN Ordering Facility: [facility] Address: [address] [place], [place] [phone] Performed By: #### 5 7021-8 #### [facility] CLIA [id number] [address] [place] [address] STATES [facility] Lymphocytes/100 WBC (Bld) 42.6 % Normal [facility] Comment on above: Order Comment: Speci men Type: BLOOD SPECIMEN Ordering Facility: [facility] Address: [address] [place], [place] [phone] Performed By: #### 5 7021-8 #### [facility] CLIA [id number] [address] [place] [address] [place] MCH (RBC) [Entitic mass] 30.0 pg Normal 26.0-34.0 [facility] Comment on above: Order Comment: Speci men Type: BLOOD SPECIMEN Ordering Facility: [facility] Address: [address] [place], [place] [phone] Performed By: #### 5 7021-8 #### [facility] CLIA [id number] [address] [place] [address] [place] MCHC (RBC) [Mass/Vol] 31.4 g/dL Normal 30.5-36.0 [facility] Comment on above: Order Comment: Speci men Type: BLOOD SPECIMEN Ordering Facility: [facility] Address: [address] [place], [place] [phone] Performed By: #### 5 7021-8 #### [facility] CLIA [id number] [address] [place] [address] [place] MCV (RBC) [Entitic vol] 95.6 fL Normal 80.0-100.0 [facility] Comment on above: Order Comment: Speci men Type: BLOOD SPECIMEN Ordering Facility: [facility] Address: [address] [place], [place] [phone] Performed By: #### 5 7021-8 #### [facility] CLIA [id number] [address] [place] [address] [place] Monocytes (Bld) [#/Vol] 0.78 10*3/uL Normal <0.87 [facility] Comment on above: Order Comment: Speci men Type: BLOOD SPECIMEN Ordering Facility: [facility] Address: [address] [place] [address] Performed By: #### 5 7021-8 #### [facility] CLIA [id number] [address] [place] [address] [place] Monocytes/100 WBC (Bld) 9.3 % Normal [facility] Comment on above: Order Comment: Speci men Type: BLOOD SPECIMEN Ordering Facility: [facility] Address: [address] [place] [address] Performed By: #### 5 7021-8 #### [facility] CLIA [id number] [address] [place] [address] [place] Neutrophils (Bld) [#/Vol] 3.66 10*3/uL Normal 1.45-7.50 [facility] Comment on above: Order Comment: Speci men Type: BLOOD SPECIMEN Ordering Facility: [facility] Address: [address] [place] [address] Performed By: #### 5 7021-8 #### [facility] CLIA [id number] [address] [place] [address] [place] Neutrophils/100 WBC (Bld) 43.7 % Normal [facility] Comment on above: Order Comment: Speci men Type: BLOOD SPECIMEN Ordering Facility: [facility] Address: [address] [place], [place] [phone] Performed By: #### 5 7021-8 #### [facility] CLIA [id number] [address] [place] [address] [place] Nucleated RBC (Bld) [#/Vol] 10*3/uL Normal <0.01 [facility] Comment on above: Order Comment: Speci men Type: BLOOD SPECIMEN Ordering Facility: [facility] Address: [address] [place], [place] [phone] Performed By: #### 5 7021-8 #### [facility] CLIA [id number] [address] [place] [address] [place] Nucleated RBC/100 WBC (Bld) [Ratio] 0.0 /100 WBC Normal [facility] Comment on above: Order Comment: Speci men Type: BLOOD SPECIMEN Ordering Facility: [facility] Address: [address] [place], [place] [phone] Performed By: #### 5 7021-8 #### [facility] CLIA [id number] [address] [place] [address] [place] Platelet mean volume (Bld) [Entitic vol] 9.3 fL Normal 9.0-12.7 [facility] Comment on above: Order Comment: Speci men Type: BLOOD SPECIMEN Ordering Facility: [facility] Address: [address] [place], [place] [phone] Performed By: #### 5 7021-8 #### [facility] CLIA [id number] [address] [place] [address] [place] Platelets (Bld) [#/Vol] 272 10*3/uL Normal 150-400 [facility] Comment on above: Order Comment: Speci men Type: BLOOD SPECIMEN Ordering Facility: [facility] Address: [address] [place], [place] [phone] Performed By: #### 5 7021-8 #### [facility] CLIA [id number] [address] [place] [address] [place] RBC (Bld) [#/Vol] 4.57 10*6/uL Normal 3.90-5.20 [facility] Comment on above: Order Comment: Speci men Type: BLOOD SPECIMEN Ordering Facility: [facility] Address: [address] [id number] Performed By: #### 5 7021-8 #### [facility] CLIA [id number] [address] [place] [address] WBC (Bld) [#/Vol] 8.38 10*3/uL Normal 3.70-11.00 [facility] Comment on above: Order Comment: Speci men Type: BLOOD SPECIMEN Ordering Facility: [facility] Address: [address] [place] [address] Performed By: #### 5 7021-8 #### [facility] CLIA [id number] [address] [place] [address] STATES OF [facility] Abs Immature Gran <0.03 <0.10 k/uL [facility] Basophils (Bld) [#/Vol] 0.09 10*3/uL <0.11 k/uL [facility] Basophils/100 WBC (Bld) 1.1 % [facility] Differential cell count method Nom (Bld) Auto [facility] Eosinophils (Bld) [#/Vol] 0.27 10*3/uL <0.46 k/uL [facility] Eosinophils/100 WBC (Bld) 3.2 % [facility] Erythrocyte distribution width (RBC) [Ratio] 12.8 % 11.5 - 15.0 % [facility] Hematocrit (Bld) [Volume fraction] 43.7 % 36.0 - 46.0 % [facility] Hemoglobin (Bld) [Mass/Vol] 13.7 g/dL 11.5 - 15.5 g/dL [facility] Immature Gran % 0.1 % [facility] Lymphocytes (Bld) [#/Vol] 3.57 10*3/uL 1.00 - 4.00 k/uL [facility] Lymphocytes/100 WBC (Bld) 42.6 % [facility] MCH (RBC) [Entitic mass] 30.0 pg 26.0 - 34.0 pg [facility] MCHC (RBC) [Mass/Vol] 31.4 g/dL 30.5 - 36.0 g/dL [facility] MCV (RBC) [Entitic vol] 95.6 fL 80.0 - 100.0 fL [facility] Monocytes (Bld) [#/Vol] 0.78 10*3/uL <0.87 k/uL [facility] Monocytes/100 WBC (Bld) 9.3 % C [facility] Neutrophils (Bld) [#/Vol] 3.66 10*3/uL 1.45 - 7.50 k/uL [facility] Neutrophils/100 WBC (Bld) 43.7 % [facility] Nucleated RBC (Bld) [#/Vol] 10*3/uL <0.01 k/uL [facility] Nucleated RBC/100 WBC (Bld) [Ratio] 0.0 /100 WBC [facility] Platelet mean volume (Bld) [Entitic vol] 9.3 fL 9.0 - 12.7 fL [facility] Platelets (Bld) [#/Vol] 272 10*3/uL 150 - 400 k/uL [facility] RBC (Bld) [#/Vol] 4.57 10*6/uL 3.90 - 5.2 0 m/uL [facility] WBC (Bld) [#/Vol] 8.38 10*3/uL 3.70 - 11. 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 Patient to discuss with lens grinder rough. -follow-up in [address] Babrosa for further evaluation. Cass Polanco APRN.[employer]AT BASKET MAKER HELPER Erin Joseph RN 07/29/2021 1:27 PM Signed [...] [R21] Order(s):CBC + DIFF [[id number]] Order #: [id number] FUTURE predniSONE (DELTASONE) 10 mg tabletTake 4 [...] daily for 7 days. Encounter Status:Closed by EIRN JOSEPH on (more content not included)... Normal [facility] CNOVon 07-27-2021 CNOV Office Visit (DERMST ) CANDIDAREBECA L ([id number]) 1960 F Date Time Provider Department 07/27/21 9:00 AM CASS POLANCO During your visit today, we recorded the following information about you: Cass Polnaco APRN.CNP 07/27/2021 10:01 AM Signed Department of [...] discuss thi (more content not included)... Normal [facility] SURGICAL PATHOLOGY SKIN ONLY on 07-27-2021 CASE REPORT Normal [facility] Comment on above: Order Comment: Speci men Type: SPECIMEN FROM SKIN Ordering Facility: [facility] Address: [address] [place] [address] Result Comment: Surg ical Pathology Report Case: [id number] Authorizing Provider: aCss Polanco APRN.SLAT BASKET MAKER HELPER Collected: 07/27/2021 09:00 AM Ordering Location: Dermatology Received: 07/27/2021 01:03 PM Pathologist: Monica Ortiz MD Specimen: SKIN, Left Lower Leg - Anterior Performed By: #### S PSKIN #### [facility] CLIA [id number] [address] [place] [address] [place] DIAGNOSIS COMMENT Normal [facility] Comment on above: Order Comment: Speci men Type: SPECIMEN FROM SKIN Ordering Facility: [facility] Address: [address] [place], [place] [id number] Result Comment: A. S ections demonstrate compact [...] recommended. Performed By: #### S PSKIN #### [facility] CLIA [id number] [address] [place] [address] FINAL DIAGNOSIS Normal [facility] Comment on above: Order Comment: Speci men Type: SPECIMEN FROM SKIN Ordering Facility: [facility] Address: [address] [place] [address] Result Comment: A. S kin, left lower leg-anterior, punch biopsy: - Superficial and deep perivascular mixed inflammation with dense collections of eosinophils (see comment). WFB/SA/mm 07/28/2021 Performed By: #### S PSKIN #### [facility] CLIA [id number] [address] [place] [address] FINAL PERFORMING LAB Normal [facility] Comment on above: Order Comment: Speci men Type: SPECIMEN FROM SKIN Ordering Facility: [facility] Address: [address] [place] [address] Result Comment: Diag nostic interpretation performed at [facility], [address] [place] [address] CLIA# [id number] Commercial [employer]ishing Vessel Operator: Chris Humphries M.D. Performed By: #### S PSKIN #### [facility] CLIA [id number] [address] [place] [address] GROSS DESCRIPTION A. SKIN. Normal [facility] Comment on above: Order Comment: Speci men Type: SPECIMEN FROM SKIN Ordering Facility: [facility] Address: [address] [place] [address] Result Comment: Rece ived in formalin is a cylindrical segment of skin and subcutaneous tissue measuring 0.4 x 0.4 x 0.7 cm. On the skin surface there is a 0.4 cm, rush and slightly elevated area. The specimen is bisected. Totally submitted in one cassette. SS July 27, 2021 9:41 PM Gross examination performed at [facility], [address] [place], [place] [address]., [place] [id number] Performed By: #### S MICHELLE #### [facility] CLIA [id number] [address] [place] [address] [id number] [address] [place] Basic Metabolic Panelon 03-2 Anion gap [Moles/Vol] 6 mmol/L Normal 3-13 [facility] Comment on above: Performed By: #### B MP3 #### [facility] [address] [place] [address] Calcium [Mass/Vol] 9.4 mg/dL Normal 8.4-10.4 [facility] Comment on above: Performed By: #### B MP3 #### [facility] [address] [place] [address] CO2 [Moles/Vol] 30 mmol/L Normal 22-30 [facility] Comment on above: Performed By: #### B MP3 #### [facility] [address] [place] [address] Glucose [Mass/Vol] 108 mg/dL High 70-100 [facility] Comment on above: Performed By: #### B MP3 #### [facility] [address] [place] [address] Urea nitrogen [Mass/Vol] 26 mg/dL High 9-20 [facility] Comment on above: Performed By: #### B MP3 #### [facility] [address] [place] [address] Creatinine [Mass/Vol] 0.79 mg/dL Normal 0.52-1.25 [facility] Comment on above: Performed By: #### B MP3 #### [facility] [address] [place] [address] GFR/1.73 sq M.predicted among blacks MDRD (S/P/Bld) [Vol rate/Area] mL/min/{1.73_m2} Normal >60 [facility] Comment on above: Performed By: #### B MP3 #### [facility] [address] [place] [address] GFR/1.73 sq M.predicted among non-blacks MDRD (S/P/Bld) [Vol rate/Area] 81.9 mL/min/{1.73_m2} Normal >60 [facility] Comment on above: Result Comment: KDIG O [...] secretion. Performed By: #### B MP3 #### [facility] [address] [place] [address] Chloride [Moles/Vol] 104 mmol/L Normal 98-107 [facility] Comment on above: Performed By: #### B MP3 #### [facility] [address] [place] [address] Potassium [Moles/Vol] 4.9 mmol/L Normal 3.5-5.1 [facility] Comment on above: Performed By: #### B MP3 #### [facility] [address] [place] [address] Sodium [Moles/Vol] 141 mmol/L Normal 135-145 [facility] Comment on above: Performed By: #### B MP3 #### [facility] [address] [place] [address] Anion gap [Moles/Vol] 6 mmol/L 3 - 13 mmol/L [facility] Calcium [Mass/Vol] 9.4 mg/dL 8.4 - 10. 4 mg/dL [facility] Chloride [Moles/Vol] 104 mmol/L 98 - 10 7 mmol/L [facility] CO2 [Moles/Vol] 30 mmol/L 22 - 30 mmol/L [facility] Creatinine [Mass/Vol] 0.79 mg/dL 0.52 - 1.25 mg/dL [facility] EGFR IF NonAfrican Ethiopian 81.9 mL/min >60 [facility] Comment on above: KDIGO guidelines pro vide [...] 108 mg/dL High 70 - 100 mg/dL [facility] Interpretation and review of laboratory results Abnormal [facility] Potassium [Moles/Vol] 4.9 mmol/L 3.5 - 5.1 mmol/L [facility] Sodium [Moles/Vol] 141 mmol/L 135 - 145 mmol/L [facility] Urea nitrogen (BldV) [Mass/Vol] 26 mg/dL High 9 - 20 mg/dL [facility] Test Performed by [facility], [address] , [address] LAB [facility] Basic Metabolic Panelon 05-26 Calcium [Mass/Vol] 9.8 mg/dL Normal 8.4-10.4 [facility] Comment on above: Performed By: #### B MP3 #### [facility] [address] [place] [address] Glucose [Mass/Vol] 104 mg/dL High 70-100 [facility] Comment on above: Performed By: #### B MP3 #### [facility] [address] [place] [address] Urea nitrogen [Mass/Vol] 35 mg/dL High 9-20 [facility] Comment on above: Performed By: #### B MP3 #### [facility] [address] [place] [address] Anion gap [Moles/Vol] 6 mmol/L Normal 3-13 [facility] Comment on above: Performed By: #### B MP3 #### [facility] [address] [place] [address] CO2 [Moles/Vol] 30 mmol/L Normal 22-30 [facility] Comment on above: Performed By: #### B MP3 #### [facility] [address] [place] [address] Creatinine [Mass/Vol] 1.11 mg/dL Normal 0.52-1.25 [facility] Comment on above: Performed By: #### B MP3 #### [facility] [address] [place] [address] GFR/1.73 sq M.predicted among blacks MDRD (S/P/Bld) [Vol rate/Area] 63.0 mL/min/{1.73_m2} Normal >60 [facility] Comment on above: Performed By: #### B MP3 #### [facility] [address] [place] [address] GFR/1.73 sq M.predicted among non-blacks MDRD (S/P/Bld) [Vol rate/Area] 54.3 mL/min/{1.73_m2} Abnormal >60 [facility] Comment on above: Result Comment: KDIG [...] secretion. Performed By: #### B MP3 #### [facility] [address] [place] [address] Potassium [Moles/Vol] 4.7 mmol/L Normal 3.5-5.1 [facility] Comment on above: Performed By: #### B MP3 #### [facility] [address] [place] [address] Chloride [Moles/Vol] 104 mmol/L Normal 98-107 [facility] Comment on above: Performed By: #### B MP3 #### [facility] [address] [place] [address] Sodium [Moles/Vol] 140 mmol/L Normal 135-145 [facility] Comment on above: Performed By: #### B MP3 #### [facility] [address] [place] [address] Basic Metabolic Panelon 01-0 Calcium [Mass/Vol] 9.1 mg/dL Normal 8.4-10.4 [facility] Comment on above: Performed By: #### B MP3 #### [facility] [address] [place] [address] Anion gap [Moles/Vol] 5 mmol/L Normal 3-13 [facility] Comment on above: Performed By: #### B MP3 #### [facility] [address] [place] [address] CO2 [Moles/Vol] 31 mmol/L High 22-30 [facility] Comment on above: Performed By: #### B MP3 #### [facility] [address] [place] [address] Creatinine [Mass/Vol] 0.86 mg/dL Normal 0.52-1.25 [facility] Comment on above: Performed By: #### B MP3 #### [facility] [address] [place] [address] GFR/1.73 sq M.predicted among blacks MDRD (S/P/Bld) [Vol rate/Area] 85.8 mL/min/{1.73_m2} Normal >60 [facility] Comment on above: Performed By: #### B MP3 #### [facility] [address] [place] [address] GFR/1.73 sq M.predicted among non-blacks MDRD (S/P/Bld) [Vol rate/Area] 74.1 mL/min/{1.73_m2} Normal >60 [facility] Comment on above: Result Comment: KDIG O [...] secretion. Performed By: #### B MP3 #### [facility] [address] [place] [address] Glucose [Mass/Vol] 112 mg/dL High 70-100 [facility] Comment on above: Performed By: #### B MP3 #### [facility] [address] [place] [address] Urea nitrogen [Mass/Vol] 21 mg/dL High 9-20 [facility] Comment on above: Performed By: #### B MP3 #### [facility] [address] [place] [address] Chloride [Moles/Vol] 103 mmol/L Normal 98-107 [facility] Comment on above: Performed By: #### B MP3 #### [facility] [address] [place] [address] Potassium [Moles/Vol] 4.3 mmol/L Normal 3.5-5.1 [facility] Comment on above: Performed By: #### B MP3 #### [facility] [address] [place] [address] Sodium [Moles/Vol] 139 mmol/L Normal 135-145 [facility] Comment on above: Performed By: #### B MP3 #### [facility] [address] [place] [address] Anion gap [Moles/Vol] 5 mmol/L 3 - 13 mmol/L [facility] Calcium [Mass/Vol] 9.1 mg/dL 8.4 - 10. 4 mg/dL [facility] Chloride [Moles/Vol] 103 mmol/L 98 - 10 7 mmol/L [facility] CO2 [Moles/Vol] 31 mmol/L High 22 - 30 mmol/L [facility] Creatinine [Mass/Vol] 0.86 mg/dL 0.52 - 1.25 mg/dL [facility] EGFR IF NonAfrican Ethiopian 74.1 mL/min >60 [facility] Comment on above: KDIGO guidelines pro vide [...] - 20 mg/dL [facility] Test Performed by [facility], [facility] [address] , [address] [facility] CNPIrasema 03-29-2021 CNPSumi Telephone (UCWSTR) CANDIDAREBECA L ([id number]) 1960 F Date Time Provider Department 03/29/21 JOSE E REED [facility] During your visit today, we recorded [...] Status:Closed by JOSE E REED on 04/08/21 [facility] Margarito 03-28-2021 CN Office Visit (UCWSTR ) REBECA TIRADO ([id number]) 1960 F Date Time Provider Department 03/28/21 9:00 AM INOCENCIA ZAMARRIPA [facility] During your visit today, we recorded the following information about you: Temperature Pulse Respiration Blood pressure 97.3 degrees 76/minute 16/minute 122/76 Weight 128.4 kg Inocencia Zamarripa 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 No balance bridge assembler was used. HPI Rebeca Tirado is a [...] have confirmed and edited as necessary, the [facility] Review of Systems Constitutional: Positive for malaise/fatigue. [...] 1,2/VZV AMP MOLECULAR DETECT [[id number]] Order #: [id number] FUTURE Prescriptions as of 03/28/2021 - cephALEXin [...] MAGNESIUM CA (more content not included)... Normal [facility] HSV1,2/VZV Amplifon 03-28-20 21 HSV Type 1, HDA Negative for Herpes Simplex virus Type 1 by Molecular Detection. Normal [facility] Comment on above: Performed By: #### S PSKIN #### [facility] CLIA [id number] [address] [place] [address] [place] HSV Type 2, HDA Negative for Herpes Simplex virus Type 2 by Molecular Detection. Normal [facility] Comment on above: Performed By: #### S PSKIN #### [facility] CLIA [id number] [facility] [place] [address] [place] Specimen source Nom (Unsp spec) Lesion Normal [facility] Comment on above: Performed By: #### S PSKIN #### [facility] CLIA [id number] [facility] [place] [address] [place] V Zoster Virus, HDA Negative for Varicel la Zoster virus by Molecular Detection. Normal [facility] Comment on above: Performed By: #### S PSKIN #### [facility] CLIA [id number] [facility] [place] [address] [place] Hematocriton 03-02-2021 Hematocrit (Bld) [Volume fraction] 43.2 % Normal 35.0-47.0 [facility] Comment on above: Performed By: #### H CT #### [facility] [address] [place] [phone] Hematocrit (Bld) [Volume fraction] 43.2 % 35.0 - 47.0 % [facility] Test Performed by [facility] [address] [address] [facility] MRI Cardiac Morphology w/ Co ntraston 03-02-2021 MRI Cardiac Morphology w/ Contrast Patient Name: REBECA TIRADO Magnetic Resonance Imaging ACCESSION EXAM DATE/TIME PROCEDURE ORDERING PROVIDER [id number] 03/02/2021 11:26 EST MRI Cardiac Morphology MD. 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 [facility] MYOCARDIUM W CONTRASTon 03-02-2021 [facility]: [id number] Imaging ACCESSION EXAM DATE/TIME PROCEDURE ORDERING PROVIDER [id number] 03/02/2021 11:26 EST MRI Cardiac Morphology MD. 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 [employer] Work Phone: [employer] Work Phone: Radiology Study observation (narrative) [employer] Work Phone: CNOVon 02-25-2021 CNOV Office Visit ([facility]WSTR ) REBECA TIRADO ([id number]) 1960 F Date Time Provider Department 02/25/21 12:15 PM TARSHA ARTSHAISTA During your visit today, we recorded the following information about you: Temperature Pulse Respiration Blood pressure 97.7 degrees 76/minute 18/minute 110/78 Weight 129.2 kg Tarsha Art APRN.JOSE ALFREDO 02/27/2021 2:31 PM Signed This note was created using EVRSTriter. Subjective Rebeca Tirado is a 60 year old female. 60 year old female with PMH arthritis, depression, and menopause with chief Complaint think I have cellulitis Acute onset of symptoms was Monday morning. 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 States that she spilled some chemicals, but then also states think something bit me +redness +tenderness lower right leg. Denies fever or chills. Denies drainage. Denies numbness or tingling. Utilized hydrocortisone cream. The history is provided by the patient. No balance bridge assembler was used. Rash This is a new [...] Head: Normocep (more content not included)... Normal [facility] Basic Metabolic PanelOrdered By: Kimberly Grullon on [...] mg/dL [facility] Work Phone: EGFR IF NonAfrican Ethiopian 82.2 mL/min >60 [facility] Work Phone: Comment [...] [Moles/Vol] 4.6 mmol/L 3.5 - 5.1 mmol/L [facility] Work Phone: Sodium [Moles/Vol] 139 mmol/L 135 - 145 mmol/L [employer] Work Phone: Urea nitrogen (BldV) [Mass/Vol] 15 mg/dL 9 - 20 mg/dL [employer] Work Phone: Test Performed by [facility], [address] [place] [address] [employer] Work Phone: [employer] Work Phone: HematocritOrdered By: Kimberly peralta on 01-29-2021 Hematocrit (Bld) [Volume fraction] 42.9 % 35.0 - 47.0 % [employer] Work Phone: Test Performed by [facility], [address] [place] [address] [employer] Work Phone: [employer] Work Phone: ECHO Complete 2D W Doppler W ColorOrdered By: Omi Garcia on 12-23-2020 TRANSTHORACIC ECHOCARDIOGRAM PATIENT: Rebeca Tirado STUDY DATE: 12/23/2020 : 1960 AGE: 60 HT/WT: 157.5 cm (62 127 kg in) (279.4 lb) GENDER: F BP: 133 / 80 LOCATION: [facility] PATIENT Outpatient [facility] STATUS: Medical Center *ORDERING PHYSICIAN: * Omi Garcia *READING PHYSICIAN: * Martha Chavarria *ELECTRICAL DESIGN ENGINEER: * Eliz ALLEN ----- INDICATIONS: SOB , [...] Value Reference IVS (more content not included)... [employer] Work Phone: Sy, [facility] Incoming Cardiology Results From [facility] - 12/23/2020 12:36 PM EDT TRANSTHORACIC ECHOCARDIOGRAM PATIENT: Rebeca Tirado STUDY DATE: 12/23/2020 : 1960 AGE: 60 HT/WT: 157.5 cm (62 127 kg in) (279.4 lb) GENDER: F BP: 133 / 80 LOCATION: [facility] PATIENT Outpatient [facility] STATUS: Medical Center *ORDERING PHYSICIAN: * Omi Garcia *READING PHYSICIAN: * Martha Chavarria *ELECTRICAL DESIGN ENGINEER: * Eliz Oviedo MD [facility] ----- INDICATIONS: SOB , LA ENLARGEMENT. ----- [...] mm Hg --------- (more content not included)... [employer] Work Phone: [employer] Phone: Brain Natriuretic PeptideOrd ered By: Jose E Szymanski on 12-11-2020 Interpretation and review of laboratory results Abnormal [employer] Phone: Natriuretic peptide B (Bld) [Mass/Vol] 1663 pg/mL High 0 - 125 pg/mL [employer] Phone: Test Performed by [facility], [facility] [address] [place], [place] [address] [employer] Work Phone: [employer] Phone: CBC Auto DifferentialOrdered By: Latonia Owens [...] (Bld) 7.1 % 2.0 - 10.0 % [employer] Work Phone: Platelet distribution width (Bld) [Ratio] 14.0 % 11.5 - 14.5 % [employer] Work Phone: Platelet mean volume (Bld) [Entitic vol] 7.4 fL 7.4 - 10.4 fL [employer] Work Phone: Platelets (Bld) [#/Vol] 321 10*3/uL 140 - 440 10*3/uL [employer] Work Phone: RBC (Bld) [#/Vol] 4.60 10*6/uL 3.80 - 5.2 0 10*6/uL [employer] Work Phone: WBC (Bld) [#/Vol] 8.8 10*3/uL 3.6 - 10.7 10*3/uL [employer] Work Phone: Test Performed by [facility] [facility] [facility], [address] [place] [address] [employer] Work Phone: [employer] Work Phone: CTA Chest W WO (PE study)Ord ered By: Jose E Szymanski on 12-11-2020 Patient Name: REBECA VALLE Computed Tomography ACCESSION EXAM DATE/TIME PROCEDURE ORDERING PROVIDER [id number] 12/11/2020 20:31 EDT CTA Chest w/ + w/o MD JUAN CARLOS, JOSE E Key Contrast CPT code 30594 Q9967 Reason For Exam (CTA Chest w/ [...] Phone: [facility], [facility]/11/2020 8:57 PM EDT Patient Name: REBECA TIRADO Computed Tomography ACCESSION EXAM DATE/TIME PROCEDURE ORDERING PROVIDER [id number] 12/11/2020 20:31 EDT CTA Chest w/ + w/o MD JUAN CARLOS, JOSE E Key Contrast CPT code 15306 Q9967 Reason For Exam (CTA Chest w/ [...] VLADIMIR Transcribed Date and Time: 12/11/2020 8:[address] [facility] Work Phone: [facility] Work Phone: Comprehensive Metabolic Pane lOrdered [...] mg/dL [facility] Work Phone: EGFR IF NonAfrican Ethiopian 86.2 mL/min >60 [facility] Work Phone: Comment [...] fraction] 7.5 g/dL 6.3 - 8.2 g/dL [employer] Work Phone: GFR/1.73 sq M.predicted among blacks MDRD (S/P/Bld) [Vol rate/Area] mL/min/{1.73_m2} >60 mL/min [facility] Work Phone: Glucose [Mass/Vol] 101 mg/dL High 70 - 100 mg/dL [facility] Work Phone: Interpretation and review of laboratory results Abnormal [employer] Work Phone: Potassium [Moles/Vol] 4.7 mmol/L 3.5 - 5.1 mmol/L [facility] Work Phone: Sodium [Moles/Vol] 141 mmol/L 135 - 145 mmol/L [facility] Work Phone: Urea nitrogen (BldV) [Mass/Vol] 16 mg/dL 7 - 20 mg/dL [facility] Work Phone: Test Performed by [facility], [facility] [address] [place] [address] [employer] Work Phone: [employer] Work Phone: D-Dimer, QuantitativeOrdered By: Latonia Owens on 12-11-2020 D-Dimer, Quant 0.55 mg/L High <0.19 - 0.[address] [facility] [address] [facility] Work Phone: Comment on above: [employer] D-Dimer va lues of <0.50 mg/L FEU can be used in combination with a pre-test probability model (e.g. Well's) to exclude pulmonary embolism (PE) disease, as well as an aid in the diagnosis of deep vein thrombosis (DVT). Interpretation and review of laboratory results Abnormal [employer] Work Phone: Test Performed by [facility], [address] [place] [id number] [employer] Work Phone: [employer] Work Phone: TSH without ReflexOrdered By : Latonia Owens on 12-11-2020 TSH Qn 2.069 u[IU]/mL 0.465 - 4.680 u[IU]/mL [facility] Work Phone: Test Performed by [facility], [address] , [place], [place] [address] [employer] Work Phone: [employer] Work Phone: Troponin [id number] By: Jose E Szymanski on 12-11-2020 Troponin I.cardiac [Mass/Vol] 0.015 ng/mL 0.000 - 0.034 ng/mL [employer] Work Phone: Comment on above: Slightly hemolysed, interpret with caution. Revised: Comment was added, verified by RONAK at 20:19 on 12/11/20 . Test Performed by [facility], [address] [place], [place] [address] [employer] Work Phone: [employer] Work Phone: XR CHEST (2 VW)Ordered By: Jairo Owens on 12-11-2020 Patient Name: REBECA VALLE Diagnostic Radiology ACCESSION EXAM DATE/TIME PROCEDURE ORDERING PROVIDER [id number] 12/11/2020 17:34 EDT CR Chest PA & LAT JOSE ALFREDO OWENS CYNTHIA LYNN CPT code 26543 Reason For Exam (CR Chest PA & [...] Phone: [facility], [facility] Results From [facility] - 12/11/2020 8:57 PM EDT Patient Name: REBECA TIRADO Diagnostic Radiology ACCESSION EXAM DATE/TIME PROCEDURE ORDERING PROVIDER [id number] 12/11/2020 17:34 EDT CR Chest PA & LAT JOSE ALFREDO OWENS CYNTHIA LYNN CPT code 08651 Reason For Exam (CR Chest PA & [...] Physician DO GARCIA JOSHUA D Accession Number [id number] CPT4 Codes 00471 () Reason For Exam RT KNEE PAIN [...] AHMAD Transcribed Date and Time: 10/21/2019 1:43 [facility], [place] [facility], [facility] In[facility] Results From [facility] - 10/21/2019 1:44 PM EDT Patient Name: REBECA TIRADO ---Diagnostic Radiology--- Exam Date/Time 10/21/2019 13:20:00 EDT Exam CR Knee Complete 4+ Views Right Ordering Physician DO GARCIA JOSHUA D Accession Number [id number] CPT4 Codes 32665 () Reason For Exam RT KNEE PAIN [...] AHMAD Transcribed Date and Time: 10/21/2019 1:43 [facility] [place] [facility] Knee Bilateral [place] 10-21-2019 Patient Name: REBECA VALLE ---Diagnostic Radiology--- Exam Date/Time 10/21/2019 13:20:00 EDT Exam CR Knee Standing AP Bilateral Ordering Physician DO GARCIA JOSHUA D Accession Number [id number] CPT4 Codes 94937 () Reason For Exam RT KNEE PAIN [...] AHMAD Transcribed Date and Time: 10/21/2019 1:43 [facility] [place] [facility] Results From [facility] - 10/21/2019 1:44 PM EDT Patient Name: REBECA TIRADO ---Diagnostic Radiology--- Exam Date/Time 10/21/2019 13:20:00 EDT Exam CR Knee Standing AP Bilateral Ordering Physician DO GARCIA JOSHUA D Accession Number [id number] CPT4 Codes 88925 () Reason For Exam RT KNEE PAIN [...] AHMAD Transcribed Date and Time: 10/21/2019 1:43 [place] DEXA BONE DENSITY AXIAL SKEL ETONOrdered By: Omi Garcia on 05-02-2019 Patient Name: REBECA VALLE ---Bone Density--- Exam Date/Time 05/02/2019 15:42:38 EST Exam OT Bone Density DEXA Axial Skeleton Ordering Physician DO GARCIA JOSHUA D Accession Number [id number] CPT4 Codes 39799 () Reason For Exam osteoporosis Report DXA BONE DENSITOMETRY: CLINICAL INDICATION: Asymptomatic post-menopausal status. Screening for osteoporosis. COMPARISON: None TECHNIQUE: Quantitative bone mineral densitometry of the hip and lumbar spine was performed with a dual energy x-ray observed absorptiometry device - Tube2Tone at some institutions, Accumulate at others. Regions of interest were obtained [...] recommendations for prevention of bone loss include: 2682-5249 mg calcium intake per day for adults [...] Ashleigh of Knowledge Evidence - based Summaries. [facility] [employer] 2017. Report Dictated on --- Final --- Dictating Physician: MD VELAZCO JEFFREY Signed Date and Time: 05/02/2019 4:49 pm Signed by: MD VELAZCO JEFFREY Transcribed Date and Time: 05/02/2019 4:50 [facility] Work Phone: [facility], [facility] In[facility] Results From [facility] - 05/02/2019 4:50 PM EST Patient Name: REBECA TIRADO ---Bone Density--- Exam Date/Time 05/02/2019 15:42:38 EST Exam OT Bone Density DEXA Axial Skeleton Ordering Physician DO GARCIA JOSHUA D Accession Number [id number] CPT4 Codes 09632 () Reason For Exam osteoporosis Report DXA BONE DENSITOMETRY: CLINICAL INDICATION: Asymptomatic post-menopausal status. Screening for osteoporosis. COMPARISON: None TECHNIQUE: Quantitative bone mineral densitometry of the hip and lumbar spine was performed with a dual energy x-ray observed absorptiometry device - [employer] at some institutions, HOLOGIC at others. Regions [...] recommendations for prevention of bone loss include: 5873-5397 mg calcium intake per day for adults [...] Ashleigh of Knowledge Evidence - based Summaries. [facility] [employer] 2017. Report Dictated [...] Ordering Physician MD SMITH, MOO Accession Number [id number] Reason For Exam palpitations Report TRANSTHORACIC ECHOCARDIOGRAM PATIENT: Rebeca Tirado STUDY DATE: 09/27/2017 : 1960 AGE: 57 HT/WT: 132.1 cm (52 116.6 kg in) (256.5 lb) GENDER: F BP: 136 / 84 LOCATION: [facility] STATUS: *ORDERING PHYSICIAN: * Karan Espino *RN: * Bhakti Mobley RN *READING PHYSICIAN: * Hardik Adorno MD *ELECTRICAL DESIGN ENGINEER: * [place] [facility], [place] --------- --- INDICATIONS: R00.2/ Palpitations, G47.33/ [...] 4:56 pm Signed by: HARDIK ADORNO Normal [facility] SKIN / NAIL BIOPSY [facility] Vital Signs Date Time Vital Sign Value Performing Clinician Facility 02-07-2025 09:15-0400 Body height 158.8 cm Reina Cunha MD Work Phone: [facility] 02-07-2025 09:15-0400 Body mass index (BMI) [Ratio] 56.52 kg/m2 Reina Cunha MD Work Phone: [facility] 02-07-2025 09:15-0400 Body weight 142.43 kg Reina Cunha MD Work Phone: [facility] 02-07-2025 09:15-0400 Diastolic blood pressure 60 mm[Hg] Reina Cunha MD Work Phone: [facility] 02-07-2025 09:15-0400 Heart rate 71 /min Reina Cunha MD Work Phone: [facility] 02-07-2025 09:15-0400 Systolic blood pressure 97 mm[Hg] Reina Cunha MD Work Phone: [facility] 01-03-2025 10:54-0400 Body height 158.8 cm Kimberly Grullon MD Work Phone: [facility] 01-03-2025 10:54-0400 Body mass index (BMI) [Ratio] 55.98 kg/m2 Kimberly Grullon MD Work Phone: [facility] 01-03-2025 10:54-0400 Body weight 141.07 kg Kimberly Grullon MD Work Phone: [facility] 01-03-2025 10:54-0400 Diastolic blood pressure 84 mm[Hg] Kimberly Grullon MD Work Phone: [facility] 01-03-2025 10:54-0400 Heart rate 80 /min Kimberly Grullon MD Work Phone: [facility] 01-03-2025 10:54-0400 Respiratory rate 15 /min Kimberly Grullon MD Work Phone: [facility] 01-03-2025 10:54-0400 Systolic blood pressure 123 mm[Hg] Kimberly Grullon MD Work Phone: [facility] 12-06-2024 10:30-0400 Body height 158.8 cm Reina Cunha MD Work Phone: [facility] 12-06-2024 10:30-0400 Body mass index (BMI) [Ratio] 55.8 kg/m2 Reina Cunha MD Work Phone: [facility] 12-06-2024 10:30-0400 Body weight 140.62 kg Reina Cunha MD Work Phone: [facility] 12-06-2024 10:30-0400 Diastolic blood pressure 74 mm[Hg] Reina Cunha MD Work Phone: [facility] 12-06-2024 10:30-0400 Heart rate 64 /min Reina Cunha MD Work Phone: [facility] 12-06-2024 10:30-0400 Systolic blood pressure 110 mm[Hg] Reina Cunha MD Work Phone: [facility] 10-18-2024 10:22-0400 Body height 158.8 cm Reina Cunha MD Work Phone: [facility] 10-18-2024 10:22-0400 Body mass index (BMI) [Ratio] 54.86 kg/m2 Reina Cunha MD Work Phone: [facility] 10-18-2024 10:220400 Body weight 138.26 kg Reina Cunha MD Work Phone: [facility] 10-18-2024 10:22-0400 Diastolic blood pressure 75 mm[Hg] Reina Cunha MD Work Phone: [facility] 10-18-2024 10:22-0400 Heart rate 64 /min Reina Cunha MD Work Phone: [facility] 10-18-2024 10:22-0400 Systolic blood pressure 116 mm[Hg] Reina Cunha MD Work Phone: [facility] 07-24-2024 14:23-0400 Body height 158.8 cm Reina Cunha MD Work Phone: [facility] 07-24-2024 14:23-0400 Body mass index (BMI) [Ratio] 55.76 kg/m2 Reina Cunha MD Work Phone: [facility] 07-24-2024 14:23-0400 Body weight 140.52 kg Reina Cunha MD Work Phone: [facility] 07-24-2024 14:23-0400 Diastolic blood pressure 66 mm[Hg] Reina Cunha MD Work Phone: [facility] 07-24-2024 14:23-0400 Heart rate 80 /min Reina Cunha MD Work Phone: [facility] 07-24-2024 14:23-0400 Systolic blood pressure 106 mm[Hg] Reina Cunha MD Work Phone: [facility] 07-01-2024 09:51-0400 Body height 158.8 cm Maddison Jordan APRN - [employer] Work Phone: [facility] 07-01-2024 09:51-0400 Body mass index (BMI) [Ratio] 55.26 kg/m2 Maddison Jordan APRN - [employer] Work Phone: [facility] 07-01-2024 09:51-0400 Body weight 139.25 kg Maddison Jordan [employer]ER - [employer] Work Phone: [facility] 07-01-2024 09:51-0400 Diastolic blood pressure 82 mm[Hg] Maddison Jordan APRN - [employer] Work Phone: [facility] 07-01-2024 09:51-0400 Heart rate 69 /min Maddison Jordan APRN - [employer] Work Phone: [facility] 07-01-2024 09:51-0400 Systolic blood pressure 124 mm[Hg] Maddison Jordan APRN - [employer] Work Phone: [facility] 01-02-2024 10:29-0400 Diastolic blood pressure 68 mm[Hg] Maddison Jordan APRN - [employer] Work Phone: [facility] 01-02-2024 10:29-0400 Systolic blood pressure 110 mm[Hg] Maddison Jordan APRN - [employer] Work Phone: [facility] 01-02-2024 09:42-0400 Body height 158.8 cm Maddison Jordan APRN - [employer] Work Phone: [facility] 01-02-2024 09:42-0400 Body mass index (BMI) [Ratio] 55.8 kg/m2 Maddison Jordan APRN - [employer] Work Phone: [facility] 01-02-2024 09:42-0400 Body weight 140.62 kg Maddison Jordan APRN - [employer] Work Phone: [facility] 01-02-2024 09:42-0400 Heart rate 76 /min Maddison Jordan [employer] - [employer] Work Phone: [facility] 01-02-2024 09:42-0400 Respiratory rate 16 /min Maddison Jordan [employer] - [employer] Work Phone: [facility] 07-17-2023 20:48-0400 Body temperature 97.9 [degF] [facility] 07-17-2023 20:48-0400 Diastolic blood pressure 84 mm[Hg] [facility] 07-17-2023 20:48-0400 Heart rate 72 /min [facility] 07-17-2023 20:48-0400 Respiratory rate 18 /min [facility] 07-17-2023 20:48-0400 SaO2% (BldA) [Mass fraction] 97 % [facility] 07-17-2023 20:48-0400 Systolic blood pressure 141 mm[Hg] [facility] 07-17-2023 18:46-0400 Body height 157.48 cm [facility] 07-17-2023 18:46-0400 Body mass index (BMI) [Ratio] 55.7 kg/m2 [facility] 07-17-2023 18:46-0400 Body weight 138.34 kg [facility] 06-23-2023 10:54-0500 Body height 158.8 cm Kimberly Grullon MD Work Phone: [facility] 06-23-2023 10:54-0500 Body mass index (BMI) [Ratio] 54.9 kg/m2 Kimberly Grullon MD Work Phone: [facility] 06-23-2023 10:54-0500 Body weight 138.35 kg Kimberly Grullon MD Work Phone: [facility] 06-23-2023 10:54-0500 Diastolic blood pressure 60 mm[Hg] Kimberly Grullon MD Work Phone: [facility] 06-23-2023 10:54-0500 Heart rate 64 /min Kimberly Grullon MD Work Phone: [facility] 06-23-2023 10:54-0500 Respiratory rate 15 /min Kimberly Grullon MD Work Phone: [facility] 06-23-2023 10:54-0500 Systolic blood pressure 100 mm[Hg] Kimberly Grullon MD Work Phone: [facility] 04-14-2023 21:14-0500 Diastolic blood pressure 82 mm[Hg] [facility] 04-14-2023 21:14-0500 Heart rate 79 /min [facility] 04-14-2023 21:14-0500 Respiratory rate 20 /min [facility] 04-14-2023 21:14-0500 SaO2% (BldA) [Mass fraction] 99 % [facility] 04-14-2023 21:14-0500 Systolic blood pressure 130 mm[Hg] [facility] 04-14-2023 17:34-0500 Body height 157.48 cm [facility] 04-14-2023 17:34-0500 Body mass index (BMI) [Ratio] 56.1 kg/m2 [facility] 04-14-2023 17:34-0500 Body temperature 97.6 [degF] [facility] 04-14-2023 17:34-0500 Body weight 139.25 kg [facility] 01-17-2023 14:40-0400 Body height 158.8 cm Danielle Huertas MD Work Phone: [facility] 01-17-2023 14:40-0400 Body mass index (BMI) [Ratio] 54.9 kg/m2 Danielle Huertas MD Work Phone: [facility] 01-17-2023 14:40-0400 Body weight 138.35 kg Danielle Huertas MD Work Phone: [facility] 01-17-2023 14:40-0400 Diastolic blood pressure 75 mm[Hg] Danielle Huertas MD Work Phone: [facility] 01-17-2023 14:40-0400 Systolic blood pressure 122 mm[Hg] Danielle Huertas MD Work Phone: [facility] 06-10-2022 10:12-0500 Body height 158.8 cm Maddison Jordan APRN - [employer] Work Phone: [facility] 06-10-2022 10:12-0500 Body mass index (BMI) [Ratio] 55.98 kg/m2 Maddison Jordan APRN - [employer] Work Phone: [facility] 06-10-2022 10:12-0500 Body weight 141.07 kg Maddison Jordan APRN - [employer] Work Phone: [facility] 06-10-2022 10:12-0500 Diastolic blood pressure 82 mm[Hg] Maddison Jordan APRN - [employer] Work Phone: [facility] 06-10-2022 10:12-0500 Heart rate 69 /min Maddison Jordan APRN - [employer] Work Phone: [facility] 06-10-2022 10:12-0500 Respiratory rate 16 /min Maddison Jordan APRN - [employer] Work Phone: [facility] 06-10-2022 10:12-0500 Systolic blood pressure 114 mm[Hg] Maddison Jordan APRN - [employer] Work Phone: [facility] 05-02-2022 09:13-0500 Body height 158.75 cm [facility] 05-02-2022 09:13-0500 Body weight 139.61 kg [facility] 03-28-2022 09:24-0500 Body height 158.75 cm [facility] Work Phone: 03-28-2022 09:24-0500 Body weight 139.43 kg [facility] 02-21-2022 09:22-0400 Body height 158.[address] Omi Garcia Work Phone: [facility] Work Phone: 02-21-2022 09:22-0400 Body weight 139.[address] Omi Garcia Work Phone: [facility] 01-11-2022 09:37-0400 Body height 158.[address] Omi Garcia Work Phone: [facility] Work Phone: 01-11-2022 09:37-0400 Body weight 138.[address] Omi Garcia Work Phone: [facility] Work Phone: 12-17-2021 08:16-0400 Body temperature 97.11 [degF] Inderjit Snyder MD Work Phone: [facility] 12-17-2021 08:16-0400 Diastolic blood pressure 83 mm[Hg] Inderjit Snyder MD Work Phone: [facility] 12-17-2021 08:16-0400 Heart rate 70 /min Inderjit Snyder MD Work Phone: [facility] 12-17-2021 08:16-0400 Respiratory rate 16 /min Inderjit Snyder MD Work Phone: [facility] 12-17-2021 08:16-0400 SaO2% (BldA) [Mass fraction] 95 % Inderjit Snyder MD Work Phone: [facility] 12-17-2021 08:16-0400 Systolic blood pressure 121 mm[Hg] Inderjit Snyder MD Work Phone: [facility] 12-13-2021 09:20-0400 Body height 158.[address] Omi Garcia Work Phone: [facility] Work Phone: 12-13-2021 09:20-0400 Body weight 137.[address] Omi Garcia Work Phone: [facility] Work Phone: 11-09-2021 08:53-0400 Body height 158.[address] Omi Garcia Work Phone: [facility] Work Phone: 11-09-2021 08:53-0400 Body weight 136.[address] Omi Garcia Work Phone: [facility] Work Phone: 10-26-2021 12:19-0400 Body temperature 97.7 [degF] Dr. Omi Garcia Work Phone: [facility] Work Phone: 10-26-2021 12:19-0400 Diastolic blood pressure 82 mm[Hg] Dr. Omi Garcia Work Phone: [facility] Work Phone: 10-26-2021 12:19-0400 Heart rate 80 /min Dr. Omi Garcia Work Phone: [facility] Work Phone: 10-26-2021 12:19-0400 Respiratory rate 16 /min Dr. Oim Garcia Work Phone: [facility] Work Phone: 10-26-2021 12:19-0400 SaO2% (BldA) [Mass fraction] 96 % Dr. Omi Garcia Work Phone: [facility] Work Phone: 10-26-2021 12:19-0400 Systolic blood pressure 120 mm[Hg] Dr. Omi Garcia Work Phone: [facility] Work Phone: 10-19-2021 16:11-0400 Body mass index (BMI) [Ratio] 54.1 kg/m2 Dr. Omi Garcia Work Phone: [facility] Work Phone: 10-19-2021 16:11-0400 Body temperature 98.4 [degF] Dr. Omi Garcia Work Phone: [facility] Work Phone: 10-19-2021 16:11-0400 Body weight 134.[address] Omi Garcia Work Phone: [facility] Work Phone: 10-19-2021 16:11-0400 Diastolic blood pressure 86 mm[Hg] Dr. Omi Garcia Work Phone: [facility] Work Phone: 10-19-2021 16:11-0400 Heart rate 75 /min Dr. Omi Garcia Work Phone: [facility] Work Phone: 10-19-2021 16:11-0400 Respiratory rate 14 /min Dr. Omi Garcia Work Phone: [facility] Work Phone: 10-19-2021 16:11-0400 SaO2% (BldA) [Mass fraction] 95 % Dr. Omi Garcia Work Phone: [facility] Work Phone: 10-19-2021 16:11-0400 Systolic blood pressure 120 mm[Hg] Dr. Omi Garcia Work Phone: [facility] Work Phone: 12-11-2020 21:37-0400 Heart rate 96 /min [facility] Work Phone: 12-11-2020 19:27-0400 Body height 158.8 cm Jose E Szymanski MD Work Phone: [facility] Work Phone: 12-11-2020 19:27-0400 Body mass index (BMI) [Ratio] 51.66 kg/m2 Jose E Szymanski MD Work Phone: [facility] Work Phone: 12-11-2020 19:27-0400 Body temperature 98.49 [degF] Jose E Szymanski MD Work Phone: [facility] Work Phone: 12-11-2020 19:27-0400 Body weight 130.18 kg Jose E Szymanski MD Work Phone: [facility] Work Phone: 12-11-2020 19:27-0400 Diastolic blood pressure 95 mm[Hg] Jose E Szymanski MD Work Phone: [facility] Work Phone: 12-11-2020 19:27-0400 Respiratory rate 22 /min Jose E Szymanski MD Work Phone: [facility] Work Phone: 12-11-2020 19:27-0400 SaO2% (BldA) [Mass fraction] 94 % Jose E Szymanski MD Work Phone: [facility] Work Phone: 12-11-2020 19:27-0400 Systolic blood pressure 149 mm[Hg] Jose E Szymanski MD Work Phone: [facility] Work Phone: Encounters Encounter Date Encounter Type Care Provider Facility Start: 02-13-2025 End: 02-13-2025 Refill Iraida Kaplan [employer] Work Phone: [facility] [place] Start: 02-07-2025 End: 02-07-2025 Office outpatient visit 15 minutes Reina Cunha MD Work Phone: [facility] Weight Management [facility] Comment on above: JENY treated with BiP AP (Primary Dx); BMI 50.0-59.9, adult (CMS/[facility]); Class 3 severe obesity due to excess calories with serious comorbidity and body mass index (BMI) of 50.0 to 59.9 in adult (CMS/HCC); Water retention Start: 02-07-2025 End: 02-07-2025 ambulatory [facility] Start: 01-24-2025 End: 01-28-2025 Refill Maddison Jordan [employer] - [employer] Work Phone: [facility] [place] Start: 01-03-2025 End: 01-03-2025 Office outpatient visit 25 minutes Kimberly Grullon MD Work Phone: [facility] [place] Comment on above: Chronic diastolic he art failure (HCC) (Primary Dx); BMI 50.0-59.9, adult (HCC) Start: 01-03-2025 End: 01-03-2025 ambulatory OMI GARCIA [facility] Start: 12-27-2024 End: 12-27-[address] Omi Garcia DO Work Phone: -Cardiovascular Services Start: 12-27-2024 End: 12-27-[address] Johnnie Kenney MD -Cardiovascular Services Work Phone: Start: 12-27-2024 End: 12-27-2024 ambulatory Omi Garcia Facility:[facility] Start: 12-25-2024 Non-patient / Non-visit Dr. Kamran garcia MD -[facility] Start: 12-25-2024 End: 12-25-2024 ambulatory Omi Wali Garcia Facility:[facility] Start: 12-25-2024 End: 12-25-[address] Johnnie Kenney MD -Cardiovascular Services Work Phone: Start: 12-25-2024 End: 12-25-2024 ambulatory Omi Keyes Jose Facility:[facility] Start: 12-06-2024 End: 12-06-2024 Office outpatient visit 15 minutes Reina Cunha MD Work Phone: [facility] - [place] Comment on above: JENY treated with BiP AP (Primary Dx); BMI 50.0-59.9, adult (HCC); Class 3 severe obesity due to excess calories with serious comorbidity and body mass index (BMI) of 50.0 to 59.9 in adult; Water retention Start: 12-06-2024 End: 12-06-2024 ambulatory OMI JOSE [facility] Start: 12-03-2024 End: 12-03-[address] Omi Garcia DO Work Phone: -[facility] Start: 12-03-2024 End: 12-03-[address] Johnnie Kenney MD -[facility] Work Phone: Start: 12-03-2024 End: 12-03-2024 ambulatory [facility] Facility:[facility] Start: 11-20-2024 End: 11-21-2024 Telephone encounter Kimberly Grullon MD Work Phone: [facility] Comment on above: Med Management Start: 10-22-2024 Non-patient / Non-visit Dr. Lni edouard MD -[facility] Work Phone: Start: 10-18-2024 End: 10-18-2024 Office outpatient visit 15 minutes [facility] Comment on above: JENY treated with BiP AP (Primary Dx); BMI 50.0-59.9, adult (HCC); Class 3 severe obesity due to excess calories with serious comorbidity and body mass index (BMI) of 50.0 to 59.9 in adult Start: 10-18-2024 End: 10-18-2024 ambulatory [facility] Start: 09-30-2024 End: 09-30-2024 Refill Maddison Sosa [facility] Start: 09-09-2024 End: 09-09-2024 Telephone encounter Reina Cunha MD Work Phone: [facility] Start: 09-06-2024 End: 09-06-2024 ambulatory [facility] Start: 09-06-2024 End: 09-06-2024 Office outpatient visit 15 minutes [facility] C[facility] MD [facility] Comment on above: JENY treated with BiP AP (Primary Dx); BMI 50.0-59.9, adult (HCC); Class 3 severe obesity due to excess calories with serious comorbidity and body mass index (BMI) of 50.0 to 59.9 in adult Start: 08-25-2024 End: 08-25-2024 ambulatory Alea Rod RN [facility] Clinical Communication Start: 08-25-2024 End: 08-25-2024 Patient encounter procedure Alea Rod RN [facility] Start: 07-24-2024 End: 07-24-2024 Office outpatient new 45 minutes Reina Cunha MD Work Phone: [facility] [place] Comment on above: JENY treated with BiP AP (Primary Dx); BMI 50.0-59.9, adult ([facility]); Class 3 severe obesity due to excess calories with serious comorbidity and body mass index (BMI) of 50.0 to 59.9 in adult ([facility]) Start: 07-24-2024 End: 07-24-2024 ambulatory [facility] Start: 07-01-2024 End: 07-01-2024 Office outpatient visit 25 minutes Maddison Sosa CNP Work Phone: [facility] - [place] Comment on above: Obstructive sleep ap solomon syndrome (Primary Dx); Heart failure with recovered ejection fraction (HFrecEF) ([facility]) Start: 07-01-2024 End: 07-01-2024 ambulatory [facility] Start: 06-28-2024 End: 06-28-[address] Omi Garcia DO Work Phone: [facility] Work Phone: Start: 06-28-2024 End: 06-28-[address] Omi Garcia DO -Outpatient Breast Imaging Work Phone: Start: 06-28-2024 End: 06-28-2024 ambulatory Omi Garcia Facility:[facility] Start: 06-05-2024 End: 06-05-2024 ambulatory TARSHA CARCAMO [facility]ly [facility] Start: 06-05-2024 End: 09-04-2024 Subsequent hospital visit by physician Tarsha Carcamo Work Phone: [facility] Radiology Comment on above: Pain in left shoulde r Pain in left shoulde r (Primary Dx) Start: 04-22-2024 End: 04-22-2024 Refill Kimberly A Iler MD Work Phone: [facility] Pricilla Gabrielwali Start: 01-02-2024 End: 01-02-2024 Office outpatient visit 25 minutes Maddison Jordan [employer]ER - [employer] HELPER Work Phone: [facility] Comment on above: Chronic systolic hea rt failure (HCC) (Primary Dx); BMI 50.0-59.9, adult (HCC); Sleep apnea, unspecified type Start: 09-28-2023 Refill Maddison Jordan [employer] TILER - [employer] MAKER HELPER Work Phone: [facility] Cardiology Start: 09-06-2023 Refill Maddison Jordan [employer] TILER - [employer]KER HELPER Work Phone: [facility] Cardiology Start: 07-17-2023 End: 07-17-2023 Emergency department patient visit [facility]-Emergency Department Work Phone: Start: 06-23-2023 End: 06-23-2023 Office outpatient visit 25 minutes Kimberly Grullon MD Work Phone: [facility] Cardiology Comment on above: Chronic systolic hea rt failure (HCC) (Primary Dx); BMI 50.0-59.9, adult (HCC) Start: 06-17-2023 Transcribe Orders Omi marc DO Work Phone: [facility] Central Scheduling Comment on above: Paresthesia of skin (Primary Dx) Start: 06-05-2023 Refill Kimberly Grullon MD Work Phone: [facility] Cardiology Start: 04-14-2023 End: 04-14-2023 Emergency department patient visit [facility]-Emergency Department Work Phone: Start: 01-17-2023 End: 01-17-2023 Office outpatient visit 25 minutes Danielle Huertas MD Work Phone: [facility] Orthopedics [facility] Sports Medicine Comment on above: Primary osteoarthrit is of right knee (Primary Dx) Start: 12-16-2022 Telephone encounter Juan villa MD Work Phone: [facility] Comment on above: Cancelled Appointmen t Start: 11-04-2022 End: 11-04-2022 ambulatory Omi Garcia DO Work Phone: [facility] Laboratory Comment on above: Arrived Prediabetes (Primary Dx); Pure hypercholesterolemia, unspecified; Hyperparathyroidism, unspecified (HCC); Vitamin D deficiency, unspecified Start: 09-27-2022 Telephone encounter Lary Herr MD Work Phone: [facility] Clinical Communication Comment on above: Appointment Request Start: 09-17-2022 Refill Kimberly Grullon MD Work Phone: [facility] Cardiology Start: 08-12-2022 Refill Kimberly Grullon MD Work Phone: [facility] Card[facility] Start: 06-10-2022 End: 06-10-2022 Office outpatient visit 25 minutes Maddison Sosa CNP Work Phone: [facility] Comment on above: Chronic systolic hea rt failure (CMS/HCC) (HCC) (Primary Dx); Hypertension, essential; Obstructive sleep apnea syndrome; Palpitations; BMI 50.0-59.9, adult (CMS/HCC) (HCC) Start: 05-02-2022 End: 05-24-2022 ambulatory Kimberly Grullon MD Work Phone: [facility] Start: 05-02-2022 End: 05-24-2022 [facility] Start: 03-28-2022 End: 04-23-2022 ambulatory [facility] Work Phone: Start: 03-28-2022 End: 04-23-2022 Discharged Recurring [facility]-Nutritional Services Start: 03-28-2022 Registered Recurring [facility]ut[facility] Services Start: 02-21-2022 End: 02-21-[address] Omi Garcia Work Phone: [facility] Work Phone: Start: 02-21-2022 End: 02-21-[address] Omi Garcia Work Phone: [facility]-Nutritional Services Start: 02-18-2022 End: 02-18-[address] Omi Garcia Work Phone: [facility] Work Phone: Start: 02-18-2022 End: 02-18-[address] Omi Garcia Work Phone: [facility]-Outpatient Breast Imaging Start: 02-15-2022 ambulatory Omi Garcia [facility] Start: 02-11-2022 ambulatory [facility] Start: 02-11-2022 End: 02-11-2022 Subsequent hospital visit by physician Kimberly Grullon MD Work Phone: [facility] Comment on above: HFrEF (heart failure with reduced ejection fraction) ([facility]) Start: 02-02-2022 End: 02-02-2022 Subsequent hospital visit by physician Brittnee [facility]CO [facility] Start: 01-28-2022 End: 01-28-2022 Subsequent hospital visit by physician Brittnee PACHECO Work Phone: [facility] Start: 01-14-2022 End: 01-14-2022 Subsequent hospital visit by physician Brittnee PACHECO Work Phone: [facility] [place] [facility] Start: 01-11-2022 End: 01-21-[address] Omi Garcia Work Phone: [facility] Work Phone: Start: 01-11-2022 End: 01-21-[address] Omi Garcia Work Phone: [facility]-Nutritional Services Start: 01-07-2022 End: 01-07-2022 ambulatory [facility] Work Phone: Start: 01-07-2022 End: 01-07-2022 Discharged Recurring [facility]-Occupational Therapy Start: 01-07-[address] Dae Garcia Work Phone: [facility]-Occupational Therapy Start: 12-17-2021 End: 12-17-2021 ambulatory [facility] Start: 12-17-2021 End: 12-17-2021 Subsequent hospital visit by physician Inderjit Snyder MD Work Phone: [facility] Surgery Comment on above: S/P trigger finger r elease (Primary Dx) Start: 12-13-2021 End: 12-22-[address] Omi Garcia Work Phone: [facility] Work Phone: Start: 12-13-2021 End: 12-22-[address] [facility] Start: 12-09-[address] [facility] Start: 11-18-[address] [facility] Start: 11-09-2021 End: 11-21-[address] [facility] Start: 10-26-2021 End: 10-26-[address] Omi Garcia Work Phone: [facility] Start: 10-19-2021 End: 10-19-[address] Omi Garcia Work Phone: [facility] Start: 08-31-2021 End: 08-31-2021 Patient encounter procedure Hua Barbosa MD Work Phone: Dermatology Comment on above: Wells' syndrome (Zee laquita Dx) Start: 07-30-2021 ambulatory [facility] Start: 07-29-2021 Telephone encounter Cass Kervin flynn WALL AND FLOOR TILER.[employer]AT [employer] MAKER HELPER Work Phone: Dermatology Comment on above: Results Start: 07-27-2021 End: 07-27-2021 Patient encounter procedure Cass Polanco WALL [employer] FLOOR TILER.[employer] MAKER HELPER Work Phone: Dermatology Comment on above: Rash and nonspecific skin eruption (Primary Dx) Start: 07[facility]13[facility] Start: 07-13-2021 End: 07-13-2021 Subsequent hospital visit by physician Pamela Bautista W[employer] TILER - [employer] MAKER HELPER Work Phone: [facility] Comment on above: Chronic systolic hea rt failure (HCC) Start: 06-16-2021 ambulatory [facility] Start: 04-30-2021 ambulatory [facility] Start: 04-30-2021 End: 04-30-2021 Subsequent hospital visit by physician Kimberly Grullon MD Work Phone: [facility] Comment on above: Chronic systolic hea rt failure (HCC) Start: 03-02-2021 ambulatory [facility] Start: 03-02-2021 End: 03-02-2021 Subsequent hospital visit by physician Diana Romero MD Work Phone: [facility] [address] [facility] Comment on above: SOB (shortness of br eath) Start: 03-02-2021 ambulatory [facility] Start: 03-02-2021 End: 03-02-2021 Subsequent hospital [...] Comment on above: Arrived Start: 09-27-2017 Ambulatory [facility] Procedures Date Procedure Procedure Detail Performing [...] Lipid 1996 panel - Serum or Plasma [facility] Start: 06-10-2022 Ecg routine ecg w/least 12 lds w/i&r Dillan Peterson MD Work Phone: Start: 02-18-2022 End: 02-18-[address] Omi Garcia Work Phone: Start: 02-11-2022 Echo tthrc r-t 2d w/wom-mode compl spec&colr d Kimberly Grullon MD Work Phone: Start: 12-17-2021 OPERATIVE REPORT Physician Generic Start: 07-27-2021 SKIN / NAIL BIOPSY Cass Polanco WALL [employer] FLOOR TILER.[employer] MAKER HELPER Work Phone: Start: 07-13-2021 Basic metabolic panel calcium total Pamela Bautista W[employer] AND F[employer]OR TILER - [employer] MAKER HELPER Work Phone: Start: 04-30-2021 Basic metabolic panel [...] Radiologic exam chest 2 views Latonia Owens W[employer] F[employer]OR TILER - [employer] MAKER HELPER Other Phone: Start: 12-11-2020 Comprehensive metabolic panel Latonia Owens MICHELLE - [employer] B[employer] MAKER HELPER Other Phone: Start: 10-21-2019 Radiologic exam both knees standing anteropost Omi Garcia Work Phone: Start: 10-21-2019 Radiologic exam knee complete 4/more views Omi Garcia Work Phone: Start: 05-02-2019 Dxa bone density study 1/> sites axial skel Omi Garcia DO Work Phone: Start: 04-28-2014 Mammography Cass Collin MARTINEZ.SLAT BASKET MAKER HELPER Work Phone: Start: 06-26-2013 Colonoscopy Cass Polanco APRN.[employer]AT BASKET MAKER HELPER Work Phone: H/O: surgery S/P trigger fing er release Inderjit Snyder MD Work Phone: Plan of Treatment Date Care Activity Detail Author Start: 06-30-2025 Depression Monitoring Depression Monitoring [facility] Start: 06-28-2025 Screening for malignant neoplasm of breast Mammogram [facility] Start: 03-07-2025 End: 03-07-2025 Patient encounter procedure 03/07/2025 10:30 AM EST Office Visit [facility] [place] [address] Reina Cunha MD [address] [place], [place] [phone] [facility] - [place] Start: 02-07-2025 End: 02-07-2025 Patient encounter procedure 02/07/2025 9:30 AM EDT Office Visit [facility] [place] [address] Reina Cunha MD [address] [place] [address] [facility] - [place] Start: 01-03-2025 End: 01-03-2025 Patient encounter procedure 01/03/2025 11:00 AM EDT Office Visit [facility] Cardiology - [place] [address] [facility] [address] [place] [phone] Kimberly Grullon MD [address] [facility] [address] [place] [address] [facility] - [place] Start: 12-23-2024 COVID-19 Vaccine ( season) COVID-19 Vaccine () [facility] Start: 12-23-2024 Influenza vaccination [facility] Start: 12-06-2024 End: 12-06-2024 Patient encounter procedure 12/06/2024 10:30 AM EDT Office Visit [facility] - [place] [place] [phone] Reina Cunha MD [address] [facility] [address] [place], [place] [id number] [facility] Weight Management - [place] Start: 10-18-2024 End: 10-18-2024 Patient encounter procedure [facility] - [place] Start: 09-06-2024 End: 09-06-2024 Patient encounter procedure 09/06/2024 12:40 PM EDT Office Visit [facility] - [place] [address] [place] [phone] Reina Cunha MD [address] [facility] [address] [place], [place] [phone] [facility] Weight Management - [place] Start: 07-24-2024 End: 07-24-2024 Patient encounter procedure 07/24/2024 2:30 PM EDT Office Visit [facility] - [place] [address] Reina Cunha MD [address] [place] [address] [facility] - [place] Start: 07-01-2024 End: 07-01-2024 Patient encounter procedure 07/01/2024 10:00 AM EDT Office Visit [facility] [address] [facility] [address] [place] [phone] Maddison Jordan, WALL AND FLOOR TILER - [employer]AT [employer]ET MAKER HELPER [address] [facility] [address] [place], [place] [address] [facility] Start: 12-24-2023 COVID-19 Vaccine ( season) COVID-19 Vaccine () [facility] Start: 12-24-2023 COVID-19 Vaccine ( season) COVID-19 Vaccine ( season) [facility] Start: 12-24-2023 Influenza vaccination [facility] Start: 11-05-2023 Creatinine measurement Creatinine Level [facility] Start: 11-05-2023 Diabetes: Estimated Glomerular Filtration Rate for Kidney Health Diabetes: Estimated Glomerular Filtration Rate for Kidney Health [facility] Start: 11-05-2023 Hemoglobin A1c measurement Diabetes: Hemoglobin A1C [facility] Start: 11-05-2023 Lipid panel Lipid Panel [facility] Start: 11-05-2023 Potassium measurement Potassium Level [facility] Start: 09-25-2023 DIABETES SCREEN DIABETES SCREEN [facility] Start: 07-17-2023 [facility] Start: 07-17-2023 X-ray of both feet Foot min 3 Views [facility] Start: 07-17-2023 XR Foot GE 3 Views [facility] Start: 07-17-2023 End: 07-17-2023 Blood culture [facility] Start: 07-17-2023 Bacteria identified in Blood by Culture Blood Culture [facility] Start: 06-27-2023 Screening for malignant neoplasm of colon [facility] Start: 06-27-2023 End: 06-27-2023 Patient encounter procedure 06/27/2023 10:30 AM EST Appointment [facility] Neuro [address] [place] [address] [place] [phone] [facility] Neuro Start: 06-23-2023 End: 06-23-2023 Patient encounter procedure 06/23/2023 10:30 AM EST Office Visit [facility] Cardiology [address] [facility] [address] [place] [phone] Kimberly Grullon MD [address] [facility] [place], [place] [phone] [facility] Start: 04-14-2023 [facility] Start: 04-14-2023 [facility] Start: 02-18-2023 Screening for malignant neoplasm of breast Mammogram [facility] Start: 01-17-2023 End: 01-17-2023 Patient encounter procedure 01/17/2023 2:40 PM EDT Office Visit [facility] Orthopedics and Sports Medicine [address] [facility] [address] [place] [phone] Danielle Huertas MD [address] [facility] [address] [place], [place] [address] [facility] Start: 12-23-2022 COVID-19 Vaccine ( season) COVID-19 Vaccine ( season) [facility] Start: 12-23-2022 Influenza vaccination Influenza Vaccine (#1) [facility] Start: 09-09-2022 End: 09-09-2022 Patient encounter procedure 09/09/2022 Office Visit Cardiology Maddison Jordan, MICHELLE - JOSE ALFREDO [address] [facility] [address] [place], [place] [phone] [facility] Start: 2022 Hepatitis B Vaccines (1 of 3 - Risk 3-dose series) Hepatitis B Vaccines (1 of 3 - Risk 3-dose series) [facility] Start: 2022 RSV Immunization aged 60 or older (1 - 1-dose 60+ series) RSV Immunization aged 60 or older (1 - 1-dose 60+ series) [facility] Start: 2022 RSV Immunization for Adults (1 - Risk 60-74 years 1-dose series) RSV Immunization for Adults (1 - Risk 60-74 years 1-dose series) [facility] Start: 07-13-2022 Creatinine measurement [facility] Start: 07-13-2022 Potassium measurement Potassium Level [facility] Start: 07-13-2022 Potassium monitoring Potassium monitoring [facility] Start: 06-10-2022 End: 06-10-2022 Patient encounter procedure 06/10/2022 Office Visit Cardiology Maddison Jordan APRN - CNP [address] [facility] [address] [place] [address] [facility] Start: 04-30-2022 Creatinine measurement Creatinine monitoring [facility] Start: 04-30-2022 Potassium monitoring Potassium monitoring [facility] Start: 04-01-2022 Hemoglobin A1c measurement A1C test (Diabetic or Prediabetic) [facility] Start: 03-28-2022 End: 03-28-2022 Patient encounter procedure 03/28/2022 Office Visit Orthopedic Surgery Marcus Heredia PA-C [address] [facility] [address] [place] [address] [facility] [place] Start: 02-18-2022 End: 02-18-2022 Patient encounter procedure 02/18/2022 Office Visit Cardiology Kimberly Grullon MD [address] [facility] [place] [address] [facility] Start: 02-11-2022 End: 02-11-2022 Patient encounter procedure 02/11/2022 Appointment Echocardiography [facility] Echo Start: 01-31-2022 End: 01-31-2022 Patient encounter procedure 01/31/2022 Office Visit Orthopedic Surgery Marcus Heredia PA-C [address] [facility] [address] [place], [place] [address] [facility] [place] Start: 01-29-2022 Creatinine measurement Creatinine monitoring [facility] Start: 01-29-2022 Potassium monitoring Potassium monitoring [facility] Start: 12-30-2021 End: 12-30-2021 Patient encounter procedure 12/30/2021 Office Visit Orthopedic Surgery Marcus Heredia PA-C [address] [facility] [address] [place] [address] [facility] [place] Start: 12-23-2021 Influenza vaccination Flu vaccine (#1) [facility] Start: 12-11-2021 Creatinine measurement Creatinine monitoring [facility] Work Phone: Start: 12-11-2021 Potassium monitoring Potassium monitoring [facility] Work Phone: Start: 11-22-2021 Influenza vaccination Flu vaccine (#1) [facility] Start: 07-26-2021 End: 07-26-2021 Patient encounter procedure 07/26/2021 Office Visit Cardiology Kimberly Grullon MD [address] [facility] [place], [place] [address] [facility] Start: 07-11-2021 COVID-19 Vaccine (4 - Booster for Pfizer series) COVID-19 Vaccine (4 - Booster for Pfizer series) [facility] Start: 05-10-2021 End: 05-10-2021 Patient encounter procedure 05/10/2021 Office Visit Cardiology Pamela Bautista, WALL AND FLOOR TILER - [employer]AT [employer]ET MAKER HELPER [address] [facility] [place] [address] [facility] Start: 05-08-2021 COVID-19 Vaccine (4 - Booster for Pfizer series) COVID-19 Vaccine (4 - Booster for Pfizer series) [facility] Start: 05-08-2021 COVID-19 Vaccine (4 - Pfizer series) COVID-19 Vaccine (4 - Pfizer series) [facility] Start: 05-02-2021 Screening for osteoporosis Bone Density Scan [facility] Start: 04-12-2021 End: 04-12-2021 Patient encounter procedure [facility] Start: 02-01-2021 End: 02-01-2021 Patient encounter procedure 02/01/2021 Appointment MRI Kimberly Grullon MD [address] [facility] [place] [address] [phone] [facility] Start: 01-09-2021 COVID-19 Vaccine (3 - Booster for Pfizer series) COVID-19 Vaccine (3 - Booster for Pfizer series) [facility] Start: 12-23-2020 Influenza vaccination Flu vaccine (#1) [facility] Start: 12-09-2020 COVID-19 VACCINE (3 - Booster for Pfizer series) COVID-19 VACCINE (3 - Booster for Pfizer series) [facility] Start: 09-07-2020 HPV TESTING HPV TESTING [facility] Start: 09-07-2020 PAP TESTING PAP TESTING [facility] Start: 12-24-2019 Influenza vaccination Flu vaccine (Season Ended) [place], [place] Start: 05-30-2019 End: 05-30-2019 Patient encounter procedure 05/30/2019 Office Visit Orthopedic Surgery Inderjit Snyder MD [address] [facility] [address] [place] [address] [phone] [facility] Orthopedics [facility] Sports Medicine [place] Start: 12-23-2018 Influenza vaccination Flu vaccine (#1) [facility] Work Phone: Start: 06-26-2018 Colonoscopy COLONOSCOPY [facility] Start: 06-26-2018 COLORECTAL CANCER SCREENING COLORECTAL CANCER SCREENING [facility] Start: 04-09-2016 Screening for malignant neoplasm of colon [facility] Start: 04-28-2015 Mammography MAMMOGRAM [facility] Start: 04-21-2015 DTaP/Tdap/Td vaccine (1 - Tdap) DTaP/Tdap/Td vaccine (1 - Tdap) [facility] Start: 04-21-2015 DTaP/Tdap/Td Vaccines (1 - Tdap) DTaP/Tdap/Td Vaccines (1 - Tdap) [facility] Start: 2012 Breast cancer screen Breast cancer screen [facility] Work Phone: Start: 2012 Colon cancer screen colonoscopy Colon cancer screen colonoscopy [facility] Work Phone: Start: 2012 Screening for malignant neoplasm of breast Breast cancer screen [facility] Start: 2012 Screening for malignant neoplasm of colon Colon cancer screen colonoscopy [place], [place] Start: 2012 Shingles Vaccine (1 of 2) Shingles Vaccine (1 of 2) [facility] Start: 2012 SHINGRIX VACCINE (1 of 2) SHINGRIX VACCINE (1 of 2) [facility] Start: 2012 Zoster Vaccines (1 of 2) Zoster Vaccines (1 of 2) [facility] Start: 03-25-2009 MMR Vaccines (1 of 1 - Standard series) MMR Vaccines (1 of 1 - Standard series) [facility] Start: 07-22-2007 COLOGUARD (FIT-DNA) COLOGUARD (FIT-DNA) [facility] Start: 07-22-[address] COLONOGRAPHY [facility] Start: 07-22-2007 FECAL OCCULT BLOOD FECAL OCCULT BLOOD [facility] Start: 07-22-2007 LIPID SCREEN LIPID SCREEN [facility] Start: 07-22-2007 Screening for malignant neoplasm of colon [facility] Start: 07-22-2007 SIGMOIDOSCOPY SIGMOIDOSCOPY [facility] Start: 2002 Diabetes screen Diabetes screen [facility] Start: 2002 Lipid panel Lipid screen [facility] Start: 2002 Lipid screen Lipid screen [facility] Work Phone: Start: 2002 Screening for malignant neoplasm of breast Mammogram [facility] Start: 1992 Screening for malignant neoplasm of cervix [facility] Start: 07-22-1983 Cervical cancer screen Cervical cancer screen [facility] Work Phone: Start: 07-22-1983 Screening for malignant neoplasm of cervix [facility] Start: 1981 DTaP/Tdap/Td vaccine (1 - Tdap) DTaP/Tdap/Td vaccine (1 - Tdap) [place], [place] Start: 1981 Hepatitis A Vaccines (1 of 2 - Risk 2-dose series) Hepatitis A Vaccines (1 of 2 - Risk 2-dose series) [facility] Start: 1981 Hepatitis B vaccine (1 of 3 - Risk 3-dose series) Hepatitis B vaccine (1 of 3 - Risk 3-dose series) [facility] Start: 1981 Pneumococcal Vaccine: 50+ Years (1 of 2 - PCV) Pneumococcal Vaccine: 50+ Years (1 of 2 - PCV) [facility] Start: 1981 Urine microalbumin profile DTAP,TDAP,TD (1 - Tdap) [facility] Start: 1981 Urine screening for protein Diabetes: Urine Protein Screening [facility] Start: 1980 Diabetes: Urine Albumin-Creatinine Ratio for Kidney Health Diabetes: Urine Albumin-Creatinine Ratio for Kidney Health [facility] Start: 1980 Diabetic retinal exam Diabetic retinal exam [facility] Start: 1980 HEPATITIS C SCREENING HEPATITIS C SCREENING [facility] Start: 1980 Hepatitis C screening [facility] Start: 1980 HIV SCREENING HIV SCREENING [facility] Start: 1980 Urine screening for protein Diabetic microalbuminuria test [facility] Start: 1977 HIV screen HIV screen [facility] Work Phone: Start: 1977 HIV screening HIV screen [facility] Start: 1974 Adult depression screening assessment DEPRESSION SCREENING [facility] Start: 1974 COVID-19 Vaccine (1) COVID-19 Vaccine (1) [facility] Work Phone: Start: 1974 Depression Monitoring Depression Monitoring [facility] Start: 1974 Depression Screen Depression Screen [facility] Start: 1973 DTaP/Tdap/Td vaccine (1 - Tdap) DTaP/Tdap/Td vaccine (1 - Tdap) [facility] Work Phone: Start: 1972 Diabetic foot examination [facility] Start: 1972 Glaucoma screening Diabetes: Retinopathy Screening [facility] Start: 1972 Hemoglobin A1c measurement A1C test (Diabetic or Prediabetic) [facility] Start: 1972 Lipid panel [facility] Start: 1972 Preventive dental service Diabetes: Dental Exam [facility] Start: 1968 Pneumococcal 0-64 years Vaccine (1 - PCV) Pneumococcal 0-64 years Vaccine (1 - PCV) [facility] Start: 1968 Pneumococcal 0-64 years Vaccine (1 of 2 - PPSV23) Pneumococcal 0-64 years Vaccine (1 of 2 - PPSV23) [facility] Start: 1968 Pneumococcal Vaccine: Pediatrics (0 to 5 Years) and At-Risk Patients (6 to 64 Years) (1 - PCV) Pneumococcal Vaccine: Pediatrics (0 to 5 Years) and At-Risk Patients (6 to 64 Years) (1 - PCV) [facility] Start: 1968 Pneumococcal Vaccine: Pediatrics (0 to 5 Years) and At-Risk Patients (6 to 64 Years) (1 of 2 - PCV) Pneumococcal Vaccine: Pediatrics (0 to 5 Years) and At-Risk Patients (6 to 64 Years) (1 of 2 - PCV) [facility] Start: 07-22-1963 Hepatitis A Vaccines (1 of 2 - Risk 2-dose series) Hepatitis A Vaccines (1 of 2 - Risk 2-dose series) [facility] Start: 1962 Echocardiography Echocardiogram [facility] Start: 1962 Hemoglobin A1c measurement Diabetes: Hemoglobin A1C [facility] Start: 1962 Hepatitis B Vaccines (1 of 3 - 3-dose series) Hepatitis B Vaccines (1 of 3 - 3-dose series) [facility] Start: 1962 Hepatitis C screen Hepatitis C screen [facility] Work Phone: Start: 1962 Hepatitis C screening Hepatitis C screen [facility] Start: 1962 HIV screening HIV Screening [facility] Start: 1962 Lipid panel Lipid Panel [facility] Start: 1962 Screening for malignant neoplasm of colon [facility] ECG 12 lead ECG 12 lead CV E CG Routine Heart failure with recovered ejection fraction (HFrecEF) ([facility]) 07/01/2024 10:01 AM EDT [facility] Work Phone: EKG 12 Lead - Chest Pain EKG 12 Lead - Chest Pain ECG STAT 12/11/2020 7:27 PM EDT [facility] Work Phone: OUTSIDE PROCEDURE SCAN OUTSIDE P ROCEDURE SCAN Procedures Ordered: 11/04/2022 [facility] Comment on above: Ordered: 11/04/2022 OUTSIDE PROCEDURE SCAN OUTSIDE P ROCEDURE SCAN Procedures Ordered: 06/05/2024 [facility] Comment on above: Ordered: 06/05/2024 Patient Education [facility] Work Phone: Patient referral [facility] Work Phone: SURGICAL PATHOLOGY S KIN ONLY [facility] Work Phone: Comment on above: Release Upon Ordering for 1 Occurrences starting 07/27/2021 [facility] Immunizations Immunization Date Immunization Notes Care Provider Fa cili 01-22-2024 influenza virus vaccine, unspecified formulation Reina Cunha MD Work Phone: [facility] 03-01-2022 influenza virus vaccine, unspecified formulation [facility] 03-13-2021 Pfizer SARS-CoV-2 Vaccination Kimberly Grullon MD Work Phone: [facility] 07-09-2020 Pfizer SARS-CoV-2 Vaccination Kimberly Grullon MD Work Phone: [facility] 06-18-2020 Pfizer SARS-CoV-2 Vaccination Kimberly Grullon MD Work Phone: [facility] 01-25-2016 influenza virus vaccine, unspecified formulation Cass Polanco APRN.CNP Work Phone: [facility] Payers Date Payer Category Payer Self-pay [id number] 2021 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[employer] [id number] 2021 Unknown 2017 Unknown [employer] [address] xxxxxxxxxxxx 2017-Present [phone] [address] [place] [address] xxxxxxxxxxxx [id number] 2017 Unknown [id number] 2016 Unknown MMO MMO SUPERMED PLUS [id number] 2016-Present [phone] [address] [place] [address] PPO [id number] 1962 Unknown [id number] .1962 Unknown [id number] [id number] 1962 Unknown [id number] [id number] .8 1962 Unknown [id number] [id number] .8 1962 Unknown [id number] .1962 Unknown [id number] [id number] .1962 Unknown [id number] [id number] 8 1962 Unknown [id number] [id number] .8 1962 Unknown [id number] [id number] .668 Unknown [id number] [id number] .462 Unknown [id number] [id number] .462 Unknown [id number] [id number] .462 Unknown [id number] [id number] .462 Unknown [id number] .462 Social History Date Type Detail Facility Start: 01-18-2018 End: 12-02-2021 Tobacco smoking status NHIS Former smoker [facility] Work Phone: Start: 01-18-2018 End: 12-05-2024 Alcohol intake Current non-drinker of alcohol (finding) [facility] Work Phone: Start: 1960 Sex Assigned At Not on file [facility] Work Phone: Exposure to SARS-CoV -2 (event) Unable to assess [place] Start: 01-18-2018 End: 12-02-2021 Tobacco use and exposure Never used [facility] Start: 05-22-2021 End: 11-04-2022 Exposure to SARS-CoV-2 (event) Not sure [facility] Start: 06-26-2014 End: 09-20-2023 Tobacco smoking status NHIS Never smoked tobacco [facility] Start: 10-26-2021 End: 07-17-2023 Tobacco smoking status NHIS Unknown if ever smoked [facility] Start: 1960 Sex Assigned At Female [facility] History of tobacco use Current smoker [facility] Work Phone: Start: 09-09-2022 End: 12-31-2024 History of Social function [facility] Start: 09-09-2022 End: 12-31-2024 Tobacco use panel [facility] Start: 11-22-2021 End: 07-11-2024 Sex Female (finding) [facility] Start: 01-03-2025 End: 02-06-2025 Alcoholic beverage intake Lifetime non-drinker (finding) [facility] Mental Status Date Assessment Result Facility 04-14-2023 Cognitive function Voice/Name [facility] Work Phone: Clinical Notes 12-11-2020 to 02-13-2025 Telephone Encounter - Myrna Tariq RN - 02/13/2025 7:36 AM EDTTelephone Encounter - Myrna Tariq RN - 02/13/2025 7:36 AM EDTReina Cunha MD - 02/07/2025 9:30 AM EDTDischarge Instructions Note Date & Type Note Facility 02-13-2025 Telephone encounter Note Last seen 01/03/25. CMP done 07/01/24. GFR 72 [facility] 02-13-2025 Miscellaneous Notes Last seen 01/03/25. CMP done 07/01/24. GFR 72 documented in this encounter [facility] 02-07-2025 History of Present illness Narrative HPI, [...] was performed.Clinical documentation is updated and completed. [facility] MEDICAL WEIGHT LOSS MANAGEMENT PROGRAM ROOMING [...] Annie Alexandra MA documented in this encounter [facility] 01-03-2025 History of Present illness Narrative Images from the original note were not included. [facility] Cardiology Office Note DATE of SERVICE: 01/03/25 [...] was sent for some testing by her director sterile processing in the last week or 2. This [...] 07/03/2025) for STANLEY. Kimberly Grullon M.D., Amie.AlexC. Physicist Astrophysics Chief, Division of Cardiac Imaging Clinical Change Of Address Clerk, [facility] Cardiac Testing Echocardiogram 12/25/2024 [facility] Technically difficult, mild LVH, ejection fraction 65% [...] Rfl: 1 ergocalciferol (Vitamin D-2) 1.25 MG (98794 UT) capsule, Take 1.25 mg by mouth [...] Shortness of breath Nirmatrelvir-Ritonavir Hives Pedi-Pre Tape [place] [Wound Dressing Adhesive] Rash Severe blisters where [...] vision Daytime sleepiness Depression Family history of Jzbfn-Trfufxgln-Kuhlp (WPW) syndrome Fatty liver Hypertension 2020 Joint [...] Alcohol use: Never documented in this encounter [facility] 12-06-2024 Telephone encounter Note Patient scheduled for [...] she can do in the mean time. [facility] 12-06-2024 Miscellaneous Notes Patient scheduled for 01/03 [...] symptoms do occur. documented in this encounter [facility] 12-06-2024 History of Present illness Narrative HPI, [...] was performed.Clinical documentation is updated and completed. [facility] MEDICAL WEIGHT LOSS MANAGEMENT PROGRAM ROOMING [...] Annie Alexandra MA documented in this encounter [facility] 12-06-2024 History of Present illness Narrative HPI, [...] was performed.Clinical documentation is updated and completed. [facility] MEDICAL WEIGHT LOSS MANAGEMENT PROGRAM ROOMING [...] Annie Alexandra MA documented in this encounter [facility] 11-21-2024 Telephone encounter Note Lmom with recs. Any further questions, instructed to call office to discuss further. [facility] 11-20-2024 Telephone encounter Note Pt called and [...] only taking it when symptoms do occur. [facility] 10-18-2024 History of Present illness Narrative BARIATRIC [...] updated and completed. documented in this encounter [facility] 09-10-2024 Telephone encounter Note PA denied pt notified. [facility] 09-10-2024 Miscellaneous Notes PA denied pt notified. PA submitted via ml for Zepbound pt notified. ----- Message from Reina Cunha MD sent at 09/06/2024 1:32 PM EDT ----- Please tara zapata and let the pt know Thank you documented in this encounter [facility] 09-09-2024 Telephone encounter Note PA submitted via ml for Zepbound pt notified. [facility] 09-09-2024 Telephone encounter Note ----- Message from Reina Cunha MD sent at 09/06/2024 1:32 PM EDT ----- Please tara zapata and let the pt know Thank you [facility] 09-06-2024 History of Present illness Narrative HPI, [...] updated and completed. documented in this encounter [facility] 08-25-2024 Telephone encounter Note S: Patient spoke [...] Pharmacy and allergies verified. R: Dr. Rodriguez regional trainer provider messaged advised We don't usually start [...] no fever Protocols used: Sinus Pain or [id number] [facility] 08-25-2024 Miscellaneous Notes S: Patient spoke with [...] Pharmacy and allergies verified. R: Dr. Rodriguez regional trainer provider messaged advised We don't usually start [...] no fever Protocols used: Sinus Pain or Mottjycxli-[id number] documented in this encounter [facility] 07-24-2024 History of Present illness Narrative BARIATRIC [...] Weight: 309 lb 12.8 oz (141 kg) [place] Body Weight: 128 lb (58.1 kg) Initial [...] the Patient, which is located in the [facility] Worker Tab. History: Past Medical History: Diagnosis Date Acute congestive heart failure (HCC) 12/12/2020 Anxiety Blurred vision Daytime sleepiness Depression Family history of Qnror-Putzjwsfw-Qdwka (WPW) syndrome Fatty liver Hypertension Joint pain [...] (141 kg) BMI 55.76 kg/m Weight Metrics: Zebulon Body Weight: [place]eb[place]on Body Weight: 128 lb (58.1 kg) Excess Body Weight: [place]on BMI: 24 General: This patient is alert [...] Move Struggler [] Self-Conscious Hider [] Inexperienced [place] [] Svn-nm-Laqohqi Doer [] Set-Routine Repeater [] Iibrw-ulz-Hoqgv Sufferer [] Hx-oypx-ov-Exercise Protester [] Emotional Maintenance Supervisor Electrical [] Vpl-Pnea-Qxajyq Sufferer [] Persistent Procrastinator [] Can t-Say-No [...] TABLET Chew. ERGOCALCIFEROL (VITAMIN D-2) 1.25 MG (35102 UT) CAPSULE Take 1.25 mg by mouth [...] updated and completed. documented in this encounter [facility] 07-24-2024 Note BARIATRIC CARE [facility] NON-SURGICAL WEIGHT LOSS MANAGEMENT PROGRAM PROGRESS [...] the Patient, which is located in the [facility] Worker Tab. History: Past Medical History: Diagnosis Date Acute congestive heart failure (HCC) 12/12/2020 Anxiety Blurred vision Daytime sleepiness Depression Family history of Yueqr-Mnzwknvlc-Selti (WPW) syndrome Fatty liver Hypertension Joint pain [...] (141 kg) BMI 55.76 kg/m? Weight Metrics: Zebulon Body Weight: [place]on Body Weight: 128 lb (58.1 kg) Excess Body Weight: [place]on BMI: 24 General: This patient is alert [...] Move Struggler [] Self-Conscious Hider [] Inexperienced [place] [] Jnd-rf-Ggbmotn Doer [] Set-Routine Repeater [] Hywxv-qsu-Pwusg Sufferer [] Os-eovj-ub-Exercise Protester [] Emotional Maintenance Supervisor Electrical [] Fmp-Nmae-Pgnjzy Sufferer [] Persistent Procrastinator [] Can?t-Say-No Pleaser [...] eating JENY Severe (more content not included)... [facility] 07-01-2024 History of Present illness Narrative Images from the original note were not included. [facility] Cardiology Office Note DATE of SERVICE: 07/01/24 [...] that she went into the ED at [place] and basic cardiac workup was negative. Last seen in office 12/2023, at which time she was switching from CPAP to BIPAP because of increased needs, and possibly oxygen bleed-in, depending on insurance. She presents today for 6 month follow-up. Had Covid in April 2024, reports it's taken awhile to recover. 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 Heart failure [...] been interested in pursuing evaluation at the [facility] [place]. We have made several referrals -today she [...] , Rfl: ergocalciferol (Vitamin D-2) 1.25 MG (03497 UT) capsule, Take 1.25 mg by mouth [...] Shortness of breath Nirmatrelvir-Ritonavir Hives Pedi-Pre Tape [place] [Wound Dressing Adhesive] Rash Severe blisters where [...] failure (HCC) 12/12/2020 Depression Family history of Ouylu-Movvvxouk-Knrnc (WPW) syndrome Fatty liver Lipoma of breast [...] primary care provider. documented in this encounter [facility] 04-22-2024 Telephone encounter Note Patient left message requesting refill on carvedilol, send to [facility] in [place]. [facility] 04-22-2024 Miscellaneous Notes Patient left message requesting refill on carvedilol, send to [facility] in [place]. documented in this encounter [facility] 01-02-2024 History of Present illness Narrative Images from the original note were not included. [facility] Cardiology Office Note DATE of SERVICE: 01/02/24 [...] that she went into the ED at [place] and basic cardiac workup was negative. She [...] on a day-shift schedule. 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 Assessment and Plan 1. Chronic systolic heart [...] been interested in pursuing evaluation at the [facility] [place]. We have made several referrals and she has not followed through but nonetheless again expressed interest today. -she also has been referred to the weight loss center, but has been, dragging her feet on filling out the paperwork -we reviewed at length that weight loss will help all of her other problems; she frequently brings up her knees xofw-pf-exnp Follow up in about 6 months (around 07/01/2024). I, Maddison Jordan APRN - JOSE ALFREDO, furnish ongoing care related to Rebeca Tirado single, serious and complex condition(s) HFpEF. I assume responsibility for the patient's ongoing medical care of this condition. Maddison Jordna APRN-JOSE ALFREDO Cardiac Testing EK06/23/2023 Echo 02/11/2022: [...] , Rfl: ergocalciferol (Vitamin D-2) 1.25 MG (36593 UT) capsule, Take 1.25 mg by mouth [...] Shortness of breath Nirmatrelvir-Ritonavir Hives Pedi-Pre Tape [place] [Wound Dressing Adhesive] Rash Severe blisters where [...] failure (HCC) 12/12/2020 Depression Family history of Fwjaq-Kgnnofhmh-Sqgxl (WPW) syndrome Fatty liver Lipoma of breast [...] heart failure regimen. documented in this encounter [facility] 06-23-2023 History of Present illness Narrative Images from the original note were not included. [facility] Cardiology Office Note DATE of SERVICE: 06/23/23 [...] that she went into the ED at [place] and basic cardiac workup was negative. Assessment and Plan 1. Chronic systolic heart failure (HCC) - ECG 12 lead 2. BMI 50.0-59.9, adult (HCC) - [facility] 1. Heart failure with normalized ejection fraction, recent onset. NYHA class I-II, stage C. At this time she appears well compensated and euvolemic. She rarely requires furosemide. 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 She is on her feet the entire [...] been interested in pursuing evaluation at the [facility] [place]. We have made several referrals and she has not followed through but nonetheless again expressed interest today so I placed a new referral. Follow up in about 6 months (around 12/24/2023) for STANLEY and for MD 1 year. Kimberly Grullon M.D., F.A.C.C. Physicist Astrophysics Chief, Division of Cardiac Imaging Clinical Change Of Address Clerk, [facility] Cardiac Testing Echo 02/11/2022: SUMMARY: 1. Technically [...] Shortness of breath Nirmatrelvir-Ritonavir Hives Pedi-Pre Tape [place] [Wound Dressing Adhesive] Rash Severe blisters where [...] failure (HCC) 12/12/2020 Depression Family history of Pqoet-Oeqhgqosm-Fzyxa (WPW) syndrome Fatty liver Lipoma of breast [...] Alcohol use: No documented in this encounter [facility] 06-05-2023 Telephone encounter Note Patient called requesting refill on carvedilol 12.5 mg, send to [facility] in [place]. She is completely out. [facility] 06-05-2023 Miscellaneous Notes Patient called requesting refill on carvedilol 12.5 mg, send to [facility] in [place]. She is completely out. documented in this encounter [facility] 01-17-2023 History of Present illness Narrative Images from the original note were not included. [facility] [address] [place] [address] [place] [phone] Dept: [phone] Dept Chief Complaint Patient presents with Knee Pain Right Subjective History of Present Illness: Rebeca Tirado is a 62 y.o. female who presents today for evaluation of right knee pain. 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 documented in this encounter [facility] 12-16-2022 Telephone encounter Note Name of Caller: Rebeca Contact Reason for Appointment: Patient Rebeca calling in to cancel appointment for 12-16-2022 due to vertigo. Would like to r/s. Please advise Office Name: Orthopedics Medication Refills need, if any: N/A Medication Name: N/A [facility] 12-16-2022 Miscellaneous Notes Name of Caller: Rebeca Contact Reason for Appointment: Patient Rebeca calling in to cancel appointment for 12-16-2022 due to vertigo. Would like to r/s. Please advise Office Name: Orthopedics Medication Refills need, if any: N/A Medication Name: N/A documented in this encounter [facility] 10-05-2022 Telephone encounter Note Spoke to patient informing she needs to return her new patient packet so we can schedule for non surg program. [facility] 10-05-2022 Miscellaneous Notes Spoke to patient informing she needs to return her new patient packet so we can schedule for non surg program. Printed Name of Caller: Rebeca Contact Reason for Appointment: INDUSTRIAL TECHNICIAN appt request Office Name: [facility] [place] Medication Refills need, if any: n/a Medication Name: n/a documented in this encounter [facility] 09-29-2022 Telephone encounter Note Printed [facility] 09-27-2022 Telephone encounter Note Name of Caller: Rebeca Contact Reason for Appointment: INDUSTRIAL TECHNICIAN appt request Office Name: [facility] [place] Medication Refills need, if any: n/a Medication Name: n/a [facility] 08-12-2022 Telephone encounter Note Patient called for refill on her Entresto, she said she is completely out. Please send to [facility] in [place]. [facility] 08-12-2022 Miscellaneous Notes Patient called for refill on her Entresto, she said she is completely out. Please send to [facility] in [place]. documented in this encounter [facility] 06-10-2022 Evaluation + Plan note Associated Problem(s): Chronic systolic heart failure (CMS/HCC) (HCC) Stage C NYHA Class II. Normalized LVEF on echo January 2022. -continue coreg, farxiga, lasix, hyzaar, and entresto -she does have trace ankle edema today, but tells me she has missed a couple days of lasix. I encourage her to take as prescribed. -monitor edema, SOB, weight [facility] 06-10-2022 Miscellaneous Notes Associated Problem(s): Chronic systolic [...] struggles. She is agreeable to see the [facility] for non-surgical assistance. I will [...] -continue beta adeline documented in this encounter [facility] 06-10-2022 Evaluation + Plan note Associated Problem(s): BMI 50.0-59.9, adult (CMS/HCC) (HCC) Familial and metabolic. Discussed impact on health and she voiced her ongoing struggles. She is agreeable to see the [facility] for non-surgical assistance. I will place that referral today. 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 [facility] 06-10-2022 Evaluation + Plan note Associated Problem(s): Sleep apnea Compliant with CPAP. In June she is scheduled to go for a split study - possible BiPAP. [facility] 06-10-2022 Evaluation + Plan note Associated Problem(s): Palpitations This is less of a concern at this time. An event monitor in 2021 showed no significant arrhythmia. She is certainly at risk for atrial fibrillation.. -EKG at least yearly -continue beta adeline [facility] 06-10-2022 Note Sinus Rhythm -Left axis. -Poor R-wave progression -may be secondary to pulmonary disease consider old anterior infarct. Low voltage -possible pulmonary disease. ABNORMAL [facility] 06-10-2022 History of Present illness Narrative Images from the original note were not included. [address] [facility] [address] Dept: [phone] Dept Loc: [phone] Visit type: Established : 1960 Reason for Visit: Follow-up Assessment and Plan 1. Chronic systolic heart failure (CMS/HCC) ([facility]) Assessment & Plan: Stage C NYHA Class II. Normalized LVEF on echo January 2022. -continue coreg, farxiga, lasix, hyzaar, and entresto -she does have trace ankle edema today, but tells me she has missed a couple days of lasix. I encourage her to take as prescribed. -monitor edema, SOB, weight Orders: - [facility] WMI-Non Surgical Wt Mgmt 2. Hypertension, essential [...] beta adeline 5. BMI 50.0-59.9, adult (CMS/HCC) ([facility]) Assessment & Plan: Familial and metabolic. Discussed impact on health and she voiced her ongoing struggles. She is agreeable to see the [facility] for non-surgical assistance. I will place that referral today. 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 Orders: - [facility] Follow up in [...] her right shoulder. 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 We discussed lifestyle modification at length, and she is agreeable to go to the [facility] for non-surgical mgt. She tells [...] Shortness of breath Nirmatrelvir-Ritonavir Hives Pedi-Pre Tape [place] [Wound Dressing Adhesive] Rash Severe blisters where [...] (CMS/HCC) (HCC) 12/12/2020 Depression Family history of Fljmu-Wlfjvncrd-Hypst (WPW) syndrome Fatty liver Lipoma of breast [...] MICHELLE Marsh CNP documented in this encounter [facility] 05-02-2022 Telephone encounter Note Received fax from [facility] for refill on farxiga 10 mg, fill through [facility]. [facility] 05-02-2022 Miscellaneous Notes Received fax from [facility] for refill on farxiga 10 mg, fill through [facility]. documented in this encounter [facility] 12-17-2021 History of Present illness Narrative Occupational therapy script given to pt Pt received from OR via cart to phase II. Alert spont. Resp. Pt alert and orient, awake and talking to at bedside, elevation to RT hand with ice pack and tolerating diet coke well [facility] Hospital Discharge instructions TARA Cisneros [...] hours please call the office immediately at [phone]. It will probably take about 6-12 weeks [...] taking a prescription pain medicine, take an vppz-qse-vjjuozm medicine such as acetaminophen (Tylenol), ibuprofen (Advil, [...] you regain range of motion, strength, and seam stayer in your finger and hand. To get [...] Where can you learn more? Go to [email or web address] and sign in to your [employer] account. Enter F681 in the Search Health Information box to learn more about Trigger Finger Release: What to Expect at Home. If you do not have an account, please click on the Sign Up Now link. Current as of: October 17, 2018Content Version: 12.4 [employer]. Care instructions adapted under license by [employer]. If you have questions about a medical condition or this instruction, always ask your healthcare professional. [employer] disclaims any warranty or liability for your [...] Where can you learn more? Go to [email or web address] and sign in to your [employer] account. Enter X265 in the Search Health Information box to learn more about Finger: Exercises. If you do not have an account, please click on the Sign Up Now link. Current as of: October 17, 2018Content Version: 12.4 [id number] [employer]. Care instructions adapted under license by [employer]. If you have questions about a medical condition or this instruction, always ask your healthcare professional. [employer] disclaims any warranty or liability for your use of this information. documented in this encounter [facility] Work Phone: 08-31-2021 Note HNO ID: [id number] Author: Hau Barbosa MD Service: ? Author Type: Physician [...] Past Histories independently gathered by the clinical lead performance support analyst. I spent a total of 42 minutes on the date of the service which included preparing to see the patient, mbox-ec-phkc patient care, completing clinical documentation, performing a medically appropriate examination and counseling and educating the patient/family/caregiver. [facility] 08-31-2021 Instructions Hua Barbosa MD - 08/31/2021 9:35 AM EDT If you have questions or need to reach the office, please either use [employer] or call [phone]. Let the single pass soil stabilizer operator know that you need to leave [...] soon as possible. documented in this encounter [facility] 08-31-2021 History of Present illness Narrative Images [...] on the legs -seen by Cass Polanco SLAT BASKET MAKER HELPER -Per last note -obtain CBC for further [...] Past Histories independently gathered by the clinical lead performance support analyst. I spent a total of 42 minutes on the date of the service which included preparing to see the patient, wjtk-kt-xjwr patient care, completing clinical documentation, performing a medically appropriate examination and counseling and educating the patient/family/caregiver. documented in this encounter [facility] 07-29-2021 Miscellaneous Notes Spoke to patient. 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 Patient to discuss with lens grinder rough. -follow-up in [address] Barbosa for further evaluation. Cass Polanco APRN.JOSE ALFREDO documented in this encounter [facility] 07-27-2021 Note HNO ID: [id number] Author: Cass Polanco APRN.CNP Service: ? Author [...] noted below or as needed. Cass Polanco APRN.SLAT BASKET MAKER HELPER Chief Complaint: Patient presents with: New Patient: [...] Care Visit completed when applicable. Leesa Polanco APRN.[facility] 07-27-2021 Instructions Leesa Galloway - 07/27/2021 9:14 [...] be transferred to the answering service or Ncmjk-yo-uglu for advice. 5.) You will not need [...] phone number above. documented in this encounter [facility] 07-27-2021 History of Present illness Narrative Images from the original note were not included. Department of Dermatology Cass Polanco APRN.SLAT BASKET MAKER HELPER 07/27/2021 Last visit in Dermatology: Visit date [...] Polanco APRN.JOSE ALFREDO documented in this encounter [facility] 03-28-2021 Note HNO ID: [id number] Author: Inocencia Zamarripa APRN.CNP Service: ? Author Type: Nurse Practitioner Type: Progress Notes Filed: 03/28/2021 9:51 AM Note Text: Subjective The history is provided by the patient and a relative. No balance bridge assembler was used. HPI Rebeca Tirado is a [...] have confirmed and edited as necessary, the [facility] Review of Systems Constitutional: Positive for malaise/fatigue. [...] prompt ER evaluation. Inocencia Zamarripa APRN.JOSE ALFREDO [facility] 02-25-2021 Note HNO ID: [id number] Author: Tarsha Art APRN.JOSE ALFREDO Service: ? Author Type: Nurse Practitioner Type: Progress Notes Filed: 02/27/2021 2:31 PM Note Text: This note was created using EVRSTriter. Subjective Rebeca Tirado is a 60 year old female. 60 year old female with PMH arthritis, depression, and menopause with chief Complaint think I have cellulitis Acute onset of symptoms was Monday morning. 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 States that she spilled some chemicals, but then also states think something bit me +redness +tenderness lower right leg. Denies fever or chills. Denies drainage. Denies numbness or tingling. Utilized hydrocortisone cream. The history is provided by the patient. No balance bridge assembler was used. Rash This is a new [...] posterior oropharyngeal eryt (more content not included)... [facility] 12-11-2020 Hospital Discharge instructions Jose E Szymanski MD - 12/11/2020 Please follow up with your primary doctor for an ultrasound of the heart. Please take additional lasix if you still feel short of breath on exertion or laying down. The following attachments cannot be sent through Care Everywhere.SOB (Shortness of Breath) (Ecuadorean)Heart Failure: General Info (Ecuadorean)Pulmonary Edema (Ecuadorean)documented in this encounter [facility] Work Phone: Evaluation [...] nonspecific skin eruption [facility] Diagnosis Rash and nonspecific skin eruption- Primary Rash and other nonspecific skin eruption documented in this encounter [facility] note* Diagnosis Wells' syndrome- Primary Contact dermatitis and other eczema, due to unspecified cause documented in this encounter [facility] note* Diagnosis Onset Date Resolution Status Acute upper respiratory infection acute Encounter for screening for other viral diseases acute COVID-19 acute [facility] Work Phone: evaluation note* Diagnosis S/P trigger finger release- Primary [facility] note* Diagnosis HFrEF (heart failure with reduced ejection fraction) ([facility]) documented in this encounter [facility] Work Phone: Evaluation note* Diagnosis Onset Date Resolution Status COVID-19 acute [facility] Work Phone: Evaluation noteNo assessment information available [facility] Work Phone: evaluation note* Diagnosis Primary osteoarthritis of right knee- Primary documented in this encounter [facility]* Diagnosis Prediabetes- Primary Other abnormal glucose Pure hypercholesterolemia, unspecified Hyperparathyroidism, unspecified ([facility]) Hyperparathyroidism, unspecified Vitamin D deficiency, unspecified documented in this encounter [facility]* Diagnosis Chronic systolic heart failure (HCC)- Primary Chronic systolic heart failure BMI 50.0-59.9, adult (HCC) [facility]* Diagnosis Paresthesia of skin- Primary Paresthesia of skin documented in this encounter [facility]* Diagnosis Chronic systolic heart failure (HCC)- Primary Chronic systolic heart failure BMI 50.0-59.9, adult (HCC) Sleep apnea, unspecified type [facility]* Diagnosis Chronic systolic heart failure (CMS/HCC) (HCC)- Primary Chronic systolic heart failure Hypertension, essential Unspecified essential hypertension Obstructive sleep apnea syndrome Obstructive sleep apnea (adult) (pediatric) Palpitations BMI 50.0-59.9, adult (CMS/HCC) (HCC) documented [facility]* Diagnosis Chronic systolic heart failure (HCC)- [...] in left shoulder [facility] Diagnosis Chronic systolic heart failure (HCC)- [...] Heart failure with recovered ejection fraction (HFrecEF) ([facility]) documented in this encounter [facility] note* Diagnosis Chronic systolic heart failure (HCC)- [...] in adult (HCC) documented [facility]* Diagnosis Chronic systolic heart failure (HCC)- [...] in left shoulder documented [facility] this [facility]* Diagnosis Chronic systolic heart failure (HCC)- [...] 59.9 in adult [facility] Diagnosis Chronic systolic heart failure [...] 59.9 in adult documented in this encounter [facility]* Diagnosis Chronic systolic heart [...] 59.9 in adult [facility]* Diagnosis Chronic systolic heart failure [...] adult Water retention [facility]* Diagnosis Chronic systolic heart failure (HCC)- [...] 50.0-59.9, adult (HCC) documented [facility]* Diagnosis Chronic systolic heart failure (HCC)- [...] (CMS/HCC) Water retention [facility] Additional Instructions Please continue your Keflex as previously prescribed. You will take the Bactrim I prescribed tonight in addition to this.[facility] Work Phone: Instructions* Attachments The following attachments cannot be sent through Care Everywhere. * Tirzepatide, ADULT (Ecuadorean) [facility] Consultation (Routine) - Pending Review Specialty Diagnoses / Procedures Referred By Scott iverson Referred To Contact Bariatrics Diagnoses BMI 50.0-59.9, adult (HCC) Procedures MS OFFICE/OUTPATIENT NEW HIGH MDM 60 MINUTES Kimberly Grullon MD [address] [facility] [place] [address] [facility] [address] [place] [address] Referral ID Status Reason Start Date Expiration Date Visits Requested Visits Authorized [id number] Pending Review Specialty Services Required 06/23/2023 06/22/2024 1 1 [facility] for referral (narrative)* Consultation (Routine) - Pending Review Specialty Diagnoses / Procedures Referred By Scott iverson Referred To Contact Bariatrics Diagnoses BMI 50.0-59.9, adult (CMS/HCC) (HCC) Chronic systolic heart failure (CMS/HCC) (HCC) Procedures MS OFFICE/OUTPATIENT NEW HIGH MDM 60-74 MINUTES Maddison Jordan APRN - CNP [address] [facility] [address] [place] [address] [facility] [address] [place] [address] Referral ID Status Reason Start Date Expiration Date Visits Requested Visits Authorized [id number] Pending Review Specialty Services Required 06/10/2022 06/10/2023 1 1 RED [facility] for referral (narrative)No reason for referral information [facility]WPro[facility] Work Phone: Summary Purpose Family History No Family History Records Found Relationship Condition Age at Onset Recorded Date/T gerhard Not Specified Diabetes mellitus Unknown Arthritis Unknown Cardiac disease Unknown Hypertension Unknown Advance Directives No Advanced Directives Records FoundDocuments on File Type Date Recorded Patient Supervisor Diagnostic Expl anation Advance Directives and Living Will Power of Auditor Appraiser Documents on File Type Date Recorded Patient Supervisor Diagnostic Expl anation ACP-Advance Directive ACP-Power of Auditor Appraiser Advance Directive Response Recorded Date/ Time Living Will No January 04, 2021 5:29pm Power of Auditor Appraiser No December 5:29pm Latest Code Status on [...] No January 04, 2021 4:29pm Power of Auditor Appraiser No December 4:29pm Advance Directive Response Recorded Date/ Time Living Will No April 14, 023 6:05pm Power of Auditor Appraiser No April 14, 2023 6:05pm Advance Directive Response Recorded Date/ Time Living Will No July 17, 2023 7:14pm Power of Auditor Appraiser No July 16 7:14pm Chief Complaint and [...] trigger finger release Marcus Heredia PA-C [address] [facility] [address] [place] [address] Referral ID Status Reason Start Date Expiration Date V isits Requested Visits Authorized [id number] Open Specialty Services Required 12/17/2021 06/15/2022 1 [...] Doppler W Color IleKimberly mack MD [address] [facility] [place] [address] Referral ID Status Reason Start Date Expiration Date Visits Re quested Visits Authorized [id number] Closed 01/25/2022 04/24/2022 1 1 Specialty Diagnoses / Procedures Referred By Scott iverson Referred To Contact Neurology Diagnoses Paresthesia of skin Procedures Nerve conduction test with EMG Omi Garcia DO [address] [place] [address] Referral ID Status Reason Start Date Expiration Date Visits Re quested Visits Authorized [id number] Closed 06/17/2023 06/11/2024 1 1 Additional Source Comments INFORMATION SOURCE (unrecogn ized section and content) DATE CREATED AUTHOR 10/10/2017 [facility] DATE CREATED AUTHOR AUTHOR'S ORGANIZ ATION 09/01/2021 [facility] DATE CREATED AUTHOR AUTHOR'S ORGANIZ ATION 02/15/2022 [facility] DATE CREATED AUTHOR AUTHOR'S ORGANIZ ATION 02/16/2022 [facility] DATE CREATED AUTHOR AUTHOR'S ORGANIZ ATION 01/14/2025 [facility] DATE CREATED AUTHOR AUTHOR'S ORGANIZ ATION 02/14/2025 [facility] Reason for Visit (unrecogniz ed section [...] primary osteoarthritis, right knee Procedures OTHER DIAGNOSTIC SERVICES-[facility] [address] [place] [address] [address] [place] [address] Juan Johnston MD [address] [facility], [address] [place] [address] Referral ID Status Reason Start Date Expiration Date Visits Re quested Visits Authorized [id number] Closed 12/08/2022 12/08/2023 1 1 Reason Onset [...] excess calories (HCC) Procedures eval & treat [facility] [place] [address] [place] [address] Phone: tel: fax: Referral ID Status Reason Start Date Expiration Date V isits Requested Visits Authorized [id number] Pending Review 06/19/2024 12/16/2024 1 1 Reason [...] Provid er: Loreto Jenkins RN) lidocaine-EPINEPHrine 1 %-1:929180 injection 8 mL 8 mL, IntraDERmal, ONCE, [...] Care Teams (unrecognized sec tion and content) Ground Crew Lines Person Relationship Specialty Start Date End Date Kashif Garciaua [address] [address] PCP - General 09/27/17 Ground Crew Lines Person Relationship Specialty Start Date End Date Jose Omi, [address] [address] PCP - General 09/27/17 Ground Crew Lines Person Relationship Specialty Start Date End Date Jose Omi, [address] [address] PCP - General 09/27/17 Ground Crew Lines Person Relationship Specialty Start Date End Date Jose Omi [address] [place] [address] PCP - General 09/27/17 Ground Crew Lines Person Relationship Specialty Start Date End Date Omi Garcia [address] [address] PCP - General Family Practice 07/31/16 Ground Crew Lines Person Relationship Specialty Start Date End Date Omi Garcia [address] [address] PCP - General Family Practice 07/31/16 Ground Crew Lines Person Relationship Specialty Start Date End Date Omi Garcia DO [address] [place] [address], [place] [address] PCP - General 09/27/17 Ground Crew Lines Person Relationship Specialty Start Date End Date Omi Garcia DO [address] [place] [address] PCP - General 09/27/17 Ground Crew Lines Person Relationship Specialty Start Date End Date Omi Garcia DO [address] [place] [address], [place] [address] PCP - General 09/27/17 Ground Crew Lines Person Relationship Specialty Start Date End Date Jose Omi, DO [address] [place] [address] PCP - General 09/27/17 Team Status: Active [...] Dr. Jose Nagel MD Attending Provider Active Ground Crew Lines Person Relationship Specialty Start Date End Date Jose Omi, DO [address] [place] [phone] PCP - General 09/27/17 Ground Crew Lines Person Relationship Specialty Start Date End Date Jose Omi, DO [address] [place] [phone] PCP - General 09/27/17 Ground Crew Lines Person Relationship Specialty Start Date End Date Omi Garcia DO [address] [place] [phone] PCP - General 09/27/17 Ground Crew Lines Person Relationship Specialty Start Date End Date Omi Garcia DO [address] [place] [phone] PCP - General 09/27/17 Ground Crew Lines Person Relationship Specialty Start Date End Date Omi Garcia DO [address] [place] [phone] PCP - General 09/27/17 Ground Crew Lines Person Relationship Specialty Start Date End Date Omi Garcia DO [address] [place], [phone] PCP - General 09/27/17 Team Status: Inactive Member Role Status Dates Dr. Omi Garcia DO Primary Care Provider Active Dr. Laura Rolon MD Emergency Provider Active Ground Crew Lines Person Relationship Specialty Start Date End Date Omi Garcia DO [address] [place] [phone] PCP - General 09/27/17 Team Status: Inactive Member Role Status Dates Dr. Omi Garcia DO Primary Care Provider Active Dr. Laura Rolon MD Attending Provider, Emergency Provider Active Ground Crew Lines Person Relationship Specialty Start Date End Date Omi Garcia DO [address] [place] [phone] PCP - General 09/27/17 Ground Crew Lines Person Relationship Specialty Start Date End Date Omi Garcia DO [address] [place] [phone] PCP - General 09/27/17 Ground Crew Lines Person Relationship Specialty Start Date End Date Omi Garcia DO [address] [place] [phone] PCP - General 09/27/17 Ground Crew Lines Person Relationship Specialty Start Date End Date JoseOmi smith DO [address] [place] [address] PCP - General 09/27/17 Ground Crew Lines Person Relationship Specialty Start Date End Date Jose DO Omi [address] [place] [phone] PCP - General 09/27/17 Ground Crew Lines Person Relationship Specialty Start Date End Date Omi Garcia DO [address] [place] [address] PCP - General 09/27/17 Ground Crew Lines Person Relationship Specialty Start Date End Date Omi Garcia DO [address] [place] [address] PCP - General 09/27/17 Ground Crew Lines Person Relationship Specialty Start Date End Date Omi Garcia DO [address] [place] [address] PCP - General 09/27/17 Team [...] June 28, 2024 End: June 28, 2024 Ground Crew Lines Person Relationship Specialty Start Date End Date Omi Garcia DO [address], [phone] PCP - General 09/27/17 [employer] Person Relationship Specialty Start Date End Date Omi Garcia DO [address] [place] [phone] PCP - General 09/27/17 [employer] Person Relationship Specialty Start Date End Date Omi Garcia DO [address] [place] [phone] PCP - General 09/27/17 [employer] Person Relationship Specialty Start Date End Date Marcia GarciashuaDO [address] [place] [phone] PCP - General 09/27/17 [employer] Person Relationship Specialty Start Date End Date Kashif GarciauaDO [address] [place] [phone] PCP - General 09/27/17 [employer] Person Relationship Specialty Start Date End Date Omi Garcia DO [address] [phone] PCP - General 09/27/17 Team Status: Active [...] Referring Provider Active Start: December 27, 2024 [employer] Person Relationship Specialty Start Date End Date Omi Garcia [place] [phone] PCP - General 09/27/17 Source Comments (unrecognize d section and content) In the event this informatio n is protected by the Federal Confidentiality of Alcohol and Drug Abuse Patient Records regulations: The Federal rules restrict any use of the information to criminally investigate or prosecute any alcohol or drug abuse patient.[facility] the event this information is protected by the Federal Confidentiality of Alcohol and Drug Abuse Patient Records regulations: The Federal rules restrict any use of the information to criminally investigate or prosecute any alcohol or drug abuse patient.[facility] the event this information is protected by the Federal Confidentiality of Alcohol and Drug Abuse Patient Records regulations: The Federal rules restrict any use of the information to criminally investigate or prosecute any alcohol or drug abuse patient.[facility] Goals (unrecognized section and content) Goals may [...] BE BASED ON THE PRIMARY CLINICAL RECORDS. [facility]. provides no warranty or guarantee of the accuracy or completeness of information in this document.
== END | disposition home or self-care (01) ==
PROVIDERS: PCP Family Medicine; Referring Provider Emergency Medicine; Visit Provider Emergency Medicine
DX: R07.9 Chest pain, unspecified (principal)
CPT/HCPCS: A4216; J2785

== ENCOUNTER → 2025-03-25 | Outpatient (CLI) | payer OTHER, SELFPAY ==
--- NOTE | 2025-03-25 13:15 | STEWCON_ITS ---
Reason For Study Reason For Study: Chest Pain Stress Results Protocol: Dobutamine Stress Echo With Definity Maximum Predicted HR: 158 bpm Target HR: 134 bpm % Maximum Predicted HR: 90 % DurationHeart Rate Stage (mm:ss) (bpm) BP Comment Baseline 76 129/59No Chest Pain; 3 ML Diluted Definity DSE 10 MCG 3:41 83 133/62No Chest Pain DSE 20 MCG 3:00 130 139/57No Chest Pain; Flutters DSE 30 MCG 2:36 142 125/56No Chest Pain Recovery 96 116/55No Chest Pain Stress Duration: 9:17 mm:ss Maximum Stress HR: 142 bpm METS: 1 Baseline Echocardiogram Findings Stress Echo Wall motion Data Resting WM Intermediate WM Stress WM Resting Wall Motion Wall Motion Int. Wall Motion Stress Normal resting wall motion. Estimated All segments Hyperkinetic. All segments Hyperkinetic. LVEF 60%. Peak dobutamine infusion LVEF 75%. EKG Data Baseline ECG normal sinus rhythm with nonspecific T wave changes. No ischemic changes noted with dobutamine infusion or in recovery. ECHO/Stress Test Echo W/Contrast Interpretation Summary No ischemic ECG changes with dobutamine infusion or in recovery. No chest pain reported. Baseline LV function normal. All wall segments hyperdynamic with dobutamine infusion. No regional wall motio n abnormality noted. Negative dobutamine stress echocardiogram. Ordering Physician: Kedar Calvert Referring Physician: Elia Santillan Performed By: Alberta Denise, MARGARITO, RVT
== END | disposition home or self-care (01) ==
LOC: CVS 13:15
PROVIDERS: PCP Family Medicine; Referring Provider Emergency Medicine; Visit Provider Internal Medicine Cardiovascular Disease
DX: R07.9 Chest pain, unspecified (principal)
CPT/HCPCS: 93017; 93350; Q9957; A4216; C8928